=== PATIENT | female | born 1975 | race Caucasian/White ===

== ENCOUNTER 2020-07-01 10:02 | Inpatient (IN) | payer MEDICARE, MEDICAID, SELFPAY ==
[2020-07-01] VITALS (13 sets, daily range): BP systolic 102–143; BP diastolic 60–91; PULSE 59–150; RESP 12–20; TEMP 36.6–36.7; O2SAT 96–100; BMI 29.9
--- NOTE | 2020-07-01 | ECG_ITS ---
Test Reason : REPEAT Blood Pressure : / mmHG Vent. Rate : 060 BPM Atrial Rate : 060 BPM P-R Int : 160 ms QRS Dur : 084 ms QT Int : 412 ms P-R-T Axes : 036 033 048 degrees QTc Int : 412 ms Normal sinus rhythm Low voltage QRS Borderline ECG When compared with ECG of 01-JUL-2020 10:54, Sinus rhythm has replaced Atrial fibrillation Vent. rate has decreased BY 34 BPM Referred By: Roslyn Dietrich Electronically Signed By:MARÍA ELENA CRAIG MD
--- NOTE | ~2020-07-01 | XR_ITS ---
EXAMINATION: XR CHEST CLINICAL INFORMATION: Shortness of breath COMPARISON: None TECHNIQUE: Frontal view of the chest was obtained. FINDINGS: No significant abnormality is noted involving the heart, lungs, mediastinum, bony thorax or soft tissues. XR/XR chest 1V IMPRESSION: No acute disease within the chest.
--- NOTE | ~2020-07-01 | CT_ITS ---
EXAMINATION: CT ABDOMEN AND PELVIS WITHOUT CONTRAST CLINICAL INFORMATION: Abdominal pain, Crohn's. COMPARISON: None TECHNIQUE: Multidetector volumetric imaging was performed from the superior aspect of the liver through the pubic symphysis. Sagittal and coronal reformatted images were obtained on the technologist's workstation. This CT examination was performed using dose optimization techniques as appropriate, variously including the following: *Automated exposure control *Adjustment of mA and/or kV according to patient size (this includes techniques or standardized protocols for targeted exams where dose is matched to indication/reason for exam; i.e. extremities or head) *Use of iterative reconstruction technique DLP: 604 mGy-cm. FINDINGS: LUNG BASES: There is minimal dependent bibasilar atelectasis. Heart size is normal. LIVER, GALLBLADDER, AND BILIARY TREE: The liver is normal in size, shape, and attenuation. No focal hepatic lesion or biliary ductal dilatation is present. The gallbladder has been surgically removed. PANCREAS: Unremarkable. SPLEEN: Unremarkable. ADRENAL GLANDS: Unremarkable. KIDNEYS AND URETERS: The kidneys are normal in size, shape, and attenuation. No hydronephrosis, hydroureter, or calculi seen. No perinephric stranding. BLADDER: Unremarkable. GASTROINTESTINAL TRACT: There is a diffuse mural thickening involving a long segment of small bowel likely ileum in the upper pelvis. Just proximal to this abnormal segment is annular sutures, likely from previous intervention with mild to moderate distention of proximal segment with air-fluid level. There is best visualized on axial images 40 through 56/3. It appears part of the colon has been removed. ABDOMINAL WALL: No significant hernia is appreciated. LYMPH NODES: There are a few, scattered, small mesenteric lymph nodes with the largest lymph node measuring 1.5 cm, axial image 42/3. VASCULAR: Unremarkable. PELVIC VISCERA: There is an IUD noted well located within the endometrial canal. OSSEOUS STRUCTURES: Unremarkable. CT/CT abdomen pelvis wo con IMPRESSION: A small segment of small bowel mural thickening in the upper pelvis, likely related to Crohn's disease. There is anastomotic segment with sutures proximal to the abnormal segment, which is mildly dilated with air-fluid levels. The majority of colon appears to be removed. Correlate with clinical exam. There is no free air or free fluid. Inflammatory mesenteric lymph nodes seen.
--- NOTE | 2020-07-01 10:27 | ECG_ITS ---
Test Reason : TAHY Blood Pressure : / mmHG Vent. Rate : 148 BPM Atrial Rate : 147 BPM P-R Int : 000 ms QRS Dur : 078 ms QT Int : 222 ms P-R-T Axes : 000 036 242 degrees QTc Int : 348 ms Atrial fibrillation with rapid ventricular response Low voltage QRS Nonspecific ST-T changes Abnormal ECG When compared with ECG of 01-JUL-2020 09:10, Atrial fibrillation has replaced Sinus rhythm Vent. rate has increased BY 73 BPM Referred By: Roslyn Dietrich Electronically Signed By:Ezekiel White
--- NOTE | 2020-07-01 10:40 | ECG_ITS ---
Test Reason : REPEAT, TACHY Blood Pressure : / mmHG Vent. Rate : 094 BPM Atrial Rate : 122 BPM P-R Int : 000 ms QRS Dur : 074 ms QT Int : 332 ms P-R-T Axes : 000 043 035 degrees QTc Int : 415 ms Atrial fibrillation with conversion pause and transient sinus rhythm Low voltage QRS Septal infarct (cited on or before 01-JUL-2020) Abnormal ECG When compared with ECG of 01-JUL-2020 09:58, Atrial fibrillation has replaced Sinus rhythm Referred By: Roslyn Dietrich Electronically Signed By:Ezekiel White
--- NOTE | 2020-07-01 10:41 | ED_ITS ---
HPI - Arrhythmia/Palpitations General Chief Complaint: Arrhythmia/Palpitations Stated Complaint: PALPITATIONS Time Seen by Provider: 07/01/20 10:27 Source: patient Mode of arrival: ambulatory Limitations: no limitations History of Present Illness HPI narrative: 45 y/o female with history of Crohn's disease s/p right hemicolectomy in 2014, depression, chronic pain on chronic opiates who presents to the ED with on/off palpitations for the last 4 days. She states they occur at rest or with exertion, can last seconds to minutes. Today the frequency and intensity increased so she had her daughter bring her to the hospital. She denies chest pain but admits to SOB, anxiety and feeling that her heart isn't right. She states for the last 2 weeks her Crohn's has been less controlled and she is having 8-10 episodes on non-bloody diarrhea per day. She has a GI appointment in August and has been off any treatment for Crohn's for some time with plans to start a biologic. She denies fever, chills, N/V. Denies ETOH or drug use. MD complaint: palpitations Onset (ago): day(s) (4) Duration: intermittent Severity: severe Context: occurred during rest and occurred during exertion Associated symptoms: shortness of breath and anxiety Related Data Allergies Allergy/AdvReac Type Severity Reaction Status Date / Time azithromycin [AZITHROMYCIN] Allergy Unknown HIVES Unverified 01/05/20 15:47 Penicillins [PCN] Allergy Unknown HIVES Unverified 01/05/20 15:47 erythromycin base Allergy Hives Verified 07/01/20 11:20 Review of Systems Review of Systems: Constitutional: No Fever, No Chills ENT/Mouth: No sore throat, No Rhinorrhea, No Swallowing Difficulty Cardiovascular: No Chest Pain, + SOB, No Orthopnea, No Edema Respiratory: No Cough, No Sputum, No Wheezing, No dyspnea Gastrointestinal: + Nausea, No Vomiting, No Diarrhea, No abdominal Pain Genitourinary: No Dysuria, No Urinary Frequency, No Hematuria Musculoskeletal: No joint pain, No Myalgias Skin: No Skin Lesions, No rash Neuro: No Weakness, No Numbness, + Dizziness, No Headache Psych: +Anxiety/Panic, No Depression Heme/Lymph: No Bruising, No Lymphadenopathy Endocrine: No Polyuria, No Polydipsia PMFSH Past Medical History Medical History Anxiety Crohn disease Social History Social History Advance Directives: No Advance Directives Information Provided: No Physical Exam Vital Signs: Vital Signs: Last Vital Signs Temp 98 F 07/01/20 10:37 Pulse 59 07/01/20 12:34 Resp 17 07/01/20 12:34 BP 132/74 07/01/20 12:34 Pulse Ox 100 07/01/20 11:09 Body Mass Index 29.9 Appearance: Alert. Oriented X3. Anxious, fatigued. Eyes: Pupils equal, round and reactive to light. ENT: Pharynx normal. Neck: Normal inspection. Neck supple. CVS: irregularly irregular, rapid rate. Pulses normal. Respiratory: No respiratory distress. Breath sounds normal. Abdomen: Soft with mild diffuse tenderness. well healed longitudinal scar consistent with known hemicolectomy. +BS x4 Skin: Skin warm and dry. Normal skin color. Normal skin turgor. No rashes. Extremities: No lower extremity edema. Negative Naveed's sign. Neuro: Oriented X 3. No motor deficit. No sensory deficit. Course Course Course Narrative: 45 yo female presenting with palpitations x4 days. Initially in normal sinus rhythm but when walked back to the treatment room, palpitations started and HR increased to 150's, briefly up to 180's. BP stable 140 systolic. Initial EKG reading as rapid afib vs SVT. Vagal manuvers attempted with only brief improvement in HR to 120-130's and then right back up to 150-160's. Cardizem 20 mg IVP ordered for rate control. 1L IVF hung. Will require frequent reassessment, repeat EKGs and close hemodynamic monitoring. Reevaluation(s) Reevaluation #1: 11 am - After 20 mg IV cardizem very minimal improvement in HR, another 10 mg IV ordered. HR remained 130s after cardizem 30 mg so trial of IV lopressor 5 mg given. HR remained 90-130s and she remained symptomatic. Dr. White consulted. Recommended ruling out PE, cardizem as needed for rate control. Reevaluation #2: 12:45 - after initiation of cardizem infusion patient converted to normal sinus rhythm, HR 62 bpm. DDIMER negative Spoke with Zari Yi PA-C who accepts patient for admission. Consultations Consultation #1: Dr. White, Cardiology MDM - Arrhythmia/Palpitations Differential Diagnosis Differential diagnosis: Likely palpitations, anxiety, sinus tachycardia, artial fibrillation, artial flutter, ventricular premature beats, supraventricular tachycardia, ventricular tachycardia and WPW Medical Records Attestation: I reviewed the patient's medical records. Lab Data Attestation: I reviewed the patient's lab results. Result diagrams: 07/01/20 10:57 07/01/20 10:57 Labs: Lab Results 07/01/20 07/01/20 07/01/20 Range/Units 10:57 10:57 10:57 WBC 7.1 (4.8-10.8) X10*3/uL RBC 4.53 (4.20-5.50) X10*6/uL Hgb 11.6 L (12.0-16.0) g/dl Hct 36.9 L (37-47) % MCV 81.5 (80-98) fL MCH 25.6 L (27.0-33.0) pg MCHC 31.4 (31.0-35.0) g/dl RDW 14.2 (11.0-16.0) % Plt Count 243 (160-400) X10*3/uL MPV 9.8 (9.4-12.3) fL Immature Gran % (Auto) 0.4 (0.0-0.4) % Neut % (Auto) 69.2 (45-73) % Lymph % (Auto) 20.9 (20-40) % Mason % (Auto) 8.1 (2-11) % Eos % (Auto) 1.0 (0-4) % Baso % (Auto) 0.4 (0-2) % Lymph # (Auto) 1.5 (1.2-4.9) X10*3/uL Mason # (Auto) 0.6 (0.1-1.2) X10*3/uL Eos # (Auto) 0.1 (0.0-0.4) X10*3/uL Baso # (Auto) 0.0 (0.0-0.2) X10*3/uL Abs Immat Gran (auto) 0.03 (0.00-0.03) X10*3/uL Absolute Neuts (auto) 4.9 (2.0-8.3) X10*3/uL Absolute Nucleated RBC 0.000 (0.0-0.012) X10*3/uL Nucleated RBC % (auto) 0.0 (0.0-0.2) /100WBC D-Dimer < 200 NG/ML Hold Blue Top SEE NOTE Sodium 140 (135-145) mmol/L Potassium 4.2 (3.3-5.1) mmol/L Chloride 108 (96-108) mmol/L Carbon Dioxide 24 (22-29) mmol/L Anion Gap 12 (12-20) BUN 8 L (9-16) mg/dL Creatinine 0.71 (0.5-1.4) mg/dL Estim Creat Clear Calc 110.4 Estimated GFR > 60 Random Glucose 92 (60-115) mg/dL Calcium 8.3 L (8.4-10.2) mg/dL Magnesium 1.9 (1.6-2.6) mg/dL Total Bilirubin 0.3 (0.0-1.0) mg/dL Direct Bilirubin 0.2 (0.0-0.5) mg/dL AST 29 (5-31) U/L ALT 31 (0-31) U/L Alkaline Phosphatase 86 (39-117) U/L Troponin I High Sens (<3.5-17.0) ng/L Total Protein 6.8 (6.5-8.0) g/dL Albumin 3.9 (3.5-5.0) g/dL TSH 1.08 (0.32-4.0) uIU/mL Urine Color Urine Appearance Urine pH (5.0-8.0) Ur Specific [place] (1.005-1.025) Urine Protein (NEG-TRACE) MG/DL Urine Glucose (UA) (NEG) MG/DL Urine Ketones (NEG) MG/DL Urine Blood (NEG) Urine Nitrite (NEG) Ur Leukocyte Esterase (NEG) Urine Opiates Screen (Not Detect) Ur Barbiturates Screen (Not Detect) Ur Phencyclidine Scrn (Not Detect) Ur Amphetamines Screen (Not Detect) U Benzodiazepines Scrn (Not Detect) Urine Cocaine Screen (Not Detect) U Marijuana (THC) Screen (Not Detect) Ethyl Alcohol mg/dL COVID-19 ([facility]DISON) (Negative) COVID-19 Clin Com 07/01/20 07/01/20 07/01/20 Range/Units 10:57 10:57 10:57 WBC (4.8-10.8) X10*3/uL RBC (4.20-5.50) X10*6/uL Hgb (12.0-16.0) g/dl Hct (37-47) % MCV (80-98) fL MCH (27.0-33.0) pg MCHC (31.0-35.0) g/dl RDW (11.0-16.0) % Plt Count (160-400) X10*3/uL MPV (9.4-12.3) fL Immature Gran % (Auto) (0.0-0.4) % Neut % (Auto) (45-73) % Lymph % (Auto) (20-40) % Mason % (Auto) (2-11) % Eos % (Auto) (0-4) % Baso % (Auto) (0-2) % Lymph # (Auto) (1.2-4.9) X10*3/uL Mason # (Auto) (0.1-1.2) X10*3/uL Eos # (Auto) (0.0-0.4) X10*3/uL Baso # (Auto) (0.0-0.2) X10*3/uL Abs Immat Gran (auto) (0.00-0.03) X10*3/uL Absolute Neuts (auto) (2.0-8.3) X10*3/uL Absolute Nucleated RBC (0.0-0.012) X10*3/uL Nucleated RBC % (auto) (0.0-0.2) /100WBC D-Dimer NG/ML Hold Blue Top Sodium (135-145) mmol/L Potassium (3.3-5.1) mmol/L Chloride (96-108) mmol/L Carbon Dioxide (22-29) mmol/L Anion Gap (12-20) BUN (9-16) mg/dL Creatinine (0.5-1.4) mg/dL Estim Creat Clear Calc Estimated GFR Random Glucose (60-115) mg/dL Calcium (8.4-10.2) mg/dL Magnesium (1.6-2.6) mg/dL Total Bilirubin (0.0-1.0) mg/dL Direct Bilirubin (0.0-0.5) mg/dL AST (5-31) U/L ALT (0-31) U/L Alkaline Phosphatase (39-117) U/L Troponin I High Sens < 3.5 (<3.5-17.0) ng/L Total Protein (6.5-8.0) g/dL Albumin (3.5-5.0) g/dL TSH (0.32-4.0) uIU/mL Urine Color Urine Appearance Urine pH (5.0-8.0) Ur Specific [place] (1.005-1.025) Urine Protein (NEG-TRACE) MG/DL Urine Glucose (UA) (NEG) MG/DL Urine Ketones (NEG) MG/DL Urine Blood (NEG) Urine Nitrite (NEG) Ur Leukocyte Esterase (NEG) Urine Opiates Screen (Not Detect) Ur Barbiturates Screen (Not Detect) Ur Phencyclidine Scrn (Not Detect) Ur Amphetamines Screen (Not Detect) U Benzodiazepines Scrn (Not Detect) Urine Cocaine Screen (Not Detect) U Marijuana (THC) Screen (Not Detect) Ethyl Alcohol < 10 mg/dL COVID-19 (ADDISON) Negative (Negative) COVID-19 Clin Com See Note 07/01/20 07/01/20 Range/Units 11:38 11:38 WBC (4.8-10.8) X10*3/uL RBC (4.20-5.50) X10*6/uL Hgb (12.0-16.0) g/dl Hct (37-47) % MCV (80-98) fL MCH (27.0-33.0) pg MCHC (31.0-35.0) g/dl RDW (11.0-16.0) % Plt Count (160-400) X10*3/uL MPV (9.4-12.3) fL Immature Gran % (Auto) (0.0-0.4) % Neut % (Auto) (45-73) % Lymph % (Auto) (20-40) % Mason % (Auto) (2-11) % Eos % (Auto) (0-4) % Baso % (Auto) (0-2) % Lymph # (Auto) (1.2-4.9) X10*3/uL Mason # (Auto) (0.1-1.2) X10*3/uL Eos # (Auto) (0.0-0.4) X10*3/uL Baso # (Auto) (0.0-0.2) X10*3/uL Abs Immat Gran (auto) (0.00-0.03) X10*3/uL Absolute Neuts (auto) (2.0-8.3) X10*3/uL Absolute Nucleated RBC (0.0-0.012) X10*3/uL Nucleated RBC % (auto) (0.0-0.2) /100WBC D-Dimer NG/ML Hold Blue Top Sodium (135-145) mmol/L Potassium (3.3-5.1) mmol/L Chloride (96-108) mmol/L Carbon Dioxide (22-29) mmol/L Anion Gap (12-20) BUN (9-16) mg/dL Creatinine (0.5-1.4) mg/dL Estim Creat Clear Calc Estimated GFR Random Glucose (60-115) mg/dL Calcium (8.4-10.2) mg/dL Magnesium (1.6-2.6) mg/dL Total Bilirubin (0.0-1.0) mg/dL Direct Bilirubin (0.0-0.5) mg/dL AST (5-31) U/L ALT (0-31) U/L Alkaline Phosphatase (39-117) U/L Troponin I High Sens (<3.5-17.0) ng/L Total Protein (6.5-8.0) g/dL Albumin (3.5-5.0) g/dL TSH (0.32-4.0) uIU/mL Urine Color YELLOW Urine Appearance CLEAR Urine pH 6.0 (5.0-8.0) Ur Specific [place] 1.010 (1.005-1.025) Urine Protein NEG (NEG-TRACE) MG/DL Urine Glucose (UA) NEG (NEG) MG/DL Urine Ketones NEG (NEG) MG/DL Urine Blood NEG (NEG) Urine Nitrite NEG (NEG) Ur Leukocyte Esterase NEG (NEG) Urine Opiates Screen Not Detected (Not Detect) Ur Barbiturates Screen Not Detected (Not Detect) Ur Phencyclidine Scrn Not Detected (Not Detect) Ur Amphetamines Screen Not Detected (Not Detect) U Benzodiazepines Scrn Not Detected (Not Detect) Urine Cocaine Screen Not Detected (Not Detect) U Marijuana (THC) Screen Not Detected (Not Detect) Ethyl Alcohol mg/dL COVID-19 ([facility]DISON) (Negative) COVID-19 Clin Com ECG Data Attestation: I personally reviewed and interpreted this ECG as follows: ECG interpretation date: 07/01/20 Interpretation: #1 9:10 am - normal sinus rhythm, HR 75 bpm, normal AR interval, normal QRS, normal QTc #2 9:28 am - atrial fibrillation with RVR, HR 148 bpm, normal QTc #3 9:31 am - atrial fibtillation with RVR, HR 152, normal QTc #4 9:58 am - atrial fibtillation with RVR, HR 127, normal QTc #5 10:54 am - atrial fibrillation, HR 94 bpm, brief conversion to normal sinus with p-wave followed by QRS then back into atrial fibrillation, no ST segment elevations, QTc normal. Critical Care Time Critical Care Time Critical Care Time: Yes Total Critical Care Time: 60 Attestation: I attest to critical care time spent caring for this patient with new onset rapid afib requiring multiple IV doses of rate controlling medications, frequent bedside reassessment of hemodynamics, & coordination of care with maintenance department manager. Discharge Plan Discharge Clinical Impression: Atrial fibrillation with RVR Patient Disposition: Admitted As Inpatient
[2020-07-01] MEDS: dilTIAZem HCL 50 MG/10 ML VIAL 20 MG IVPUSH (10:43)
[2020-07-01] MEDS: dilTIAZem HCL 50 MG/10 ML VIAL 10 MG IVPUSH (10:58)
--- NOTE | 2020-07-01 11:07 | ECG_ITS ---
Test Reason : PALPITATIONS Blood Pressure : / mmHG Vent. Rate : 075 BPM Atrial Rate : 075 BPM P-R Int : 148 ms QRS Dur : 076 ms QT Int : 360 ms P-R-T Axes : 027 024 040 degrees QTc Int : 402 ms Normal sinus rhythm Low voltage QRS Borderline ECG No previous ECGs available Referred By: Roslyn Dietrich Electronically Signed By:Ezekiel White
[2020-07-01 11:11] LABS: Basophils Percent Auto 0.4 % (0-2); Eosinophils Absolute Auto 0.1 X10*3/uL (0.0-0.4); Hematocrit 36.9 % (37-47); Hemoglobin 11.6 g/dl (12.0-16.0); Imm Gran Abs Auto 0.03 X10*3/uL (0.00-0.03); Imm Gran Pct Auto 0.4 % (0.0-0.4); Lymphocytes Absolute Auto 1.5 X10*3/uL (1.2-4.9); Lymphocytes Percent Auto 20.9 % (20-40); MANUAL DIFF FLAG NO; Mean Corpuscular HGB Conc 31.4 g/dl (31.0-35.0); Mean Corpuscular Hemoglobin 25.6 pg (27.0-33.0); Mean Corpuscular Volume 81.5 fL (80-98); Mean Platelet Volume 9.8 fL (9.4-12.3); Monocytes Absolute Auto 0.6 X10*3/uL (0.1-1.2); Monocytes Percent Auto 8.1 % (2-11); Neutrophils Absolute Auto 4.9 X10*3/uL (2.0-8.3); Neutrophils Percent Auto 69.2 % (45-73); Platelet Count 243 X10*3/uL (160-400); Red Blood Count 4.53 X10*6/uL (4.20-5.50); Red Cell Distribution Width 14.2 % (11.0-16.0); White Blood Count 7.1 X10*3/uL (4.8-10.8)
[2020-07-01 11:27] LABS: COVID-19 Test Negative (Negative); IDNOW Serial# 9DD0AD1C
[2020-07-01 11:35] LABS: Ethanol < 10 mg/dL
[2020-07-01] MEDS: Metoprolol Tartrate 5 MG/5 ML VIAL IVPUSH (11:37)
[2020-07-01 11:38] LABS: Alanine Aminotransferase 31 U/L (0-31); Albumin Level 3.9 g/dL (3.5-5.0); Alkaline Phosphatase 86 U/L (39-117); Anion Gap 12 (12-20); Aspartate Amino Transferase 29 U/L (5-31); Bilirubin Direct 0.2 mg/dL (0.0-0.5); Bilirubin Total 0.3 mg/dL (0.0-1.0); Blood Urea Nitrogen 8 mg/dL (9-16); Calcium 8.3 mg/dL (8.4-10.2); Carbon Dioxide 24 mmol/L (22-29); Chloride 108 mmol/L (96-108); Creatinine Clr Calc Pharmacy 110.4; Estimated Glomerular Filt Rate > 60; Glucose Random 92 mg/dL (60-115); Magnesium 1.9 mg/dL (1.6-2.6); Potassium 4.2 mmol/L (3.3-5.1); Sodium 140 mmol/L (135-145); Total Protein 6.8 g/dL (6.5-8.0)
[2020-07-01 11:43] LABS: Troponin-I High Sensitivity < 3.5 ng/L (<3.5-17.0)
--- NOTE | 2020-07-01 11:53 | ECG_ITS ---
Test Reason : TAHY Blood Pressure : / mmHG Vent. Rate : 127 BPM Atrial Rate : 127 BPM P-R Int : 200 ms QRS Dur : 080 ms QT Int : 320 ms P-R-T Axes : 000 041 032 degrees QTc Int : 465 ms Sinus tachycardia Low voltage QRS Abnormal ECG When compared with ECG of 01-JUL-2020 09:31, Sinus tachycardia has replaced Afib Non-specific change in ST segment in Inferior leads Referred By: Roslyn Dietrich Electronically Signed By:Ezekiel White
[2020-07-01 11:57] LABS: Glucose Urine UA NEG (NEG); Leukocyte Esterase Urine NEG (NEG); Nitrite Urine NEG (NEG); Urine Blood NEG (NEG); Urine Ketones NEG (NEG); Urine Protein NEG (NEG-TRACE)
[2020-07-01 11:58] LABS: TSH reflex Free T4 1.08 uIU/mL (0.32-4.0)
[2020-07-01 12:04] LABS: Color Urine YELLOW
[2020-07-01 12:05] LABS: Appearance Urine CLEAR
[2020-07-01] MEDS: Magnesium Sulfate/H2O 2 GM/50 ML PIGGYBACK IV (12:20)
[2020-07-01] MEDS: dilTIAZem HCL 125 MG in 0.9 % Sodium Chloride 100 ML IVCONT (12:28)
[2020-07-01 12:40] LABS: D Dimer < 200 NG/ML
[2020-07-01 13:23] LABS: Amphetamine Screen Urine Not Detected (Not Detect); Barbiturates, Urine Not Detected (Not Detect); Benzodiazepines Screen Urine Not Detected (Not Detect); Cannabinoid Screen Urine Not Detected (Not Detect); Cocaine Screen Urine Not Detected (Not Detect); Opiate Screen Urine Not Detected (Not Detect); Phencyclidine Screen Urine Not Detected (Not Detect)
--- NOTE | 2020-07-01 14:08 | PM.IMHP ---
History of Present Illness Date of Service: 07/01/20 Chief Complaint: palpitations This is a 45 year old female with a history of Crohns disease and anxiety who presents to the ED with palpitations. She reports intermittent palpitations over the past 4 days usually lasting minutes. These episodes are often associated with dizziness. Today she had associated chest pressure and shortness of breath. Her symptoms persisted longer than her previous episodes as well. This prompted her to come to the emergency department for evaluation. On arrival she was noted to be tachycardic with a heart rate in the 150s. EKG was consistent with atrial fibrillation with rapid ventricular response. She received IV lopressor followed by 2 doses of IV cardizem before being started on a cardizem drip. Her labwork was checked and was unremarkable including ddimer <200, TSH 1.08, magnesium 1.9. She was then noted to convert back into normal sinus rhythm. She is also reporting numerous episodes of non-bloody diarrhea daily. She denies fever or chills. She is not currently on any medication for her Crohns disease. She has been on multiple medications in the past, but they have all caused side effects. Review of Systems Constitutional: Constitutional: Denies chills and Denies fever(s) Cardiovascular: Cardiovascular: Reports chest pain, Reports palpitations and Reports dyspnea Respiratory: Respiratory: Denies cough and Reports dyspnea Gastrointestinal: Gastrointestinal: Reports diarrhea Endocrine: Endocrine: Reports palpitations [facility] Medical History (Updated 07/01/20 @ 14:43 by ZAIN Pedersen) Anxiety Crohn disease Family History (Updated 07/01/20 @ 14:39 by ZAIN Pedersen) Father Atrial fibrillation Surgical History (Updated 07/01/20 @ 14:39 by ZAIN Pedersen) History of bowel resection Hx of cholecystectomy Social History (Updated 07/01/20 @ 14:40 by ZAIN Pedersen) Alcohol intake: current Alcohol intake frequency: holidays/special occasions only Smoking Status: Former smoker Use of substances other than those prescribed or required for medical reasons: No Advance Directives: No Advance Directives Information Provided: No Meds Allergies Allergy/AdvReac Type Severity Reaction Status Date / Time azithromycin [AZITHROMYCIN] Allergy Unknown HIVES Verified 07/01/20 14:17 Penicillins [PCN] Allergy Unknown HIVES Verified 07/01/20 14:17 erythromycin base Allergy Hives Verified 07/01/20 14:17 Active Medications: Current Medications Generic Name Dose Route Start Last Admin Trade Name Guzman PRN Reason Stop Dose Admin Pharmacy Consult 1 each 07/01/20 13:37 Consult Rx Perform Med Rec MISCELLANE ONCE PRN Consult order Home Medications Medication Instructions Recorded Confirmed Last Taken Type clonazepam 1 tab PO DAILY PRN 07/01/20 07/01/20 Unknown History cyanocobalamin (vitamin B-12) 1 tab PO DAILY 07/01/20 07/01/20 Unknown History oxycodone 1 tab PO Q6H PRN 07/01/20 07/01/20 1 Day Ago History ~06/30/20 sertraline 2 tab PO DAILY 07/01/20 07/01/20 Unknown History Physical Exam Vital Signs and Narrative: Vital Signs: Last Vital Signs Temp 98 F 07/01/20 10:37 Pulse 59 07/01/20 12:34 Resp 17 07/01/20 12:34 BP 132/74 07/01/20 12:34 Pulse Ox 100 07/01/20 11:09 Body Mass Index 29.9 Const: Nutritional Appearance: well nourished Orientation/consciousness: patient oriented x3 HENMT: Head: Yes normocephalic and Yes atraumatic Eyes: Sclerae: sclerae normal Chest: Chest palpation & inspection: normal inspection of the chest Resp: Effort & Inspection: normal respiratory effort and no respiratory distress Auscultation: clear to auscultation bilaterally Cardio: Rate: regular rate Rhythm: regular rhythm GI: Other: mild tenderness to palpation b/l lower quadrants; soft, non-distended Skin: General skin exam: no rashes or lesions noted Neuro: General: patient oriented x3 Cranial nerves: Yes CN's II-XII intact bilaterally and Yes Bilaterally intact EOM present Extrem: General: Yes normal to inspection Results Labs CBC and Chem 7: 07/01/20 10:57 07/01/20 10:57 Labs: Laboratory Results - last 24 hr 07/01/20 07/01/20 07/01/20 10:57 10:57 10:57 MCV 81.5 MCH 25.6 L MCHC 31.4 RDW 14.2 Plt Count 243 MPV 9.8 Immature Gran % (Auto) 0.4 Neut % (Auto) 69.2 Lymph % (Auto) 20.9 Heard % (Auto) 8.1 Eos % (Auto) 1.0 Baso % (Auto) 0.4 Lymph # (Auto) 1.5 Heard # (Auto) 0.6 Eos # (Auto) 0.1 Baso # (Auto) 0.0 Abs Immat Gran (auto) 0.03 Absolute Neuts (auto) 4.9 Absolute Nucleated RBC 0.000 Nucleated RBC % (auto) 0.0 D-Dimer < 200 Hold Blue Top SEE NOTE Anion Gap 12 Estim Creat Clear Calc 110.4 Estimated GFR > 60 Random Glucose 92 Calcium 8.3 L Magnesium 1.9 Total Bilirubin 0.3 Direct Bilirubin 0.2 AST 29 ALT 31 Alkaline Phosphatase 86 Troponin I High Sens Total Protein 6.8 Albumin 3.9 TSH 1.08 Urine Color Urine Appearance Urine pH Ur Specific [place] Urine Protein Urine Glucose (UA) Urine Ketones Urine Blood Urine Nitrite Ur Leukocyte Esterase Urine Opiates Screen Ur Barbiturates Screen Ur Phencyclidine Scrn Ur Amphetamines Screen U Benzodiazepines Scrn Urine Cocaine Screen U Marijuana (THC) Screen Ethyl Alcohol COVID-19 ([facility]DISON) COVID-FMS [facility] 07/01/20 07/01/20 07/01/20 10:57 10:57 10:57 MCV MCH MCHC RDW Plt Count MPV Immature Gran % (Auto) Neut % (Auto) Lymph % (Auto) Heard % (Auto) Eos % (Auto) Baso % (Auto) Lymph # (Auto) Heard # (Auto) Eos # (Auto) Baso # (Auto) Abs Immat Gran (auto) Absolute Neuts (auto) Absolute Nucleated RBC Nucleated RBC % (auto) D-Dimer Hold Blue Top Anion Gap Estim Creat Clear Calc Estimated GFR Random Glucose Calcium Magnesium Total Bilirubin Direct Bilirubin AST ALT Alkaline Phosphatase Troponin I High Sens < 3.5 Total Protein Albumin TSH Urine Color Urine Appearance Urine pH Ur Specific [place] Urine Protein Urine Glucose (UA) Urine Ketones Urine Blood Urine Nitrite Ur Leukocyte Esterase Urine Opiates Screen Ur Barbiturates Screen Ur Phencyclidine Scrn Ur Amphetamines Screen U Benzodiazepines Scrn Urine Cocaine Screen U Marijuana (THC) Screen Ethyl Alcohol < 10 COVID-19 (ADDISON) Negative COVID-FMS [facility] See Note 07/01/20 07/01/20 11:38 11:38 MCV MCH MCHC RDW Plt Count MPV Immature Gran % (Auto) Neut % (Auto) Lymph % (Auto) Heard % (Auto) Eos % (Auto) Baso % (Auto) Lymph # (Auto) Heard # (Auto) Eos # (Auto) Baso # (Auto) Abs Immat Gran (auto) Absolute Neuts (auto) Absolute Nucleated RBC Nucleated RBC % (auto) D-Dimer Hold Blue Top Anion Gap Estim Creat Clear Calc Estimated GFR Random Glucose Calcium Magnesium Total Bilirubin Direct Bilirubin AST ALT Alkaline Phosphatase Troponin I High Sens Total Protein Albumin TSH Urine Color YELLOW Urine Appearance CLEAR Urine pH 6.0 Ur Specific [place] 1.010 Urine Protein NEG Urine Glucose (UA) NEG Urine Ketones NEG Urine Blood NEG Urine Nitrite NEG Ur Leukocyte Esterase NEG Urine Opiates Screen Not Detected Ur Barbiturates Screen Not Detected Ur Phencyclidine Scrn Not Detected Ur Amphetamines Screen Not Detected U Benzodiazepines Scrn Not Detected Urine Cocaine Screen Not Detected U Marijuana (THC) Screen Not Detected Ethyl Alcohol COVID-19 (ADDISON) COVID-19 Clin Com Imaging Radiologist's Impressions: Impressions Chest X-Ray 07/01/20 10:40 IMPRESSION: No acute disease within the chest. Assessment and Plan (1) Atrial fibrillation with RVR: Status: Acute (2) Crohn's disease: Status: Acute This is a 45-year-old female with a history of Crohn's disease and anxiety who presents to the emergency department with 4 day history of intermittent palpitations found to be in rapid atrial fibrillation and also with numerous episodes of diarrhea daily New Onset Atrial fibrillation with rapid ventricular response Now back in NSR. Very symptomatic while in afib. May need CV if she goes back into afib, will AC with Eliquis TSH, electrolytes wnl -ECHO -cardiology consult Diarrhea likely r/t Crohn's flare -CT abdomen -stool studies -IV steroids -GI consult dvt ppx - eliquis code status - full code this case was discussed with Dr. peterson
--- NOTE | 2020-07-01 14:32 | PC.NURSE ---
PT REPORTS PALPITATIONS HAVE RESOLVED, DENIES CP, SOB. CURRENTLY IN NSR ON MONITOR, CARDIZEM GTT RUNNING AT 5MG/HR. SEEN BY HOSPITALIST. MED REC COMPLETED, AWAITNG BED ASSIGNMENT
[2020-07-01 15:06] LABS: Prothrombin Time 12.1 SEC (10.8-13.0)
[2020-07-01 15:09] LABS: C Reactive Protein 0.73 mg/dL (< or = 0.50)
[2020-07-01] MEDS: methylPREDNISolone Sod Succ 125 MG/2 ML VIAL 60 MG IVPUSH (15:11)
[2020-07-01] MEDS: 0.9 % Sodium Chloride Flush 3 ML SYRINGE IVFLUSH (16:55)
[2020-07-01] MEDS: oxyCODONE HCl Immed Release 5 MG TABLET 10 MG PO ×2 (17:16→23:52)
[2020-07-01] MEDS: Acetaminophen 325 MG TABLET 650 MG PO (17:16)
--- NOTE | 2020-07-01 20:21 | P.CNGI_ITS ---
History of Present Illness Data of Consult Service Date: 07/01/20 Requesting physician: Tello Ortiz Primary Care Provider: Balaji Ibanez MD HPI Reason for consult: Asked to see patient due to her hx of Crohn's disease/increase diarrhea 45 yo female who has known Crohn's disease. She has had the disease for 14 years. She is followed by Dr. Wynn @ [facility]. Recent colo (about 5 months ago) Showed some activity in the distal ileum. She had a fecal Calprotectin of 800. She has had trouble and not tolerated a lot of the basic treatments including biologics. She has refused recently to start a trial of Entyvio--concern re: side effects, immunosuppression--she says her anxiety has played a big role in her decision making. She had surgical resection in 2016 after a failed attempt(?) to dilate a terminal ileal stricture. (Presume ileo colonic resection to include the valve. Her diarrhea has increased recently. She has it mostly during the morning and after her evening meal. She had a cholecystectomy @ age 20. Review of Systems Constitutional: Constitutional: Reports malaise Comments: Most recently problems have been surrounding the palpitations. Cardiovascular: Cardiovascular: Reports rapid heart rate, Reports irregular heart rhythm, Reports palpitations (has not had before.) and Denies dyspnea Respiratory: Respiratory: Reports no additional respiratory complaints, Denies cough and Denies dyspnea Gastrointestinal: Comments: Has had a dx of Crohn's disease for 14 yr. No specific treatment for @ least 6 months--Major problem is diarrhea--see HPI Psychiatric: Psychiatric: Reports anxiety Endocrine: Endocrine: Reports palpitations (has not had before.) [facility] Past Medical History Medical History (Updated 07/02/20 @ 09:06 by Alfa Flores MD) Anxiety Crohn disease Paroxysmal atrial fibrillation Family History Family History Father Atrial fibrillation Surgical History Surgical History History of bowel resection Hx of cholecystectomy Social History Social History Household Members: Children Housing: House Do you presently have visiting nurse or other home services: No Alcohol intake: current Alcohol intake frequency: holidays/special occasions only Smoking Status: Former smoker Use of substances other than those prescribed or required for medical reasons: No Have you been hit, kicked, punched, or otherwise hurt by someone within the past year? If so, by whom?: No Do you feel safe in your current relationship?: Yes Is there a partner from a previous relationship who is making you feel unsafe now?: No Are you made to feel afraid or neglected: No Advance Directives: No Advance Directives Information Provided: No Do you have thoughts of harming others: None Do you have a plan to hurt others: No Plan Recently lost weight without trying: No service: No Current occupational status: employed Meds Allergies Allergy/AdvReac Type Severity Reaction Status Date / Time azithromycin [AZITHROMYCIN] Allergy Unknown HIVES Verified 07/01/20 14:17 Penicillins [PCN] Allergy Unknown HIVES Verified 07/01/20 14:17 erythromycin base Allergy Hives Verified 07/01/20 14:17 Active Medications: Current Medications Generic Name Dose Route Start Last Admin Trade Name Avtarq PRN Reason Stop Dose Admin Acetaminophen 650 mg 07/01/20 16:41 07/01/20 17:16 Acetaminophen 325 Mg Tablet PO 650 mg Q6H PRN Administration Pain, Mild (Pain Scale 1-3) Apixaban 5 mg 07/01/20 21:00 Apixaban 5 Mg Tablet PO BID WILLIAM Clonazepam 0.5 mg 07/01/20 16:41 Clonazepam 0.5 Mg Tablet PO DAILY PRN Anxiety Cyanocobalamin 1,000 mcg 07/02/20 09:00 Cyanocobalamin (Vitamin B-12) 1,000 Mcg Tablet PO DAILY WILLIAM Docusate Sodium 100 mg 07/01/20 16:41 Docusate Sodium 100 Mg Capsule PO DAILY PRN Constipation Methylprednisolone Sodium Succinate 60 mg 07/01/20 14:30 07/01/20 15:11 Methylprednisolone Sod Succ 125 Mg/2 Ml Vial IVPUSH 60 mg Q12H WILLIAM Administration Ondansetron HCl 4 mg 07/01/20 16:41 Ondansetron Hcl 4 Mg/2 Ml Vial IVPUSH Q8H PRN Nausea and Vomiting Oxycodone HCl 10 mg 07/01/20 16:41 07/01/20 17:16 Oxycodone Hcl Immed Release 5 Mg Tablet PO 10 mg Q6H PRN Administration Back Pain Pharmacy Consult 1 each 07/01/20 13:37 Consult Rx Perform Med Rec MISCELLANE ONCE PRN Consult order Sertraline HCl 200 mg 07/02/20 09:00 Sertraline Hcl 100 Mg Tablet PO DAILY WILLIAM Sodium Chloride 3 ml 07/01/20 16:41 07/01/20 16:55 0.9 % Sodium Chloride Flush 3 Ml Syringe IVFLUSH 3 ml QSHIFT [facility] Administration Home Medications Medication Instructions Recorded Confirmed Last Taken Type clonazepam 1 tab PO DAILY PRN 07/01/20 07/01/20 Unknown History cyanocobalamin (vitamin B-12) 1 tab PO DAILY 07/01/20 07/01/20 Unknown History oxycodone 1 tab PO Q6H PRN 07/01/20 07/01/20 1 Day Ago History ~06/30/20 sertraline 2 tab PO DAILY 07/01/20 07/01/20 Unknown History Physical Exam Vital Signs: Vital Signs: Last Vital Signs Temp 98 F 07/01/20 10:37 Pulse 69 07/01/20 17:10 Resp 18 07/01/20 17:10 BP 102/60 07/01/20 17:10 Pulse Ox 100 07/01/20 17:10 Body Mass Index 29.9 Const: General: cooperative, comfortable and no acute distress Nutritional Appearance: overweight (BMI=29.9) Orientation/consciousness: patient oriented x3 Limitations: language barrier Resp: Effort & Inspection: normal respiratory effort, able to speak in complete sentences, no cough and no respiratory distress Auscultation: clear to auscultation bilaterally Cardio: Rhythm: abnormal rhythm (EKG atrial fibrillation) irregularly irr egular GI: Palpation (GI): Soft to palpation, nontender and no masses Neuro: General: patient oriented x3 Extrem: General: Yes no clubbing, cyanosis or edema Psych: Appearance: grossly normal Mental Status: mental status grossly norm al Speech and movement: Clear speech present Affect: normal affect Results Labs CBC & Chem 7: 07/02/20 08:20 07/02/20 05:47 Labs: Short CBC 07/01/20 Range/Units 10:57 WBC 7.1 (4.8-10.8) X10*3/uL Hgb 11.6 L (12.0-16.0) g/dl Hct 36.9 L (37-47) % Plt Count 243 (160-400) X10*3/uL BMP 07/01/20 10:57 Sodium 140 Potassium 4.2 Chloride 108 Carbon Dioxide 24 BUN 8 L Creatinine 0.71 Calcium 8.3 L Liver Function 07/01/20 Range/Units 10:57 Total Bilirubin 0.3 (0.0-1.0) mg/dL Direct Bilirubin 0.2 (0.0-0.5) mg/dL AST 29 (5-31) U/L ALT 31 (0-31) U/L Alkaline Phosphatase 86 (39-117) U/L Albumin 3.9 (3.5-5.0) g/dL CRP--0.73 Urine 07/01/20 Range/Units 11:38 Urine Color YELLOW Urine Appearance CLEAR Urine pH 6.0 (5.0-8.0) Ur Specific [place] 1.010 (1.005-1.025) Urine Protein NEG (NEG-TRACE) MG/DL Urine Glucose (UA) NEG (NEG) MG/DL Assessment and Plan (1) Diarrhea: Status: Acute Patient's diarrhea may be a combination of surgical removal of the ileo cecal valve and bile salt irritation from having had a cholecystectomy in the past. She denies ever being on Carafate, Questran, etc. I did correctional counselor/case manager her on fact that Entyvio is much less immunosuppressive that the anti TNF's which she had had problems with. Will check some stool studies and follow along, (2) Crohn's disease: Status: Acute Try to establish pattern of diarrhea and how much this is related to inflamatory disease and how much is secondary to her past surgery or IBS. Will try to get some information from Dr. Wynn or on 07/02.
[2020-07-01] MEDS: clonazePAM 0.5 MG TABLET PO (21:48)
[2020-07-01] MEDS: Apixaban 5 MG TABLET PO (21:48)
[2020-07-01 22:13] LABS: OBS Int Ctl Valid YES; OBS1 NEG (NEG)
[2020-07-01 22:43] LABS: Leukocytes Stool Qualitative NEGATIVE (NEGATIVE)
[2020-07-01 22:47] LABS: CDIFF Ag Negative (Negative); CDIFF Internal ctrl Dots and bkg OK (V); CDiff Toxin Negative (Negative)
[2020-07-02] VITALS (8 sets, daily range): BP systolic 105–119; BP diastolic 56–70; PULSE 57–125; RESP 17–20; TEMP 36–36.7; O2SAT 96–98; BMI 28.4
[2020-07-02] MEDS: 0.9 % Sodium Chloride Flush 3 ML SYRINGE IVFLUSH ×3 (01:20→12:59)
[2020-07-02] MEDS: methylPREDNISolone Sod Succ 125 MG/2 ML VIAL 60 MG IVPUSH ×2 (01:20→12:58)
[2020-07-02] MEDS: Metoprolol Tartrate 5 MG/5 ML VIAL IVPUSH (05:02)
--- NOTE | 2020-07-02 05:28 | PC.NURSE ---
Pt hr staying in 130s afib on tele, was previously sinus misael in 50s. Pt complaining of mild sob and intermittent palpitations. Dr Damon notified. 5 mg IV lopressor ordered and administered. Pt now sinus misael in 50s, asymptomatic. Pt having frequent bursts of afib up to 140s then converting back to sinus misael.
[2020-07-02 06:25] LABS: Anion Gap 10 (12-20); Blood Urea Nitrogen 5 mg/dL (9-16); Calcium 8.2 mg/dL (8.4-10.2); Carbon Dioxide 24 mmol/L (22-29); Chloride 108 mmol/L (96-108); Creatinine Clr Calc Pharmacy 119.6; Estimated Glomerular Filt Rate > 60; Glucose Random 147 mg/dL (60-115); Potassium 4.2 mmol/L (3.3-5.1); Sodium 138 mmol/L (135-145)
[2020-07-02] MEDS: Cyanocobalamin (Vitamin B-12) 1,000 MCG TABLET 1000 MCG PO (08:41)
[2020-07-02] MEDS: Apixaban 5 MG TABLET PO (08:41)
[2020-07-02] MEDS: oxyCODONE HCl Immed Release 5 MG TABLET 10 MG PO ×2 (08:45→17:37)
--- NOTE | 2020-07-02 08:56 | P.CONCA_ITS ---
History of Present Illness History of Present Illness Date of Service: 07/02/20 Requesting physician: Zoraida Yi Consult reason: atrial fibrillation Chief complaint: afib with RVR Narrative: Thank you for inviting us in consult on Dylan for atrial fibrillation. She is a pleasant 45-year-old woman with prior history of Crohn's disease status post partial colectomy as per her 5 years ago, more recently having increasing symptoms of diarrhea which is mucousy and occasionally bloody being seen by oracle database architect, 5 months ago she had colonoscopy which she was noted to have inflammatory changes in the terminal ileum. She is scared to go on any medical therapy due to immunosuppression. For the last few days she has been having increasing symptoms of palpitations. Palpitations have been paroxysmal in nature with no clear associated triggers. She gets associated symptoms of lightheadedness. Last night she had symptoms which were associated with lightheadedness, chest pressure shortness of breath and the symptoms lasted for longer period time she got concerned and came to the emergency room. Initial EKG is regular tachycardia narrow complex of 150 beats per minute to suggestive either atrial tachycardia/flutter. This converted then briefly into atrial fibrillation. She was given IV metoprolol and subsequently converted to sinus rhythm and has remained in sinus rhythm for the past few hours. She feels better at this time. Hemodynamically stable. Her D-dimers are negative. Her TSH, potassium and magnesium are within acceptable limits. She is very anxious about this finding. She has family history of premature atrial fibrillation and a father was started at age of 59. She denies any other systemic symptoms. Review of Systems Constitutional: Constitutional: Reports no additional constitutional complaints, Denies body ache(s), Denies chills and Denies fever(s) Cardiovascular: Cardiovascular: Reports chest pain, Denies syncope, Denies leg edema, Reports lightheadedness, Denies Loss of Consciousness, Reports palpitations and Reports dyspnea Respiratory: Respiratory: Reports no additional respiratory complaints and Reports dyspnea Gastrointestinal: Gastrointestinal: Reports diarrhea Genitourinary: Genitourinary: Reports no additional female genitourinary complaints Musculoskeletal: Musculoskeletal: Reports no additional musculoskeletal complaints Neurologic: Reports system reviewed and no additional complaints, except as documented and Denies syncope Psychiatric: Psychiatric: Reports no additional psychiatric complaints Endocrine: Endocrine: Reports no additional endocrine complaints and Reports palpitations Hematologic/Lymphatic: Hematologic/Lymphatic: Reports no additional hematologic/lymphatic complaints Allergic/Immunologic: Allergic/Immunologic: Reports no additional allergic/immunologic complaints [facility] Past Medical History Medical History (Updated 07/02/20 @ 09:06 by Alfa Flores MD) Anxiety Crohn disease Paroxysmal atrial fibrillation Family History Family History Father Atrial fibrillation Surgical History Surgical History History of bowel resection Hx of cholecystectomy Social History Social History Household Members: Children Housing: House Do you presently have visiting nurse or other home services: No Alcohol intake: current Alcohol intake frequency: holidays/special occasions only Smoking Status: Former smoker Use of substances other than those prescribed or required for medical reasons: No Have you been hit, kicked, punched, or otherwise hurt by someone within the past year? If so, by whom?: No Do you feel safe in your current relationship?: Yes Is there a partner from a previous relationship who is making you feel unsafe now?: No Are you made to feel afraid or neglected: No Advance Directives: No Advance Directives Information Provided: No Do you have thoughts of harming others: None Do you have a plan to hurt others: No Plan Recently lost weight without trying: No Meds Allergies Allergy/AdvReac Type Severity Reaction Status Date / Time azithromycin [AZITHROMYCIN] Allergy Unknown HIVES Verified 07/01/20 14:17 Penicillins [PCN] Allergy Unknown HIVES Verified 07/01/20 14:17 erythromycin base Allergy Hives Verified 07/01/20 14:17 Active Medications: Current Medications Generic Name Dose Route Start Last Admin Trade Name Freq PRN Reason Stop Dose Admin Acetaminophen 650 mg 07/01/20 16:41 07/01/20 17:16 Acetaminophen 325 Mg Tablet PO 650 mg Q6H PRN Administration Pain, Mild (Pain Scale 1-3) Apixaban 5 mg 07/01/20 21:00 07/02/20 08:41 Apixaban 5 Mg Tablet PO 5 mg BID WILLIAM Administration Clonazepam 0.5 mg 07/01/20 16:41 07/01/20 21:48 Clonazepam 0.5 Mg Tablet PO 0.5 mg DAILY PRN Administration Anxiety Cyanocobalamin 1,000 mcg 07/02/20 09:00 07/02/20 08:41 Cyanocobalamin (Vitamin B-12) 1,000 Mcg Tablet PO 1,000 mcg DAILY WILLIAM Administration Docusate Sodium 100 mg 07/01/20 16:41 Docusate Sodium 100 Mg Capsule PO DAILY PRN Constipation Methylprednisolone Sodium Succinate 60 mg 07/01/20 14:30 07/02/20 01:20 Methylprednisolone Sod Succ 125 Mg/2 Ml Vial IVPUSH 60 mg Q12H WILLIAM Administration Ondansetron HCl 4 mg 07/01/20 16:41 Ondansetron Hcl 4 Mg/2 Ml Vial IVPUSH Q8H PRN Nausea and Vomiting Oxycodone HCl 10 mg 07/01/20 16:41 07/02/20 08:45 Oxycodone Hcl Immed Release 5 Mg Tablet PO 10 mg Q6H PRN Administration Back Pain Pharmacy Consult 1 each 07/01/20 13:37 Consult Rx Perform Med Rec MISCELLANE ONCE PRN Consult order Sertraline HCl 200 mg 07/02/20 09:00 07/02/20 08:49 Sertraline Hcl 100 Mg Tablet PO Not Given DAILY [facility] Sodium Chloride 3 ml 07/01/20 16:41 07/02/20 08:53 0.9 % Sodium Chloride Flush 3 Ml Syringe IVFLUSH 3 ml QSHIFT [facility] Administration Home Medications Medication Instructions Recorded Confirmed Last Taken Type clonazepam 1 tab PO DAILY PRN 07/01/20 07/01/20 Unknown History cyanocobalamin (vitamin B-12) 1 tab PO DAILY 07/01/20 07/01/20 Unknown History oxycodone 1 tab PO Q6H PRN 07/01/20 07/01/20 1 Day Ago History ~06/30/20 sertraline 2 tab PO DAILY 07/01/20 07/01/20 Unknown History Physical Exam Vital Signs: Vital Signs: Last Vital Signs Temp 98.0 F 07/02/20 07:52 Pulse 57 07/02/20 07:52 Resp 18 07/02/20 07:52 BP 115/66 07/02/20 07:52 Pulse Ox 97 07/02/20 07:52 Body Mass Index 28.4 Const: General: cooperative, comfortable, no acute distress, alert, awake and anxious Nutritional Appearance: overweight Orientation/consciousness: patient oriented x3 Limitations: no limitations HENMT: Head: Yes normocephalic and Yes atraumatic Neck: Neck: Yes trachea midline, Yes supple and Yes no JVD Chest: Chest palpation & inspection: normal inspection of the chest Resp: Effort & Inspection: normal respiratory effort Auscultation: clear to auscultation bilaterally Cardio: Jugular venous distension: no JVD Palpation: normal PMI Rate: regular rate Rhythm: regular rhythm Heart sounds: S1 normal heart sound present, S2 normal heart sound present, no click, no gallops and no murmurs GI: Auscultation: normal bowel sounds Skin: General skin exam: no rashes or lesions noted Neuro: General: patient oriented x3 and no focal motor deficits Extrem: General: Yes no clubbing, cyanosis or edema Psych: Appearance: grossly normal Results Labs and Meds Result diagrams: 07/01/20 10:57 07/02/20 05:47 Lab results: Laboratory Results - last 24 hr 07/01/20 07/01/20 07/01/20 10:57 10:57 10:57 WBC 7.1 RBC 4.53 Hgb 11.6 L Hct 36.9 L MCV 81.5 MCH 25.6 L MCHC 31.4 RDW 14.2 Plt Count 243 MPV 9.8 Immature Gran % (Auto) 0.4 Neut % (Auto) 69.2 Lymph % (Auto) 20.9 [place] % (Auto) 8.1 Eos % (Auto) 1.0 Baso % (Auto) 0.4 Lymph # (Auto) 1.5 [place] # (Auto) 0.6 Eos # (Auto) 0.1 Baso # (Auto) 0.0 Abs Immat Gran (auto) 0.03 Absolute Neuts (auto) 4.9 Absolute Nucleated RBC 0.000 Nucleated RBC % (auto) 0.0 PT 12.1 INR 1.0 D-Dimer < 200 Hold Blue Top SEE NOTE Sodium 140 Potassium 4.2 Chloride 108 Carbon Dioxide 24 Anion Gap 12 BUN 8 L Creatinine 0.71 Estim Creat Clear Calc 110.4 Estimated GFR > 60 Random Glucose 92 Calcium 8.3 L Magnesium 1.9 Total Bilirubin 0.3 Direct Bilirubin 0.2 AST 29 ALT 31 Alkaline Phosphatase 86 Troponin I High Sens C-Reactive Protein 0.73 H Total Protein 6.8 Albumin 3.9 TSH 1.08 Urine Color Urine Appearance Urine pH Ur Specific [place] Urine Protein Urine Glucose (UA) Urine Ketones Urine Blood Urine Nitrite Ur Leukocyte Esterase Stool Occult Blood Stool Leukocytes, Qual Urine Opiates Screen Ur Barbiturates Screen Ur Phencyclidine Scrn Ur Amphetamines Screen U Benzodiazepines Scrn Urine Cocaine Screen U Marijuana (THC) Screen Ethyl Alcohol C. difficile Toxin A&B C. difficile Antigen C. difficile Interpret COVID-19 ([facility]) COVID-19 Clin Com 07/01/20 07/01/20 07/01/20 10:57 10:57 10:57 WBC RBC Hgb Hct MCV MCH MCHC RDW Plt Count MPV Immature Gran % (Auto) Neut % (Auto) Lymph % (Auto) [place] % (Auto) Eos % (Auto) Baso % (Auto) Lymph # (Auto) [place] # (Auto) Eos # (Auto) Baso # (Auto) Abs Immat Gran (auto) Absolute Neuts (auto) Absolute Nucleated RBC Nucleated RBC % (auto) PT INR D-Dimer Hold Blue Top Sodium Potassium Chloride Carbon Dioxide Anion Gap BUN Creatinine Estim Creat Clear Calc Estimated GFR Random Glucose Calcium Magnesium Total Bilirubin Direct Bilirubin AST ALT Alkaline Phosphatase Troponin I High Sens < 3.5 C-Reactive Protein Total Protein Albumin TSH Urine Color Urine Appearance Urine pH Ur Specific [place] Urine Protein Urine Glucose (UA) Urine Ketones Urine Blood Urine Nitrite Ur Leukocyte Esterase Stool Occult Blood Stool Leukocytes, Qual Urine Opiates Screen Ur Barbiturates Screen Ur Phencyclidine Scrn Ur Amphetamines Screen U Benzodiazepines Scrn Urine Cocaine Screen U Marijuana (THC) Screen Ethyl Alcohol < 10 C. difficile Toxin A&B C. difficile Antigen C. difficile Interpret COVID-19 ([facility]) Negative COVID-19 Clin Com See Note 07/01/20 07/01/20 07/01/20 11:38 11:38 22:03 WBC RBC Hgb Hct MCV MCH MCHC RDW Plt Count MPV Immature Gran % (Auto) Neut % (Auto) Lymph % (Auto) [place] % (Auto) Eos % (Auto) Baso % (Auto) Lymph # (Auto) [place] # (Auto) Eos # (Auto) Baso # (Auto) Abs Immat Gran (auto) Absolute Neuts (auto) Absolute Nucleated RBC Nucleated RBC % (auto) PT INR D-Dimer Hold Blue Top Sodium Potassium Chloride Carbon Dioxide Anion Gap BUN Creatinine Estim Creat Clear Calc Estimated GFR Random Glucose Calcium Magnesium Total Bilirubin Direct Bilirubin AST ALT Alkaline Phosphatase Troponin I High Sens C-Reactive Protein Total Protein Albumin TSH Urine Color YELLOW Urine Appearance CLEAR Urine pH 6.0 Ur Specific [place] 1.010 Urine Protein NEG Urine Glucose (UA) NEG Urine Ketones NEG Urine Blood NEG Urine Nitrite NEG Ur Leukocyte Esterase NEG Stool Occult Blood Stool Leukocytes, Qual Urine Opiates Screen Not Detected Ur Barbiturates Screen Not Detected Ur Phencyclidine Scrn Not Detected Ur Amphetamines Screen Not Detected U Benzodiazepines Scrn Not Detected Urine Cocaine Screen Not Detected U Marijuana (THC) Screen Not Detected Ethyl Alcohol C. difficile Toxin A&B Negative C. difficile Antigen Negative C. difficile Interpret SEE NOTE COVID-19 ([facility]) Easiest Credit Card To Get Approved ForID-[employer] 07/01/20 07/01/20 07/02/20 22:03 22:03 05:47 WBC RBC Hgb Hct MCV MCH MCHC RDW Plt Count MPV Immature Gran % (Auto) Neut % (Auto) Lymph % (Auto) [place] % (Auto) Eos % (Auto) Baso % (Auto) Lymph # (Auto) [place] # (Auto) Eos # (Auto) Baso # (Auto) Abs Immat Gran (auto) Absolute Neuts (auto) Absolute Nucleated RBC Nucleated RBC % (auto) PT INR D-Dimer Hold Blue Top Sodium 138 Potassium 4.2 Chloride 108 Carbon Dioxide 24 Anion Gap 10 L BUN 5 L Creatinine 0.64 Estim Creat Clear Calc 119.6 Estimated GFR > 60 Random Glucose 147 H D Calcium 8.2 L Magnesium Total Bilirubin Direct Bilirubin AST ALT Alkaline Phosphatase Troponin I High Sens C-Reactive Protein Total Protein Albumin TSH Urine Color Urine Appearance Urine pH Ur Specific [place] Urine Protein Urine Glucose (UA) Urine Ketones Urine Blood Urine Nitrite Ur Leukocyte Esterase Stool Occult Blood NEG Stool Leukocytes, Qual NEGATIVE Urine Opiates Screen Ur Barbiturates Screen Ur Phencyclidine Scrn Ur Amphetamines Screen U Benzodiazepines Scrn Urine Cocaine Screen U Marijuana (THC) Screen Ethyl Alcohol C. difficile Toxin A&B C. difficile Antigen C. difficile Interpret COVID-19 ([facility]DIS[facility]) COVID-19 [employer] Com EKG on admission shows atrial flutter/tachycardia with 2 is to 1 conduction 150 beats per minute EKG subsequently shows normal sinus rhythm with intermittent atrial fibrillation with rapid ventricular response Last EKG shows the normal sinus rhythm with Imaging Radiologist's impression: Impressions Chest X-Ray 03/14/21 10:40 IMPRESSION: No acute disease within the chest. Assessment and Plan (1) Paroxysmal atrial fibrillation: Status: Acute Highly symptomatic paroxysmal atrial fibrillation, new onset. Patient has no risk factors for atrial fibrillation with CHADSVASc score of 0. Most likely electrical phenomena and given her family history of atrial fibrillation. Discussed with her about non life-threatening nature of atrial fibrillation when she is in it. Will start her with simple medical therapy with Toprol 50 mg daily. Can then uptitrate therapy to either antiarrhythmic drug therapy with flecainide and/or ablation. Pathophysiology of atrial fibrillation was discussed in details. Stress mitigation strategies should be pursued. Avoidance of stimulants such as caffeine and alcohol should be pursued. Most likely triggered by her ongoing inflammatory bowel disease activation. This needs to be treated aggressively. There is no need for oral anticoagulation given her low risk. Start Toprol-XL 50 mg and if she is ambulating and without arrhythmias later in the day can be discharged from cardiac perspective unless there is a medical reason. Most of the other workup can be performed as an outpatient. This was discussed with her. She felt reassured. Will follow with her as outpatient. Thank you for allowing us to partake in the care
[2020-07-02 09:08] LABS: Hematocrit 36.9 % (37-47); Hemoglobin 11.4 g/dl (12.0-16.0); Mean Corpuscular HGB Conc 30.9 g/dl (31.0-35.0); Mean Corpuscular Hemoglobin 25.3 pg (27.0-33.0); Platelet Count 298 X10*3/uL (160-400); Red Cell Distribution Width 14.3 % (11.0-16.0); White Blood Count 11.3 X10*3/uL (4.8-10.8)
--- NOTE | 2020-07-02 11:24 | PC.NURSE ---
Pt. A+Ox3, spoke with electronic lab technician at bedside, possible discharge home later today, down for echo now, will continue to monitor
--- NOTE | 2020-07-02 11:32 | P.PNIM_ITS ---
Subjective Subjective Date of Service: 07/02/20 Interval History: Follow up Crohns flare. Still with some mild pain but improved. She also had Afib rvr that converted however she was very symptomatic. Today palpitation at 0400 resolved. Physical Exam Vital Signs: Vital Signs: Last Vital Signs Temp 98.0 F 07/02/20 07:52 Pulse 57 07/02/20 07:52 Resp 18 07/02/20 07:52 BP 115/66 07/02/20 07:52 Pulse Ox 97 07/02/20 07:52 Body Mass Index 28.4 Appearing in no acute distress lung sounds normal expansion heart regular rate rhythm Epigastric pain neuro patient is alert x3, no focal deficits Objective Data Current Medications Generic Name Dose Route Start Last Admin Trade Name Freq PRN Reason Stop Dose Admin Acetaminophen 650 mg 07/01/20 16:41 07/01/20 17:16 Acetaminophen 325 Mg Tablet PO 650 mg Q6H PRN Administration Pain, Mild (Pain Scale 1-3) Apixaban 5 mg 07/01/20 21:00 07/02/20 08:41 Apixaban 5 Mg Tablet PO 5 mg BID WILLIAM Administration Clonazepam 0.5 mg 07/01/20 16:41 07/01/20 21:48 Clonazepam 0.5 Mg Tablet PO 0.5 mg DAILY PRN Administration Anxiety Cyanocobalamin 1,000 mcg 07/02/20 09:00 07/02/20 08:41 Cyanocobalamin (Vitamin B-12) 1,000 Mcg Tablet PO 1,000 mcg DAILY WILLIAM Administration Docusate Sodium 100 mg 07/01/20 16:41 Docusate Sodium 100 Mg Capsule PO DAILY PRN Constipation Methylprednisolone Sodium Succinate 60 mg 07/01/20 14:30 07/02/20 01:20 Methylprednisolone Sod Succ 125 Mg/2 Ml Vial IVPUSH 60 mg Q12H WILLIAM Administration Ondansetron HCl 4 mg 07/01/20 16:41 Ondansetron Hcl 4 Mg/2 Ml Vial IVPUSH Q8H PRN Nausea and Vomiting Oxycodone HCl 10 mg 07/01/20 16:41 07/02/20 08:45 Oxycodone Hcl Immed Release 5 Mg Tablet PO 10 mg Q6H PRN Administration Back Pain Pharmacy Consult 1 each 07/01/20 13:37 Consult Rx Perform Med Rec MISCELLANE ONCE PRN Consult order Sertraline HCl 200 mg 07/02/20 21:00 Sertraline Hcl 100 Mg Tablet PO BEDTIME WILLIAM Sodium Chloride 3 ml 07/01/20 16:41 07/02/20 08:53 0.9 % Sodium Chloride Flush 3 Ml Syringe IVFLUSH 3 ml QSHIFT WILLIAM Administration Labs CBC & Chem 7: 07/02/20 08:20 07/02/20 05:47 Microbiology Microbiology Results: Microbiology 07/01/20 22:03 Stool Stool Culture - Preliminary Normal so far. Assessment and Plan (1) Crohn's disease: Status: Acute (2) Atrial fibrillation with RVR: Status: Acute (3) Paroxysmal atrial fibrillation: Status: Acute Assessment and Plan: This is a 45-year-old female with a history of Crohn's disease and anxiety who presents to the emergency department with 4 day history of intermittent p alpitations found to be in rapid atrial fibrillation and also with numerous episodes of diarrhea daily #New Onset Atrial fibrillation with rapid ventricular response. Very symptomatic while in afib. One episode of high heart rate at 0400 but resolved. Back in NSR. Ongoing bowel disease may be triggering these events. -CHADSVASc score of 0 -start Toprol 50mg daily -outpatient ECHO as per cardiology -If symptoms persist may need ablation vs. antiarrhythmic medications. #Diarrhea-Better after steroids. Likely r/t Crohn's flare -Neg cdiff and leukocytes -IV steroids -GI following -start oral prednisone tommorrow and outpatient taper -likely discharge tommorrow if stable. Attending. Dr. King
--- NOTE | 2020-07-02 11:42 | MHC.CM.PN ---
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 SHE LIVES WITH HER ADULT DAUGHTER AND 2 YO GRAND DAUGHTER. PT WORKS [employer], HAS NO SERVICES AND NO DME. PT COMPLETED A HCP TODAY NAMING HER DAUGHTERS, EUGENIO AND DENNIS HER PRIMARY AND ALTERNATE AGENTS RESPECTIVELY. PTS PCP IS TERRY NAJERA. IMM DELIVERED PT WILL DC HOME WITH NO SERVICES PT WILL SELF ARRANGE TRANSPORTATION
--- NOTE | 2020-07-02 14:05 | CA_ITS ---
Transthoracic Echocardiogram Patient (Last, First, Middle): Bárbara Sebastian M Gender: Female Date of : 1975 Age: 45 Procedure Date: 07/02/2020 Procedure Type: Transthoracic Echocardiogram Location: S3W Height: 167.64 cm Weight: 79.83 kg BSA: 1.89 m2 Heart Rate: bpm BP: 115 / 66 mmHg Parachute Taper: RANDOLPH Williamson MD: Zoraida PITTMAN Gas Meter Installer Helper: Alfa Flores MD Symptoms: new afib Study Quality: Good ECG Rhythm: Sinus Conclusions: - Essentially normal study Findings Left Ventricle Normal left ventricular size, thickness, and systolic function. The visually estimated ejection fraction is between 60-65%. Diastolic function is normal for age. Right Ventricle Normal right ventricular cavity size and systolic function. Atria Both atria are normal in size. Interatrial shunt cannot be excluded. Aortic Valve Normal aortic valve structure and function. There is no aortic valve stenosis. There is no aortic valve regurgitation. Mitral Valve Normal mitral valve structure and function. There is trace mitral valve regurgitation. There is no mitral valve stenosis. Pulmonic Valve The pulmonic valve was not well visualized. Tricuspid Valve Likely normal tricuspid valve structure and function. There is trace tricuspid valve regurgitation. The right ventricular systolic pressure is normal. The right ventricular systolic pressure is 14 mmHg. Normal right atrial pressure. There is no evidence of pulmonary hypertension. Great Vessels All visible segments of the aorta are normal in size. The pulmonary artery was not well visualized. Venous The inferior vena cava is normal in size and collapses greater than 50% with inspiration. Pericardium/Pleural There is no evidence of pericardial effusion. Prior Study Comparison No prior study available for comparison. Measurements 2D Linear Measurements IVSd: 1.00 0.6-0.9/0.6-1.0 cm LVIDd: 4.54 3.9-5.3/4.2-5.9 cm LVIDs: 3.03 2.0-3.6 cm LVPWd: 0.97 0.7-1.1 cm Ao Root: 2.92 2.1-3.5 cm LV Mass: 188.55 67-162/88-224 g LVOT Diam: 1.95 3.0+(-)1.3 cm Mitral Valve MV Pk E: 0.85 MV PK A: 0.63 MV Decel Time: 296.72 E/A: 1.35 E'Lateral: 0.12 E'Medial: 0.11 Decel [place]: 2.88 Aortic Valve AoV Pk Beb[place]: 1.65 AoV Mn [place]: 1.10 AoV VTI: 0.34 AoV Pk Grad: 10.95 Aov Mn Grad: 5.67 LVOT LVOT Pk [place]: 1.31 LVOT Mn [place]: 0.90 LVOT VTI: 0.30 LVOT Pk Grad: 6.91 LVOT Mn Grad: 3.80 LVOT Diam: 1.95 LVOT Area: 2.99 Diastolic Function MV Pk E: 0.85 MV Pk A: 0.63 E/A: 1.35 E'Medial: 0.11 E' Laterial: 0.12 Tricuspid Valve TR Pk Beb[place]: 1.65 TR Pk Grad: 10.88 RA Press: 3.00 RVSP: 14.00 Great Vessels Aorta Ao Root-2D: 2.92 2.0-3.7 cm Ao Asc: 3.08 2.1-3.4 cm Ao Arch: 2.59 Updated in Other Vendor System with Status of Final Alfa Flores MD electronically signed on 07/02/2020 12:08:40 PM with status of Final
[2020-07-02] MEDS: Metoprolol Succinate ER 50 MG TAB.ER.24H PO (14:44)
[2020-07-02] MEDS: Sertraline HCL 100 MG TABLET 200 MG PO (20:53)
[2020-07-02] MEDS: clonazePAM 0.5 MG TABLET PO (20:54)
[2020-07-03] VITALS: BP 93/51; PULSE 52; RESP 16; TEMP 36.6; O2SAT 96
[2020-07-03] MEDS: methylPREDNISolone Sod Succ 125 MG/2 ML VIAL 60 MG IVPUSH (02:44)
[2020-07-03] MEDS: 0.9 % Sodium Chloride Flush 3 ML SYRINGE IVFLUSH (02:44)
--- NOTE | 2020-07-03 02:54 | PC.NURSE ---
Patient is sinus misael on the monitor. HR in the 40s-50s. Patient is awake and asymptomatic. Denies any lightheadedness, dizziness, or chest pain. Patient received scheduled Metoprolol ER 50mg at 14:44. Will pass on to day shift nurse.
[2020-07-03 04:00] VITALS: BP 120/69; PULSE 46; RESP 16; TEMP 35.9; O2SAT 96
[2020-07-03 08:00] VITALS: BP 113/64; PULSE 51; RESP 16; TEMP 36.6; O2SAT 96
[2020-07-03] MEDS: Cyanocobalamin (Vitamin B-12) 1,000 MCG TABLET 1000 MCG PO (09:39)
--- NOTE | 2020-07-03 11:06 | P.DS_ITS ---
DS: Providers Provider Date of Service: 07/03/20 Date of admission: 07/01/20 14:05 Date of discharge: 07/03/20 Primary care physician: Balaji Ibanez MD Admitting clinician: Zoraida Yi Attending physician on admission: Tello Ortiz Consults: 07/01/20 14:05 Consult to Cardiology Routine Consulting Provider: Ezekiel White Reason for consultation: new afib with rvr Has provider been notified: No 07/01/20 14:30 Consult to Gastroenterology Routine Consulting Provider: Juhi Abad Reason for consultation: crohns, diarrhea Has provider been notified: No Attending physician on discharge: Shawn King Discharging clinician: Aurelia Raymond DS: Diagnosis Discharge Diagnosis (1) Diarrhea: Status: Acute (2) Crohn's disease: Status: Acute (3) Atrial fibrillation with RVR: Status: Acute DS: Medications Discharge Medications Home Medications: Home Medications Medication Instructions Recorded Confirmed clonazepam 1 tab PO DAILY PRN 07/01/20 07/01/20 cyanocobalamin (vitamin B-12) 1 tab PO DAILY 07/01/20 07/01/20 oxycodone 1 tab PO Q6H PRN 07/01/20 07/01/20 sertraline 2 tab PO DAILY 07/01/20 07/01/20 DS: Summary Hospital Course Hospital Course: HP as per admitting provider This is a 45 year old female with a history of Crohns disease and anxiety who presents to the ED with palpitations. She reports intermittent palpitations over the past 4 days usually lasting minutes. These episodes are often associated with dizziness. Today she had associated chest pressure and shortness of breath. Her symptoms persisted longer than her previous episodes as well. This prompted her to come to the emergency department for evaluation. On arrival she was noted to be tachycardic with a heart rate in the 150s. EKG was consistent with atrial fibrillation with rapid ventricular response. She received IV lopressor followed by 2 doses of IV card izem before being started on a cardizem drip. Her labwork was checked and was unremarkable including ddimer <200, TSH 1.08, magnesium 1.9. She was then noted to convert back into normal sinus rhythm. She is also reporting numerous episodes of non-bloody diarrhea daily. She denies fever or chills. She is not currently on any medication for her Crohns disease. She has been on multiple medications in the past, but they have all caused side effects . Atrial fibrillation. Very symptomatic initially with dizziness, palpitations chest pressure and shortness of breath. Troponin negative, no hypoxia. Possibly exacerbated by diarrhea from Crohn's exacerbation. Normal magnesium and TSH. Initially was thought that patient may require a cardioversion however, patient converted to normal sinus rhythm. She had only 1 other brief episode after that of rapid ventricular response however has since been and normal sinus rhythm. She was started on Toprol XL 50 mg daily. She will continue this at home and follow-up with Cardiology. Alex Vasc score is 0, no need for anticoagulation at this time. Crohn's disease exacerbation. Has been having chronic diarrhea with anal pressure. She was treated with methylprednisolone with good effect.She was seen and evaluated by Gastroenterology with recommendation for steroid taper as outpatient. Attending: Dr. King Time Spent with Patient Time attestation: Total time spent providing and/or coordinating discharge services: Discharge coordination time: Greater than 30 minutes Physical Exam Vital Signs: Vital Signs: Last Vital Signs Temp 97.8 F 07/03/20 08:00 Pulse 51 07/03/20 08:00 Resp 16 07/03/20 08:00 BP 113/64 07/03/20 08:00 Pulse Ox 96 07/03/20 08:00 Body Mass Index 28.4 Appearing in no acute distress head is normocephalic atraumatic eyes pupils are PERRLA sclera is anicteric mouth throat mucous membranes are intact and moist neck is supple no lymphadenopathy, no JVD noted lung sounds are clear to auscultation heart regular rate rhythm, clear S1, S2 positive bowel sounds, abdomen is soft, nontender neuro patient is alert x3, no focal deficits DS: Data Data Completed and Pending Labs on day of discharge: Preliminary micro results at discharge 07/01/20 22:03 Stool Culture - Preliminary Stool Normal so far. Discharge Plan Discharge Anticipated Discharge Date/Time: 07/03/20 11:09 Patient Disposition: Home, Self-Care Referrals: Balaji Ibanez MD [Primary Care Provider] - Discharge Medications: New metoprolol succinate [Toprol XL] 50 mg tablet extended release 24 hr 50 mg PO DAILY Qty: 30 RF: 0 Continued clonazepam 0.5 mg tablet 1 tab PO DAILY PRN (Reason: Anxiety) RF: 0 sertraline 100 mg tablet 2 tab PO DAILY RF: 0 cyanocobalamin (vitamin B-12) 1,000 mcg tablet 1 tab PO DAILY RF: 0 oxycodone 10 mg tablet 1 tab PO Q6H PRN (Reason: Back Pain) RF: 0 Discharge Orders: Discharge Order (Routine); Ordered 07/03/20 Ordered By: Aurelia Raymond Diet: advance to usual diet Activity on Discharge: As tolerated Stand Alone Forms: Patient Portal Discharge page Care Plan Goals: Take medications to avoid re-exacerbation of atrial fibrillation Health Concerns: Report dizziness or excessive diarrhea to your primary care doctor. Plan of Treatment: Follow up with [facility] Dr. Flores [phone] Follow up with gastroenterology Dr. Abad [phone] Discharge Date/Time: 07/03/20 14:03
[2020-07-03 11:31] VITALS: BP 109/65; PULSE 59; RESP 16; TEMP 36.3; O2SAT 96
--- NOTE | 2020-07-03 11:33 | MHC.CM.PN ---
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 with case discussed with hospitlaist and straff nurse , met with patient ., aware of discharge hoem today discharge plan home no services pcp patient to [facility]an tong for post hpsitlasl discharge for folow up trasnportation patient to [facility] arrange imm guiven on 07/02/20
--- NOTE | 2020-07-03 13:07 | PC.NURSE ---
Pt. discharged home today, sinus misael/ sinus rhythm all morning, denies pain, denies dizziness and chest pressure, OOB independently, IV removed, brought down in wheelchair by RN
== END 2020-07-03 14:03 | disposition home or self-care (01) | DRG 387 ==
LOC: HO.ED 13:44 → HO.EDOVER 14:11 → HO.S3 07-02 00:01
PROVIDERS: Internal Medicine Gastroenterology; Physician Assistant; Physician Assistant Medical; Admitting Provider Internal Medicine; Emergency Provider Emergency Medicine; PCP Family Medicine; Visit Provider Family Medicine
DX: K50.00 Crohn's disease of small intestine without complications (principal); I48.0 Paroxysmal atrial fibrillation; F32.9 Major depressive disorder, single episode, unspecified; G89.29 Other chronic pain; Z20.822 Contact with and (suspected) exposure to COVID-19; Z88.0 Allergy status to penicillin; Z79.891 Long term (current) use of opiate analgesic; Z79.899 Other long term (current) drug therapy
CPT/HCPCS: 36415; 71045; 74176; 80048; 80076; 80307; 80320; 81003; 82272; 83735; 84443; 84484; 85025; 85027; 85379; 85610; 86140; 87045; 87046; 87324; 87449; 87635; 89055; 93005; 93306; 96365; 96366; 96375; 99285; 99291; J2930; J3475

== ENCOUNTER → 2020-08-09 08:25 | Outpatient (REF) | payer MEDICARE, MEDICAID, SELFPAY ==
--- NOTE | 2020-08-09 08:31 | CA_ITS ---
Acquisition Time: 2020-08-09 08:50:30 Total Exercise Time: 00:05:57 Test Indications: Abnormal ECG Medications: METOPROLOL SERTRALINE CLONAZAPAM Protocol: COURTNEY Max HR: 120 BPM 68% of Pred: 176 BPM Max BP: 118/064 mmHG Max Work Load: 7.0 METS Exercise stress test using Courtney protocol. Total of 5 min 57 sec. Pt's HR up only to 68 % and pt started to have hip and back discomfort. HR attenuated by betablocker. Will order different stress test. Pt denies any chest pain no arrhythmias. Test reviewed with Dr. Caldera. Referred By: Tonya Mitchell Overread By: Nadeen Hamlin NP
--- NOTE | 2020-08-09 08:31 | HM_ITS ---
INDICATION: Unspecified atrial fibrillation. REQUESTING PHYSICIAN: Dr. Flores. ENROLLMENT PERIOD: 08/09/2020 to 09/08/2020 - 30 days. FINDINGS: In the above monitoring period, the underlying rhythm was sinus. The rates ranged from 52 beats per minute to 83 beats per minute. PAC was noted. There is no evidence of atrial fibrillation during this time. There were several symptoms of palpitations noted, but during these times, the underlying rhythm was still sinus rhythm only. CONCLUSION: Study shows underlying sinus rhythm with an isolated PAC and otherwise unremarkable. Mike Caldera MD HS/MODL / [id number]
== END ==
LOC: HO.CARD 08:25
PROVIDERS: Visit Provider Internal Medicine Cardiovascular Disease
DX: I48.0 Paroxysmal atrial fibrillation (principal)
CPT/HCPCS: 93016; 93017; 93018; 93270; 93272

== ENCOUNTER → 2020-09-20 09:07 | Outpatient (BNVA) | payer MEDICARE, MEDICAID, SELFPAY | PROVIDERS: PCP Family Medicine; Referring Provider Family Medicine; Visit Provider Internal Medicine Cardiovascular Disease | DX: I48.0 Paroxysmal atrial fibrillation (principal); R00.2 Palpitations | CPT/HCPCS: 99212 ==

== ENCOUNTER 2020-12-05 15:05 | Emergency (ER) | payer MEDICARE, MEDICAID, SELFPAY ==
--- NOTE | ~2020-12-05 | CT_ITS ---
EXAMINATION: CT HEAD WITHOUT CONTRAST CLINICAL INFORMATION: Paresthesia COMPARISON: None TECHNIQUE: Contiguous axial imaging was performed from the skull base to vertex without intravenous administration of contrast. This CT examination was performed using dose optimization techniques as appropriate, variously including the following: *Automated exposure control *Adjustment of mA and/or kV according to patient size (this includes techniques or standardized protocols for targeted exams where dose is matched to indication/reason for exam; i.e. extremities or head) *Use of iterative reconstruction technique DLP: 657 mGy-cm FINDINGS: There is no evidence of acute intracranial hemorrhage or territorial infarction. No abnormal mass effect or midline shift is seen. [place] to white matter differentiation is well preserved. No extra-axial fluid collections are identified. The ventricles are normal in size. There is no abnormal attenuation within the brain parenchyma. The osseous structures and soft tissues are normal. The mastoid air cells and visualized portions of the paranasal sinuses are well aerated. CT/CT head/brain wo con IMPRESSION: No acute intracranial pathology.
[2020-12-05 16:18] VITALS: BP 112/70; PULSE 63; RESP 18; TEMP 36.8; O2SAT 100; BMI 27.3
--- NOTE | 2020-12-05 16:18 | ED_ITS ---
HPI - General Adult General Chief complaint: General Medical <ZAIN Dias - Last Filed: 12/05/20 16:24> Stated complaint: neuro problems <ZAIN Dias - Last Filed: 12/05/20 16:24> Time Seen by Provider: 12/05/20 16:18 <ZAIN Dias - Last Filed: 12/05/20 16:24> Source: patient <Kendrick Rios MD - Last Filed: 12/05/20 21:46> Limitations: no limitations <Kendrick Rios MD - Last Filed: 12/05/20 21:46> History of Present Illness HPI narrative: This is a 45-year-old female with a history of Crohn's disease, for which she is onEntyvio which she started in August, Who complains of progressive feeling of pressure in her head over the last few days, And which is now turned into more of a headache. The patient is also noted intermittent feeling ringing in her ears and dizziness, feeling off balance, and having tingling sensation in her hands and feet. She feels generally weak. She knows that the medication can cause PML and is concerned about that. She denies any acute visual changes, nausea or vomiting, neck pain or stiffness, chest pain or shortness, or exacerbation of her abdominal pain. She is concerned about side effects from The new medication, and was told she could follow up with a neurologist but she cannot get seen for some time. <Kendrick Rios MD - Last Filed: 12/05/20 21:46> Related Data Home medications: Home Medications Medication Instructions Recorded Confirmed clonazepam 0.5 mg tablet 1 tab PO DAILY PRN 07/01/20 09/20/20 cyanocobalamin (vitamin B-12) 1 tab PO DAILY 07/01/20 09/20/20 1,000 mcg tablet oxycodone 10 mg tablet 1 tab PO Q6H PRN 07/01/20 09/20/20 sertraline 100 mg tablet 2 tab PO DAILY 07/01/20 09/20/20 vedolizumab 300 mg intravenous 300 mg IV Q8W 09/20/20 09/20/20 solution (Entyvio) Previous Rx's Medication Instructions Recorded metoprolol succinate 25 mg 25 mg PO DAILY #30 tab 09/26/20 tablet,extended release 24 hr <ZAIN Dias - Last Filed: 12/05/20 16:24> Allergies/adverse reactions: Allergies Allergy/AdvReac Type Severity Reaction Status Date / Time azithromycin [AZITHROMYCIN] Allergy Intermediate HIVES Verified 12/05/20 16:18 erythromycin base Allergy Intermediate Hives Verified 12/05/20 16:18 Penicillins [PCN] Allergy Intermediate HIVES Verified 12/05/20 16:18 <ZAIN Dias - Last Filed: 12/05/20 16:24> Review of Systems Review of Systems: Yes all other systems are reviewed and are negative <Kendrick Rios MD - Last Filed: 12/05/20 21:46> Constitutional: Constitutional: Denies fever(s), Reports headache(s) and Reports weakness <Kendrick Rios MD - Last Filed: 12/05/20 21:46> Eyes: Eyes: Reports as per HPI and Reports no additional eye complaints <Kendrick Rios MD - Last Filed: 12/05/20 21:46> ENT: Reports system reviewed and no additional complaints, except as documented, Reports as per HPI, Reports headache(s), Denies nasal congestion, Denies nasal discharge and Denies sore throat <Kendrick Rios MD - Last Filed: 12/05/20 21:46> Cardiovascular: Cardiovascular: Reports as per HPI, Denies chest pain and Denies dyspnea <Kendrick Rios MD - Last Filed: 12/05/20 21:46> Respiratory: Respiratory: Reports as per HPI, Denies cough and Denies dyspnea <Kendrick Rios MD - Last Filed: 12/05/20 21:46> Gastrointestinal: Gastrointestinal: Reports as per HPI, Denies abdominal pain, Denies diarrhea and Denies vomiting <Kendrick Rios MD - Last Filed: 12/05/20 21:46> Genitourinary: Genitourinary: Reports as per HPI, Denies hematuria, Denies urinary frequency and Denies dysuria <Kendrick Rios MD - Last Filed: 12/05/20 21:46> Musculoskeletal: Musculoskeletal: Reports no additional musculoskeletal complaints and Denies numbness <Kendrick Rios MD - Last Filed: 12/05/20 21:46> Integumentary/Breasts: Skin/Breast: Reports as per HPI and Denies rash <Kendrick Rios MD - Last Filed: 12/05/20 21:46> Neurologic: Denies Abnormal speech present, Reports headache(s), Denies numbness, Denies Sensory deficit (Neuro), Reports paresthesias and Reports weakness <Kendrick Rios MD - Last Filed: 12/05/20 21:46> Comments: Tinnitus <Kendrick Rios MD - Last Filed: 12/05/20 21:46> Psychiatric: Psychiatric: Reports no additional psychiatric complaints and Reports as per HPI <Kendrick Rios MD - Last Filed: 12/05/20 21:46> Endocrine: Endocrine: Reports no additional endocrine complaints and Reports as per HPI <Kendrick Rios MD - Last Filed: 12/05/20 21:46> Hematologic/Lymphatic: Hematologic/Lymphatic: Reports no additional hematologic/lymphatic complaints, Reports as per HPI and Reports other (No peripheral edema) <Kendrick Rios MD - Last Filed: 12/05/20 21:46> PMFSH Past Medical History Medical History: Medical History (Updated 12/05/20 @ 21:33 by Kendrick Rios MD) Anxiety Atrial fibrillation with RVR Crohn disease Paroxysmal atrial fibrillation <ZAIN Dias - Last Filed: 12/05/20 16:24> Surgical History: Surgical History History of bowel resection Hx of cholecystectomy <ZAIN Dias - Last Filed: 12/05/20 16:24> Family History Family History: Family History Father Atrial fibrillation <ZAIN Dias - Last Filed: 12/05/20 16:24> Social History Social History: Social History Household Members: Children Housing: House Do you presently have visiting nurse or other home services: No Alcohol intake: current Alcohol intake frequency: holidays/special occasions only Advance Directives: No Advance Directives Information Provided: No Patient : No service: No Current occupational status: employed <ZAIN Dias - Last Filed: 12/05/20 16:24> Physical Exam Vital Signs: Vital Signs: Last Vital Signs Temp 98.2 F 12/05/20 16:18 Pulse 57 12/05/20 20:48 Resp 16 12/05/20 20:48 BP 102/47 L 12/05/20 20:51 Pulse Ox 98 12/05/20 20:48 Body Mass Index 27.3 <ZAIN Dias - Last Filed: 12/05/20 16:24> Vital Signs: Last Vital Signs Temp 98.2 F 12/05/20 16:18 Pulse 57 12/05/20 20:48 Resp 16 12/05/20 20:48 BP 102/47 L 12/05/20 20:51 Pulse Ox 98 12/05/20 20:48 Body Mass Index 27.3 <Kendrick Rios MD - Last Filed: 12/05/20 21:46> Const: General: cooperative, no acute distress and alert <Kendrick Rios MD - Last Filed: 12/05/20 21:46> Orientation/consciousness: patient oriented x3 <Kendrick Rios MD - Last Filed: 12/05/20 21:46> HENMT: Head: Yes normal to inspection <Kendrick Rios MD - Last Filed: 12/05/20 21:46> Eyes: General: appearance normal, both eyes and all related structures <Kendrick Rios MD - Last Filed: 12/05/20 21:46> Eyelids: Yes eyelids normal <Kendrick Rios MD - Last Filed: 12/05/20 21:46> Conjunctivae: conjunctivae normal <Kendrick Rios MD - Last Filed: 12/05/20 21:46> Pupils: Equal, round and reactive pupils present <Kendrick Rios MD - Last Filed: 12/05/20 21:46> Neck: Neck: Yes normal visual inspection and Yes supple <Kendrick Rios MD - Last Filed: 12/05/20 21:46> Chest: Chest palpation & inspection: normal inspection of the chest <Kendrick Rios MD - Last Filed: 12/05/20 21:46> Resp: Effort & Inspection: normal respiratory effort <Kendrick Rios MD - Last Filed: 12/05/20 21:46> Auscultation: clear to auscultation bilaterally <Kendrick Rios MD - Last File d: 12/05/20 21:46> Cardio: Rate: regular rate <Kendrick Rios MD - Last Filed: 12/05/20 21:46> Rhythm: regular rhythm <Kendrick Rios MD - Last Filed: 12/05/20 21:46> Heart sounds: S1 normal heart sound present, S2 normal heart sound present, no gallops, no murmurs and no rubs <Kendrick Rios MD - Last Filed: 12/05/20 21:46> GI: Palpation (GI): Soft to palpation, nontender and Other GI palpation findings present (Non-distended) <Kendrick Rios MD - Last Filed: 12/05/20 21:46> Auscultation: normal bowel sounds <Kendrick Rios MD - Last Filed: 12/05/20 21:46> Skin: General skin exam: no rashes or lesions noted <Kendrick Rios MD - Last Filed: 12/05/20 21:46> Neuro: General: patient oriented x3, moves all extremities, no focal motor deficits and CN's II-XI intact bilaterally <Kendrick Rios MD - Last Filed: 12/05/20 21:46> Cranial nerves: Yes CN's II-XII intact bilaterally, Yes Equal, round and reactive pupils present and Yes Bilaterally intact EOM present <Kendrick Rios MD - Last Filed: 12/05/20 21:46> Cognition (Neuro): normal cognition <Kendrick Rios MD - Last Filed: 12/05/20 21:46> Speech: No Abnormal speech present <Kendrick Rios MD - Last Filed: 12/05/20 21:46> Motor exam (neuro): 5/5 motor strength present throughout <Kendrick Rios MD - Last Filed: 12/05/20 21:46> Sensory Exam: No Sensory deficit (Neuro) <Kendrick Rios MD - Last Filed: 12/05/20 21:46> Extrem: General: Yes normal to inspection and Yes no pedal edema <Kendrick Rios MD - Last Filed: 12/05/20 21:46> Psych: Appearance: grossly normal <Kendrick Rios MD - Last Filed: 12/05/20 21:46> Affect: normal affect <eKndrick Rios MD - Last Filed: 12/05/20 21:46> Course Course Course Narrative: This is a rapid medical evaluation in triage: 45yo F wPMHx Afib RVR, chrons, anxiety presenting c/o GUTIÉRREZ x few days with intermittent extremity numbness, visual changes, chills, nausea, lightheadedness. On Entyvio since end of August, denies symptoms like this in the past -EKG and labs ordered Full medical evaluation will be performed by ED provider <ZAIN Dias - Last Filed: 12/05/20 16:24> Medical Decision Making MDM Narrative Medical decision making narrative: Patient with a feeling of pressure in her head, ringing in her ears, paresthesias in her hands and feet, general weakness, feeling off balance, patient has concerns about side effects from her Entresto, which she has been on since August. Labs appear normal here. CT of the brain is pending but assuming it is negative the patient will be discharged home, may need neurology follow- up. Patient seems concerned especially about progressive leukoencephalopathy, though this is a very rare complication. Patient did have improvement in her headache with Toradol IV and Ativan IV. Dr Klein is to review CT of the head report prior to patient discharge <Kendrick Rios MD - Last Filed: 12/05/20 21:46> Lab Data Lab results reviewed: Yes I reviewed the patient's lab results. <Kendrick Rios MD - Last Filed: 12/05/20 21:46> Result diagrams: : 12/05/20 17:20 12/05/20 17:20 <ZAIN Dias - Last Filed: 12/05/20 16:24> Labs: Lab Results 12/05/20 12/05/20 Range/Units 17:20 17:20 WBC 7.6 (4.8-10.8) X10*3/uL RBC 4.29 (4.20-5.50) X10*6/uL Hgb 11.9 L (12.0-16.0) g/dl Hct 36.8 L (37-47) % MCV 85.8 (80-98) fL MCH 27.7 (27.0-33.0) pg MCHC 32.3 (31.0-35.0) g/dl RDW 14.1 (11.0-16.0) % Plt Count 221 D (160-400) X10*3/uL MPV 10.3 (9.4-12.3) fL Immature Gran % (Auto) 0.3 (0.0-0.4) % Neut % (Auto) 66.0 (45-73) % Lymph % (Auto) 25.3 (20-40) % [place] % (Auto) 7.2 (2-11) % Eos % (Auto) 0.8 (0-4) % Baso % (Auto) 0.4 (0-2) % Lymph # (Auto) 1.9 (1.2-4.9) X10*3/uL [place] # (Auto) 0.6 (0.1-1.2) X10*3/uL Eos # (Auto) 0.1 (0.0-0.4) X10*3/uL Baso # (Auto) 0.0 (0.0-0.2) X10*3/uL Abs Immat Gran (auto) 0.02 (0.00-0.03) X10*3/uL Absolute Neuts (auto) 5.0 (2.0-8.3) X10*3/uL Absolute Nucleated RBC 0.000 (0.0-0.012) X10*3/uL Nucleated RBC % (auto) 0.0 (0.0-0.2) /100WBC Sodium 140 (135-145) mmol/L Potassium 4.4 (3.3-5.1) mmol/L Chloride 107 (96-108) mmol/L Carbon Dioxide 27 (22-29) mmol/L Anion Gap 10 L (12-20) BUN 11 D (9-16) mg/dL Creatinine 0.81 (0.5-1.4) mg/dL Estim Creat Clear Calc 96.1 Estimated GFR > 60 Random Glucose 84 D (60-115) mg/dL Calcium 9.2 D (8.4-10.2) mg/dL Magnesium 2.0 (1.6-2.6) mg/dL Total Bilirubin 0.3 (0.0-1.0) mg/dL Direct Bilirubin < 0.2 (0.0-0.5) mg/dL AST 20 (5-31) U/L ALT 20 (0-31) U/L Alkaline Phosphatase 56 D (39-117) U/L Total Protein 7.1 (6.5-8.0) g/dL Albumin 4.2 (3.5-5.0) g/dL <ZAIN Dias - Last Filed: 12/05/20 16:24> Lab Results 12/05/20 12/05/20 Range/Units 17:20 17:20 WBC 7.6 (4.8-10.8) X10*3/uL RBC 4.29 (4.20-5.50) X10*6/uL Hgb 11.9 L (12.0-16.0) g/dl Hct 36.8 L (37-47) % MCV 85.8 (80-98) fL MCH 27.7 (27.0-33.0) pg MCHC 32.3 (31.0-35.0) g/dl RDW 14.1 (11.0-16.0) % Plt Count 221 D (160-400) X10*3/uL MPV 10.3 (9.4-12.3) fL Immature Gran % (Auto) 0.3 (0.0-0.4) % Neut % (Auto) 66.0 (45-73) % Lymph % (Auto) 25.3 (20-40) % [place] % (Auto) 7.2 (2-11) % Eos % (Auto) 0.8 (0-4) % Baso % (Auto) 0.4 (0-2) % Lymph # (Auto) 1.9 (1.2-4.9) X10*3/uL [place] # (Auto) 0.6 (0.1-1.2) X10*3/uL Eos # (Auto) 0.1 (0.0-0.4) X10*3/uL Baso # (Auto) 0.0 (0.0-0.2) X10*3/uL Abs Immat Gran (auto) 0.02 (0.00-0.03) X10*3/uL Absolute Neuts (auto) 5.0 (2.0-8.3) X10*3/uL Absolute Nucleated RBC 0.000 (0.0-0.012) X10*3/uL Nucleated RBC % (auto) 0.0 (0.0-0.2) /100WBC Sodium 140 (135-145) mmol/L Potassium 4.4 (3.3-5.1) mmol/L Chloride 107 (96-108) mmol/L Carbon Dioxide 27 (22-29) mmol/L Anion Gap 10 L (12-20) BUN 11 D (9-16) mg/dL Creatinine 0.81 (0.5-1.4) mg/dL Estim Creat Clear Calc 96.1 Estimated GFR > 60 Random Glucose 84 D (60-115) mg/dL Calcium 9.2 D (8.4-10.2) mg/dL Magnesium 2.0 (1.6-2.6) mg/dL Total Bilirubin 0.3 (0.0-1.0) mg/dL Direct Bilirubin < 0.2 (0.0-0.5) mg/dL AST 20 (5-31) U/L ALT 20 (0-31) U/L Alkaline Phosphatase 56 D (39-117) U/L Total Protein 7.1 (6.5-8.0) g/dL Albumin 4.2 (3.5-5.0) g/dL <Kendrick Rios MD - Last Filed: 12/05/20 21:46> ECG Data Attestation: I personally reviewed and interpreted this ECG as follows: <Kendrick Rios MD - Last Filed: 12/05/20 21:46> Interpretation: Sinus rhythm with a rate of 53. Q-waves anteriorly. Bradycardia is new compared to prior. <Kendrick Rios MD - Last Filed: 12/05/20 21:46> Discharge Plan Discharge Clinical Impression: Headache, Paresthesias <ZAIN Dias - Last Filed: 12/05/20 16:24> Patient Disposition: Home, Self-Care <ZAIN Dias - Last Filed: 12/05/20 16:24> Instructions: Acute Headache (ED), Paresthesia (ED) <ZAIN Dias - Last Filed: 12/05/20 16:24> Additional Instructions: Follow-up with her primary care physician for possible Neurology referral if you have persistent symptoms Continue current medications. Return for any new or worsened symptoms <ZAIN Dias - Last Filed: 12/05/20 16:24> Prescriptions: No Action metoprolol succinate 25 mg tablet extended release 24 hr 25 mg PO DAILY Qty: 30 RF: 5 clonazepam 0.5 mg tablet 1 tab PO DAILY PRN (Reason: Anxiety) RF: 0 sertraline 100 mg tablet 2 tab PO DAILY RF: 0 cyanocobalamin (vitamin B-12) 1,000 mcg tablet 1 tab PO DAILY RF: 0 oxycodone 10 mg tablet 1 tab PO Q6H PRN (Reason: Back Pain) RF: 0 Entyvio 300 mg recon soln 300 mg IV Q8W RF: 0 <ZAIN Dias - Last Filed: 12/05/20 16:24>
--- NOTE | 2020-12-05 16:21 | ECG_ITS ---
Test Reason : DIZZINESS Blood Pressure : / mmHG Vent. Rate : 053 BPM Atrial Rate : 053 BPM P-R Int : 142 ms QRS Dur : 078 ms QT Int : 414 ms P-R-T Axes : 051 030 036 degrees QTc Int : 388 ms Sinus bradycardia Low voltage QRS Septal infarct , age undetermined Abnormal ECG When compared with ECG of 01-JUL-2020 12:56, Heart rate has decreased Referred By: Nydia Mcdaniel Electronically Signed By:MILES HURTADO
[2020-12-05 17:39] LABS: MANUAL DIFF FLAG NO
[2020-12-05 17:42] LABS: Basophils Percent Auto 0.4 % (0-2); Eosinophils Absolute Auto 0.1 X10*3/uL (0.0-0.4); Eosinophils Percent Auto 0.8 % (0-4); Hematocrit 36.8 % (37-47); Hemoglobin 11.9 g/dl (12.0-16.0); Imm Gran Abs Auto 0.02 X10*3/uL (0.00-0.03); Imm Gran Pct Auto 0.3 % (0.0-0.4); Lymphocytes Absolute Auto 1.9 X10*3/uL (1.2-4.9); Lymphocytes Percent Auto 25.3 % (20-40); Mean Corpuscular HGB Conc 32.3 g/dl (31.0-35.0); Mean Corpuscular Hemoglobin 27.7 pg (27.0-33.0); Mean Corpuscular Volume 85.8 fL (80-98); Mean Platelet Volume 10.3 fL (9.4-12.3); Monocytes Absolute Auto 0.6 X10*3/uL (0.1-1.2); Monocytes Percent Auto 7.2 % (2-11); Platelet Count 221 X10*3/uL (160-400); Red Blood Count 4.29 X10*6/uL (4.20-5.50); Red Cell Distribution Width 14.1 % (11.0-16.0); White Blood Count 7.6 X10*3/uL (4.8-10.8)
[2020-12-05 18:15] LABS: Alanine Aminotransferase 20 U/L (0-31); Albumin Level 4.2 g/dL (3.5-5.0); Alkaline Phosphatase 56 U/L (39-117); Anion Gap 10 (12-20); Aspartate Amino Transferase 20 U/L (5-31); Bilirubin Direct < 0.2 mg/dL (0.0-0.5); Bilirubin Total 0.3 mg/dL (0.0-1.0); Blood Urea Nitrogen 11 mg/dL (9-16); Calcium 9.2 mg/dL (8.4-10.2); Carbon Dioxide 27 mmol/L (22-29); Chloride 107 mmol/L (96-108); Creatinine Clr Calc Pharmacy 96.1; Estimated Glomerular Filt Rate > 60; Glucose Random 84 mg/dL (60-115); Potassium 4.4 mmol/L (3.3-5.1); Sodium 140 mmol/L (135-145); Total Protein 7.1 g/dL (6.5-8.0)
[2020-12-05 19:59] VITALS: BP 154/83; PULSE 50; RESP 16; O2SAT 100
[2020-12-05] MEDS: LORazepam 2 MG/ML VIAL 0.5 MG IVPUSH (20:07)
[2020-12-05] MEDS: Ketorolac Tromethamine 15 MG/ML VIAL IVPUSH (20:07)
[2020-12-05 20:48] VITALS: PULSE 57; RESP 16; O2SAT 98
[2020-12-05 20:51] VITALS: BP 102/47
== END 2020-12-05 22:16 | disposition home or self-care (01) ==
PROVIDERS: Physician Assistant; Emergency Provider Emergency Medicine; PCP Family Medicine
DX: R51.9 Headache, unspecified (principal); R20.2 Paresthesia of skin; R42 Dizziness and giddiness; K50.90 Crohn's disease, unspecified, without complications; Z79.899 Other long term (current) drug therapy
CPT/HCPCS: 36415; 70450; 80048; 80076; 83735; 85025; 93005; 96374; 96375; 99284; J1885; J2060

== ENCOUNTER → 2021-03-04 10:21 | Outpatient (REF) | payer MEDICARE, MEDICAID, SELFPAY ==
--- NOTE | 2021-03-04 10:26 | CA_ITS ---
Acquisition Time: 2021-03-04 10:24:01 Total Exercise Time: 00:06:22 Test Indications: AFIB Medications: SEE CHART Protocol: COURTNEY Max HR: 141 BPM 80% of Pred: 176 BPM Max BP: 148/068 mmHG Max Work Load: 7.5 METS Exercise stress test with exercise 6 min 22 sec of Courtney protocol, achieving 78% MPHR, 7.5 MET workload, with request to stop due to shortness of breath and bilateral hip pains, no chest discomfort, without arrythmia, with normotensive response to exercise, with nondiagnostic EKG for ischemia due to suboptimal heart rate, with no ischemic changes noted at 78% MPHR. She did hold her Metoprolol dose last evening. Test reviewed with Dr Caldera. Referred By: Alfa Flores Overread By: CASSI MCKENNA
== END ==
LOC: HO.CARD 10:21
PROVIDERS: Visit Provider Internal Medicine Cardiovascular Disease
DX: I48.0 Paroxysmal atrial fibrillation (principal)
CPT/HCPCS: 93017

== ENCOUNTER → 2021-03-18 11:09 | Outpatient (BNVA) | payer MEDICARE, MEDICAID, SELFPAY | PROVIDERS: PCP Family Medicine; Referring Provider Family Medicine; Visit Provider Internal Medicine Cardiovascular Disease | DX: I48.0 Paroxysmal atrial fibrillation (principal); R42 Dizziness and giddiness | CPT/HCPCS: 99212 ==

== ENCOUNTER → 2021-07-02 08:25 | Outpatient (REF) | payer MEDICARE, MEDICAID, SELFPAY ==
--- NOTE | ~2021-07-02 | NM_ITS ---
Myocardial perfusion study Indication: Paroxysmal Atrial fibrillation to evaluate for myocardial ischemia Technique: The patient was brought in for a Lexiscan perfusion study on 07/02/2021. Patient performed low-level exercise and was injected 0.4 mg of Lexiscan intravenously. Within a minute of injection, 30 mCi of sestamibi was given intravenously. Images were obtained using the SPECT gamma camera interlaced with the gating device. Images were obtained in supine position. Resting perfusion study was performed on 07/04/2021. Patient was administered 30 mCi of sestamibi intravenously at rest. Images were then obtained in supine position. Images obtained with and without CT attenuation. Total DLP 109 mGy-cm. Images were processed with the software and compared side to side in short axis, horizontal long axis and vertical long axis views. Findings: The stress perfusion study showed non attenuated images show minimal thinning of the distal anterolateral wall of the LV myocardium. Remainder of the LV myocardium is normally perfused. Attenuation corrected images show some thinning of the anterolateral wall of the LV myocardium. The gated study shows normal LV systolic function with calculated LVEF of 68%. LV cavity is normal in size. The gated study shows normal systolic wall thickening and contraction of segments. Resting study shows non attenuated images show normal uptake of radiotracer in all segments of LV myocardium. Gating at rest reveals normal systolic wall motion with ejection fraction at 67%. The findings are consistent with no significant reversible defect suggestive of ischemia. NM/NM alannah perf SPECT rest & str Impression: 1. Myocardial perfusion imaging study shows likely normal myocardial perfusion 2. Gated LVEF is 68% 3. Transient ischemic dilatation not present EKG is nondiagnostic for ischemia
--- NOTE | 2021-07-02 08:28 | CA_ITS ---
Acquisition Time: 2021-07-02 08:31:32 Total Exercise Time: 00:02:00 Test Indications: Dyspnea Medications: METOPROLOL SERTRALINE CLONAZAPAM ENTRESTO Protocol: LEXISCAN Max HR: 122 BPM 69% of Pred: 175 BPM Max BP: 118/072 mmHG Max Work Load: 1.6 METS Pharmacological stress test with Lexiscan injection, while walking on treadmill without anginal symptoms, without arrythmia, with normotensive response to injection, with nondiagnostic EKG for ischemia. Nuclear images pending. Test reviewed with Dr Caldera. Referred By: Tonya Mitchell Overread By: TONYA MITCHELL
== END ==
LOC: HO.CARD 08:25
PROVIDERS: PCP Family Medicine; Visit Provider Nurse Practitioner Family
DX: I48.0 Paroxysmal atrial fibrillation (principal)
CPT/HCPCS: 78452; 93017; A9500; J0280; J2785

== ENCOUNTER → 2021-07-04 08:41 | Outpatient (REF) | payer MEDICARE, MEDICAID, SELFPAY ==
--- NOTE | 2021-07-04 08:44 | HM_ITS ---
* Total monitoring time 4 days and 1 hour. * Underlying rhythm is sinus. Average rate 70/Min. Range 53 to 107/Min. * Very rare supraventricular ectopy; 1 run of 11 beats at 148/ min. * Very rare ventricular ectopy. * No patient events. MTDD
== END ==
LOC: HO.CARD 08:41
PROVIDERS: PCP Family Medicine; Visit Provider Internal Medicine Cardiovascular Disease
DX: R00.1 Bradycardia, unspecified (principal)
CPT/HCPCS: 93242

== ENCOUNTER → 2022-02-10 13:52 | Outpatient (BNVA) | payer MEDICARE, MEDICAID, SELFPAY | PROVIDERS: PCP Family Medicine; Visit Provider Internal Medicine | DX: M54.16 Radiculopathy, lumbar region (principal) | CPT/HCPCS: 99202 ==

== ENCOUNTER → 2022-02-25 09:24 | Outpatient (REF) | payer MEDICARE, MEDICAID, SELFPAY ==
--- NOTE | 2022-02-25 09:28 | CA_ITS ---
Transthoracic Echocardiogram Patient (Last, First, Middle): Bárbara Sebastian M Gender: Female Date of : 1975 Age: 46 Procedure Date: 02/25/2022 Procedure Type: Transthoracic Echocardiogram Location: OP Height: 170.18 cm Weight: 87.54 kg BSA: 1.99 m2 Heart Rate: 50 bpm BP: 123 / 72 mmHg Script Girl: TO Referring MD: Alfa Flores MD Cylinder Worker: Alfa Flores MD Symptoms: I48.0 - Paroxysmal atrial fibrillation Study Quality: Adequate ECG Rhythm: Bradycardia Conclusions: - Essentially normal study Findings Left Ventricle Normal left ventricular size, thickness, and systolic function. The visually estimated ejection fraction is between 60-65%. Diastolic function is normal for age. Right Ventricle Normal right ventricular cavity size and systolic function. Atria Both atria are normal in size. There is no evidence of interatrial shunt. Aortic Valve Normal aortic valve structure and function. There is no aortic valve stenosis. There is no aortic valve regurgitation. Mitral Valve Normal mitral valve structure and function. There is trace mitral valve regurgitation. There is no mitral valve stenosis. Pulmonic Valve The pulmonic valve was not well visualized. Tricuspid Valve Likely normal tricuspid valve structure and function. There is trace tricuspid valve regurgitation. The right ventricular systolic pressure is normal. The right ventricular systolic pressure is 15 mmHg. Normal right atrial pressure. There is no evidence of pulmonary hypertension. Great Vessels All visible segments of the aorta are normal in size. The pulmonary artery was not well visualized. Venous The inferior vena cava is normal in size and collapses greater than 50% with inspiration. Pericardium/Pleural There is no evidence of pericardial effusion. Prior Study Comparison No significant change compared to prior study dated: 07/02/2020. Measurements 2D Linear Measurements IVSd: 0.88 0.6-0.9/0.6-1.0 cm LVIDd: 4.67 3.9-5.3/4.2-5.9 cm LVIDd Index: 2.35 2.4-3.2/2.2-3.1 cm/m2 LVIDs: 3.05 2.0-3.6 cm LVPWd: 0.83 0.7-1.1 cm LA Diam: 3.40 2.7-3.8/3.0-4.0 cm LAIDs Index: 1.71 1.5-2.3 cm/m2 LV Mass: 165.05 67-162/88-224 g LV Mass Index: 82.94 43-95/49-115 g/m2 LVOT Diam: 2.00 3.0+(-)1.3 cm 2D Systolic Function EF 4C: 62.20 >55% EF 2C: 62.30 >55% EF BiP: 62.00 >55% Mitral Valve MV Pk E: 0.80 MV PK A: 0.52 MV Decel Time: 266.00 E/A: 1.50 E'Lateral: 10.60 E'Medial: 9.14 E/E' Med: 8.70 E/E' Lat: 7.50 PHT: 78.00 MVA PHT: 2.82 Decel Dooly: 3.00 Aortic Valve AoV Pk Bebeto: 1.48 AoV Mn Bebeto: 1.02 AoV VTI: 0.37 AoV Pk Grad: 9.00 Aov Mn Grad: 5.00 LIZETTE Cont.VTI: 2.48 LVOT LVOT Pk Bebeto: 1.23 LVOT Mn Bebeto: 0.86 LVOT VTI: 0.29 LVOT Pk Grad: 6.00 LVOT Mn Grad: 3.00 LVOT Diam: 2.00 LVOT Area: 3.14 Diastolic Function MV Pk E: 0.80 MV Pk A: 0.52 E/A: 1.50 E'Medial: 9.14 E/E' Med: 8.70 E' Laterial: 10.60 E/E' Lat: 7.50 Right Ventricle TAPSE (mm): 24.30 TVS' Bebeto: 12.00 Tricuspid Valve TR Pk Bebeto: 1.75 TR Pk Grad: 12.00 RA Press: 3.00 RVSP: 15.00 Great Vessels Aorta Sinus of Valsalva: 3.01 2.0-3.[address] Ridge: 2.44 1.7-3.4 cm Ao Asc: 3.20 2.1-3.4 cm Ao Arch: 2.70 Updated in Other Vendor System with Status of Final Alfa Flores MD electronically signed on 02/26/2022 2:25:55 PM with status of Final
== END ==
LOC: HO.CARD 09:24
PROVIDERS: PCP Family Medicine; Visit Provider Internal Medicine Cardiovascular Disease
DX: I48.0 Paroxysmal atrial fibrillation (principal)
CPT/HCPCS: 93306

== ENCOUNTER → 2022-03-18 09:13 | Outpatient (BNVA) | payer MEDICARE, MEDICAID, SELFPAY | PROVIDERS: PCP Family Medicine; Referring Provider Family Medicine; Visit Provider Internal Medicine Cardiovascular Disease | DX: I48.0 Paroxysmal atrial fibrillation (principal) | CPT/HCPCS: 93005; 99212 ==

== ENCOUNTER 2022-08-19 16:46 | Outpatient (REF) | payer MEDICARE, MEDICAID, SELFPAY ==
[2022-08-19 17:08] LABS: MANUAL DIFF FLAG NO
[2022-08-19 17:39] LABS: Basophils Percent Auto 0.5 % (0-2); Eosinophils Absolute Auto 0.1 X10*3/uL (0.0-0.4); Hematocrit 40.8 % (37.0-47.0); Hemoglobin 13.7 g/dl (12.0-16.0); Imm Gran Abs Auto 0.04 X10*3/uL (0.00-0.03); Imm Gran Pct Auto 0.5 % (0.0-0.4); Lymphocytes Absolute Auto 1.9 X10*3/uL (1.2-4.9); Mean Corpuscular HGB Conc 33.6 g/dl (31.0-35.0); Mean Corpuscular Hemoglobin 29.8 pg (27.0-33.0); Mean Corpuscular Volume 88.9 fL (80.0-98.0); Mean Platelet Volume 9.7 fL (9.4-12.3); Monocytes Absolute Auto 0.6 X10*3/uL (0.1-1.2); Monocytes Percent Auto 7.8 % (2-11); Neutrophils Absolute Auto 4.7 x10*3/uL (2.0-8.3); Neutrophils Percent Auto 64.2 % (45-73); Platelet Count 232 X10*3/uL (160-400); Red Blood Count 4.59 X10*6/uL (4.20-5.50); Red Cell Distribution Width 12.3 % (11.0-16.0); White Blood Count 7.3 X10*3/uL (4.8-10.8)
[2022-08-19 18:04] LABS: Alanine Aminotransferase 53 U/L (0-31); Albumin Level 4.2 g/dL (3.5-5.0); Alkaline Phosphatase 85 U/L (39-117); Amylase 82 U/L (28-100); Anion Gap 11 (12-20); Aspartate Amino Transferase 28 U/L (5-31); Bilirubin Direct 0.2 mg/dL (0.0-0.5); Bilirubin Total 0.4 mg/dL (0.0-1.0); Blood Urea Nitrogen 9 mg/dL (9-16); C Reactive Protein 0.27 mg/dL (< or = 0.50); Calcium 9.4 mg/dL (8.4-10.2); Carbon Dioxide 28 mmol/L (22-29); Chloride 107 mmol/L (96-108); Estimated Glomerular Filt Rate > 60; Glucose Random 92 mg/dL (60-115); Lipase 46 U/L (8-78); Potassium 4.6 mmol/L (3.3-5.1); Sodium 141 mmol/L (135-145); Total Protein 7.2 g/dL (6.5-8.0)
[2022-08-19 18:15] LABS: Erythrocyte Sedimentation Rate 13 MM/HR (0-20)
[2022-08-22 19:44] LABS: Immunoglobulin A 276 mg/dL (47-310)
[2022-08-25 11:38] LABS: Endomysial IgA Antibody Negative (Negative)
[2022-08-26 14:04] LABS: Gliadin Deamidated IgA Ab <1.0 U/mL; Gliadin Deamidated IgG Ab <1.0 U/mL
[2022-08-27 10:52] LABS: Transglutaminase Ab IgG <1.0 U/mL; Transglutaminase IgA <1.0 U/mL
== END 2022-08-19 16:47 | disposition home or self-care (01) ==
LOC: HO.LAB 16:46
PROVIDERS: PCP Family Medicine; Visit Provider Internal Medicine
DX: K50.819 Crohn's disease of both small and large intestine with unspecified complications (principal); R10.84 Generalized abdominal pain; R19.7 Diarrhea, unspecified
CPT/HCPCS: 36415; 80053; 82150; 82248; 82784; 83690; 85025; 85652; 86140; 86231; 86258; 86364

== ENCOUNTER 2022-08-21 09:45 | Outpatient (REF) | payer MEDICARE, MEDICAID, SELFPAY ==
[2022-08-21 10:56] LABS: CDiff Gene PCR NEGATIVE (Negative)
[2022-08-21 15:18] LABS: Adenovirus F 40/41 Not Detected (Not Detect.); Astrovirus Not Detected (Not Detect.); Campylobacter Not Detected (Not Detect.); Cryptosporidium Not Detected (Not Detect.); Cyclospora cayetanensis Not Detected (Not Detect.); E. coli EAEC Not Detected (Not Detect.); E. coli EPEC Not Detected (Not Detect.); E. coli ETEC Not Detected (Not Detect.); E. coli STEC Not Detected (Not Detect.); Entamoeba histolytica Not Detected (Not Detect.); Giardia lamblia Not Detected (Not Detect.); Norovirus GI/GII Not Detected (Not Detect.); Plesiomonas shigelloides Not Detected (Not Detect.); Rotavirus A Not Detected (Not Detect.); Salmonella Not Detected (Not Detect.); Sapovirus Not Detected (Not Detect.); Shigella sp./EIEC Not Detected (Not Detect.); Vibrio Not Detected (Not Detect.); Vibrio Cholerae Not Detected (Not Detect.); Yersinia enterocolitica Not Detected (Not Detect.)
[2022-08-29 22:44] LABS: Calprotectin, Fecal 517 mcg/g
== END 2022-08-21 09:46 | disposition home or self-care (01) ==
LOC: HO.LNP 09:45
PROVIDERS: Visit Provider Internal Medicine
DX: K50.819 Crohn's disease of both small and large intestine with unspecified complications (principal); R10.84 Generalized abdominal pain; R19.7 Diarrhea, unspecified
CPT/HCPCS: 83993; 87493; 87507

== ENCOUNTER 2022-09-03 06:01 | Outpatient (REF) | payer MEDICARE, MEDICAID, SELFPAY ==
--- NOTE | ~2022-09-03 | FL_ITS ---
EXAMINATION: XR FLUOROSCOPY WITH IMAGES CLINICAL INFORMATION: M54.16 - Radiculopathy, lumbar region COMPARISON: CT abdomen and pelvis 07/01/2020 TECHNIQUE: Fluoroscopy Supervised By: Dr. Kevin Silver. Fluoroscopy Time: 0.3 minutes. Cumulative Dose: 5.39 mGy. DAP: 0.579 Gycm2. Images: 3. FINDINGS: There is a spinal needle overlying the outer mid left mid lumbar neural foramen. Exact lumbar level is difficult to confirm on the collimated images. There is contrast seen in the respective nerve sheath. Some early transforaminal epidural extension is also present. No visible vascular communication. FL/FL guidance in treatment room IMPRESSION: Fluoroscopy for pain management procedure.
== END 2022-09-03 06:02 | disposition home or self-care (01) ==
LOC: CF 06:01
PROVIDERS: Visit Provider Internal Medicine
DX: M54.16 Radiculopathy, lumbar region (principal)
CPT/HCPCS: 64483; J1100

== ENCOUNTER → 2022-10-03 09:39 | Outpatient (BNVA) | payer MEDICARE, MEDICAID, SELFPAY | PROVIDERS: PCP Family Medicine; Visit Provider Internal Medicine | DX: M54.59 Other low back pain (principal); M47.816 Spondylosis without myelopathy or radiculopathy, lumbar region | CPT/HCPCS: 99212 ==

== ENCOUNTER 2022-10-13 11:59 | Day surgery (SDC) | payer MEDICARE, MEDICAID, SELFPAY ==
--- NOTE | 2022-10-10 12:13 | HO.ANESPROP2 ---
Documented by User: Elba Arreaga NP 10/10/22 12:17 HPI - Anesthesia Eval Consult details Narrative: 47yo F for Colonoscopy afib, no anticoag Stable at 02/2022 cardiology office visit. [facility] Active Problems Active Problems: All Active Problems (Updated 10/07/22 @ 13:45 by Kevin Silver MD) Lumbar spondylosis (Acute) Intractable low back pain (Acute) Leg pain (Acute) Lumbar radiculopathy (Acute) Palpitations (Acute) Paroxysmal atrial fibrillation (Acute) Diarrhea (Acute) Crohn's disease (Acute) Past Medical History Medical History Anxiety Atrial fibrillation with RVR Chronic pain in right foot Crohn disease Disorder of sacrum Lumbar radiculopathy Paroxysmal atrial fibrillation Tendonitis involving right hip abductors Trochanteric bursitis of right hip Family History Family History Father Atrial fibrillation Surgical History Surgical History (Updated 10/13/22 @ 12:22 by Nancy Naranjo RN) History of bowel resection History of hip surgery Hx of cholecystectomy Hx of colonoscopy Social History Social History Household Members: Children Housing: House Do you presently have visiting nurse or other home services: No Alcohol intake: current Alcohol intake frequency: holidays/special occasions only Patient Tobacco Use Status: Former Tobacco user Quit Date: 8 yrs ago Use of substances other than those prescribed or required for medical reasons: No Are you DNR?: No Advance Directives: No Advance Directives Information Provided: Yes service: No Current occupational status: employed Meds Allergies Allergy/AdvReac Type Severity Reaction Status Date / Time azithromycin [AZITHROMYCIN] Allergy Intermediate HIVES Verified 10/03/22 09:49 erythromycin base Allergy Intermediate Hives Verified 10/03/22 09:49 Penicillins [PCN] Allergy Intermediate Difficulty Verified 10/13/22 12:22 Breathing Home Medications Medication Instructions Recorded Confirmed Last Taken Type clonazepam 0.5 mg tablet (Klonopin) 1 tab PO DAILY PRN Anxiety 07/01/20 10/13/22 Unknown History oxycodone 10 mg tablet 1 tab PO Q6H PRN Back Pain 07/01/20 10/13/22 1 Day Ago History ~06/30/20 buspirone 10 mg tablet 10 mg PO BID 03/18/22 10/13/22 Unknown History sertraline 100 mg tablet (Zoloft) 200 mg PO DAILY 03/18/22 10/13/22 Unknown History budesonide 3 mg 9 mg PO QAM 10/03/22 10/13/22 Unknown History capsule,delayed,extended release quetiapine 25 mg tablet (Seroquel) 25 mg PO BEDTIME 10/03/22 10/13/22 Unknown History metoprolol succinate 25 mg 25 mg PO DAILY 10/13/22 10/13/22 Unknown History tablet,extended release 24 hr (Toprol XL) Exam Exam Date and Time: October 10, 2022 1213 Pertinent Lab Results Pertinent Lab Results: Laboratory Tests 08/19/22 08/19/22 17:06 17:06 WBC 7.3 Hgb 13.7 Hct 40.8 Plt Count 232 Sodium 141 Potassium 4.6 Chloride 107 Carbon Dioxide 28 BUN 9 Creatinine 0.74 Narrative Narrative: EKG 02/2022 sinus bradycardia with low-voltage QRS with poor R-wave progression most likely due to lead placement Documented by User: Obinna Dotson MD 10/13/22 13:38 [facility] Past Medical History Medical History Anxiety Atrial fibrillation with RVR Chronic pain in right foot Crohn disease Disorder of sacrum Lumbar radiculopathy Paroxysmal atrial fibrillation Tendonitis involving right hip abductors Trochanteric bursitis of right hip Family History Family History Father Atrial fibrillation Family history of problems with anesthesia: No Surgical History Surgical History (Updated 10/13/22 @ 12:22 by Nancy Naranjo, LISA) History of bowel resection History of hip surgery Hx of cholecystectomy Hx of colonoscopy History of Problems with Anesthesia: No Social History Social History Household Members: Children Housing: House Do you presently have visiting nurse or other home services: No Alcohol intake: current Alcohol intake frequency: holidays/special occasions only Patient Tobacco Use Status: Former Tobacco user Quit Date: 8 yrs ago Use of substances other than those prescribed or required for medical reasons: No Are you DNR?: No Advance Directives: No Advance Directives Information Provided: Yes service: No Current occupational status: employed Meds Allergies Allergy/AdvReac Type Severity Reaction Status Date / Time azithromycin [AZITHROMYCIN] Allergy Intermediate HIVES Verified 10/03/22 09:49 erythromycin base Allergy Intermediate Hives Verified 10/03/22 09:49 Penicillins [PCN] Allergy Intermediate Difficulty Verified 10/13/22 12:22 Breathing Home Medications Medication Instructions Recorded Confirmed Last Taken Type clonazepam 0.5 mg tablet (Klonopin) 1 tab PO DAILY PRN Anxiety 07/01/20 10/13/22 Unknown History oxycodone 10 mg tablet 1 tab PO Q6H PRN Back Pain 07/01/20 10/13/22 1 Day Ago History ~06/30/20 buspirone 10 mg tablet 10 mg PO BID 03/18/22 10/13/22 Unknown History sertraline 100 mg tablet (Zoloft) 200 mg PO DAILY 03/18/22 10/13/22 Unknown History budesonide 3 mg 9 mg PO QAM 10/03/22 10/13/22 Unknown History capsule,delayed,extended release quetiapine 25 mg tablet (Seroquel) 25 mg PO BEDTIME 10/03/22 10/13/22 Unknown History metoprolol succinate 25 mg 25 mg PO DAILY 10/13/22 10/13/22 Unknown History tablet,extended release 24 hr (Toprol XL) Exam Airway Mallampati Class: II TM Dist: >3cm Neck ROM: Full Heart: rrr Lungs: cta Assessment and Plan Assessment Anesthesia Assessment: Anesthesia Plan Discussed Final Anesthetic Review Family History of Problems with Anesthesia: No History of Problems with Anesthesia: No NPO: Yes ASA Class: II Final Preanesthetic Review: No Changes in Pt Med Stat, Meds/Allgs Chart Reviewed, Consent Obtained/Reviewed and Anes Risks/Benef Reviewed Patient Risk: Intermediate Procedure Risk: Low Assessment/Block/Sedation in SS: Assess/Block/Sedation-SS Anesthetic Plan Anesthetic Plan: MAC: and Agree w/ Assess. and Plan Disposition: Standard PACU
[2022-10-13 12:24] VITALS: BMI 28.8
[2022-10-13 12:37] VITALS: BP 119/63; PULSE 62; RESP 15; TEMP 36.7; O2SAT 99
[2022-10-13] MEDS: Lactated Ringers 1,000 ML 100 ML IVCONT (12:39)
[2022-10-13 13:31] LABS: UPreg QC Valid YES; Urine Pregnancy NEGATIVE (NEGATIVE)
[2022-10-13 14:49] VITALS: BP 120/65; PULSE 62; RESP 16; TEMP 36.6; O2SAT 99
--- NOTE | 2022-10-13 15:00 | PM.OP ---
Brief Operative Note Date of Service: 10/13/22 Pre-op diagnosis: Crohn's Post-op diagnosis: other (Ileitis and Crohn's at the anastomosis) Procedure: Flexsig and ileoscopy Surgeon: Stepan Sheldon Anesthesia: MAC Was an Service Desk Technician used for this Procedure?: No Estimated blood loss (mL): 2.0 Pathology: none sent Condition: stable Disposition: PACU
[2022-10-13 15:04] VITALS: BP 123/72; PULSE 60; RESP 16; O2SAT 98
[2022-10-13 15:19] VITALS: BP 124/69; PULSE 55; RESP 16; TEMP 36.5; O2SAT 99
--- NOTE | 2022-10-13 22:41 | OP_ITS ---
DATE OF SERVICE: 10/13/2022 SURGEON: Stepan Sheldon MD INDICATIONS: The patient presents for evaluation of Crohn's disease and ongoing issues with diarrhea. Full consent has been obtained from her for this, including risks of bleeding and perforation. PREOPERATIVE DIAGNOSIS: POSTOPERATIVE DIAGNOSIS: PROCEDURE PERFORMED: Colonoscopy to 30 cm and evaluation of the distal 10 cm of the ileum beyond the anastomosis. ESTIMATED BLOOD LOSS: COMPLICATIONS: ANESTHESIA: Monitored anesthesia care. ASSISTANTS: SPECIMENS: PREOPERATIVE DIAGNOSES: Crohn's disease and diarrhea. POSTOPERATIVE DIAGNOSES: Crohn's disease and diarrhea, ileitis and inflammation at the ileocolic anastomosis. Internal hemorrhoids. DESCRIPTION OF PROCEDURE: The patient was placed in the left lateral decubitus position. The digital rectal exam revealed no perianal disease. The Olympus video pediatric colonoscope was entered into the rectum and advanced to 30 cm. At approximately 30 to 35 cm, I visualized her previously known anastomosis. The small bowel mucosa at the lumen to the small bowel had some surrounding inflammation, edema, and friability. The small bowel mucosa near the anastomosis itself appeared normal. I was able to visualize the lumen of the anastomosis, but was unable to enter with the colonoscope. Photographs were taken. The scope was then slowly withdrawn assessing all mucosal surfaces carefully. Preparation was excellent. The colonic and rectal mucosa appeared normal. There was no sign of any polyps, colitis, nor angiodysplasia. In the rectum, scope was retroflexed visualizing internal hemorrhoids, but no other pathology. The rectal mucosa appeared normal. The scope was straightened and withdrawn from the patient. I then used an Olympus video gastroscope to see if that would allow me to enter the small bowel past the anastomosis. This was advanced to the level of the anastomosis and with abdominal wall pressure, I was then able to enter the anastomosis. I cannulated the ileum for about 10 cm, and there was some evidence of active ileitis with small ulcerations and some chronic changes consistent with some cobblestoning consistent with Crohn disease. The scope was then withdrawn back into the colon. Biopsies were not obtained given her known diagnosis. The scope was then withdrawn from the remainder of the colon, which again appeared normal. The scope was withdrawn from the patient. She tolerated the procedure well and was returned to the recovery area in stable condition. IMPRESSION: 1. Ileitis and active Crohn's at the region of the anastomosis. 2. Normal-appearing distal colonic mucosa and rectal mucosa. 3. Internal hemorrhoids. PLAN: At this point, the patient has been using Entocort 6 mg daily and I will increase it to 9mg daily. I shall also start her on Pentasa 500mg QID. She continues to have her main complaint of frequent loose bowel movements. Given her anatomy with a majority of her colon removed and a low-lying anastomosis, this would certainly account for at least part of that issue. However, she does have some active ileitis. She has already been on numerous biologic agents with her other gastroenterologists including Leny Miles, and Tej. I had given her a prescription to use cholestyramine powder to see if that would help to treat any bile-induced diarrhea, but she has been unable to tolerate it because of the taste. I did advise her to continue to use Imodium as needed. I will give her a prescription for Colestid pills to see if that would help, rather than the cholestyramine, as it comes in pill form rather than powder. We could certainly try a different biologic agent such as Stelara, but she is hesitant to do so because of potential adverse side effects and because of symptoms that she was having while on the other biologic agents. I will plan to see her in the office to review all this further and see how she is doing on the above regimen. Stepan Sheldon MD / [phone] MTDD
== END 2022-10-13 15:49 | disposition home or self-care (01) ==
PROVIDERS: Nurse Practitioner; PCP Family Medicine; Visit Provider Internal Medicine
PROC: 0DJD8ZZ Inspection of Lower Intestinal Tract, Via Natural or Artificial Opening Endoscopic (ICD-10-PCS; CPT 45378; principal; 2022-10-13 13:00)
DX: K50.90 Crohn's disease, unspecified, without complications (principal); K52.9 Noninfective gastroenteritis and colitis, unspecified; Z98.0 Intestinal bypass and anastomosis status; Z90.49 Acquired absence of other specified parts of digestive tract; K64.8 Other hemorrhoids; I48.0 Paroxysmal atrial fibrillation; Z87.891 Personal history of nicotine dependence; Z79.899 Other long term (current) drug therapy; Z88.0 Allergy status to penicillin; Z88.1 Allergy status to other antibiotic agents
CPT/HCPCS: 45330; 81025

== ENCOUNTER 2022-10-16 10:25 | Outpatient (REF) | payer MEDICARE, MEDICAID, SELFPAY ==
--- NOTE | ~2022-10-16 | US_ITS ---
EXAMINATION: US LOWER EXTREMITY VENOUS (REFLUX EXAM), BILATERAL CLINICAL INDICATION: Chronic venous insufficiency with lower extremity varicose veins and lower extremity pain COMPARISON: None. TECHNIQUE: Color flow triplex imaging and compression Doppler was performed to evaluate both the deep and the superficial systems bilaterally. To evaluate the superficial system, the examination was performed in the upright position. Color-flow Doppler ultrasound and compression ultrasound were utilized. In addition, maneuvers were utilized to demonstrate reflux. FINDINGS: 1. DEEP VENOUS ULTRASOUND OF THE RIGHT LOWER EXTREMITY: Common Femoral Vein: Compressible, normal respiratory variation and augmented flow. Femoral Vein: Compressible, normal color flow and augmentation. Popliteal Vein: Compressible, normal augmentation. Deep Reflux: There is no evidence of reflux in the deep system in either the common femoral vein or the popliteal vein. There is no evidence of a Ogden's cyst. 2. SUPERFICIAL ULTRASOUND WITH DOPPLER OF RIGHT LOWER EXTREMITY: GREAT SAPHENOUS VEIN: Saphenofemoral Junction: 0.8 cm; Reflux: 0 ms Proximal Thigh: 0.4 cm; Reflux: 0 ms Mid Thigh: 0.2 cm; Reflux: 0 ms Above Knee: 0.3 cm; Reflux: 0 ms At Knee: 0.3 cm; Reflux: 0 ms Below Knee: 0.2 cm; Reflux: 480 ms Mid Calf: 0.2 cm; Reflux: 0 ms Ankle: 0.2 cm; Reflux: 0 ms DUPLICATED MEDIAL GREAT SAPHENOUS VEIN: Diameter: 0.3 cm Reflux: None DUPLICATED LATERAL GREAT SAPHENOUS VEIN: Diameter: 0.3 cm Reflux: None SMALL SAPHENOUS VEIN: Proximal: 0.3 cm; Reflux: 0 ms Distal: 0.3 cm; Reflux: 1496 ms VEIN OF GIACOMINI: Size: NA Reflux: NA PERFORATORS: Location: Posterior calf extending from the gastrocnemius vein to the small saphenous vein Size: 0.3 cm Reflux: None PERFORATORS: Location: 32 cm from heel extending to the great saphenous vein in the proximal calf Size: 0.3 cm Reflux: 800 ms VARICOSITIES: Location: None significant Size: NA Reflux: NA 3. DEEP VENOUS ULTRASOUND OF THE LEFT LOWER EXTREMITY: Common Femoral Vein: Compressible, normal respiratory variation and augmented flow. Femoral Vein: Compressible, normal color flow and augmentation. Popliteal Vein: Compressible, normal augmentation. Deep Reflux: There is no evidence of reflux in the deep system in either the common femoral vein or the popliteal vein. There is no evidence of a Ogden's cyst. 4. SUPERFICIAL ULTRASOUND WITH DOPPLER OF LEFT LOWER EXTREMITY: GREAT SAPHENOUS VEIN: Saphenofemoral Junction: 0.9 cm; Reflux: 0 ms Proximal Thigh: 0.4 cm; Reflux: 0 ms Mid Thigh: 0.2 cm; Reflux: 0 ms Above Knee: 0.3 cm; Reflux: 0 ms At Knee: 0.2 cm; Reflux: 0 ms Below Knee: 0.2 cm; Reflux: 0 ms Mid Calf: 0.1 cm; Reflux: 2072 ms Ankle: 0.2 cm; Reflux: 0 ms DUPLICATED MEDIAL GREAT SAPHENOUS VEIN: Diameter: 0.3 cm Reflux: None DUPLICATED LATERAL GREAT SAPHENOUS VEIN: Diameter: 0.4 cm Reflux: None SMALL SAPHENOUS VEIN: Proximal: 0.4 cm; Reflux: 0 ms Distal: 0.2 cm; Reflux: 0 ms VEIN OF GIACOMINI: Size: NA Reflux: NA PERFORATORS: Location: Medial proximal and mid calf. Posterior mid calf Size: 0.2 to 0.4 cm Reflux: Ranging from 0 ms to 1300 ms VARICOSITIES: Location: None significant Size: NA Reflux: NA US/US venous duplex LE BI IMPRESSION: Right: No significant superficial venous reflux in the great saphenous vein. There is focal segmental reflux in the distal small saphenous vein Left: Focal reflux seen in the great saphenous vein in the mid calf and medial photographic printer vein as described above.
== END 2022-10-16 10:26 | disposition home or self-care (01) ==
LOC: HO.US 10:25
PROVIDERS: PCP Family Medicine; Visit Provider Internal Medicine
DX: M79.662 Pain in left lower leg (principal); M79.661 Pain in right lower leg
CPT/HCPCS: 93970

== ENCOUNTER 2022-11-20 08:39 | Emergency (ER) | payer MEDICARE, MEDICAID, SELFPAY ==
--- NOTE | ~2022-11-20 | CT_ITS ---
EXAMINATION: CT ABDOMEN AND PELVIS WITH CONTRAST CLINICAL INFORMATION: Right lower quadrant pain, history of Crohn's disease COMPARISON: 07/01/[address] TECHNIQUE: Multidetector volumetric images were obtained from the superior aspect of the liver through the pubic symphysis following administration 85 mL of Omnipaque 350 intravenous contrast. Sagittal and coronal reformatted images were obtained on the technologist's workstation. Oral contrast: No This CT examination was performed using dose optimization techniques as appropriate, variously including the following: *Automated exposure control *Adjustment of mA and/or kV according to patient size (this includes techniques or standardized protocols for targeted exams where dose is matched to indication/reason for exam; i.e. extremities or head) *Use of iterative reconstruction technique DLP: 617.68 mGy-cm FINDINGS: LUNG BASES: The visualized lung bases are unremarkable. LIVER, GALLBLADDER, AND BILIARY TREE: The liver is normal in size, shape, and attenuation. No focal hepatic lesion or biliary ductal dilatation is present. The gallbladder is surgically absent. PANCREAS: Unremarkable. SPLEEN: Unremarkable. ADRENAL GLANDS: Unremarkable. KIDNEYS AND URETERS: The kidneys are normal in size, shape, and attenuation. No hydronephrosis, hydroureter, or calculi seen. No perinephric stranding. BLADDER: Unremarkable. GASTROINTESTINAL TRACT: The patient is again noted to have undergone partial colectomy with an ileocolic anastomosis in the left lower quadrant. Just proximal to the anastomosis, there is a 20 cm long segment of thickened distal small bowel, with the wall measuring up to 7 mm. This reflects the same loop that was abnormal on 07/01/2020 Perienteric infiltration and stranding are noted about the thickened loop. In the right lower quadrant, there are several loops of markedly narrowed small bowel. The distal sigmoid colon appears circumferentially thickened and edematous, with mild perisigmoid infiltration in the right lower quadrant, new since the prior CT.. The thickened sigmoid lies immediately adjacent to the abnormal distal ileum. The lateral wall of the rectum appears irregularly thickened on the left, with the wall measuring up to 25 mm. There are lymph nodes in the left perirectal fat measuring up to 6 mm. ABDOMINAL WALL: No significant hernia is appreciated. LYMPH NODES: There are multiple mildly enlarged mesenteric lymph nodes in the right lower quadrant mesenteric root, the largest measuring 13 x 10 mm. VASCULAR: Unremarkable. PELVIC VISCERA: There is an intrauterine contraceptive device. Follicles are present in the right ovary. Fluid is evident in the right adnexa, presumably physiologic, although perhaps related to the adjacent inflamed sigmoid colon. OSSEOUS STRUCTURES: Mild degenerative retrolisthesis and a small central disc herniation are noted at L5-S1. CT/CT abdomen pelvis w IV con IMPRESSION: 1. Irregularly thickened ileum and sigmoid, as well as focally narrowed areas of ileum in the right lower quadrant, findings consistent with active Crohn's disease. 2. Markedly thickened left lateral wall of the rectum, with adjacent perirectal adenopathy. Although perhaps related to Crohn's disease, rectal carcinoma is not excluded. Correlation with direct visualization is recommended when the patient is stable. 3. Mild mesenteric adenopathy, likely related to the patient's Crohn's disease. Fleischner guidelines were followed.
--- NOTE | 2022-11-20 09:17 | ED.ABDPAIN ---
HPI - Abdominal Pain General Chief Complaint: Abdominal Pain Stated Complaint: fever/abd pain/diarrhea Time Seen by Provider: 11/20/22 09:08 Source: patient Mode of arrival: ambulatory History of Present Illness HPI narrative: 47F with presentation for nausea, vomiting, diarrhea and abdominal discomfort last week for approximately 3 days then began feeling better on Thursday, was started on Pentasa on Thursday for underlying Crohn's and states that since last night use began having abdominal pain once again with several episodes of bloody diarrhea. She denies any fever, chills, shortness of breath, chest pain/palpitations or urinary symptoms. Related Data Home Medications Medication Instructions Recorded Confirmed clonazepam 0.5 mg tablet (Klonopin) 1 tab PO DAILY PRN Anxiety 07/01/20 10/13/22 oxycodone 10 mg tablet 1 tab PO Q6H PRN Back Pain 07/01/20 10/13/22 buspirone 10 mg tablet 10 mg PO BID 03/18/22 10/13/22 sertraline 100 mg tablet (Zoloft) 200 mg PO DAILY 03/18/22 10/13/22 quetiapine 25 mg tablet (Seroquel) 25 mg PO BEDTIME 10/03/22 10/13/22 metoprolol succinate 25 mg 25 mg PO DAILY 10/13/22 10/13/22 tablet,extended release 24 hr (Toprol XL) Allergies Allergy/AdvReac Type Severity Reaction Status Date / Time azithromycin [AZITHROMYCIN] Allergy Intermediate HIVES Verified 10/03/22 09:49 erythromycin base Allergy Intermediate Hives Verified 10/03/22 09:49 Penicillins [PCN] Allergy Intermediate Difficulty Verified 10/13/22 12:22 Breathing Review of Systems Review of Systems Pertinent positives and negatives as stated in HPI [facility] Past Medical History Source: nursing notes reviewed Medical History Anxiety Atrial fibrillation with RVR Chronic pain in right foot Crohn disease Disorder of sacrum Lumbar radiculopathy Paroxysmal atrial fibrillation Tendonitis involving right hip abductors Trochanteric bursitis of right hip Surgical History History of bowel resection History of hip surgery Hx of cholecystectomy Hx of colonoscopy Family History Family History Father Atrial fibrillation Social History Social History Household Members: Children Housing: House Do you presently have visiting nurse or other home services: No Alcohol intake: current Alcohol intake frequency: holidays/special occasions only Patient Tobacco Use Status: Former Tobacco user Quit Date: 8 yrs ago Advance Directives: No Advance Directives Information Provided: No service: No Current occupational status: employed Physical Exam ED Vital Signs: Vital Signs - 24 hr 11/20/22 09:21 11/20/22 12:08 11/20/22 14:18 Temperature 100.3 F 99.1 F 97.7 F Pulse Rate 75 72 66 Respiratory Rate 16 16 16 Blood Pressure 116/69 129/77 107/56 L Pulse Oximetry 96 100 98 Oxygen Delivery Method Room Air Room Air Room Air BMI result Body Mass Index 29.0 VITAL SIGNS: Reviewed. GENERAL: Well developed, well nourished, in no acute distress. HEAD: Normocephalic/atraumatic EYES: PERRLA, EOMI EARS: Ext canals without abnormality NOSE: Nares patent bilateral OROPHARYNX: no oral lesions noted, posterior pharynx clear NECK: Supple, no adenopathy LUNGS: Normal breath sounds. No adventitious sounds or accessory muscle use. CARDIOVASCULAR: Regular rate and rhythm without noted murmurs ABDOMEN: Soft, left upper quadrant/right lower quadrant discomfort without rebound, non-distended with bowel sounds. MUSCULOSKELETAL: No tenderness, deformities, or effusions noted on gross inspection. EXTREMITIES: No cyanosis, clubbing or edema. SKIN: Inspection of the skin reveals no rashes NEUROLOGIC: Alert and oriented x 4. Strength and sensation to light touch were grossly intact x 4. Medical Decision Making Medical Decision Making MDM Narrative: 47-year-old female with history and clinical presentation, DDX: Crohn's flare, obstruction, colitis, less likely felt to be UTI/appendicitis/renal colic or medication reaction. I reviewed all investigations and there is no evidence of acute infection, there is no leukocytosis however there is a mild left shift, no anemia or significant thrombocytopenia. Coagulation studies are grossly within normal limits, on review of chemistry indices electrolytes are without derangement there is no ALYCE and there is mild transaminemia which appears to be somewhat baseline. Review of CT scan shows significant evidence of inflammation. 1400: I discussed case with Dr. Sheldon, Gastroenterology who follows her regularly, current recommendations are to stop the Entocort and he will place her on a prednisone taper, she will need to continue the Pentasa as 2 capsules 4 times a day. Also 1 dose of hydrocortisone 100 mg prior to discharge. All results, plans and findings were discussed with patient at bedside, she is tolerating oral intake and she is otherwise discharged with the current plan provided by Dr. Sheldon. Differential Diagnosis Differential Diagnoses: The differential diagnosis associated with the presentation includes Please see the discussion above Admission/Observation Consideration of admission/observation: Escalation of care including admission/observation considered Please see the discussion above Consult Healthcare Provider Management of the patient was discussed with: Topographical Drafter Please see the discussion above Lab Data MDM Lab Attestation statement: I reviewed the patient's lab results. Please see the discussion above 11/20/22 09:31 11/20/22 09:31 Labs: Lab Results 11/20/22 11/20/22 11/20/22 Range/Units 09:31 09:31 09:31 WBC 6.2 (4.8-10.8) X10*3/uL RBC 4.18 L (4.20-5.50) X10*6/uL Hgb 12.5 (12.0-16.0) g/dl Hct 37.0 (37.0-47.0) % MCV 88.5 (80.0-98.0) fL MCH 29.9 (27.0-33.0) pg MCHC 33.8 (31.0-35.0) g/dl RDW 12.2 (11.0-16.0) % Plt Count 167 D (160-400) X10*3/uL MPV 9.6 (9.4-12.3) fL Immature Gran % (Auto) 0.5 H (0.0-0.4) % Neut % (Auto) 79.0 H (45-73) % Lymph % (Auto) 11.8 L (20-40) % Real % (Auto) 7.9 (2-11) % Eos % (Auto) 0.5 (0-4) % Baso % (Auto) 0.3 (0-2) % Lymph # (Auto) 0.7 L (1.2-4.9) X10*3/uL Real # (Auto) 0.5 (0.1-1.2) X10*3/uL Eos # (Auto) 0.0 (0.0-0.4) X10*3/uL Baso # (Auto) 0.0 (0.0-0.2) X10*3/uL Abs Immat Gran (auto) 0.03 (0.00-0.03) X10*3/uL Absolute Neuts (auto) 4.9 (2.0-8.3) x10*3/uL Absolute Nucleated RBC 0.000 (0.0-0.012) X10*3/uL Nucleated RBC % (auto) 0.0 (0.0-0.2) /100WBC PT 13.7 H (11.1-13.3) SEC INR 1.1 (0.9-1.1) Sodium 138 (135-145) mmol/L Potassium 4.0 (3.3-5.1) mmol/L Chloride 110 H (96-108) mmol/L Carbon Dioxide 21 L (22-29) mmol/L Anion Gap 11 L (12-20) BUN 5 L (9-16) mg/dL Creatinine 0.76 (0.5-1.4) mg/dL Estim Creat Clear Calc 102.9 Estimated GFR > 60 Random Glucose 104 (60-115) mg/dL Calcium 8.4 D (8.4-10.2) mg/dL Total Bilirubin 0.6 (0.0-1.0) mg/dL AST 46 H (5-31) U/L ALT 60 H (0-31) U/L Alkaline Phosphatase 78 (39-117) U/L Total Protein 6.5 (6.5-8.0) g/dL Albumin 3.6 (3.5-5.0) g/dL Lipase 28 (8-78) U/L Urine Color Urine Appearance Urine pH (5.0-9.0) Ur Specific Montgomery (1.005-1.025) Urine Protein (Neg-Trace) mg/dL Urine Glucose (UA) (Negative) mg/dL Urine Ketones (Negative) mg/dL Urine Blood (Negative) Urine Nitrite (Negative) Ur Leukocyte Esterase (Negative) Stool Collect Date Stool Occult Blood (NEGATIVE) Stool 2 Collect Date Stool Occult Blood #2 Stool 3 Collect Date Stool Occult Blood #3 11/20/22 11/20/22 Range/Units 12:02 12:03 WBC (4.8-10.8) X10*3/uL RBC (4.20-5.50) X10*6/uL Hgb (12.0-16.0) g/dl Hct (37.0-47.0) % MCV (80.0-98.0) fL MCH (27.0-33.0) pg MCHC (31.0-35.0) g/dl RDW (11.0-16.0) % Plt Count (160-400) X10*3/uL MPV (9.4-12.3) fL Immature Gran % (Auto) (0.0-0.4) % Neut % (Auto) (45-73) % Lymph % (Auto) (20-40) % Real % (Auto) (2-11) % Eos % (Auto) (0-4) % Baso % (Auto) (0-2) % Lymph # (Auto) (1.2-4.9) X10*3/uL Real # (Auto) (0.1-1.2) X10*3/uL Eos # (Auto) (0.0-0.4) X10*3/uL Baso # (Auto) (0.0-0.2) X10*3/uL Abs Immat Gran (auto) (0.00-0.03) X10*3/uL Absolute Neuts (auto) (2.0-8.3) x10*3/uL Absolute Nucleated RBC (0.0-0.012) X10*3/uL Nucleated RBC % (auto) (0.0-0.2) /100WBC PT (11.1-13.3) SEC INR (0.9-1.1) Sodium (135-145) mmol/L Potassium (3.3-5.1) mmol/L Chloride (96-108) mmol/L Carbon Dioxide (22-29) mmol/L Anion Gap (12-20) BUN (9-16) mg/dL Creatinine (0.5-1.4) mg/dL Estim Creat Clear Calc Estimated GFR Random Glucose (60-115) mg/dL Calcium (8.4-10.2) mg/dL Total Bilirubin (0.0-1.0) mg/dL AST (5-31) U/L ALT (0-31) U/L Alkaline Phosphatase (39-117) U/L Total Protein (6.5-8.0) g/dL Albumin (3.5-5.0) g/dL Lipase (8-78) U/L Urine Color Yellow Urine Appearance Clear Urine pH 5.5 (5.0-9.0) Ur Specific Montgomery >= 1.030 H (1.005-1.025) Urine Protein Negative (Neg-Trace) mg/dL Urine Glucose (UA) Negative (Negative) mg/dL Urine Ketones Negative (Negative) mg/dL Urine Blood Negative (Negative) Urine Nitrite Negative (Negative) Ur Leukocyte Esterase Negative (Negative) Stool Collect Date 11/20/22 Stool Occult Blood NEGATIVE (NEGATIVE) Stool 2 Collect Date TNP Stool Occult Blood #2 TNP Stool 3 Collect Date TNP Stool Occult Blood #3 TNP Radiology Impression Radiologist Impression: No obstruction, otherwise my interpretation is in agreement with radiology's impression. External Record Review External record reviewed: Outpatient record and Prior outpatient labs Medications Administered Discontinued Medications Generic Name Dose Route Start Last Admin Trade Name Freq PRN Reason Stop Dose Admin Acetaminophen 975 mg 11/20/22 11:50 11/20/22 12:44 Acetaminophen 325 Mg Tablet PO 11/20/22 11:51 975 mg ONCE ONE Administration Sodium Chloride 1,000 mls @ 999 mls/hr 11/20/22 09:30 11/20/22 11:09 Ns IV 11/20/22 10:30 Infused .Q1H1M WILLIAM Infusion Iohexol 100 ml 11/20/22 10:22 11/20/22 10:23 Iohexol 350 Mg/Ml 100 Ml Infus..Btl IV 11/20/22 10:23 85 ml ONCE ONE Administration Critical Care Time Critical Care Time Critical Care Time: Yes Total Critical Care Time: 30 Attestation: I personally attest to this time spent taking care of the patient. Discharge Plan Discharge Clinical Impression: Crohn's disease Patient Disposition: Home, Self-Care Instructions: Crohn Disease (ED) Additional Instructions: 1. Resume all home medications except Entocort (budesonide) as Dr. Sheldon is sending a steroid taper to your pharmacy today. 2. Dr. Sheldon has also recommended that you begin taking 2-500mg of the Pentasa, 4 times a day 3. Please return to the emergency room if you experience any worsening of symptoms in the next 24-[address] Sheldon is office will be in touch with you to move your appointment up from your scheduled March appointment. - stay on a low residue diet and avoid any roughage. Prescriptions: Discontinued budesonide 3 mg capsule,delayed,extend.release 9 mg PO QAM No Action clonazepam [Klonopin] 0.5 mg tablet 1 tab PO DAILY PRN (Reason: Anxiety) oxycodone 10 mg tablet 1 tab PO Q6H PRN (Reason: Back Pain) sertraline [Zoloft] 100 mg tablet 200 mg PO DAILY metoprolol succinate [Toprol XL] 25 mg tablet extended release 24 hr 25 mg PO DAILY buspirone 10 mg tablet 10 mg PO BID quetiapine [Seroquel] 25 mg tablet 25 mg PO BEDTIME Referrals: Balaji Ibanez MD [Primary Care Provider] - Stepan Sheldon [Physician] -
[2022-11-20 09:21] VITALS: BP 116/69; PULSE 75; RESP 16; TEMP 37.9; O2SAT 96; BMI 29.0
[2022-11-20 09:36] LABS: MANUAL DIFF FLAG NO
[2022-11-20 09:38] LABS: Basophils Percent Auto 0.3 % (0-2); Eosinophils Percent Auto 0.5 % (0-4); Hemoglobin 12.5 g/dl (12.0-16.0); Imm Gran Abs Auto 0.03 X10*3/uL (0.00-0.03); Imm Gran Pct Auto 0.5 % (0.0-0.4); Lymphocytes Absolute Auto 0.7 X10*3/uL (1.2-4.9); Lymphocytes Percent Auto 11.8 % (20-40); Mean Corpuscular HGB Conc 33.8 g/dl (31.0-35.0); Mean Corpuscular Hemoglobin 29.9 pg (27.0-33.0); Mean Corpuscular Volume 88.5 fL (80.0-98.0); Mean Platelet Volume 9.6 fL (9.4-12.3); Monocytes Absolute Auto 0.5 X10*3/uL (0.1-1.2); Monocytes Percent Auto 7.9 % (2-11); Neutrophils Absolute Auto 4.9 x10*3/uL (2.0-8.3); Platelet Count 167 X10*3/uL (160-400); Red Blood Count 4.18 X10*6/uL (4.20-5.50); Red Cell Distribution Width 12.2 % (11.0-16.0); White Blood Count 6.2 X10*3/uL (4.8-10.8)
[2022-11-20] MEDS: 0.9 % Sodium Chloride 1,000 ML 999 ML IV (09:39)
[2022-11-20 09:42] LABS: INTERNATIONAL NORM RATIO 1.1 (0.9-1.1); Prothrombin Time 13.7 SEC (11.1-13.3)
[2022-11-20 09:58] LABS: Alanine Aminotransferase 60 U/L (0-31); Albumin Level 3.6 g/dL (3.5-5.0); Alkaline Phosphatase 78 U/L (39-117); Anion Gap 11 (12-20); Aspartate Amino Transferase 46 U/L (5-31); Bilirubin Total 0.6 mg/dL (0.0-1.0); Blood Urea Nitrogen 5 mg/dL (9-16); Calcium 8.4 mg/dL (8.4-10.2); Carbon Dioxide 21 mmol/L (22-29); Chloride 110 mmol/L (96-108); Creatinine Clr Calc Pharmacy 102.9; Estimated Glomerular Filt Rate > 60; Glucose Random 104 mg/dL (60-115); Lipase 28 U/L (8-78); Sodium 138 mmol/L (135-145); Total Protein 6.5 g/dL (6.5-8.0)
[2022-11-20] MEDS: iohexoL 350 MG/ML 100 ML INFUS..BTL IV (10:23)
[2022-11-20 12:08] VITALS: BP 129/77; PULSE 72; RESP 16; TEMP 37.3; O2SAT 100
[2022-11-20 12:16] LABS: Appearance Urine Clear; Color Urine Yellow; Glucose Urine UA Negative (Negative); Leukocyte Esterase Urine Negative (Negative); Nitrite Urine Negative (Negative); PH 5.5 (5.0-9.0); Specific Gravity - Urine >= 1.030 (1.005-1.025); Urine Blood Negative (Negative); Urine Ketones Negative (Negative); Urine Protein Negative (Neg-Trace)
[2022-11-20 12:20] LABS: OBS1 NEGATIVE (NEGATIVE)
[2022-11-20 12:21] LABS: OBS Int Ctl Valid YES
[2022-11-20] MEDS: Acetaminophen 325 MG TABLET 975 MG PO (12:44)
[2022-11-20 14:18] VITALS: BP 107/56; PULSE 66; RESP 16; TEMP 36.5; O2SAT 98
[2022-11-20] MEDS: Hydrocortisone Sod Succ/PF 100 MG VIAL IVPUSH (14:42)
[2022-11-20 15:48] LABS: Adenovirus F 40/41 Not Detected (Not Detect.); Astrovirus Not Detected (Not Detect.); Campylobacter Not Detected (Not Detect.); Cryptosporidium Not Detected (Not Detect.); Cyclospora cayetanensis Not Detected (Not Detect.); E. coli EAEC Not Detected (Not Detect.); E. coli EPEC Not Detected (Not Detect.); E. coli ETEC Not Detected (Not Detect.); E. coli STEC Not Detected (Not Detect.); Entamoeba histolytica Not Detected (Not Detect.); Giardia lamblia Not Detected (Not Detect.); Norovirus GI/GII Not Detected (Not Detect.); Plesiomonas shigelloides Not Detected (Not Detect.); Rotavirus A Not Detected (Not Detect.); Salmonella Not Detected (Not Detect.); Sapovirus Not Detected (Not Detect.); Shigella sp./EIEC Not Detected (Not Detect.); Vibrio Not Detected (Not Detect.); Vibrio Cholerae Not Detected (Not Detect.); Yersinia enterocolitica Not Detected (Not Detect.)
== END 2022-11-20 14:53 | disposition home or self-care (01) ==
PROVIDERS: Emergency Provider Student in an Organized Health Care Education/Training Program; PCP Family Medicine
DX: K50.10 Crohn's disease of large intestine without complications (principal); R50.9 Fever, unspecified; R19.7 Diarrhea, unspecified; Z20.822 Contact with and (suspected) exposure to COVID-19; Z20.828 Contact with and (suspected) exposure to other viral communicable diseases; Z79.899 Other long term (current) drug therapy; Z87.891 Personal history of nicotine dependence
CPT/HCPCS: 36415; 74177; 80053; 81003; 82270; 83690; 85025; 85610; 87507; 96361; 96374; 99284; Q9967

== ENCOUNTER 2023-01-05 10:44 | Outpatient (AMB) | payer MEDICARE, MEDICAID, SELFPAY ==
[2023-01-05 10:49] VITALS: BP 120/75; PULSE 72; RESP 14; O2SAT 99; BMI 29.0
--- NOTE | 2023-01-05 10:49 | A.OFFVIS_ITS ---
Intake Vital Signs 01/05/23 10:49 Height 5 ft 7 in Weight 185 lb BMI 29.0 BP 120/75 Blood Pressure Location Lt brachial Position Sitting Respiration 14 Pulse 72 Pulse Source Pulse Oximeter Pulse Oximetry (%) 99 Oxygen Delivery Method Room Air Intake Visit Reasons: Ultrasound Review Allergies azithromycin [AZITHROMYCIN] Allergy (Intermediate, Verified 01/05/23 10:50) HIVES erythromycin base Allergy (Intermediate, Verified 01/05/23 10:50) Hives Penicillins [PCN] Allergy (Intermediate, Verified 01/05/23 10:50) Difficulty Breathing Medication List - Last Reconciled 01/05/23 by Julianna Zaman LPN buspirone 10 mg PO BID clonazepam (Klonopin) 1 tab PO DAILY PRN metoprolol succinate ER (Toprol XL) 25 mg PO DAILY oxycodone 1 tab PO Q6H PRN prednisone mg PO quetiapine (Seroquel) 25 mg PO BEDTIME sertraline (Zoloft) 200 mg PO DAILY HPI Ultrasound Review HPI Details 47-year-old female who presents today to the office for a review of venous ultrasound result. The patient continues to experiences pain in her back and legs. The patient states that she had recent fall while coming out of the shower. She has a right upper back region pain since the last fall. Since the fall she has had difficulty breathing with pain in her upper back region with deep breaths. She is interested in it intercostal nerve blocks in the office today. Past procedures: 09/03/2022: Transforaminal epidural ster oid injection, Left L3: No relief. [facility] Medical History Anxiety Atrial fibrillation with RVR Chronic pain in right foot Crohn disease Disorder of sacrum Lumbar radiculopathy Paroxysmal atrial fibrillation Tendonitis involving right hip abductors Trochanteric bursitis of right hip Surgical History History of bowel resection History of hip surgery Hx of cholecystectomy Hx of colonoscopy Family History Father Atrial fibrillation Social History Household Members: Children Housing: House Do you presently have visiting nurse or other home services: No Alcohol intake: current Alcohol intake frequency: holidays/special occasions only Patient Tobacco Use Status: Former Tobacco user Quit Date: 8 yrs ago service: No Current occupational status: employed Review of Systems Const All systems reviewed & are unremarkable except as noted in HPI and below Physical Exam Vital Signs: Last Vital Signs Pulse 72 01/05/23 10:49 Resp 14 01/05/23 10:49 BP 120/75 01/05/23 10:49 Pulse Ox 99 01/05/23 10:49 Oxygen Delivery Method Room Air 01/05/23 10:49 BMI result Body Mass Index 29.0 General: Appears afebrile. Alert and oriented. Mood and affect appropriate. Follows and participates in conversation appropriately. Respiratory effort is unlabored. Able to transition from sit to stand unassisted. Ambulates with bilaterally normal heel strike and toe off. Office Procedures Nerve Block Details: Left Intercostal nerve block at T8 and T9, ultrasound guided After obtaining written consent, pre-procedure time-out was completed. The patient was placed in the prone position. The relevant levels of the intercostal nerves were physically palpated corresponding to the patient's pain and marked. Using ultrasound, the appropriate landmarks including the rib, intercostal muscles and pleura were identified. The skin was anesthetized with 1% lidocaine. A 21-gauge 80 mm echostim needle was advanced under sonographic guidance in proximity to each of the intercostal nerves. Aspiration was negative for heme and air. 2 cc of ropivacaine 0.5% mixed with 15 mg Kenalog was injected around each of the targeted nerves. The needle was removed, skin cleansed and a sterile bandage was applied. The patient tolerated the procedure well and no complications were encountered. Following the procedure, the patient's vital signs and respiration were stable. The patient was discharged home in good condition with post-procedural instructions. Time Out: Immediately prior to the procedure, the following was verbally confirmed that there is a signed consent form and that the correct patient, planned procedure, site and side are consistent with documentation and that necessary equipment and/or blood products are available prior to the start of the case. Complications: none EBL: <1 cc Note: An ultrasound image of the injection was taken and stored in the permanent record. Procedure code (CPT) selection complete Results Reviewed Results Reviewed: 10/16/22: US LOWER EXTREMITY VENOUS (REFLUX EXAM), BILATERAL FINDINGS: 1. DEEP VENOUS ULTRASOUND OF THE RIGHT LOWER EXTREMITY: Common Femoral Vein: Compressible, normal respiratory variation and augmented flow. Femoral Vein: Compressible, normal color flow and augmentation. Popliteal Vein: Compressible, normal augmentation. Deep Reflux: There is no evidence of reflux in the deep system in either the common femoral vein or the popliteal vein. There is no evidence of a Ogden's cyst. 2. SUPERFICIAL ULTRASOUND WITH DOPPLER OF RIGHT LOWER EXTREMITY: GREAT SAPHENOUS VEIN: Saphenofemoral Junction: 0.8 cm; Reflux: 0 ms Proximal Thigh: 0.4 cm; Reflux: 0 ms Mid Thigh: 0.2 cm; Reflux: 0 ms Above Knee: 0.3 cm; Reflux: 0 ms At Knee: 0.3 cm; Reflux: 0 ms Below Knee: 0.2 cm; Reflux: 480 ms Mid Calf: 0.2 cm; Reflux: 0 ms Ankle: 0.2 cm; Reflux: 0 ms DUPLICATED MEDIAL GREAT SAPHENOUS VEIN: Diameter: 0.3 cm Reflux: None DUPLICATED LATERAL GREAT SAPHENOUS VEIN: Diameter: 0.3 cm Reflux: None SMALL SAPHENOUS VEIN: Proximal: 0.3 cm; Reflux: 0 ms Distal: 0.3 cm; Reflux: 1496 ms VEIN OF GIACOMINI: Size: NA Reflux: NA PERFORATORS: Location: Posterior calf extending from the gastrocnemius vein to the small saphenous vein Size: 0.3 cm Reflux: None PERFORATORS: Location: 32 cm from heel extending to the great saphenous vein in the proximal calf Size: 0.3 cm Reflux: 800 ms VARICOSITIES: Location: None significant Size: NA Reflux: NA 3. DEEP VENOUS ULTRASOUND OF THE LEFT LOWER EXTREMITY: Common Femoral Vein: Compressible, normal respiratory variation and augmented flow. Femoral Vein: Compressible, normal color flow and augmentation. Popliteal Vein: Compressible, normal augmentation. Deep Reflux: There is no evidence of reflux in the deep system in either the common femoral vein or the popliteal vein. There is no evidence of a Ogden's cyst. 4. SUPERFICIAL ULTRASOUND WITH DOPPLER OF LEFT LOWER EXTREMITY: GREAT SAPHENOUS VEIN: Saphenofemoral Junction: 0.9 cm; Reflux: 0 ms Proximal Thigh: 0.4 cm; Reflux: 0 ms Mid Thigh: 0.2 cm; Reflux: 0 ms Above Knee: 0.3 cm; Reflux: 0 ms At Knee: 0.2 cm; Reflux: 0 ms Below Knee: 0.2 cm; Reflux: 0 ms Mid Calf: 0.1 cm; Reflux: 2072 ms Ankle: 0.2 cm; Reflux: 0 ms DUPLICATED MEDIAL GREAT SAPHENOUS VEIN: Diameter: 0.3 cm Reflux: None DUPLICATED LATERAL GREAT SAPHENOUS VEIN: Diameter: 0.4 cm Reflux: None SMALL SAPHENOUS VEIN: Proximal: 0.4 cm; Reflux: 0 ms Distal: 0.2 cm; Reflux: 0 ms VEIN OF GIACOMINI: Size: NA Reflux: NA PERFORATORS: Location: Medial proximal and mid calf. Posterior mid calf Size: 0.2 to 0.4 cm Reflux: Ranging from 0 ms to 1300 ms VARICOSITIES: Location: None significant Size: NA Reflux: NA IMPRESSION: Right: No significant superficial venous reflux in the great saphenous vein. There is focal segmental reflux in the distal small saphenous vein Left: Focal reflux seen in the great saphenous vein in the mid-calf and medial detector car operator vein as described above. 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 Patient tolerated procedure well and was discharged home in stable condition with discharge instructions. All questions were answered. Regarding her intractable low back pain, she is amenable to proceed with L3 medial branch temporary nerve stimulator placement, starting with the left side. She continues to be hesitant about proceeding with spinal cord stimulator or intrathecal pain pump implant at this point. For her venous reflux, she has findings of incompetent detector car operator veins in her bilateral calves, which correlate with her pain (left>right) symptoms in that area. I will place a referral to Dr. Arevalo for consideration of ablation/ sclerotherapy for her ongoing leg pain potentially secondary to venous reflux. Scribed for Dr. Silver by Ishmael Jennifer, medical administrative assistant, on 01/05/2023. I, Dr. Silver, have personally reviewed and agree with the information entered by the scribe. Orders: Referrals Vascular Surgery Referral I83.90 - Asymptomatic varicose veins of unspecified lower extremity Coding Level of Care Code Est Pt Level 4 (08874) Diagnoses Lumbar spondylosis M47.816 Incompetent detector car operator vein I83.90 Rib pain on left side R07.81 Intractable low back pain M54.59
== END 2023-01-05 11:19 | disposition home or self-care (01) ==
PROVIDERS: PCP Family Medicine; Visit Provider Internal Medicine
DX: M47.816 Spondylosis without myelopathy or radiculopathy, lumbar region (principal); I83.90 Asymptomatic varicose veins of unspecified lower extremity; R07.81 Pleurodynia; M54.59 Other low back pain
CPT/HCPCS: 64420; 64421; 76942; 99214

== ENCOUNTER → 2023-01-05 10:44 | Outpatient (BNVA) | payer MEDICARE, MEDICAID, SELFPAY | PROVIDERS: PCP Family Medicine; Visit Provider Internal Medicine | DX: M47.816 Spondylosis without myelopathy or radiculopathy, lumbar region (principal); M54.59 Other low back pain; I83.90 Asymptomatic varicose veins of unspecified lower extremity; R07.81 Pleurodynia | CPT/HCPCS: 64420; 64421; 99212 ==

== ENCOUNTER 2023-01-14 22:40 | Emergency (ER) | payer MEDICARE, MEDICAID, SELFPAY ==
--- NOTE | ~2023-01-14 | CT_ITS ---
EXAMINATION: CT HEAD WITHOUT CONTRAST CLINICAL INFORMATION: Fall, head injury COMPARISON: 12/05/2020 TECHNIQUE: Contiguous axial imaging was performed from the skull base to vertex without intravenous administration of contrast. This CT examination was performed using dose optimization techniques as appropriate, variously including the following: *Automated exposure control *Adjustment of mA and/or kV according to patient size (this includes techniques or standardized protocols for targeted exams where dose is matched to indication/reason for exam; i.e. extremities or head) *Use of iterative reconstruction technique DLP: 676 mGy-cm FINDINGS: There is no evidence of acute intracranial hemorrhage or territorial infarction. No abnormal mass-effect or midline shift is seen. Barbosa to white matter differentiation is well preserved. No extra-axial fluid collections are identified. The ventricles are normal in size. There is no abnormal attenuation within the brain parenchyma. The osseous structures and soft tissues are normal. The mastoid air cells and visualized portions of the paranasal sinuses are well-aerated. CT/CT head/brain wo IV con IMPRESSION: No acute intracranial pathology.
[2023-01-14 22:46] VITALS: BP 125/86; PULSE 67; O2SAT 100
[2023-01-14 22:56] VITALS: BP 117/69; PULSE 61; RESP 18; TEMP 36.5; O2SAT 98; BMI 31.7
--- NOTE | 2023-01-14 22:56 | ECG_ITS ---
Test Reason : weakness Blood Pressure : / mmHG Vent. Rate : 065 BPM Atrial Rate : 065 BPM P-R Int : 148 ms QRS Dur : 072 ms QT Int : 386 ms P-R-T Axes : 028 020 037 degrees QTc Int : 401 ms Normal sinus rhythm Low voltage QRS Septal infarct (cited on or before 05-DEC-2020) Abnormal ECG When compared with ECG of 05-DEC-2020 17:25, No significant change was found Referred By: Kevon Klein Electronically Signed By:MILES HURTADO
--- NOTE | 2023-01-14 23:00 | ED.WEAKNESS ---
HPI - Weakness General Chief complaint: Dizziness Stated complaint: weakness Time Seen by Provider: 01/14/23 22:46 Source: patient Mode of arrival: EMS Limitations: no limitations History of Present Illness HPI Narrative: 47-year-old female who presents emergency department for evaluation of headache, numbness, weakness, difficulty talking. Patient's symptoms started approximately 45 minutes prior to arrival. She states she was walking around in her kitchen when she had a weird feeling in her head that she has difficulty describing. She felt lightheaded. She states she then developed numbness and tingling this in her hands and feet. She also had perioral numbness and she states that her tongue felt thick and she was having difficulty talking. She felt dizzy as if she was going to pass out. She also felt off balance. An ambulance was called and she was brought to the emergency department. Patient was evaluated on the emergency department stretcher, she had no evidence for focal neurologic findings and she was brought to a room for further evaluation. The patient states that 1 week prior she did trip and fall backwards striking the left side of her head on floor, she had no loss of consciousness. She was not evaluated for this head injury. The patient does have a history of anxiety but states that she has not had any increased anxiety. Related Data Home Medications Medication Instructions Recorded Confirmed clonazepam 0.5 mg tablet (Klonopin) 1 tab PO DAILY PRN Anxiety 07/01/20 01/05/23 oxycodone 10 mg tablet 1 tab PO Q6H PRN Back Pain 07/01/20 01/05/23 buspirone 10 mg tablet 10 mg PO BID 03/18/22 01/05/23 sertraline 100 mg tablet (Zoloft) 200 mg PO DAILY 03/18/22 01/05/23 quetiapine 25 mg tablet (Seroquel) 25 mg PO BEDTIME 10/03/22 01/05/23 metoprolol succinate 25 mg 25 mg PO DAILY 10/13/22 01/05/23 tablet,extended release 24 hr (Toprol XL) prednisone 5 mg tablet mg PO 01/05/23 01/05/23 Allergies Allergy/AdvReac Type Severity Reaction Status Date / Time azithromycin [AZITHROMYCIN] Allergy Intermediate HIVES Verified 01/14/23 23:00 erythromycin base Allergy Intermediate Hives Verified 01/14/23 23:00 Penicillins [PCN] Allergy Intermediate Difficulty Verified 01/14/23 23:00 Breathing Review of Systems Review of Systems: Yes all other systems are reviewed and are negative [facility] Past Medical History [facility] Narrative: Social history: She denies tobacco, alcohol and drug use. Medical History Tendonitis involving right hip abductors Chronic pain in right foot Disorder of sacrum Trochanteric bursitis of right hip Lumbar radiculopathy Paroxysmal atrial fibrillation Atrial fibrillation with RVR Anxiety Crohn disease Surgical History History of hip surgery Hx of colonoscopy History of bowel resection Hx of cholecystectomy Family History Family History Father Atrial fibrillation Social History Social History Household Members: Children Housing: House Do you presently have visiting nurse or other home services: No Alcohol intake: never Patient Tobacco Use Status: Former Tobacco user Quit Date: 8 yrs ago Smoked in Last 30 Days: No Use of substances other than those prescribed or required for medical reasons: No Advance Directives: No Advance Directives Information Provided: Yes service: No Current occupational status: employed Physical Exam Vital Signs: Vital Signs: Last Vital Signs Temp 97.7 F 01/14/23 23:49 Pulse 60 01/15/23 02:11 Resp 14 01/15/23 02:11 BP 100/63 01/15/23 02:11 Pulse Ox 97 01/15/23 02:11 O2 Del Method Room Air 01/15/23 02:11 BMI result Body Mass Index 31.7 Vital signs were normal Exam: General: Awake, alert in no distress Head: Normocephalic, atraumatic EENT: PERRL, Lids normal, sclera normal, conjunctiva normal, nose normal , ears normal, throat without erythema or exudates Neck: Supple, no adenopathy, trachea midline and nontender Lung: breath sounds symmetric, no wheezing, rales or rhonchi Chest: symmetric movement, nontender Heart: regular rate and rhythm, normal S1, S2 no murmurs or rubs Abdomen: soft, non-tender, nondistended, normal bowel sounds Back: no vertebral tenderness, no CVAT Extremities: no deformities, moves all extremities symmetrically Skin: no rashes, no lesion, normal color and warmth Neuro: Awake, alert, oriented, normal speech, cranial nerves intact, moves all extremities symmetrically Psych: Pleasant, cooperative Medications Administered Discontinued Medications Generic Name Dose Route Start Last Admin Trade Name Guzman PRN Reason Stop Dose Admin Lorazepam 1 mg 01/14/23 22:56 01/14/23 23:30 Lorazepam 2 Mg/Ml Vial IVPUSH 01/14/23 22:57 1 mg STAT STA Administration Lorazepam 2 mg 01/15/23 00:56 01/15/23 00:59 Lorazepam 2 Mg/Ml Vial IVPUSH 01/15/23 00:57 2 mg ONCE ONE Administration Medical Decision Making Medical Decision Making [facility] Narrative: 47-year-old female with a history of paroxysmal atrial fibrillation, Crohn's disease, lumbar radiculopathy, anxiety who presents emergency department for evaluation of head ache/strain sensation in her head, perioral numbness with difficulty talking in the numb sensation in her tongue, bilateral hand and feet numbness, lightheadedness and dizziness. Sensations began 45 minutes prior to coming to emergency department while she was walking in her kitchen. She reported a fall 1 week prior with a head injury but no loss of consciousness, she was not evaluated for the fall. Vital signs were normal. Physical examination was normal. Following evaluation was ordered: CBC, CMP, PT/INR, PTT, lipase, troponin, EKG, CT scan of the brain. Patient was also ordered to get Ativan 1 mg IV push. 0050: Patient's laboratory evaluation was unremarkable. CT scan of the brain without IV contrast was negative. Patient's presentation findings are consistent with hyperventilation syndrome/anxiety attack. Patient will get minimal improvement with the 1st dose of Ativan. Patient was ordered to get Ativan 2 mg IV. Differential Diagnosis Differential Diagnoses: The differential diagnosis associated with the presentation includes Differential diagnosis includes was not limited to stroke, TIA, anxiety/panic attack, hyperventilation syndrome, electrolyte abnormalities, anemia, myocardial infarction, myocardial ischemia, atrial fibrillation Admission/Observation Consideration of admission/observation: Escalation of care including admission/observation considered Lab Data [facility] Lab Attestation statement: I reviewed the patient's lab results. My interpretation patient's laboratory evaluation is as follows: CBC and Lipase were normal. Troponin was below detectable limits. AST and ALT were elevated 33 and 48-similar elevations in the past. 01/14/23 23:03 01/14/23 23:03 Labs: Lab Results 01/14/23 Range/Units 23:03 WBC 8.3 (4.8-10.8) X10*3/uL RBC 4.98 (4.20-5.50) X10*6/uL Hgb 14.9 (12.0-16.0) g/dl Hct 45.2 D (37.0-47.0) % MCV 90.8 (80.0-98.0) fL MCH 29.9 (27.0-33.0) pg MCHC 33.0 (31.0-35.0) g/dl RDW 13.1 (11.0-16.0) % Plt Count 200 (160-400) X10*3/uL MPV 9.0 L (9.4-12.3) fL Immature Gran % (Auto) 0.8 H (0.0-0.4) % Neut % (Auto) 74.5 H (45-73) % Lymph % (Auto) 16.4 L (20-40) % Young % (Auto) 7.2 (2-11) % Eos % (Auto) 0.6 (0-4) % Baso % (Auto) 0.5 (0-2) % Lymph # (Auto) 1.4 (1.2-4.9) X10*3/uL Young # (Auto) 0.6 (0.1-1.2) X10*3/uL Eos # (Auto) 0.1 (0.0-0.4) X10*3/uL Baso # (Auto) 0.0 (0.0-0.2) X10*3/uL Abs Immat Gran (auto) 0.07 H (0.00-0.03) X10*3/uL Absolute Neuts (auto) 6.2 (2.0-8.3) x10*3/uL Absolute Nucleated RBC 0.000 (0.0-0.012) X10*3/uL Nucleated RBC % (auto) 0.0 (0.0-0.2) /100WBC PT 11.4 (11.1-13.3) SEC INR 0.9 (0.9-1.1) APTT 37.5 H (26.0-36.4) SEC Sodium 137 (135-145) mmol/L Potassium 3.9 (3.3-5.1) mmol/L Chloride 103 (96-108) mmol/L Carbon Dioxide 27 (22-29) mmol/L Anion Gap 11 L (12-20) BUN 13 (9-16) mg/dL Creatinine 0.93 (0.5-1.4) mg/dL Estim Creat Clear Calc 87.9 Estimated GFR > 60 Random Glucose 110 (60-115) mg/dL Calcium 9.7 D (8.4-10.2) mg/dL Total Bilirubin 0.6 (0.0-1.0) mg/dL AST 33 H (5-31) U/L ALT 48 H (0-31) U/L Alkaline Phosphatase 80 (39-117) U/L Troponin I High Sens < 2.7 (<3.5-17.0) ng/L Total Protein 8.0 (6.5-8.0) g/dL Albumin 4.5 (3.5-5.0) g/dL Lipase 26 (8-78) U/L Independent Interpretation I performed an independent interpretation of an: EKG Interpretation: My independent interpretation patient's 12 EKG done at 23:04 hours is as follows: Normal sinus rhythm with a rate of 65, normal LA interval, QRS duration QTC interval, no ST segment elevation, no ST segment depression, Q-waves in V1 and V2, no PACs no PVCs, no significant T-wave abnormalities. Compared to EKG dated 03/18/2022, Q-waves in V1 through V to were old. Radiology Impression Discussion of test interpretation with radiology: I have reviewed the radiologist's reading. Radiologist Impression: CT head/brain wo IV con IMPRESSION: No acute intracranial pathology. Dictated By: Ray Roman MD Discharge Plan Discharge Clinical Impression: Acute hyperventilation syndrome Instructions: Hyperventilation (ED) Additional Instructions: Your CT scan of the brain was normal which is reassuring. Your EKG was unremarkable, your in a normal sinus rhythm, you do not have atrial fibrillation at this time. Your blood work was normal except for very slight elevation in your liver test (AST and ALT). These were elevated in the past. You were treated with Ativan (lorazepam) 1 mg and 2 mg IV. You should talk to your provider about getting further treatment for anxiety. Follow-up with your doctor in 2 days. Please return to the emergency department if your symptoms get worse or if you develop any symptoms that are concerning to you. Prescriptions: No Action clonazepam [Klonopin] 0.5 mg tablet 1 tab PO DAILY PRN (Reason: Anxiety) oxycodone 10 mg tablet 1 tab PO Q6H PRN (Reason: Back Pain) sertraline [Zoloft] 100 mg tablet 200 mg PO DAILY metoprolol succinate [Toprol XL] 25 mg tablet extended release 24 hr 25 mg PO DAILY buspirone 10 mg tablet 10 mg PO BID quetiapine [Seroquel] 25 mg tablet 25 mg PO BEDTIME prednisone 5 mg tablet PO
[2023-01-14 23:08] LABS: MANUAL DIFF FLAG NO
[2023-01-14 23:22] LABS: INTERNATIONAL NORM RATIO 0.9 (0.9-1.1); Prothrombin Time 11.4 SEC (11.1-13.3)
[2023-01-14 23:25] LABS: Alanine Aminotransferase 48 U/L (0-31); Albumin Level 4.5 g/dL (3.5-5.0); Alkaline Phosphatase 80 U/L (39-117); Anion Gap 11 (12-20); Aspartate Amino Transferase 33 U/L (5-31); Bilirubin Total 0.6 mg/dL (0.0-1.0); Blood Urea Nitrogen 13 mg/dL (9-16); Calcium 9.7 mg/dL (8.4-10.2); Carbon Dioxide 27 mmol/L (22-29); Chloride 103 mmol/L (96-108); Creatinine Clr Calc Pharmacy 87.9; Estimated Glomerular Filt Rate > 60; Glucose Random 110 mg/dL (60-115); Lipase 26 U/L (8-78); Partial Thromboplastin Time 37.5 SEC (26.0-36.4); Potassium 3.9 mmol/L (3.3-5.1); Sodium 137 mmol/L (135-145)
[2023-01-14] MEDS: LORazepam 2 MG/ML VIAL 1 MG IVPUSH (23:30)
[2023-01-14 23:34] LABS: Troponin-I High Sensitivity < 2.7 ng/L (<3.5-17.0)
--- NOTE | 2023-01-14 23:39 | MHC.EDTECH ---
This tech assumed care of PT. PT was given EKG and changed into hospital attire. PT was placed on heart monitor. PT is resting and waiting to be seen by provider.
[2023-01-14 23:49] VITALS: BP 102/64; PULSE 63; RESP 15; TEMP 36.5; O2SAT 96
[2023-01-15 00:10] LABS: Basophils Percent Auto 0.5 % (0-2); Eosinophils Absolute Auto 0.1 X10*3/uL (0.0-0.4); Eosinophils Percent Auto 0.6 % (0-4); Hematocrit 45.2 % (37.0-47.0); Hemoglobin 14.9 g/dl (12.0-16.0); Imm Gran Abs Auto 0.07 X10*3/uL (0.00-0.03); Imm Gran Pct Auto 0.8 % (0.0-0.4); Lymphocytes Absolute Auto 1.4 X10*3/uL (1.2-4.9); Lymphocytes Percent Auto 16.4 % (20-40); Mean Corpuscular Hemoglobin 29.9 pg (27.0-33.0); Mean Corpuscular Volume 90.8 fL (80.0-98.0); Monocytes Absolute Auto 0.6 X10*3/uL (0.1-1.2); Monocytes Percent Auto 7.2 % (2-11); Neutrophils Absolute Auto 6.2 x10*3/uL (2.0-8.3); Neutrophils Percent Auto 74.5 % (45-73); Platelet Count 200 X10*3/uL (160-400); Red Blood Count 4.98 X10*6/uL (4.20-5.50); Red Cell Distribution Width 13.1 % (11.0-16.0); White Blood Count 8.3 X10*3/uL (4.8-10.8)
[2023-01-15] MEDS: LORazepam 2 MG/ML VIAL IVPUSH (00:59)
[2023-01-15 02:11] VITALS: BP 100/63; PULSE 60; RESP 14; O2SAT 97
== END 2023-01-15 03:45 | disposition home or self-care (01) ==
PROVIDERS: Emergency Provider Emergency Medicine Emergency Medical Services; PCP Family Medicine
DX: S09.90XA Unspecified injury of head, initial encounter (principal); F45.8 Other somatoform disorders; R42 Dizziness and giddiness; R94.31 Abnormal electrocardiogram [ECG] [EKG]; R51.9 Headache, unspecified; W01.10XA Fall on same level from slipping, tripping and stumbling with subsequent striking against unspecified object, initial encounter; Y93.9 Activity, unspecified; Y92.9 Unspecified place or not applicable; Y99.9 Unspecified external cause status; Z87.891 Personal history of nicotine dependence; Z79.899 Other long term (current) drug therapy
CPT/HCPCS: 36415; 70450; 80053; 83690; 84484; 85025; 85610; 85730; 93005; 96374; 96375; 99285; J2060

== ENCOUNTER 2023-02-17 10:21 | Outpatient (AMB) | payer MEDICARE, MEDICAID, SELFPAY ==
[2023-02-17 10:23] VITALS: BMI 31.6
--- NOTE | 2023-02-17 10:23 | A.OFFVIS_ITS ---
Intake Vital Signs 02/17/23 10:23 Height 5 ft 7 in Weight 202 lb BMI 31.6 Intake Visit Reasons: [employer] Varicose Veins Intake Note: [employer]/ Arnel Alanis referral for LE Pain and swelling with standing/ambulation. Pain Zeke had ordered a US that was done 10/16/2022. Pt states that she has a large VV on her Left LE that is painful to the touch, other than that she states she has bilateral LE spider veins on her thighs. Accompanied by: Self / Same As Patient Allergies azithromycin [AZITHROMYCIN] Allergy (Intermediate, Verified 02/17/23 10:27) HIVES erythromycin base Allergy (Intermediate, Verified 02/17/23 10:27) Hives Penicillins [PCN] Allergy (Intermediate, Verified 02/17/23 10:27) Difficulty Breathing Sulfa (Sulfonamide Antibiotics) Allergy (Intermediate, Verified 02/17/23 10:27) Palpitations HPI [employer] Varicose Veins HPI Details Very pleasant 47-year-old female patient presents for painful varicose veins. Complaints include generalized leg pain along with joint pain. It has been affecting there daily activities including walking. It is noted more so in left leg. Patient denies any previous venous surgery or injections. Patient denies any history of DVT/ PE. Patient denies any history of phlebitis. Trial of compression includes - [id number] They now present for vascular evaluation regarding their varicose veins. [facility] Medical History Tendonitis involving right hip abductors Chronic pain in right foot Disorder of sacrum Trochanteric bursitis of right hip Lumbar radiculopathy Paroxysmal atrial fibrillation Atrial fibrillation with RVR Anxiety Crohn disease Surgical History History of hip surgery Hx of colonoscopy History of bowel resection Hx of cholecystectomy Family History Father Atrial fibrillation Social History Household Members: Children Housing: House Do you presently have visiting nurse or other home services: No Alcohol intake: never Patient Tobacco Use Status: Former Tobacco user Quit Date: 8 yrs ago service: No Current occupational status: employed Review of Systems Const All systems reviewed & are unremarkable except as noted in HPI and below Reports no additional complaints ENT Reports Normal hearing present Card Denies chest pain, Denies chest pain at rest, Denies chest pain with activity and Denies pedal edema Resp Denies cough GI Denies abdominal pain Musc Denies abnormal gait, Denies muscle cramps and Denies radiating pain into limb Skin/Breast Denies skin ulcer and Denies wounds Neuro Reports Normal hearing present and Denies abnormal gait Psych Reports no additional complaints Physical Exam Vital Signs: BMI result Body Mass Index 31.6 Const General: cooperative, healthy appearing and comfortable Orientation/consciousness: oriented to person, oriented to place and oriented to time HEENT Head: Yes normal to inspection Neck Neck: Yes normal visual inspection Carotids: no bruits Chest Chest palpation & inspection: normal inspection of the chest Resp Effort & Inspection: normal respiratory effort and able to speak in complete sentences Auscultation: clear to auscultation bilaterally, no crackles, no rales, no rhonchi and no wheezes Cardio Rate: regular rate Rhythm: regular rhythm Heart sounds: S1 normal heart sound present and S2 normal heart sound present Bruits: no carotid bruits Peripheral pulses: Peripheral pulses 2+ throughout GI Inspection: Yes normal to inspection Skin Wounds: no wounds Hair: normal Neuro General: oriented to person, oriented to place and oriented to time Cranial nerves: Yes CN's II-XII intact bilaterally and Yes Normal hearing present Cognition (Neuro): normal cognition Motor exam (neuro): 5/5 motor strength present throughout Extrem Other: venous exam: +1 edema General: No clubbing, No cyanosis and Yes edema Psych Appearance: grossly normal Mental Status: mental status grossly normal Speech and movement: Normal speech and movement present Results Reviewed Results Reviewed: Brief summary of venous insufficiency testing is as follows: right great saphenous vein: negative right small saphenous vein: negative right accessory vein: none present left great saphenous vein: negative left small saphenous vein: negative left accessory vein: none present Please note there is no evidence of any venous aneurysms or significant tortuosity Assessment & Plan Assessment & Plan (1) Leg pain, bilateral: Code(s): M79.604 - Pain in right leg; M79.605 - Pain in left leg Plan: In short patient has lower extremity pain. Unclear etiology. It does not appear to be arterial as she does have palpable pulses in venous insufficiency testing has shown to be negative. She is focally positive near the left calf but that is extremely small in diameter. I did discuss the findings of these results with her. At the current time I only recommend conservative measures including compression elevation and exercise. The patient will follow up with us on an as-needed basis. Thank you for allowing us to assist in her care Coding Level of Care Code New Pt Level 4 (77846) Diagnoses Leg pain, bilateral M79.604; M79.605
== END 2023-02-17 10:53 | disposition home or self-care (01) ==
PROVIDERS: PCP Family Medicine; Visit Provider Surgery Vascular Surgery
DX: M79.604 Pain in right leg (principal); M79.605 Pain in left leg
CPT/HCPCS: 99203

== ENCOUNTER → 2023-02-17 10:21 | Outpatient (BNVA) | payer MEDICARE, MEDICAID, SELFPAY | PROVIDERS: PCP Family Medicine; Visit Provider Surgery Vascular Surgery | DX: M79.604 Pain in right leg (principal); M79.605 Pain in left leg | CPT/HCPCS: 99202 ==

== ENCOUNTER 2023-03-26 10:08 | Outpatient (AMB) | payer MEDICARE, MEDICAID, SELFPAY ==
[2023-03-26 10:14] VITALS: BP 140/72; PULSE 53; BMI 30.7
--- NOTE | 2023-03-26 10:14 | A.OFFVIS_ITS ---
Intake Vital Signs 03/26/23 10:14 Height 5 ft 7 in Weight 195 lb 12.328 oz BMI 30.7 BP 140/72 H Blood Pressure Location Lt brachial Position Sitting Pulse 53 Intake Visit Reasons: 1 year follow up Intake Note: 1 yr f/up having palpitations once in a while, patient its fine at this moment. Almond Blancher Hand Required: No Accompanied by: Self / Same As Patient Allergies azithromycin [AZITHROMYCIN] Allergy (Intermediate, Verified 03/26/23 10:17) HIVES erythromycin base Allergy (Intermediate, Verified 03/26/23 10:17) Hives Penicillins [PCN] Allergy (Intermediate, Verified 03/26/23 10:17) Difficulty Breathing Sulfa (Sulfonamide Antibiotics) Allergy (Intermediate, Verified 03/26/23 10:17) Palpitations Medication List - Last Reconciled 03/26/23 by Alfa Flores MD albuterol sulfate 90 mcg/actuation inhalation budesonide ER 9 mg PO DAILY lorazepam 1 mg PO DAILY PRN metoprolol succinate ER (Toprol XL) 25 mg PO DAILY oxycodone 1 tab PO Q6H PRN oxycodone mg PO quetiapine (Seroquel) 25 mg PO BEDTIME sertraline (Zoloft) 200 mg PO DAILY HPI HPI Comments History of Present Illness Details Bárbara comes for follow-up. She has over the last couple months she has had increased symptoms of palpitations related to medical illness. She had initially prolonged respiratory illness that eventually was diagnosed with pneumonia and had increased symptoms palpitations while she was suffering from it she then subsequently had GI symptoms, she again increased symptoms of palpitation. She continues to have intermittent episodes of fluttering in her chest. She is not able to tell whether this is atrial fibrillation or some other arrhythmias. She says she has also had increased anxiety. She is currently taking metoprolol. No lightheadedness, syncope. No other cardiac symptoms of exertional chest pain or shortness of breath. No heart failure symptoms [facility] Medical History Tendonitis involving right hip abductors Chronic pain in right foot Disorder of sacrum Trochanteric bursitis of right hip Lumbar radiculopathy Paroxysmal atrial fibrillation Atrial fibrillation with RVR Anxiety Crohn disease Surgical History History of hip surgery Hx of colonoscopy History of bowel resection Hx of cholecystectomy Family History Father Atrial fibrillation Social History Household Members: Children Housing: House Do you presently have visiting nurse or other home services: No Alcohol intake: never Patient Tobacco Use Status: Former Tobacco user Quit Date: 8 yrs ago service: No Current occupational status: employed Review of Systems Const Reports chills, Reports fatigue, Reports fever(s), Reports frequent falls, Reports weakness, Reports weight gain and Reports weight loss ENT Reports dizziness Card Reports chest pain, Reports leg edema, Reports lightheadedness, Reports palpitations, Reports dyspnea and Reports dyspnea on exertion Resp Reports cough, Reports dyspnea and Reports dyspnea on exertion GI Reports hematochezia Musc Reports abnormal gait, Reports muscle weakness, Reports numbness, Reports radiating pain into limb and Reports tingling Neuro Reports abnormal gait, Reports dizziness, Reports frequent falls, Reports numbness, Reports tingling and Reports weakness Endo Reports fatigue and Reports palpitations Physical Exam Vital Signs: Last Vital Signs Pulse 53 03/26/23 10:14 BP 140/72 H 03/26/23 10:14 BMI result Body Mass Index 30.7 Const General: cooperative, comfortable, no acute distress, awake and anxious Nutritional Appearance: average body habitus Orientation/consciousness: patient oriented x3 Limitations: no limitations Neck Neck: Yes trachea midline, Yes supple and Yes no JVD Resp Effort & Inspection: normal respiratory effort Auscultation: clear to auscultation bilaterally Cardio Jugular venous distension: no JVD Palpation: normal PMI Rate: regular rate Rhythm: regular rhythm Heart sounds: S1 normal heart sound present and S2 normal heart sound present Skin General skin exam: no rashes or lesions noted Neuro General: patient oriented x3 and no focal motor deficits Extrem General: Yes no clubbing, cyanosis or edema Psych Appearance: grossly normal Office Procedures EKG Details: EKG shows sinus bradycardia 53 beats per minute with low-voltage QRS with poor R-wave progression due to lead placement [id number], Complete Assessment & Plan Assessment & Plan (1) Paroxysmal atrial fibrillation: Code(s): I48.0 - Paroxysmal atrial fibrillation Plan: Patient with prior history of paroxysmal atrial fibrillation the setting of medical illness with no obvious clinical recurrence. She is having increased symptoms of palpitations which to me sounds are either isolated PACs and/or anxiety related. She has baseline bradycardia metoprolol therapy and cannot further maximize. Will obtain Holter monitor to assess for these symptoms and if she does in fact have episodes of atrial fibrillation may require antiarrhythmic drug support. She has no underlying structural heart issues and her CHADSVASc score is 0, and as per Heart rhythm Society there is no indication for oral anticoagulation therapy as risk of thromboembolic complication is low. Discussed about avoiding stimulants such as caffeine and alcohol as well as [id number] medications such as pseudoephedrine. Advised stress mitigation strategies. Will follow up in the clinic in 1 year's time, sooner p.r.n.. Orders: Orders ECG 7 day holter monitor Today R00.2 - Palpitations Coding Level of Care Code Est Pt Level 3 (30731) Diagnoses Paroxysmal atrial fibrillation I48.0 CPT Codes EKG - CPT: [id number], Complete ([id number])
== END 2023-03-26 11:17 | disposition home or self-care (01) ==
PROVIDERS: Visit Provider Internal Medicine Cardiovascular Disease
DX: I48.0 Paroxysmal atrial fibrillation (principal)
CPT/HCPCS: 93010; 99213

== ENCOUNTER → 2023-03-26 10:08 | Outpatient (BNVA) | payer MEDICARE, MEDICAID, SELFPAY | PROVIDERS: Visit Provider Internal Medicine Cardiovascular Disease | DX: I48.0 Paroxysmal atrial fibrillation (principal) | CPT/HCPCS: 93005; 99212 ==

== ENCOUNTER → 2023-04-02 10:27 | Outpatient (REF) | payer MEDICARE, MEDICAID, SELFPAY ==
--- NOTE | 2023-04-02 10:29 | HM_ITS ---
* Total monitoring time 7 days. * Underlying rhythm is sinus with an average rate of 62/Min. Range 45-102/Min. * Rare supraventricular ectopy. One isolated ventricular ectopic beat. * No sustained arrhythmias. * No significant pauses or AV blocks. * No patient markers or diary events. MTDD
== END ==
LOC: HO.CARD 10:27
PROVIDERS: PCP Family Medicine; Visit Provider Internal Medicine Cardiovascular Disease
DX: R00.2 Palpitations (principal)
CPT/HCPCS: 93242

== ENCOUNTER → 2023-04-02 10:29 | Outpatient (BNV) | payer MEDICARE, MEDICAID, SELFPAY | PROVIDERS: PCP Family Medicine; Visit Provider Internal Medicine | DX: R00.2 Palpitations (principal) | CPT/HCPCS: 93244 ==

== ENCOUNTER 2023-12-14 13:32 | Day surgery (SDC) | payer MEDICARE, MEDICAID, SELFPAY ==
--- NOTE | 2023-12-14 14:14 | P.CONAN_ITS ---
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) Lumbar spondylosis (Acute) Intractable low back pain (Acute) Leg pain (Acute) Palpitations (Acute) Diarrhea (Acute) Crohn's disease (Acute) Lumbar radiculopathy (Acute) Paroxysmal atrial fibrillation (Acute) Past Medical History Medical History Tendonitis involving right hip abductors Chronic pain in right foot Disorder of sacrum Trochanteric bursitis of right hip Lumbar radiculopathy Paroxysmal atrial fibrillation Atrial fibrillation with RVR Anxiety Crohn disease Family History Family History Father Atrial fibrillation Family history of problems with anesthesia: No Surgical History Surgical History History of hip surgery Hx of colonoscopy History of bowel resection Hx of cholecystectomy History of Problems with Anesthesia: No Social History Social History Household Members: Children Housing: House Do you presently have visiting nurse or other home services: No Alcohol intake: never Patient Tobacco Use Status: Former Tobacco user Advance Directives: No Advance Directives Information Provided: Yes service: No Current occupational status: employed Meds Allergies Allergy/AdvReac Type Severity Reaction Status Date / Time azithromycin [AZITHROMYCIN] Allergy Intermediate HIVES Verified 03/26/23 10:17 erythromycin base Allergy Intermediate Hives Verified 03/26/23 10:17 Penicillins [PCN] Allergy Intermediate Difficulty Verified 03/26/23 10:17 Breathing Sulfa (Sulfonamide Allergy Intermediate Palpitation Verified 03/26/23 10:17 Antibiotics) s Home Medications ?Medication ?Instructions ?Recorded ?Confirmed ?Last Taken ?Type oxycodone 10 mg tablet 1 tab PO Q6H PRN Back Pain 07/01/20 03/26/23 1 Day Ago History ~06/30/20 sertraline 100 mg tablet (Zoloft) 200 mg PO DAILY 03/18/22 03/26/23 Unknown History quetiapine 25 mg tablet (Seroquel) 25 mg PO BEDTIME 10/03/22 03/26/23 Unknown History albuterol sulfate 90 mcg/actuation inhalation 02/17/23 03/26/23 Unknown History aerosol inhaler budesonide 3 mg 9 mg PO DAILY 02/17/23 03/26/23 Unknown History capsule,delayed,extended release lorazepam 1 mg tablet 1 mg PO DAILY PRN 02/17/23 03/26/23 Unknown History oxycodone 20 mg tablet mg PO 02/17/23 03/26/23 Unknown History Exam Airway Mallampati Class: II TM Dist: >3cm Neck ROM: Full Heart: afib Lungs: cta Assessment and Plan Assessment Anesthesia Assessment: Anesthesia Plan Discussed Final Anesthetic Review Family History of Problems with Anesthesia: No History of Problems with Anesthesia: No NPO: Yes ASA Class: III Final Preanesthetic Review: No Changes in Pt Med Stat, Meds/Allgs Chart Re viewed, Consent Obtained/Reviewed and Anes Risks/Benef Reviewed Patient Risk: Intermediate Procedure Risk: Low Anesthetic Plan Anesthetic Plan: MAC: Disposition: Standard PACU
[2023-12-14 14:15] VITALS: BMI 31.0
[2023-12-14 14:19] LABS: UPreg QC Valid YES; Urine Pregnancy NEGATIVE (NEGATIVE)
[2023-12-14 14:32] VITALS: BP 128/71; PULSE 51; RESP 16; TEMP 36.6; O2SAT 95
[2023-12-14] MEDS: Lactated Ringers 1,000 ML 100 ML IVCONT (15:30)
[2023-12-14 17:19] VITALS: BP 125/69; PULSE 54; RESP 18; TEMP 36.6; O2SAT 96
--- NOTE | 2023-12-14 17:21 | P.BOP_ITS ---
Brief Operative Note Date of Service: 12/14/23 Pre-op diagnosis: GERD Post-op diagnosis: other (Same, Gastritis, Minimal hiatal hernia) Procedure: EGD with biopsies Surgeon: Stepan Sheldon MD Anesthesia: MAC Was an Radio Talk Show Host used for this Procedure?: No Estimated blood loss (mL): 2.0 Pathology: other (A. Descending duodenum B. Gastric antrum C. EG Junction at 37cm) Condition: stable Disposition: PACU
[2023-12-14 17:30] VITALS: BP 120/70; PULSE 51; RESP 18; O2SAT 98
[2023-12-14 17:40] VITALS: BP 123/60; PULSE 57; RESP 16; TEMP 36.4; O2SAT 99
--- NOTE | 2023-12-15 00:59 | OP_ITS ---
DATE OF SERVICE: 12/14/2023 SURGEON: Stepan Sheldon MD INDICATIONS: Patient presents for evaluation of chronic gastroesophageal reflux and nausea. Full consent has been obtained from her for this, including risks of bleeding and perforation. PREOPERATIVE DIAGNOSIS: POSTOPERATIVE DIAGNOSIS: PROCEDURE PERFORMED: Esophagogastroduodenoscopy with biopsies. ESTIMATED BLOOD LOSS: COMPLICATIONS: ANESTHESIA: Monitored anesthesia care. ASSISTANTS: SPECIMENS: PREOPERATIVE DIAGNOSES: Gastroesophageal reflux and nausea. POSTOPERATIVE DIAGNOSES: Gastroesophageal reflux and nausea, mild gastritis, rule out celiac disease, minimal hiatal hernia. DESCRIPTION OF PROCEDURE: The patient was placed in the left lateral decubitus position. The Olympus video gastroscope was passed in the posterior oropharynx and upper esophagus under direct vision. The scope was passed slowly into the distal esophagus. The gastroesophageal junction appeared at 37 cm. There was some very minimal irregularity consistent with reflux, but no evidence of esophagitis nor [place] esophagus. The scope entered the stomach. There was a minimal hiatal hernia. The scope was advanced to the pylorus and the duodenum was cannulated to the descending portion. The duodenum including the bulb appeared normal without mass or ulceration. There was no sign of any Crohn disease nor any other mucosal abnormalities. Biopsies were obtained from the second and third portions of the duodenum. The scope was withdrawn back in the stomach. The gastric antrum and body had some areas of erythema, but no erosions or ulceration. There was good peristalsis. The scope was retroflexed, visualizing the proximal stomach carefully, which appeared normal, without any sign of mass or ulceration. The scope was straightened. Biopsies were obtained from the gastric antrum. The scope was withdrawn back to the esophagus. Biopsies were obtained from the EG junction at 37 cm. Proximal to that, the esophageal mucosa appeared normal. The scope was withdrawn from the patient. She tolerated the procedure well and was returned to recovery area in stable condition. IMPRESSION: 1. Mild gastritis. 2. Minimal hiatal hernia. 3. Minimal gastroesophageal reflux. PLAN: The results of the biopsies will be checked. She has been instructed to increase the omeprazole from 40 mg daily to 40 mg b.i.d. She has been given instructions to try to minimize caffeine, fatty foods and to be sure not to eat for several hours before bedtime. She was advised to continue her budesonide, Imodium, and Colestid for her Crohn disease and diarrhea. She will follow up in the office as well. MD KRISTY Siegel/PJ / [id number] MTDD
== END 2023-12-14 17:49 | disposition home or self-care (01) ==
PROVIDERS: Anesthesiology; PCP Family Medicine; Visit Provider Internal Medicine
PROC: 0DJ08ZZ Inspection of Upper Intestinal Tract, Via Natural or Artificial Opening Endoscopic (ICD-10-PCS; CPT 43235; principal; 2023-12-14 14:40)
DX: K21.9 Gastro-esophageal reflux disease without esophagitis (principal); K29.70 Gastritis, unspecified, without bleeding; K50.819 Crohn's disease of both small and large intestine with unspecified complications; K44.9 Diaphragmatic hernia without obstruction or gangrene; I48.91 Unspecified atrial fibrillation; F41.9 Anxiety disorder, unspecified; Z79.899 Other long term (current) drug therapy; Z90.49 Acquired absence of other specified parts of digestive tract; Z98.890 Other specified postprocedural states; Z88.0 Allergy status to penicillin; Z88.1 Allergy status to other antibiotic agents; Z88.2 Allergy status to sulfonamides; Z88.8 Allergy status to other drugs, medicaments and biological substances; Z87.891 Personal history of nicotine dependence
CPT/HCPCS: 43239; 81025; 88305; 88313; 88342; J2704; J3010

== ENCOUNTER 2024-04-04 10:57 | Emergency (ER) | payer MEDICARE, MEDICAID, SELFPAY ==
--- NOTE | ~2024-04-04 | XR_ITS ---
EXAMINATION: XR CHEST 2 VIEW CLINICAL INFORMATION: CP COMPARISON: 06/21/2020 TECHNIQUE: PA and lateral views of the chest obtained. FINDINGS: The lungs are clear. There are no pleural effusions. The cardiomediastinal silhouette is normal. XR/XR chest 2V IMPRESSION: No acute cardiopulmonary disease. Electronically signed by: Milton Lopez MD 04/04/2024 12:29 PM [facility]
--- NOTE | 2024-04-04 10:59 | ECG_ITS ---
Test Reason : cp Blood Pressure : / mmHG Vent. Rate : 057 BPM Atrial Rate : 057 BPM P-R Int : 148 ms QRS Dur : 074 ms QT Int : 410 ms P-R-T Axes : 032 010 022 degrees QTc Int : 399 ms Sinus bradycardia Low voltage QRS Septal infarct (cited on or before 05-DEC-2020) Abnormal ECG When compared with ECG of 14-JAN-2023 23:04, No significant change was found Referred By: Generic ED Physician Electronically Signed By:CINDY SANTOS
--- OUTSIDE RECORDS SUMMARY | 2024-04-04 10:59 | XMS_ITS | Continuity of Care Document ---
Author Organization [facility] Address [address] [place] [address]- Care Team Providers Care Supervisor Wet Pour Name Role Phone Balaji Ibanez MD Primary Care Physician [phone] [id number] Date(s): 02/22/24 - 03/23/24 [facility] [address] [place] [address]- Encounter Type: Triage Allergies, Adverse Reactions, Alerts Substance Criticality Severity Reaction Reaction Severity Status erythromycin Active azithromycin Active penicillin Active Medications Acetaminophen = 1,000 mg, By Mouth, 3 times a day, 0 Refills, Maintenance, 12/19/14 3:13:06 PM EDT Start Date: 12/19/14 Status: Ordered Repeat number: 1 Ativan 1 mg oral tablet 1 tablet = 1 mg, By Mouth, 2 times a day, PRN as needed for anxiety, 0 Refills, Maintenance, 09/03/23 3:06:00 PM EDT, Tablet, Partial fill upon patient request if the prescription is for a schedule IIopioid drug. Start Date: 09/03/23 Status: Ordered Repeat number: 1 Entocort EC See Instructions, 3 mg By Mouth Daily in AM, 0 Refills, Maintenance, 03/03/24 1:48:00 PM EST, Partial fill upon patient request if the prescription is for a schedule II opioid drug. Start Date: 03/03/24 Status: Ordered Repeat number: 1 metoprolol 50 mg oral tablet 50 mg, 1, tablet, By Mouth, Daily, Refills 0, Maintenance, 08/20/20 10:50:00 AM EDT, Partial fill upon patient request if the prescription is for a schedule II opioid drug. Start Date: 08/20/20 Status: Ordered Repeat number: 1 Mirena 52 mg intrauteral device 1 each = 52 mg, Once, 0 Refills, Maintenance, 04/21/12 5:24:43 PM EST Start Date: 04/21/12 Status: Ordered Repeat number: 1 omeprazole 20 mg oral delayed release tablet 1 tablet = 20 mg, By Mouth, Daily before breakfast, # 30 tablet, 5 Refills, Maintenance, 04/02/22 3:24:00 PM EST, CR Tablet, [facility]/pharmacy #[id number], Partial fill upon patient request if the prescription is for a schedule II opioid drug., 170, cm, 12/05/21 11:55:00 EDT, Height, 86.2, kg, 06/11/21 10:16:00 EST, Dry Weight Start Date: 04/02/22 Stop Date: 09/29/22 Status: Ordered Quantity: 30.0 Unit: tablet Repeat number: 6 Sertraline = 150 mg, By Mouth, Daily, 0 Refills, Maintenance, 01/29/10 9:37:18 AM EDT Start Date: 01/29/10 Status: Ordered Repeat number: 1 stisage daley, See Instructions, # 1 each, Refills 0, Tot. Refills 0, Maintenance, Use as needed after bowelmovement and for pain Dx: fissuer, 08/08/20 2:44:00 PM EDT, Compound, 169, cm, 08/08/20 14:38:00 EDT, Height, 79, kg, 01/25/20 12:51:00 EDT, Dry Weight Start Date: 08/08/20 Status: Ordered Quantity: 1.0 Unit: each Repeat number: 1 VITAMIN B12 ONCE MONTHLY VITAMIN B12 ONCE MONTHLY, Refills 0, Maintenance, 03/17/18 4:10:11 PM EST, Compound Start Date: 03/17/18 Status: Ordered Repeat number: 1 Problem List Condition Confirmation Course Effective Dates Status H ealth Status Informant Acute insomnia Confirmed Active Asthma Confirmed Active Atrial fibrillation Confirmed Active Back pain, chronic Confirmed Active Crohn's disease Confirmed Active Family history of breast cancer Confirmed Active Heterogeneously dense tissue of both breasts on mammography Confirmed Active Anxiety and depression Confirmed Active Obese class I Confirmed Active Greater trochanteric bursitis of left hip Confirmed Active Social History Social History Type Response Smoking Status Former smoker, quit more than 30 days ago entered on: 09/03/23 Sex Sex Representation Female (finding) Patient Care team information Care Team Personnel Name: Mer Abdullahi RN Position: [facility] RN Member Role: Primary Care Nurse Name: Vanessa Ramirez RN Position: [facility] RN Member Role: Primary Care Nurse Name: Balaji Ibanez MD Position: [facility] Outreach Member Role: PCP Address: [address] [place] [address] Telecom: Name: Georgia Balbuena RN Position: [facility] Nurse Member Role: Primary Care Nurse Care Team Related Persons Name: DOMONIQUE WINTER Name: DENNIS BARAHONA Insurance Providers Guarantor name: JAVIER WINTER Health Plan Information #: 1 Payer: MEDICARE PART B OUTPT Member Number: NA Policy Number: NA Group Number: NA Health Plan Information #: 2 Payer: [place] Member Number: NA Policy Number: NA Group Number: NA
--- OUTSIDE RECORDS SUMMARY | 2024-04-04 10:59 | XMS_ITS ---
Author Organization [facility] Address [address] [place] [address] Care Team Providers Care Last Puller Name Role Phone Balaji Ibanez MD Primary Care Provider Stepan Watkins [phone] MEDICATIONS Medication SIG (Take, Route, Fr equency, Duration) Notes Start Date End Date Status Omeprazole 40 MG 1 Orally Twice a day in the morning and late afternoon or the early evening for 90 days 12/21/2023 Active Encounters Encounter Location Date Provider Diagnosis [facility] [address] [address] 12/21/2023 Stepan Sheldon PLAN OF TREATMENT Medication Medication Name Sig Start Date Stop Date Notes Omeprazole 40 MG 1 Orally Twice a day in the morning and late afternoon or the early evening for 90 days 12/21/2023 Next Appt Details Provider Name:Stepan Sheldon , 05/03/2024 09:30:00 AM, [address] [place] [address], [address], [place], [address],
--- OUTSIDE RECORDS SUMMARY | 2024-04-04 10:59 | XMS_ITS | Continuity of Care Document ---
Author Organization [facility] Address [address] [place] [address]- Care Team Providers Care Sample Builder Name Role Phone Balaji Ibanez MD Primary Care Physician [id number] Date(s): 02/23/24 - 03/24/24 [facility] [address] [place] [address]- Encounter Type: Triage Allergies, Adverse Reactions, Alerts [...] Maintenance, 04/02/22 3:24:00 PM EST, CR Tablet, [facility]/pharmacy #[id number], Partial fill upon patient request if [...] Team Personnel Name: Mer Abdullahi RN Position: [facility] RN Member Role: Primary Care Nurse Name: Vanessa Ramirez RN Position: [facility] RN Member Role: Primary Care Nurse Name: Balaji Ibanez MD Position: [facility] Outreach Member Role: PCP Address: [address] [place] [address] Telecom: Name: [place] Balbuena RN Position: [facility] Nurse Member Role: Primary Care Nurse Care [...]
--- OUTSIDE RECORDS SUMMARY | 2024-04-04 11:00 | XMS_ITS ---
Author Organization [facility] Address [address] [place] [address] Care Team Providers Care Ruling Technician Name Role Phone Balaji Ibanez MD Primary Care Provider Stepan Watkins [phone] ALLERGIES Allergen (clinical drug ingredient) Drug/Non Drug Allergy documented on EMR Reaction Allergy Type Onset Date Status Penicillin Unknown Drug Allergy Active erythromycin Erythromycin Unknown Drug Allergy A ctive Substance with sulfonamide structure and antibacterial mechanism of action (substance) Sulfa Antibiotics Unknown Drug Allergy Active azithromycin Zithromax Unknown Drug Allergy Acti ve mesalamine Pentasa diarrhea Drug Allergy Active REASON FOR VISIT Patient presents today for crohn's MEDICATIONS Medication SIG (Take, Route, Frequency, Duration) Notes Start Date End Date Status Colestipol HCl 1 GM TAKE 2 TABLETS BY MOUTH TWICE A DAY FOR DIARRHEA 30 DAY(S) for 90 prn Active Vitamin B12 Active tylenol prn Active Budesonide 3 MG 3 Orally Once a day for 30 day(s) 10/13/2022 Active Ondansetron 4 MG 1 tablet on the tongue and allow to dissolve Orally Every 4 to 6 hours as needed for nausea for 30 day(s) 10/15/2023 Active Metoprolol Succinate ER 25 MG TAKE 1 TABLET BY MOUTH EVERY DAY Oral for 90 A.fib Active Sertraline HCl 100 MG TAKE 2 TABLETS BY MOUTH ONCE DAILY Oral for 90 Active QUEtiapine Fumarate 25 MG TAKE 1 TABLETS BY MOUTH EVERY EVENING NEEDED Oral for 90 Insomnia Active Omeprazole 40 MG TAKE 1 CAPSULE BY MOUTH EVERY MORNING FOR 30 DAYS for 90 prn Active Mirena (52 MG) 20 MCG/DAY as directed Intrauterine Active Ativan 0.5 MG 1 tablet at bedtime as needed Orally Once a day PRN Active oxyCODONE HCl 10 MG TAKE 1 TABLET (10 MG TOTAL) BY MOUTH 5 (FIVE) TIMES A DAY. Oral for 28 Back and hip pain Active SOCIAL HISTORY Tobacco Use: Social History Observation Description Date Details (start date - stop date) Former Smoker NA - NA Sex Assigned At : Social History Observation Description Sex Assigned At Unknown Tobacco Use/Smoking Question Answer Notes Patient is a former smoker How long has it been since you last smoked? 5-10 years Alcohol Screen Question Answer Notes Did you have a drink containing alcohol in the p ast year? No Points 0 Interpretation Negative PROBLEMS Problem Type ICD Code Onset Dates Problem Status W/U Status Risk SNOMED Code Notes Problem Nausea (R11.0) Active confirmed Nausea (226039843) Problem Chronic GERD (K21.9) Active confirmed Gastroesophagea l reflux disease (disorder) (952004398) VITAL SIGNS BMI 31.32 kg/m2 10/15/2023 Blood pressure systolic 00 mm Hg 10/15/19 24 Blood pressure diastolic 00 mm Hg 024 Height 67 in 10/15/2023 Weight 200 lbs 10/15/2023 Encounters Encounter Location Date Provider [facility] [address] [place] [address] 10/15/2023 Stepan Sheldon Nausea R11.0 ; Crohn 's disease of small and large intestines with complication K50.819 and Chronic GERD K21.9 ASSESSMENTS Encounter Date Diagnosis Assessment Notes Treatment Notes Treatment Clinical Notes 10/15/2023 Nausea (ICD-10 - R11.0) 10/15/2023 Crohn's disease of small and large intestines with complication (ICD-10 - K50.819) Continue 3 Budesonide daily. Continue all the vitamins and supplements. Use the Imodium and Colestid every day. 10/15/2023 Chronic GERD (ICD-10 - K21.9) Continue daily omeprazole PLAN OF TREATMENT Medication Medication Name Sig Start Date Stop Date Notes Ondansetron 4 MG 1 tablet on the tong ue and allow to dissolve Orally Every 4 to 6 hours as needed for nausea for 30 day(s) 10/15/2023 Treatment Notes Assessment Notes Crohn's disease of small and large intestines with complication Continue 3 Budesonide daily. Continue al l the vitamins and supplements. Use the Imodium and Colestid every day. Chronic GERD Continue daily omepr azole Future Test Test Name Order Date UPPER GI ENDOSCOPY 10/15/2023 Next Appt Details Follow Up: prn, Reason: Provider Name:Stepan Sheldon , 05/03/2024 09:30:00 AM, [address], [address], [place], [address], Progress Notes * Examination Category Sub-Category Detail Notes General Examination GENERAL APPEARANCE: pleasant , well nourished, well developed, in no acute distress HEAD: EYES: sclera non-icteric EARS: NOSE: THROAT: NECK/THYROID: no cervical lymphade nopathy, neck supple HEART: S1, S2 normal CHEST: LUNGS: clear to auscultatio n bilaterally ABDOMEN: normal bowel sounds, no guarding or rigidity, no guarding or rigidity, no masses palpable, soft, nontender, nondistended NEUROLOGIC: alert and oriented SKIN: nonjaundiced, no spi jessica angiomata EXTREMITIES: no edema PERIPHERAL PULSES: BACK: BREASTS: MUSCULOSKELETAL: MALE GENITOURINARY: LYMPH NODES: RECTAL EXAM: FEMALE GENITOURINARY: ORAL CAVITY: mucosa moist
--- OUTSIDE RECORDS SUMMARY | 2024-04-04 11:00 | XMS_ITS ---
Author Organization [facility] Address [address] [place] [address] Care Team Providers Care Vice President [employer] Name Role Phone Balaji Ibanez MD Primary Care Provider Stepan Watkins [phone] REASON FOR VISIT gerd, nausea PROBLEMS Problem Type ICD Code Onset Dates Problem Status W/U Status Risk SNOMED Code Notes Problem Gastro-esophagea l reflux disease without esophagitis (K21.9) Active confirmed Gastro-esophage al reflux disease without esophagitis (676373983) Problem Chronic gastritis (K29.50) Active confirmed Chronic gastritis (8120063) Encounters Encounter Location Date Provider Diagnosis [facility] Outpatient [address] [place] [phone] 12/14/2023 Stepan Sheldon Gastro-esophageal reflux disease without esophagitis K21.9 ; Hiatal hernia K44.9 ; Chronic gastritis K29.50 and Nausea R11.0 ASSESSMENTS Encounter Date Diagnosis Assessment Notes Treatment Notes Treatment Clinical Notes 12/14/2023 Gastro-esophageal reflux disease without esophagitis (ICD-10 - K21.9) 12/14/2023 Hiatal hernia (ICD-10 - K44.9) 12/14/2023 Chronic gastritis (ICD-10 - K29.50) 12/14/2023 Nausea (ICD-10 - R11.0) PLAN OF TREATMENT Next Appt Details Provider Name:Stepan Sheldon , 05/03/2024 09:30:00 AM, [address], [address], [place], [address],
--- OUTSIDE RECORDS SUMMARY | 2024-04-04 11:00 | XMS_ITS | Patient Health Record ---
Author Organization [facility] Address [address] [place] [address] Care Team Providers Care Landscape Drafter Name Role Phone Balaji Ibanez MD Primary Care Provider Stepan Watkins [phone] ALLERGIES Allergen (clinical drug ingredient) Drug/Non Drug Allergy documented on EMR Reaction Allergy Type Onset Date Status Penicillin Unknown Drug Allergy Active erythromycin Erythromycin Unknown Drug Allergy A ctive Substance with sulfonamide structure and antibacterial mechanism of action (substance) Sulfa Antibiotics Unknown Drug Allergy Active azithromycin Zithromax Unknown Drug Allergy Acti ve mesalamine Pentasa diarrhea Drug Allergy Active RESULTS Component Value Reference Range Notes Ur Preg Test Reviewed date:12/14/2023 11:20:25 PM Interpretation: Performing Lab:[address] [id number] Notes/Report: Urine NEGATIVE NEGATIVE This test was developed to detect early . False negative results may occur after the 5th - 7th week of when using this test method. If clinically indicated, consider a serum hCG. Pathology Reviewed date:12/21/2023 01:56:48 PM Interpretation: Performing Lab:[address] [id number] Notes/Report: REASON FOR REFERRAL No Information MEDICATIONS Medication SIG (Take, Route, Frequency, Duration) Notes Start Date End Date Status Ondansetron 4 MG 1 tablet on the tongue and allow to dissolve Orally Every 4 to 6 hours as needed for nausea for 30 day(s) 10/15/2023 Active Omeprazole 40 MG 1 Orally Twice a day in the morning and late afternoon or the early evening for 90 days 12/21/2023 Active Colestipol HCl 1 GM TAKE 2 TABLETS BY MOUTH TWICE A DAY FOR DIARRHEA 30 DAY(S) for 90 prn Active Vitamin B12 Active tylenol prn Active Mirena (52 MG) 20 MCG/DAY as directed Intrauterine Active Ativan 0.5 MG 1 tablet at bedtime as needed Orally Once a day PRN Active Metoprolol Succinate ER 25 MG TAKE 1 TABLET BY MOUTH EVERY DAY Oral for 90 A.fib Active oxyCODONE HCl 10 MG TAKE 1 TABLET (10 MG TOTAL) BY MOUTH 5 (FIVE) TIMES A DAY. Oral for 28 Back and hip pain Active Sertraline HCl 100 MG TAKE 2 TABLETS BY MOUTH ONCE DAILY Oral for 90 Active QUEtiapine Fumarate 25 MG TAKE 1 TABLETS BY MOUTH EVERY EVENING NEEDED Oral for 90 Insomnia Active Budesonide 3 MG 3 Orally Once a day for 30 day(s) 10/13/2022 Active Omeprazole 40 MG TAKE 1 CAPSULE BY MOUTH EVERY MORNING FOR 30 DAYS for 90 prn Active IMMUNIZATIONS Vaccine Route Administration Date Status Comme nts Influenza Unknown 03/11/2022 Administered SOCIAL HISTORY Tobacco Use: Social History Observation [...] W/U Status Risk SNOMED Code Notes Problem Crohn's disease of small and large intestines with complication (K50.819) Active confirmed 97825780 Problem Abdominal pain, generalized (R10.84) Active confirmed 990274990 Problem Diarrhea, unspecified type (R19.7) Active confirmed 64618970 Problem Gastroesophageal reflux disease, unspecified whether esophagitis present (K21.9) Active confirmed 579718559 Problem Crohn''s disease of small intestine without complication (K50.00) Active confirmed Crohn's disease of small intestine (93943159) Problem Intestinal bypass and anastomosis status (Z98.0) Active confirmed History of gastrointestinal tract bypass (026871289) Problem Diarrhea (R19.7) Active confirmed Diarr hea (81124967) Problem Nausea (R11.0) Active confirmed Nausea (426537379) Problem Chronic GERD (K21.9) Active confirmed Gastroesophagea l reflux disease (disorder) (198654441) Problem Gastro-esophageal reflux disease without esophagitis (K21.9) Active confirmed Gastro-esophage al reflux disease without esophagitis (297007482) Problem Chronic gastritis (K29.50) Active confirmed Chronic gastrit is (2548853) VITAL SIGNS Blood pressure diastolic 00 mm Hg 10/15/2023 Height 67 in 10/15/2023 Blood pressure systolic 00 mm Hg 10/15/2023 Weight 200 lbs 10/15/2023 BMI 31.32 kg/m2 10/15/2023 Encounters Encounter Location Date Provider Diagnosis [facility] [address] [place] [id number] 12/14/2023 Stepan Sheldon Gastro-esophageal reflux disease without esophagitis K21.9 ; Hiatal hernia K44.9 ; Chronic gastritis K29.50 and Nausea R11.0 [facility] [address] [place] [phone] 07/21/2023 Stepan Sheldon [facility] [address] [place] [phone] 10/15/2023 Stepan Sheldon Nausea R11.0 ; Crohn 's disease of small and large intestines with complication K50.819 and Chronic GERD K21.9 [facility] [address] [address] 12/21/2023 Stepan Sheldon ASSESSMENTS Encounter Date Diagnosis Assessment Notes Treatment Notes Treatment Clinical Notes 12/14/2023 Gastro-esophageal reflux disease without esophagitis (ICD-10 - K21.9) 12/14/2023 Hiatal hernia (ICD-10 - K44.9) 10/15/2023 Nausea (ICD-10 - R11.0) 10/15/2023 Crohn's disease of small and large intestines with complication (ICD-10 - K50.819) Continue 3 Budesonide daily. Continue all the vitamins and supplements. Use the Imodium and Colestid every day. 12/14/2023 Chronic gastritis (ICD-10 - K29.50) 10/15/2023 Chronic GERD (ICD-10 - K21.9) Continue daily omeprazole 12/14/2023 Nausea (ICD-10 - R11.0) PLAN OF TREATMENT Pending Test Test Name Order Date CHEM 7 PROFILE 08/19/2022 LIVER PROFILE 08/19/2022 CRP 08/19/2022 CBC w DIFF 08/19/2022 SED RATE (ESR) 08/19/2022 CELIAC PANEL #10 08/19/2022 C DIFFICILE RFLX PCR 08/19/2022 Future Test Test Name Order Date COLONOSCOPY 08/19/2022 UPPER GI ENDOSCOPY 10/15/2023 Next Appt Details Provider Name:Stepan Sheldon , 05/03/2024 09:30:00 AM, [address] [facility], [address], [place], [address], Insurance Providers Payer Name Payer Address Payer Phone Subscriber Number Group Number Insured Name Patient Relationship to Insured Coverage Start Date Coverage End Date MEDICARE OF [place] [address] [place] [address] [id number] JAVIER WINTER Self - patient is the insured MEDICAID OF [facility] [employer] [address] [place] [address] [id number] JAVIER WINTER Self - patient is the insured MEDICAL (GENERAL) HISTORY Medical History History ICD Code Denies OH,DM,CVA,Lung disease,renal dise ase Afib Crohn's disease diagnosed ag 31--ileocolonic with associated stricture and surgery as below; perianal fistulosus disease treated as below--according to old GI records she is s/p trials with Methotrexate and Azathioprine and numerous biologics including Remicade, Humira, Cimzia, and most recently Entyvio(she decided to stop it due to a question of some Neuro symptoms including hand tingling/numbness, brain fog, blurred vision). Possibly was going to start Stelara but she wanted to hold off due to concerns about side effects. Her last colonoscopy was in 01/[address] Garcia at [facility] revealed some erosions at the ileocolic anastomosis, but no structure nor other ileocolic disease. Anxiety GERD-EGD in 2018 was negativ e for significant esophagitis, Kearney's esophagus,nor H.pylori. Biopises were also negative for celiac disease Colonoscopy in September of 2022 revealed a very short colon with the ileocolic anastomosis at 30-35 cm. There was some inflammation at the anastomosis but did allow passage of the gastroscope as the colonoscope would not pass. There was evidence of active ileitis as well. The distal colon and rectal mucosa appeared normal. Flare of the Crohn's disease in early November of [address] scan and requiring a course of outpatient prednisone. The CT scan at that time showed inflammation both in the small bowel proximal to the ileocolic anastomosis and the colon distal to the ileocolic anastomosis. 01/2023 pneumonia Surgical History Surgery Date(Month/Year) Cholecystectomy 1996 Ileocolonic resection-Dr. Prosper ken--after an attempted balloon dilation of a terminal ileum stricture resulted in a perforation and need for emergent surgery 2014 Perirectal fistula--Dr. Arizmendi treated with surgery and a seton in approx 2020 Left hip bursectomy 07/2021
[2024-04-04 11:20] VITALS: BP 140/80; PULSE 58; RESP 18; TEMP 36.2; O2SAT 99; BMI 29.9
--- NOTE | 2024-04-04 11:21 | ED_ITS ---
HPI - General Adult General Chief complaint: General Medical Stated complaint: l arm pain into chest Time Seen by Provider: 04/04/24 16:59 Source: patient Mode of arrival: ambulatory Limitations: no limitations History of Present Illness ED Provider: Vikram Johnson HPI narrative: 48 yold female with pmh of afib presents to the ED for for intermittent chest pain, anxiety since Thursday. Patient states history of anxiety but wanted to make sure there was no medical event. Patient denies any recent long travel, recent surgery, pleurisy, calf pain, coughing up blood, fever, or chills. Related Data Home Medications ?Medication ?Instructions ?Recorded ?Confirmed oxycodone 10 mg tablet 1 tab PO Q6H PRN Back Pain 07/01/20 12/14/23 sertraline 100 mg tablet (Zoloft) 200 mg PO DAILY 03/18/22 12/14/23 quetiapine 25 mg tablet (Seroquel) 25 mg PO BEDTIME 10/03/22 12/14/23 albuterol sulfate 90 mcg/actuation inhalation 02/17/23 03/26/23 aerosol inhaler budesonide 3 mg 9 mg PO DAILY 02/17/23 12/14/23 capsule,delayed,extended release lorazepam 1 mg tablet 1 mg PO DAILY PRN Anxiety 02/17/23 12/14/23 oxycodone 20 mg tablet mg PO 02/17/23 03/26/23 Previous Rx's ?Medication ?Instructions ?Recorded metoprolol succinate 25 mg 25 mg PO DAILY #90 tabs 11/23/23 tablet,extended release 24 hr Allergies Allergy/AdvReac Type Severity Reaction Status Date / Time azithromycin [AZITHROMYCIN] Allergy Intermediate HIVES Verified 04/04/24 11:26 erythromycin base Allergy Intermediate Hives Verified 04/04/24 11:26 Penicillins [PCN] Allergy Intermediate Difficulty Verified 04/04/24 11:26 Breathing Sulfa (Sulfonamide Allergy Intermediate Palpitation Verified 04/04/24 11:26 Antibiotics) s Review of Systems 2 Review of Systems: intermittent chest pain Yes all other systems are reviewed and are negative PMFSH Past Medical History Medical History Tendonitis involving right hip abductors Chronic pain in right foot Disorder of sacrum Trochanteric bursitis of right hip Lumbar radiculopathy Paroxysmal atrial fibrillation Atrial fibrillation with RVR Anxiety Crohn disease Surgical History History of hip surgery Hx of colonoscopy History of bowel resection Hx of cholecystectomy Family History Family History Father Atrial fibrillation Social History Social History Household Members: Children Housing: House Do you presently have visiting nurse or other home services: No Alcohol intake: never Patient Tobacco Use Status: Former Tobacco user Advance Directives: No Advance Directives Information Provided: Yes Do you have a plan to hurt others: No Plan service: No Current occupational status: employed Physical Exam ED Vital Signs: Vital Signs - 24 hr 04/04/24 11:20 04/04/24 15:25 04/04/24 18:42 Temperature 97.1 F 97.1 F 97.8 F Pulse Rate 58 52 51 Respiratory Rate 18 16 18 Blood Pressure 140/80 H 137/68 125/67 Pulse Oximetry 99 98 99 Oxygen Delivery Method Room Air Room Air Room Air BMI result Body Mass Index 29.9 Const General: cooperative, healthy appearing, comfortable, no acute distress, well developed, alert, awake and Physically active Orientation/consciousness: patient oriented x3 HENMT Head: Yes normal to inspection, Yes No palpable skull fracture present, Yes normocephalic and Yes atraumatic Ears: hearing grossly normal bilaterally, external ears normal, TM's normal bilaterally, TM normal on the right, TM normal on the left, EAC's normal, mastoids normal and no periauricular adenopathy Throat: Yes posterior oropharynx normal, Yes tonsils normal and Yes uvula midline Eyes General: appearance normal, both eyes and all related structures Neck Neck: Yes normal visual inspection, Yes full ROM, Yes no lymphadenopathy, Yes no meningeal signs, Yes trachea midline, Yes supple, No anterior neck swelling and No tender Chest Chest palpation & inspection: normal inspection of the chest and normal palpation of entire chest wall Resp Effort & Inspection: normal respiratory effort and able to speak in complete sentences Auscultation: clear to auscultation bilaterally Cardio Jugular venous distension: no JVD Heart sounds: S1 normal heart sound present and S2 normal heart sound present GI Inspection: Yes normal to inspection Palpation (GI): Soft to palpation, not firm, nontender, no guarding and not rigid General: No CVA tenderness and Yes no CVA tenderness Back/Spine/Pelvis Back: no CVA tenderness, No CVA tenderness and No back tenderness Skin General skin exam: no rashes or lesions noted, elasticity normal and turgor normal Neuro General: patient oriented x3, gait normal, tone normal, moves all extremities, Normal light touch and pain sensation, no meningeal signs, no focal motor deficits, CN's II-XI intact bilaterally and normal sensation to monofilament Extrem Other: Bilateral lower extremity negative for swelling, pitting edema, or calf tenderness General: Yes normal to inspection, Yes full ROM and Yes capillary refill normal Psych Appearance: grossly normal, well kempt and not disheveled Course Course Course Narrative: This is an RME: Additional HPI, ROS, PE not included below will be deferred to primary provider. RME assessment and note performed by: Lakshmi Bullard PA-C This is a [id number]-female, with a hx of afib not anticoagulated on metoprolol, who presents to the ER with complaints of left arm pain that radiates into her chest which started on thursday. Reports that the pain is intermittent, occasionally goes into her chest and then into her arm. Reporting chest pain now. Plan: labs, ekg, cxr, further er eval needed Medical Decision Making Medical Decision Making [facility] Narrative: 48-year-old female presents to ED for intermittent chest pain since Thursday. EKG shows sinus Tim. Patient has 2 troponins negative. Chest x-ray negative for pneumonia. Patient's D-dimer negative. Perc SCore 0. Not suspecting myocardial infarction, heart failure, PE, myocarditis, pericarditis, cardiac tamponade, pneumothorax, hemothorax, any other life-threatening etiology. Patient explained worrisome signs and informed to return to the ED immediately Differential Diagnosis Differential Diagnoses: The differential diagnosis associated with the presentation includes (Pneumonia, myocardial infarction, CHF) Admission/Observation Consideration of admission/observation: Escalation of care including admission/observation considered Lab Data [facility] Lab Attestation statement: I reviewed the patient's lab results. 04/04/24 11:50 04/04/24 11:50 Labs: Lab Results 1204/04/24 04/04/24 Range/Units 11:50 15:22 17:49 WBC 5.6 (4.8-10.8) X10*3/uL RBC 4.49 (4.20-5.50) X10*6/uL Hgb 13.4 (12.0-16.0) g/dl Hct 40.1 (37.0-47.0) % MCV 89.3 (80.0-98.0) fL MCH 29.8 (27.0-33.0) pg MCHC 33.4 (31.0-35.0) g/dl RDW 12.4 (11.0-16.0) % Plt Count 191 (160-400) X10*3/uL MPV 9.2 L (9.4-12.3) fL Immature Gran % (Auto) 0.4 (0.0-0.4) % Neut % (Auto) 60.3 (45-73) % Lymph % (Auto) 29.8 (20-40) % Pine % (Auto) 8.3 (2-11) % Eos % (Auto) 0.7 (0-4) % Baso % (Auto) 0.5 (0-2) % Lymph # (Auto) 1.7 (1.2-4.9) X10*3/uL Pine # (Auto) 0.5 (0.1-1.2) X10*3/uL Eos # (Auto) 0.0 (0.0-0.4) X10*3/uL Baso # (Auto) 0.0 (0.0-0.2) X10*3/uL Abs Immat Gran (auto) 0.02 (0.00-0.03) X10*3/uL Absolute Neuts (auto) 3.4 (2.0-8.3) x10*3/uL Absolute Nucleated RBC 0.000 (0.0-0.012) X10*3/uL Nucleated RBC % (auto) 0.0 (0.0-0.2) /100WBC PT 11.5 (10.9-12.4) SEC INR 1.0 (0.9-1.1) D-Dimer High Sensitivty < 150 NG/ML Sodium 140 (135-145) mmol/L Potassium 4.2 (3.3-5.1) mmol/L Chloride 106 (96-108) mmol/L Carbon Dioxide 26 (22-29) mmol/L Anion Gap 12 (12-20) BUN 10 (9-16) mg/dL Creatinine 0.84 (0.5-1.4) mg/dL Estim Creat Clear Calc 93.6 Estimated GFR > 60 Random Glucose 98 (60-115) mg/dL Calcium 8.9 D (8.4-10.2) mg/dL Total Bilirubin 0.5 (0.0-1.0) mg/dL Direct Bilirubin 0.2 (0.0-0.5) mg/dL AST 45 H (5-31) U/L ALT 74 H (0-31) U/L Alkaline Phosphatase 72 (39-117) U/L Troponin I High Sens < 2.7 < 2.7 (<3.5-17.0) ng/L B-Natriuretic Peptide 31 (<100) pg/mL Total Protein 7.3 (6.5-8.0) g/dL Albumin 4.2 (3.5-5.0) g/dL Influenza Type A (PCR) NEGATIVE (Negative) Influenza Type B (PCR) NEGATIVE (Negative) RSV RNA Qual (PCR) NEGATIVE (Negative) SARS-CoV-2 RNA (RT-PCR) NEGATIVE (Negative) Independent Interpretation I performed an independent interpretation of an: EKG (negative stemi) and Plain X-Ray Radiology Impression Discussion of test interpretation with radiology: I have reviewed the radiologist's reading. Independent Historian Clinical information obtained from an independent historian. History obtained from or confirmed by: Other (Patient) External Record Review External record reviewed: Other (Prior visits) Discharge Plan Discharge Clinical Impression: Chest pain Patient Disposition: Home, Self-Care Instructions: Chest Pain (ED) Additional Instructions: Recommend follow-up with primary care provider and campus aide. Return to the ED immediately for worsening chest pain, coughing up blood, leg swelling, calf pain, fever, chills, weakness, dizziness, shortness of breath, or any other concerning symptoms. Prescriptions: No Action metoprolol succinate 25 mg tablet extended release 24 hr 25 mg PO DAILY Qty: 90 3RF oxycodone 10 mg tablet 1 tab PO Q6H PRN (Reason: Back Pain) sertraline [Zoloft] 100 mg tablet 200 mg PO DAILY lorazepam 1 mg tablet 1 mg PO DAILY PRN (Reason: Anxiety) budesonide 3 mg capsule,delayed,extend.release 9 mg PO DAILY albuterol sulfate 90 mcg/actuation HFA aerosol inhaler inhalation oxycodone 20 mg tablet PO quetiapine [Seroquel] 25 mg tablet 25 mg PO BEDTIME Referrals: [facility] [Provider Group] (Chest pain) Stand Alone Forms: Work/School Release Interventions: ED Discharge Assessment Last Done: 04/04/24 18:42 Discharge Date/Time: 04/04/24 18:42 Print Language: Italian
[2024-04-04 11:54] LABS: MANUAL DIFF FLAG NO
[2024-04-04 11:57] LABS: Basophils Percent Auto 0.5 % (0-2); Eosinophils Percent Auto 0.7 % (0-4); Hematocrit 40.1 % (37.0-47.0); Hemoglobin 13.4 g/dl (12.0-16.0); Imm Gran Abs Auto 0.02 X10*3/uL (0.00-0.03); Imm Gran Pct Auto 0.4 % (0.0-0.4); Lymphocytes Absolute Auto 1.7 X10*3/uL (1.2-4.9); Lymphocytes Percent Auto 29.8 % (20-40); Mean Corpuscular HGB Conc 33.4 g/dl (31.0-35.0); Mean Corpuscular Hemoglobin 29.8 pg (27.0-33.0); Mean Corpuscular Volume 89.3 fL (80.0-98.0); Mean Platelet Volume 9.2 fL (9.4-12.3); Monocytes Absolute Auto 0.5 X10*3/uL (0.1-1.2); Monocytes Percent Auto 8.3 % (2-11); Neutrophils Absolute Auto 3.4 x10*3/uL (2.0-8.3); Neutrophils Percent Auto 60.3 % (45-73); Platelet Count 191 X10*3/uL (160-400); Red Blood Count 4.49 X10*6/uL (4.20-5.50); Red Cell Distribution Width 12.4 % (11.0-16.0); White Blood Count 5.6 X10*3/uL (4.8-10.8)
[2024-04-04 12:04] LABS: Prothrombin Time 11.5 SEC (10.9-12.4)
[2024-04-04 12:12] LABS: Anion Gap 12 (12-20); Blood Urea Nitrogen 10 mg/dL (9-16); Calcium 8.9 mg/dL (8.4-10.2); Carbon Dioxide 26 mmol/L (22-29); Chloride 106 mmol/L (96-108); Creatinine Clr Calc Pharmacy 93.6; Estimated Glomerular Filt Rate > 60; Glucose Random 98 mg/dL (60-115); Potassium 4.2 mmol/L (3.3-5.1); Sodium 140 mmol/L (135-145)
[2024-04-04 12:15] LABS: Alanine Aminotransferase 74 U/L (0-31); Albumin Level 4.2 g/dL (3.5-5.0); Alkaline Phosphatase 72 U/L (39-117); Aspartate Amino Transferase 45 U/L (5-31); Bilirubin Direct 0.2 mg/dL (0.0-0.5); Bilirubin Total 0.5 mg/dL (0.0-1.0); Total Protein 7.3 g/dL (6.5-8.0)
[2024-04-04 12:23] LABS: Troponin-I High Sensitivity < 2.7 ng/L (<3.5-17.0)
[2024-04-04 12:44] LABS: Influenza A PCR NEGATIVE (Negative); Influenza B PCR NEGATIVE (Negative); Resp Syncy Virus RNA Qual PCR NEGATIVE (Negative); SARS COV2 PCR INHOUSE NEGATIVE (Negative)
[2024-04-04 15:25] VITALS: BP 137/68; PULSE 52; RESP 16; TEMP 36.2; O2SAT 98
--- NOTE | 2024-04-04 15:27 | PC.NURSE ---
a&ox4. vss and up to date. pt presents to the ED c/o centralized chest pain radiating to her LUE w/ associated numbness/tingling/sob x thursday. denies hx asthma/copd/smoking. pt denies any fever/chills/body aches/n/v. pt seems to be in no respiratory distress when called from triage. no sob/wob noted. respirations even/unlabored. repeat trop obtained/sent to lab. plan of care ongoing. call cason placed within reach.
[2024-04-04 15:46] LABS: Troponin-I High Sensitivity < 2.7 ng/L (<3.5-17.0)
[2024-04-04 18:07] LABS: D Dimer High Sensitivity < 150 NG/ML
[2024-04-04 18:15] LABS: B Type Natriuretic Peptide 31 pg/mL (<100)
[2024-04-04 18:42] VITALS: BP 125/67; PULSE 51; RESP 18; TEMP 36.6; O2SAT 99
== END 2024-04-04 18:42 | disposition home or self-care (01) ==
PROVIDERS: Physician Assistant; Physician Assistant Medical; Emergency Provider Internal Medicine; PCP Family Medicine
DX: R07.9 Chest pain, unspecified (principal); R00.1 Bradycardia, unspecified; F41.9 Anxiety disorder, unspecified; I48.0 Paroxysmal atrial fibrillation; Z03.818 Encounter for observation for suspected exposure to other biological agents ruled out; Z90.49 Acquired absence of other specified parts of digestive tract; Z87.891 Personal history of nicotine dependence; Z79.899 Other long term (current) drug therapy
CPT/HCPCS: 0241U; 36415; 71046; 80048; 80076; 83880; 84484; 85025; 85379; 85610; 93005; 99283

== ENCOUNTER 2024-05-06 08:35 | Outpatient (AMB) | payer MEDICARE, MEDICAID, SELFPAY ==
--- NOTE | 2024-05-06 08:49 | A.OFFVIS_ITS ---
Vital Signs 05/06/24 08:50 Height 5 ft 7 in Weight 196 lb 3.382 oz BMI 30.7 BP 120/80 Blood Pressure Location Lt brachial Position Sitting Pulse 63 Intake Visit Reasons: 1 Year Follow up Intake Note: 1 year follow-up with ekg was in the ED 04/04 with chest pain Dental Hygiene Instructor Required: No Allergies azithromycin [AZITHROMYCIN] Allergy (Intermediate, Verified 04/04/24 11:26) HIVES erythromycin base Allergy (Intermediate, Verified 04/04/24 11:26) Hives Penicillins [PCN] Allergy (Intermediate, Verified 04/04/24 11:26) Difficulty Breathing Sulfa (Sulfonamide Antibiotics) Allergy (Intermediate, Verified 04/04/24 11:26) Palpitations Medication List - Last Reconciled 05/06/24 by Alfa Flores MD albuterol sulfate 90 mcg/actuation inhalation budesonide DR-ER 9 mg PO DAILY lorazepam 1 mg PO DAILY PRN metoprolol succinate ER 25 mg PO DAILY omeprazole 40 mg PO BID PRN ondansetron mg PO oxycodone 10 mg PO PRN quetiapine (Seroquel) 25 mg PO BEDTIME sertraline (Zoloft) 200 mg PO DAILY HPI Comments Details: Bárbara comes for follow-up. Recently she was in the emergency room because of recurrent chest tightness in the upper retrosternal area radiating to the left arm with tingling in his left arm. This concerned her. Symptoms last for 20 minutes. There was no clear triggers. She had no increased stress. She will try taking Ativan during these episodes without any relief. She had eventually ended up going to the emergency room where workup was within normal limits including EKG and serial troponins. She was subsequently released. Since then she had 2 more episodes of similar chest tightness without any triggers. She denies any exertional chest pain. There is no clear relation to eating or food. She denies any prolonged palpitation irregular heartbeat. No lightheadedness, syncope. Taking all her medications. [facility] Medical History Tendonitis involving right hip abductors Chronic pain in right foot Disorder of sacrum Trochanteric bursitis of right hip Lumbar radiculopathy Paroxysmal atrial fibrillation Atrial fibrillation with RVR Anxiety Crohn disease Surgical History History of hip surgery Hx of colonoscopy History of bowel resection Hx of cholecystectomy Family History Father Atrial fibrillation Social History Household Members: Children Housing: House Do you presently have visiting nurse or other home services: No Alcohol intake: never Patient Tobacco Use Status: Former Tobacco user service: No Current occupational status: employed Review of Systems Const Denies chills, Denies fatigue, Denies fever(s), Denies frequent falls, Denies weakness, Denies weight gain and Denies weight loss ENT Denies dizziness Card Denies chest pain, Denies leg edema, Denies lightheadedness, Denies palpitations, Denies dyspnea, Denies dyspnea on exertion, Denies orthopnea and Denies other (loss of consciousness) Resp Denies cough, Denies dyspnea and Denies dyspnea on exertion GI Denies hematochezia and Denies change in stool character Musc Denies abnormal gait, Denies muscle weakness, Denies numbness, Denies radiating pain into limb and Denies tingling Neuro Denies abnormal gait, Denies dizziness, Denies frequent falls, Denies numbness, Denies tingling and Denies weakness Endo Denies fatigue and Denies palpitations Physical Exam Vital Signs: Last Vital Signs Pulse 63 05/06/24 08:50 BP 120/80 05/06/24 08:50 BMI result Body Mass Index 30.7 Const General: cooperative, comfortable, no acute distress, awake and anxious Nutritional Appearance: average body habitus Orientation/consciousness: patient oriented x3 Limitations: no limitations Neck Neck: Yes trachea midline, Yes supple and Yes no JVD Resp Effort & Inspection: normal respiratory effort Auscultation: clear to auscultation bilaterally Cardio Jugular venous distension: no JVD Palpation: normal PMI Rate: regular rate Rhythm: regular rhythm Heart sounds: S1 normal heart sound present and S2 normal heart sound present Skin General skin exam: no rashes or lesions noted Neuro General: patient oriented x3 and no focal motor deficits Extrem General: Yes no clubbing, cyanosis or edema Psych Appearance: grossly normal Office Procedures EKG Details: EKG shows normal sinus rhythm with low-voltage QRS with poor R-wave progression most likely lead placement. 29911-[id number], Complete Assessment & Plan Assessment & Plan (1) Paroxysmal atrial fibrillation: Code(s): I48.0 - Paroxysmal atrial fibrillation Category: Medical Plan: Highly symptomatic paroxysmal atrial fibrillation which has remained suppressed in this middle-aged woman without any significant episodes. Continue metoprolol therapy. No need for anticoagulation therapy at this point time. Continue avoid stimulants. Stress mitigation strategies were discussed. No indication for antiarrhythmic drug therapy. Advised to call me with any new symptoms. (2) Atypical chest pain: Code(s): R07.89 - Other chest pain Plan: Patient with recent onset retrosternal chest tightness radiating left arm without any clear triggers. This is not exertional in nature. She does have family history of premature atherosclerotic disease. Will suggest a regular t readmill stress test to evaluate for myocardial ischemia. Possible other etiologies include coronary vaso spasm and/or acid reflux disease or esophageal spasm. This was discussed with her. If her stress test is negative suggest further screening for atherosclerotic disease with coronary calcium score. She is agreeable to pursue that. Also advise a fasting lipid panel. Will follow up in the clinic otherwise in 1 year's time, sooner p.r.n.. Thank you for allowing me to partake in her care Coding Level of Care Code Est Pt Level 4 (22918) Complex EM visit Add On G2211 Diagnoses Paroxysmal atrial fibrillation I48.0 Atypical chest pain R07.89 CPT Codes EKG - CPT: 21443-[id number], Complete ([id number])
[2024-05-06 08:50] VITALS: BP 120/80; PULSE 63; BMI 30.7
== END 2024-05-06 09:32 | disposition home or self-care (01) ==
PROVIDERS: PCP Family Medicine; Visit Provider Internal Medicine Cardiovascular Disease
DX: I48.0 Paroxysmal atrial fibrillation (principal); R07.89 Other chest pain
CPT/HCPCS: 93010; 99214; G2211

== ENCOUNTER → 2024-05-06 08:35 | Outpatient (BNVA) | payer MEDICARE, MEDICAID, SELFPAY | PROVIDERS: PCP Family Medicine; Visit Provider Internal Medicine Cardiovascular Disease | DX: I48.0 Paroxysmal atrial fibrillation (principal); R07.89 Other chest pain; R94.31 Abnormal electrocardiogram [ECG] [EKG] | CPT/HCPCS: 93005; 99212 ==

== ENCOUNTER 2024-06-21 08:58 | Outpatient (REF) | payer MEDICARE, MEDICAID, SELFPAY ==
--- OUTSIDE RECORDS SUMMARY | 2024-06-21 09:55 | XMS_ITS ---
Author Organization [facility] Address [address] [facility] [address] [place] [address] Care Team Providers Care Fagoter Name Role Phone Balaji Ibanez MD Primary Care Provider Stepan Watkins [phone] MEDICATIONS Medication SIG (Take, Route, Fr equency, Duration) Notes Start Date End Date Status Omeprazole 40 MG 1 Orally Twice a day in the morning and late afternoon or the early evening for 90 days 12/21/2023 Active Encounters Encounter Location Date Provider Diagnosis [facility] [address] [address] 12/21/2023 Stepan Sheldon PLAN OF TREATMENT Medication Medication Name Sig Start Date Stop Date Notes Omeprazole 40 MG 1 Orally Twice a day in the morning and late afternoon or the early evening for 90 days 12/21/2023 Next Appt Details Provider Name:Stepan Sheldon , 01/10/2025 09:50:00 AM, [address] [place] [address], [address], [place], [address],
--- OUTSIDE RECORDS SUMMARY | 2024-06-21 09:55 | XMS_ITS | Continuity of Care Document ---
Author Organization [facility] Address [address] [facility] [place] [address]- Care Team Providers Care Noteman Name Role Phone Balaji Ibanez MD Primary Care Physician Encounter 06/13/24 - 06/20/24 [facility] [address] [facility], [address] [place] [address]- Attending Physician: Alfa Flores MD Admitting Physician: Alfa Flores MD Referring Physician: Alfa Flores MD Encounter Type: OutPatient One Time Allergies, Adverse Reactions, Alerts Substance Criticality Severity [...] Maintenance, 04/02/22 3:24:00 PM EST, CR Tablet, [facility]/pharmacy #[id number], Partial fill upon patient request if [...] Date: 01/29/10 Status: Ordered Repeat number: 1 stiz stisage, See Instructions, # 1 each, Refills 0, [...] trochanteric bursitis of left hip Confirmed Active Results Radiology Reports * Exam Date Time Procedure Performing Provider Status 06/13/24 10:[address] Heart W/O Dye Curtis Eval Binta Sainz; Auth (Verified) Notes: (CT Heart W/O Dye Curtis Eval) Reason For Exam: R07.89 OTHER CHEST PAIN RESULT: CT Heart W/O Dye Curtis Eval CT Heart W/O Dye Curtis Eval INDICATION: Reason: R07.89 OTHER CHEST PAIN; Clinical Question(s): Other:. Female of age 49 , race White COMPARISON: None TECHNIQUE: Coronary artery Calcium Scoring. After a localizing manifold builder image was obtained, an ECG-gated noncontrast exam was obtained of the heart in late diastole. The region of interest was limited to the heart in order to optimize image quality. Weight-based protocol using automatic tube modulation was used to optimize exposure parameters. A QuickoLabs 64 scanner was used, with Agatston scoring performed using TicketFire (AlleyWatch) web-based software. This procedure is not being performed on thispatient for preoperative evaluation for low-risk surgery within 30 days. CTDIvol Body: 7.29 mGy, DLP Body: 117 mGy*cm. FINDINGS: Coronary Calcium Scoring Summary: Left Main: Score 0 . LAD: Score 58.5 . Circumflex: Score 0 . Right: Score 0 . Ramus: Score 0 . TOTAL: Score 58.5 . Non-coronary Findings: No significant findings. IMPRESSION: The Agatston coronary calcium score is 58.5 . The Multi-Ethnic Study of Atherosclerosis (MENDES) trial on-line calculator can be used to determine the probability of having coronary calcification and the calcium score percentile for subjects basedon age, gender and race/ethnicity who are free of clinical cardiovascular disease and treated diabetes: http://www.mendes-nhlbi.org/Calcium/input.aspx Within this cohort, the probability of having coronary calcification is 13 %. The observed calcium score is at the 98th percentile. WSN: [id number] Ordering Physician: Alfa Flores Dictated By: Italo Art MD Dictated Date/Time: 06/14/24 6:26 pm Reviewed By: Italo Art MD Signed By: Italo Art MD Signed Date/Time: 06/14/24 6:26 pm Transcribed By: MARVIN Transcribed Date/Time: 06/14/24 6:26 pm Social History Social History Type Response Smoking Status Former smoker, quit more than 30 days ago entered on: 09/03/23 Sex Sex Representation Female (finding) Patient Care team information Care Team Personnel Name: Mer Abdullahi RN Position: [facility] RN Member Role: Primary Care Nurse Name: Vanessa Ramirez RN Position: [facility] RN Member Role: Primary Care Nurse Name: Balaji Ibanez MD Position: [facility] Outreach Member Role: PCP Address: [address] [place] [address] Telecom: Name: Georgia Balbuena RN Position: [facility] Nurse Member Role: Primary Care Nurse Care Team Related Persons Name: DOMONIQUE WINTER Name: DENNIS BARAHONA Insurance Providers Guarantor name: JAVIER WINTER Health Plan Information #: 1 Payer: YAJAIRA: [employer]YMENT EXAM Member Number: [id number] Policy Number: NA Group Number: NA Health Plan Information #: 2 Payer: MEDICARE PART B OUTPT Member Number: NA Policy Number: NA Group Number: NA Health Plan Information #: 3 Payer: [place] Member Number: NA Policy Number: NA Group Number: NA
--- OUTSIDE RECORDS SUMMARY | 2024-06-21 09:56 | XMS_ITS ---
Author Organization [facility] Address [address] [place] [address] Care Team Providers Care Natural Resources Professor Name Role Phone Balaji Ibanez MD Primary Care Provider Stepan Watikns [phone] REASON FOR VISIT gerd, nausea PROBLEMS Problem Type ICD Code Onset Dates Problem Status W/U Status Risk SNOMED Code Notes Problem Gastro-esophagea l reflux disease without esophagitis (K21.9) Active confirmed Gastro-esophage al reflux disease without esophagitis (870771756) Problem Chronic gastritis (K29.50) Active confirmed Chronic gastritis (6192466) Encounters Encounter Location Date Provider Diagnosis [facility] [place] [address] [place] [phone] 12/14/2023 Stepan Sheldon Gastro-esophageal reflux disease without [...] Provider Name:Stepan Sheldon , 01/10/2025 09:50:00 AM, [address], [address], [place], [address],
--- OUTSIDE RECORDS SUMMARY | 2024-06-21 09:56 | XMS_ITS ---
Author Organization [facility] Address [address] [place] [address] Care Team Providers Care Camera Person Name Role Phone Balaji Ibanez MD Primary Care Provider Stepan Watkins [phone] ALLERGIES Allergen (clinical drug ingredient) Drug/Non Drug Allergy documented on EMR Reaction Allergy Type Onset Date Status Penicillin Unknown Drug Allergy Active erythromycin Erythromycin Unknown Drug Allergy A ctive Substance with sulfonamide structure and antibacterial mechanism of action (substance) Sulfa Antibiotics Unknown Drug Allergy Active azithromycin Zithromax Unknown Drug Allergy Acti ve mesalamine Pentasa diarrhea Drug Allergy Active REASON FOR VISIT patient presents today forr RD,GASTRITIS MEDICATIONS Medication SIG (Take, Route, Frequency, Duration) Notes Start Date End Date Status Metoprolol Succinate ER 25 MG TAKE 1 TABLET BY MOUTH EVERY DAY Oral for 90 A.fib Active Sertraline HCl 100 MG TAKE 2 TABLETS BY MOUTH ONCE DAILY Oral for 90 Active QUEtiapine Fumarate 25 MG TAKE 1 TABLETS BY MOUTH EVERY EVENING NEEDED Oral for 90 Insomnia Active Colestipol HCl 1 GM TAKE 2 TABLETS BY MOUTH TWICE A DAY FOR DIARRHEA 30 DAY(S) for 90 prn Active Budesonide 3 MG 3 Orally Once a day for 30 day(s) 10/13/2022 Active tylenol prn Active Mirena (52 MG) 20 MCG/DAY as directed Intrauterine Active Ativan 0.5 MG 1 tablet at bedtime as needed Orally Once a day PRN Active oxyCODONE HCl 10 MG TAKE 1 TABLET (10 MG TOTAL) BY MOUTH 5 (FIVE) TIMES A DAY. Oral for 28 Back and hip pain Active Ondansetron 4 MG 1 tablet on the tongue and allow to dissolve Orally Every 4 to 6 hours as needed for nausea for 30 day(s) prn 10/15/2023 Active Vitamin B12 Not-Taki ng Omeprazole 40 MG 1 Orally Twice a day in the morning and late afternoon or the early evening for 90 days 12/21/2023 Active SOCIAL HISTORY Tobacco Use: Social History [...] ast year? No Points 0 Interpretation Negative VITAL SIGNS Blood pressure systolic 00 mm Hg 05/03/19 25 Blood pressure diastolic 00 mm Hg 025 Height 67 in 05/03/2024 Weight 197 lbs 05/03/2024 BMI 30.85 kg/m2 05/03/2024 Encounters Encounter Location Date Provider Diagnosis [facility] [address] [place] [address] 05/03/2024 Stepan Sheldon Crohn's disease of s mall and large intestines with complication K50.819 and Gastroesophageal reflux disease, unspecified whether esophagitis present K21.9 ASSESSMENTS Encounter Date Diagnosis Assessment Notes Treatment Notes Treatment Clinical Notes 05/03/2024 Crohn's disease of small and large intestines with complication (ICD-10 - K50.819) Continue the 9mg of Budesonide, as well as the Colestid and Imodium for the diarrhea. Call if things worsen. 05/03/2024 Gastroesophageal ref lux disease, unspecified whether esophagitis present (ICD-10 - K21.9) Continue omeprazole and Zofran for the reflux and nausea PLAN OF TREATMENT Treatment Notes Assessment Notes Crohn's disease of small and large intestines with complication Continue the 9mg of Budesonide, as well as the Colestid and Imodium for the diarrhea. Call if things worsen. Gastroesophageal reflux dise ase, unspecified whether esophagitis present Continue omeprazole and Zofran for the reflux and nausea Next Appt Details Follow Up: 2024, Reaso n: Provider Name:Stepan Sheldon , 01/10/2025 09:50:00 AM, [address], [address], [place], [address], Progress Notes * Examination Category Sub-Category Detail [...]
--- OUTSIDE RECORDS SUMMARY | 2024-06-21 09:56 | XMS_ITS | Patient Health Record ---
Author Organization [facility] Address [address] [place] [address] Care Team Providers Care Rougher Machine Operator Name Role Phone Balaji Ibanez MD Primary Care Provider Stepan Watkins [phone] ALLERGIES Allergen (clinical drug ingredient) Drug/Non Drug [...] Test Reviewed date:12/14/2023 11:20:25 PM Interpretation: Performing Lab:[address] [address] Notes/Report: Urine NEGATIVE NEGATIVE This test was developed to detect early . False negative results may occur after the 5th - 7th week of when using this test method. If clinically indicated, consider a serum hCG. Pathology Reviewed date:12/21/2023 01:56:48 PM Interpretation: Performing Lab:[address] [address] Notes/Report: REASON FOR REFERRAL No Information MEDICATIONS Medication SIG (Take, Route, Frequency, Duration) Notes Start Date End Date Status tylenol prn Active Vitamin B12 Not-Taki ng Omeprazole 40 MG 1 Orally Twice a day in the morning and late afternoon or the early evening for 90 days 12/21/2023 Active Mirena (52 MG) 20 MCG/DAY as [...] and hip pain Active Ondansetron 4 MG DISSOLVE 1 TABLET UNDER THE TONGUE AND ALLOW TO DISSOLVE ORALLY EVERY 4 TO 6 HOURS NEEDED FOR NAUSEA 30 DAY(S) for 5 Active Sertraline HCl 100 MG TAKE 2 [...] a day for 30 day(s) 10/13/2022 Active IMMUNIZATIONS Vaccine Route Administration Date Status [...] W/U Status Risk SNOMED Code Notes Problem Gastro-esophageal reflux disease without esophagitis (K21.9) Active confirmed Gastro-esophage al reflux disease without esophagitis (212804435) Problem Diarrhea (R19.7) Active confirmed Diarr hea (95599804) Problem Nausea (R11.0) Active confirmed Nausea (464182617) Problem Intestinal bypass and anastomosis status (Z98.0) Active confirmed History of gastrointestinal tract bypass (024398152) Problem Chronic gastritis (K29.50) Active confirmed Chronic gastrit is (0623172) Problem Abdominal pain, generalized (R10.84) Active confirmed 105862620 Problem Diarrhea, unspecified type (R19.7) Active confirmed 76351705 Problem Crohn''s disease of small intestine without complication (K50.00) Active confirmed Crohn's disease of small intestine (07461521) Problem Gastroesophageal reflux disease, unspecified whether esophagitis present (K21.9) Active confirmed 261471727 Problem Crohn's disease of small and large intestines with complication (K50.819) Active confirmed 07409915 Problem Chronic GERD (K21.9) Active confirmed Gastroesophagea l reflux disease (disorder) (543643930) VITAL SIGNS Blood pressure diastolic 00 mm Hg 05/03/2024 Height 67 in 05/03/2024 Blood pressure systolic 00 mm Hg 05/03/2024 Weight 197 lbs 05/03/2024 BMI 30.85 kg/m2 05/03/2024 Encounters Encounter Location Date Provider Diagnosis [facility] [address] [place] [address] 07/21/2023 Stepan Sheldon [facility] Out[facility] [address] [place] [phone] 12/14/2023 Stepan Sheldon Gastro-esophageal re flux disease without esophagitis K21.9 ; Hiatal hernia K44.9 ; Chronic gastritis K29.50 and Nausea R11.0 [facility] [address] [place] [address] 10/15/2023 Stepan Sheldon Nausea R11.0 ; Crohn 's disease of small and large intestines with complication K50.819 and Chronic GERD K21.9 [facility] [address] [place] [address] 05/03/2024 Stepan Sheldon Crohn's disease of s mall and large intestines with complication K50.819 and Gastroesophageal reflux disease, unspecified whether esophagitis present K21.9 [facility] [address] [place] [address] 12/21/2023 Stepan Sheldon ASSESSMENTS Encounter Date Diagnosis Assessment Notes Treatment Notes Treatment Clinical Notes 12/14/2023 Gastro-esophageal reflux disease without esophagitis (ICD-10 - K21.9) 12/14/2023 Hiatal hernia (ICD-1 0 - K44.9) 10/15/2023 Nausea (ICD-10 - R11.0) 10/15/2023 Crohn's disease of small and large intestines with complication (ICD-10 - K50.819) Continue 3 Budesonide daily. Continue all the vitamins and supplements. Use the Imodium and Colestid every day. 05/03/2024 Gastroesophageal ref lux disease, unspecified whether esophagitis present (ICD-10 - K21.9) Continue omeprazole and Zofran for the reflux and nausea 05/03/2024 Crohn's disease of small and large intestines with complication (ICD-10 - K50.819) Continue the 9mg of Budesonide, as well as the Colestid and Imodium for the diarrhea. Call if things worsen. 12/14/2023 Chronic gastritis (ICD-10 - K29.50) 10/15/2023 [...] ENDOSCOPY 10/15/2023 Next Appt Details Provider Name:Stepan Vazquez Monalisa , 01/10/2025 09:50:00 AM, [address] [place] [address], [address], [place], [address], Insurance Providers Payer Name Payer Address Payer Phone Subscriber Number Group Number Insured Name Patient Relationship to Insured Coverage Start Date Coverage End Date MEDICARE OF [place] [address] [place] [address] [id number] JAVIER WINTER Self - patient is the insured MEDICAID OF [facility] [address] [place] [address] [id number] JAVIER WINTER Self - patient is the insured MEDICAL (GENERAL) HISTORY Medical History History ICD Code Denies CA,DM,CVA,Lung disease,renal dise ase Afib Crohn's disease diagnosed ag e 31--ileocolonic with associated stricture and surgery as [...] was in 01/[address] Garcia at [facility] revealed some erosions at the ileocolic anastomosis, [...] distal to the ileocolic anastomosis. 01/2023 pneumonia EGD 11/2023-minimal HH, mild gastritis--no Crohn's, no Kearney's esophagus, no esophagitis, no H. pylori, and no celiac disease Surgical History Surgery Date(Month/Year) Cholecystectomy 1996 Ileocolonic resection-Dr. Prosper ken--after an attempted balloon dilation of a terminal ileum stricture resulted in a perforation and need for emergent surgery 2014 Perirectal fistula--Dr. Arizmendi treated with surgery and a seton in approx 2020 Left hip bursectomy 07/2021
[2024-06-21 10:05] LABS: Cholesterol 171 mg/dL (<200); HDL Cholesterol 54 mg/dL (>40); LDL Cholesterol Calculated 100 mg/dL (<100); Triglycerides 88 mg/dL (<150)
== END 2024-06-21 08:59 | disposition home or self-care (01) ==
LOC: HO.LAB 08:58
PROVIDERS: PCP Family Medicine; Visit Provider Internal Medicine Cardiovascular Disease
DX: I48.0 Paroxysmal atrial fibrillation (principal); Z13.6 Encounter for screening for cardiovascular disorders
CPT/HCPCS: 36415; 80061

== ENCOUNTER → 2024-06-30 09:14 | Outpatient (REF) | payer MEDICARE, MEDICAID, SELFPAY ==
--- NOTE | 2024-06-30 09:17 | CA_ITS ---
Acquisition Time: 2024-06-30 09:30:07 Total Exercise Time: 00:07:07 Test Indications: Abnormal ECG AFIB CP Medications: ALBUTEROL INHALER METOPROLOL OMEPRAZOLE SEROQUEL SERTRALINE BUDESONIDE Protocol: COURTNEY Max HR: 126 BPM 73% of Pred: 172 BPM Max BP: 162/78 mmHG Max Work Load: 8.7 METS Exercise stress test with exercise 7 mins 7 secs of Courtney Protocol, achieving 73% MPHR, with rerpots of dizziness and SOB, no chest discomfort, without any arrythmias, with normotensive response to exercise. Without EKG changes at the achieved workload. In recovery, breathing returned to baseline and dizziness resolved. Will bring pt back in for an ETT, will hold Metoprolol this time. Test reviewed with Dr. Caldera. Referred By: Alfa Flores Electronically Signed By: Alex Silva
--- OUTSIDE RECORDS SUMMARY | 2024-06-30 10:42 | XMS_ITS ---
Author Organization [facility] Address [address] [place] [address] [place] [phone] Care Team Providers Care Conveyor Man Name Role Phone Balaji Ibanez MD Primary Care Provider Stepan Watkins [phone] Medications Medication SIG (Take, Route, Fr equency, Duration) Notes Start Date End Date Status Omeprazole 40 MG 1 Orally Twice a day in the morning and late afternoon or the early evening for 90 days 12/21/2023 Active Encounters Encounter Location Date Provider Diagnosis [facility] [address] [address] 12/21/2023 Stepan Sheldon Plan Of Treatment Medication Medication Name Sig Start Date Stop Date Notes Omeprazole 40 MG 1 Orally Twice a day in the morning and late afternoon or the early evening for 90 days 12/21/2023 Next Appt Details Provider Name:Stepan Sheldon , 01/10/2025 09:50:00 AM, [address] [place] [address], Suite [facility], [place], [address], Progress Notes * JOSH WINTEROB: [birth year] (48 yo F)Acc No.[id number]:12/21/2023 Patient:?JAVIER WINTER :1975???Age:48 Y???Sex:Female Address:[address] [place] [address], [address] * Refills? Start Omeprazole Capsule Delayed Release, 40 MG, Orally, 180, 1, Twice a day in the morning and late afternoon or the early evening, 90 days, Refills=3 * true * Date:? Generated for Harish quinn/Lazaro/Suhasitting on:?06/30/2024 10:42 AM EDT
--- OUTSIDE RECORDS SUMMARY | 2024-06-30 10:42 | XMS_ITS ---
Author Organization [facility] Address [address] [place] [address] Care Team Providers Care Tire Repairman Name Role Phone Balaji Ibanez MD Primary Care Provider Stepan Watkins [phone] Allergies Allergen (clinical drug ingredient) Drug/Non Drug Allergy [...] FOR VISIT patient presents today forr RD,GASTRITIS Medications Medication SIG (Take, Route, Frequency, Duration) Notes [...] early evening for 90 days 12/21/2023 Active Social History Tobacco Use: Social History Observation Description Date Details (start date - stop date) Former Smoker NA - NA Tobacco Use/Smoking Question Answer Notes Patient is a former smoker How long has it been since you last smoked? 5-10 years Alcohol Screen Question Answer Notes Did you have a drink containing alcohol in the p ast year? No Points 0 Interpretation Negative Section Notes: Nonsmoker; no sig alcohol Vital Signs Blood pressure systolic 00 mm Hg 05/03/19 25 Blood pressure diastolic 00 mm Hg 025 Height 67 in 05/03/2024 Weight 197 lbs 05/03/2024 BMI 30.85 kg/m2 05/03/2024 Encounters Encounter Location Date Provider Diagnosis [facility] [address] [place] [address] 05/03/2024 Stepan Sheldon Crohn's disease of s mall and large intestines with complication K50.819 and Gastroesophageal reflux disease, unspecified whether esophagitis present K21.9 Assessments Encounter Date Diagnosis (ICD Code) Assessment Notes Treatment Notes Treatment Clinical Notes Section Notes 05/03/2024 Crohn's disease of small and large intestines with complication (ICD-10 - K50.819) Continue the 9mg of Budesonide, as well as the Colestid and Imodium for the diarrhea. Call if things worsen. Overall, Javier appears clinically well considering the underlying Crohn's disease and the recent stress of her brother's diagnosis of some type of intra-abdominal cancer and having earlier today. I did advise her to continue her current regimen for the reflux and nausea as this does seem to be working fairly well for her, although the upper endoscopy was otherwise not particularly revealing. I did advise her to try to be careful with her diet and eat as healthy as possible. Her Crohn's disease seems to be stable based on her history and I advised her to continue the budesonide and symptomatic treatment with the Imodium and Colestid for the diarrhea in relation to the significant colonic resection. We again discussed the possibility of adding a new biologic such as Stelara or Skyrizi but she adamantly wants to hold off on those unless absolutely necessary given the fact that she has been on numerous biologics in the past and is concerned about possible side effects. She is going to be having a bone density study as ordered by you and I did advise her to try to get me a copy of those results as well. I will plan to see Javier in the Fall but advised her to contact me prior to that if she has any problems or questions I can be of assistance with. She was comfortable with this plan. Thank you again for allowing me to participate in Javier's care. I shall continue to keep you advised of her progress. 05/03/2024 Gastroesophageal reflux disease, unspecified whether esophagitis present (ICD-10 - K21.9) Continue omeprazole and Zofran for the reflux and nausea Overall, Javier appears clinically well considering the underlying Crohn's disease and the recent stress of her brother's diagnosis of some type of intra-abdominal cancer and having earlier today. I did advise her to continue her current regimen for the reflux and nausea as this does seem to be working fairly well for her, although the upper endoscopy was otherwise not particularly revealing. I did advise her to try to be careful with her diet and eat as healthy as possible. Her Crohn's disease seems to be stable based on her history and I advised her to continue the budesonide and symptomatic treatment with the Imodium and Colestid for the diarrhea in relation to the significant colonic resection. We again discussed the possibility of adding a new biologic such as Stelara or Skyrizi but she adamantly wants to hold off on those unless absolutely necessary given the fact that she has been on numerous biologics in the past and is concerned about possible side effects. She is going to be having a bone density study as ordered by you and I did advise her to try to get me a copy of those results as well. I will plan to see Javier in the Fall but advised her to contact me prior to that if she has any problems or questions I can be of assistance with. She was comfortable with this plan. Thank you again for allowing me to participate in Javier's care. I shall continue to keep you advised of her progress. Plan Of Treatment Treatment Notes Assessment Notes Crohn's disease of small and large intestines with complication Continue the 9mg of Budesonide, as well as the Colestid and Imodium for the diarrhea. Call if things worsen. Gastroesophageal reflux dise ase, unspecified whether esophagitis present Continue omeprazole and Zofran for the reflux and nausea Next Appt Details Follow Up: 2024, Reaso n: Provider Name:Stepan Vazquez Monalisa , 01/10/2025 09:50:00 AM, [address], [address], [place], [address], Progress Notes * WAN WINTERELLEDOB: [birth year] (49 yo F)Acc No.[id number]:05/03/2024 Progress Notes Patient:?JAVIER WINTER Provider:?Stepan Sheldon MD :1975???Age:49 Y???Sex:Female D ate:05/03/2024 Address:[address] [place] [address] Pcp:Balaji Ibanez MD Subjective: * Chief Complaints: * ???patient presents today fo rr RD,GASTRITIS * HPI: ???incontinence:? I saw Javier in followup today in regard to her underlying history of Crohn's disease and gastroesophageal reflux. ?I last saw Dylan several months ago in November of 2023, at which time she underwent an upper endoscopy for evaluation of her reflux and nausea. This revealed only a minimal hiatal hernia but no evidence of any esophagitis, Kearney's esophagus, ulcer disease, significant gastritis or H. pylori, nor celiac disease. At that time I had her increase the omeprazole to twice a day but she is currently using the omeprazole 40 mg just daily at this time. She is also using p.r.n. Zofran with good relief of her nausea. She denies any significant ongoing heartburn, dysphagia, nor vomiting. ?He has remained on her budesonide 9 mg daily. She does continue with her Imodium and Colestid for symptomatic relief of her diarrhea but for the most part is not completely compliant with those on a daily basis. However, she reports that her bowel movements are stable and range anywhere from 2-5 times per day. She denies any hematochezia nor melena. She denies any significant abdominal pain, abdominal distention, fevers, or weight loss. ?She was in the ER in March for evaluation of some chest pain and had a negative cardiac workup. Her hemoglobin was normal at 13.4 with a normal MCV. She did have some minimal elevations of the liver enzymes with an AST of 45 and ALT of 74, but normal alkaline phosphatase and bilirubin. She did have a CT scan of the abdomen and pelvis that described a normal-appearing liver and no other abnormalities such as hepatosplenomegaly or ascites. * ROS:?General/Constitutional:?Change in appetite?denies.?Chills?denies.?Fatigue?denies.?Ophthalmologic:?Comments?all negative.?ENT:?Comments?all negative.?Respiratory:?hemoptysis?denies.?Cough?denies.?Cardiovascular:?Chest pain?denies.?Orthopnea?denies.?Gastrointestinal:?Comments?See HPI for details.?Genitourinary:?Hematuria?denies.?Dysuria?denies.?Musculoskeletal:?Painful joints?denies.?Weakness?denies.?Skin:?Itching?denies.?Rash?denies.?Neurologic:?Headache?denies.?Seizures?denies.?Psychiatric:?Comments?all negative.? * Medical History:? * Surgical History:?Cholecyste ctomy 1997Ileocolonic resection-Dr. Boone--after an attempted balloon dilation of a terminal ileum stricture resulted in a perforation and need for emergent surgery 2015Perirectal fistula--Dr. Arizmendi treated with surgery and a seton in approx 2020 Left hip bursectomy 07/2021 * Hospitalization/Major Diagno stic Procedure:?No Hospitalization History. * Family History:?Father: dece ased, diagnosed with Colon polyps, Diabetes, Heart disease, HTN (hypertension).?Mother: alive, breast cancer, diagnosed with Colon polyps.? No known hx of colon cancer nor IBD Her brother today 05/03/2023 stomach cancer. * Social History:?Tobacco Use:?Tobacco Use/Smoking?Patient is a?former smoker,?How long has it been since you last smoked??5-10 years.?Drugs/Alcohol:?Alcohol Screen?Did you have a drink containing alcohol in the past year??No,?Points?0,?Interpretation?Negative.?Miscellaneous:?Marital status: single. Occupation: disability. ???Nonsmoker; no sig alcohol. * Medications:?Takingtylenol , Notes: prnAtivan 0.5 MG Tablet 1 tablet at bedtime as needed Orally Once a day, Notes: PRNMirena (52 MG) 20 MCG/DAY Intrauterine Device as directed Intrauterine oxyCODONE HCl 10 MG Tablet TAKE 1 TABLET (10 MG TOTAL) BY MOUTH 5 (FIVE) TIMES A DAY. Oral , Notes: Back and hip painMetoprolol Succinate ER 25 MG Tablet Extended Release 24 Hour TAKE 1 TABLET BY MOUTH EVERY DAY Oral , Notes: A.fibQUEtiapine Fumarate 25 MG Tablet TAKE 1 TABLETS BY MOUTH EVERY EVENING NEEDED Oral , Notes: InsomniaSertraline HCl 100 MG Tablet TAKE 2 TABLETS BY MOUTH ONCE DAILY Oral Budesonide 3 MG Capsule Delayed Release Particles 3 Orally Once a dayColestipol HCl 1 GM Tablet TAKE 2 TABLETS BY MOUTH TWICE A DAY FOR DIARRHEA 30 DAY(S) , Notes: prnOndansetron 4 MG Tablet Disintegrating 1 tablet on the tongue and allow to dissolve Orally Every 4 to 6 hours as needed for nausea, Notes: prnOmeprazole 40 MG Capsule Delayed Release 1 Orally Twice a day in the morning and late afternoon or the early eveningTaking tylenol , Notes: prnTaking Ativan 0.5 MG Tablet 1 tablet at bedtime as needed Orally Once a day, Notes: PRNTaking Mirena (52 MG) 20 MCG/DAY Intrauterine Device as directed Intrauterine Taking oxyCODONE HCl 10 MG Tablet TAKE 1 TABLET (10 MG TOTAL) BY MOUTH 5 (FIVE) TIMES A DAY. Oral , Notes: Back and hip painTaking Metoprolol Succinate ER 25 MG Tablet Extended Release 24 Hour TAKE 1 TABLET BY MOUTH EVERY DAY Oral , Notes: A.fibTaking QUEtiapine Fumarate 25 MG Tablet TAKE 1 TABLETS BY MOUTH EVERY EVENING NEEDED Oral , Notes: InsomniaTaking Sertraline HCl 100 MG Tablet TAKE 2 TABLETS BY MOUTH ONCE DAILY Oral Taking Budesonide 3 MG Capsule Delayed Release Particles 3 Orally Once a dayTaking Colestipol HCl 1 GM Tablet TAKE 2 TABLETS BY MOUTH TWICE A DAY FOR DIARRHEA 30 DAY(S) , Notes: prnTaking Ondansetron 4 MG Tablet Disintegrating 1 tablet on the tongue and allow to dissolve Orally Every 4 to 6 hours as needed for nausea, Notes: prnTaking Omeprazole 40 MG Capsule Delayed Release 1 Orally Twice a day in the morning and late afternoon or the early eveningNot-Taking/PRNVitamin B12 Not-Taking/PRN Vitamin B12 DiscontinuedOmeprazole 40 MG Capsule Delayed Release TAKE 1 CAPSULE BY MOUTH EVERY MORNING FOR 30 DAYS , Notes: prnMedication List reviewed and reconciled with the patientDiscontinued Omeprazole 40 MG Capsule Delayed Release TAKE 1 CAPSULE BY MOUTH EVERY MORNING FOR 30 DAYS , Notes: prnMedication List reviewed and reconciled with the patient * Allergies:?PenicillinErythro mycinZithromaxSulfa AntibioticsPentasa: diarrheayes[Allergies Verified] Objective: * Vitals:?Wt: 197 lbs, Ht: 67 in, BMI:30.85 Index, BP: 00/00 mm Hg. * Examination: ???General Examination: ?GENERAL APPEARANCE:?pleasant, well nourished, well developed, in no acute distress.?EYES:?sclera non-icteric.?ORAL CAVITY:?mucosa moist.?NECK/THYROID:?no cervical lymphadenopathy, neck supple.?SKIN:?nonjaundiced, no spider angiomata.?HEART:?S1, S2 normal.?LUNGS:?clear to auscultation bilaterally.?ABDOMEN:?normal bowel sounds, no guarding or rigidity, no guarding or rigidity, no masses palpable, soft, nontender, nondistended.?EXTREMITIES:?no edema.?NEUROLOGIC:?alert and oriented.? Assessment: * Assessment: 1.?Crohn's disease of small and large intestines with complication - K50.819 (Primary)?2.?Gastroesophageal reflux disease, unspecified whether esophagitis present - K21.9? Overall, Javier appears cl inically well considering the underlying Crohn's disease and the recent stress of her brother's diagnosis of some type of intra-abdominal cancer and having earlier today. I did advise her to continue her current regimen for the reflux and nausea as this does seem to be working fairly well for her, although the upper endoscopy was otherwise not particularly revealing. I did advise her to try to be careful with her diet and eat as healthy as possible. Her Crohn's disease seems to be stable based on her history and I advised her to continue the budesonide and symptomatic treatment with the Imodium and Colestid for the diarrhea in relation to the significant colonic resection. We again discussed the possibility of adding a new biologic such as Stelara or Skyrizi but she adamantly wants to hold off on those unless absolutely necessary given the fact that she has been on numerous biologics in the past and is concerned about possible side effects. She is going to be having a bone density study as ordered by you and I did advise her to try to get me a copy of those results as well. I will plan to see Javier in the Fall but advised her to contact me prior to that if she has any problems or questions I can be of assistance with. She was comfortable with this plan. Thank you again for allowing me to participate in Javier's care. I shall continue to keep you advised of her progress. Plan: * Treatment: 2.?Gastroesophageal reflux d isease, unspecified whether esophagitis present? Notes: Continue omeprazole and Zofran for the reflux and nausea?? * Procedure Codes:?3017F COLOR ECTAL CA SCREEN DOC [id number] TOBACCO NON-[id number] BP SCR NOT PRFRM REC REASON NOS * Preventive Medicine:? ??Counseling:?Care goal follow-up plan:?Above Normal BMI Follow-up?Giving encouragement to exercise,?BMI management provided?Yes.? * Follow Up:?2024 * * Sign off status: Completed true * Provider:?Stepan Sheldon MD Date:? 025 Generated for Harish quinn/Lazaro/Suhasitting on:?06/30/2024 10:42 AM EDT History and Physical Notes * HPI (History of Present Illness) Category Sub-Category Detail Notes Category Not es incontinence I saw Javier in followup today in regard to her underlying history of Crohn's disease and gastroesophageal reflux. I last saw Dylan several months ago in November of 2023, at which time she underwent an upper endoscopy for evaluation of her reflux and nausea. This revealed only a minimal hiatal hernia but no evidence of any esophagitis, Kearney's esophagus, ulcer disease, significant gastritis or H. pylori, nor celiac disease. At that time I had her increase the omeprazole to twice a day but she is currently using the omeprazole 40 mg just daily at this time. She is also using p.r.n. Zofran with good relief of her nausea. She denies any significant ongoing heartburn, dysphagia, nor vomiting. He has remained on her budesonide 9 mg daily. She does continue with her Imodium and Colestid for symptomatic relief of her diarrhea but for the most part is not completely compliant with those on a daily basis. However, she reports that her bowel movements are stable and range anywhere from 2-5 times per day. She denies any hematochezia nor melena. She denies any significant abdominal pain, abdominal distention, fevers, or weight loss. She was in the ER in March for evaluation of some chest pain and had a negative cardiac workup. Her hemoglobin was normal at 13.4 with a normal MCV. She did have some minimal elevations of the liver enzymes with an AST of 45 and ALT of 74, but normal alkaline phosphatase and bilirubin. She did have a CT scan of the abdomen and pelvis that described a normal-appearing liver and no other abnormalities such as hepatosplenomegaly or ascites. Examination Category Sub-Category Detail Notes Category Not es General Examination GENERAL APPEARANCE: pleasant , well [...]
--- OUTSIDE RECORDS SUMMARY | 2024-06-30 10:43 | XMS_ITS ---
Author Organization [facility] Address [address] [place] [address] Care Team Providers Care Airplane Pilot Helper Name Role Phone Balaji Ibanez MD Primary Care Provider Stepan Watkins [phone] REASON FOR VISIT gerd, nausea Problems Problem Type SNOMED Code ICD Code Onset Dates Problem Status W/U Status Risk Notes Problem Gastro-esophagea l reflux disease without esophagitis (167948898) Gastro-esophage al reflux disease without esophagitis (K21.9) Active confirmed Problem Chronic gastritis (1832089) Chronic gastritis (K29.50) Active confirmed Encounters Encounter Location Date Provider Diagnosis [facility] Outpatient [address] [place] [phone] 12/14/2023 Stepan Sheldon Gastro-esophageal reflux disease without [...] Name:Stepan Sheldon , 01/10/2025 09:50:00 AM, [address], [address], [place], [address], Progress Notes * JOSH WINTEROB: [birth year] (49 yo F)Acc No.[id number]:12/14/2023 EGD/MAC Patient:?JAVIER WINTER Provider:?Stepan Sheldon MD :1975???Age:48 Y???Sex:Female D ate:12/14/2023 Address:[address] [place], [place] [id number] Pcp:Balaji Ibanez MD Subjective: * Chief Complaints: * ???1. Gerd, nausea. * Medical History:? Objective: * Vitals:? Assessment: * Assessment: 1.?Gastro-esophageal reflux disease without esophagitis - K21.9 (Primary)???2.?Hiatal hernia - K44.9???3.?Chronic gastritis - K29.50???4.?Nausea - R11.0??? Plan: * Treatment: * Procedure Codes:?30033 UPPER GI ENDOSCOPY, BIOPSY * * The named appointment provid er may or may not be the originator of this progress note, and it is not deemed complete until electronically signed by the appointment provider. Sign off status: Pending * Provider:?Stepan Sheldon MD Date:? 024 Generated for Harish quinn/Lazaro/Gingersmitting on:?06/30/2024 10:42 AM EDT
--- OUTSIDE RECORDS SUMMARY | 2024-06-30 10:43 | XMS_ITS | Continuity of Care Document ---
Author Organization [facility] Address [address] [place] [address]- Care Team Providers Care Carpet Mechanic Name Role Phone Marcelle PRATER, Balaji Henry Primary Care Physician Encounter 06/14/24 - 06/21/24 [facility] [address], [address] [place] [address]- Attending Physician: Ming JIMENEZ, Kim Sal Admitting Physician: Kim Lai NP Referring Physician: Ming JIMENEZ, Kim Sal Encounter Type: OutPatient One Time Allergies, Adverse [...] Maintenance, 04/02/22 3:24:00 PM EST, CR Tablet, [facility]/pharmacy #[id number], Partial fill upon patient request [...] Exam Date Time Procedure Performing Provider Status 06/14/24 1:01 PM MM Digital Mammo Screening Michelle Francis raymond; Auth (Verified) Notes: (MM Digital Mammo Screening) Reason For Exam: family hx breast ca;Family History of Breast Ca RESULT: MM Digital Mammo Screening PROCEDURE: MM Digital Mammo Screening INDICATION: Screening for breast cancer. No known palpable abnormalities. Family history of breast cancer in mother at the age of 47 COMPARISON: Prior outside mammograms, most recent dated 05/11/2023 TECHNIQUE: Full-field digital CC and MLO 3D tomosynthesis images of both breasts were acquired. Computer-aided detection (CAD) was utilized in the interpretation of this study. DENSITY: The breast tissue is heterogeneously dense, which may obscure small masses. FINDINGS: No suspicious masses, suspicious microcalcifications, or areas of architectural distortion are seen in either breast to suggest malignancy. IMPRESSION: No mammographic evidence of malignancy. RECOMMENDATION: Annual mammographic screening BI-RADS: 1 (Negative) Lay letter mailed to patient WSN: [id number] Ordering Physician: Kim Lai Dictated By: Vilma Merritt MD Dictated Date/Time: 06/14/24 5:07 pm Reviewed By: Vilma Merritt MD Signed By: Vilma Merritt MD Signed Date/Time: 06/14/24 5:07 pm Transcribed By: MARVIN Floor Steward/Stewardess Date/Time: 06/14/24 4:59 pm Birads: Social History Social History Type Response Smoking Status Former smoker, quit more than 30 days ago entered on: 09/03/23 Sex Sex Representation Female (finding) Patient Care team information Care Team Personnel Name: Mer Abdullahi RN Position: S RN Member Role: Primary Care Nurse Name: Vanessa Ramirez RN Position: S RN Member Role: Primary Care Nurse Name: Balaji Ibanez MD Position: S Outreach Member Role: PCP Address: [address] [place] [address] Telecom: Name: Georgia Balbuena RN Position: [facility] Nurse Member Role: Primary Care Nurse Care Team Related Persons Name: DOMONIQUE WINTER Name: DENNIS BARAHONA Insurance Providers Guarantor name: JAVIERVANITA WINTER Health [facility] Information #: 1 Payer: MEDICARE PART B OUTPT Member Number: [id number] Policy Number: NA Group Number: NA Health Plan Information #: 2 Payer: [employer] [facility] Member Number: [id number] Policy Number: NA Group Number: NA
--- OUTSIDE RECORDS SUMMARY | 2024-06-30 10:43 | XMS_ITS | Patient Health Record ---
Author Organization [facility] Address [address] [place] [address] Care Team Providers Care Technical Service Specialist Name Role Phone Balaji Ibanez MD Primary Care Provider Stepan Watkins [phone] Allergies Allergen (clinical drug ingredient) Drug/Non Drug Allergy documented on EMR Reaction Allergy Type Onset Date Status Penicillin Unknown Drug Allergy Active erythromycin Erythromycin Unknown Drug Allergy A ctive Substance with sulfonamide structure and antibacterial mechanism of action (substance) Sulfa Antibiotics Unknown Drug Allergy Active azithromycin Zithromax Unknown Drug Allergy Acti ve mesalamine Pentasa diarrhea Drug Allergy Active Results Component Value Reference Range Notes Ur Preg Test Reviewed date:12/14/2023 11:20:25 PM Interpretation: Performing Lab:[facility], [address] [place] [phone] Notes/Report: Urine NEGATIVE NEGATIVE This test was developed to detect early . False negative results may occur after the 5th - 7th week of when using this test method. If clinically indicated, consider a serum hCG. Pathology Reviewed date:12/21/2023 01:56:48 PM Interpretation: Performing Lab:[facility], [address] [place] [phone] Notes/Report: ----- Name: Dylan Winter Age/Sex: 48/F : 1975 [facility]#: [id number] Unit#: [id number] Attend Dr: Stepan Sheldon MD Re12/14/23 Status : [facility] Location: [facility] Disch: ----- SPEC : [id number] RECD : 12/15/23-810 STATUS: [facility] NUM: [id number] ANDREY: 12/14/23-170 [facility] DR: Stepan Sheldon MD ENTERED: 12/15/23- SP TYPE: Surgical OTHR DR: Balaji Ibanez MD ORDERED: HE Stain/6, Gross Micro L4/3, IHC, Special st. 2/3, H. pylori, AB/PAS/3 Diagnosis A. Duodenum, descend ing, biopsy: Small intestinal mucosa within normal limits. B. Stomach, antrum, biopsy: Antral-type mucosa with moderate chronic inactive inflammation; defini tive Helicobacter organisms not seen. C. EG junction, 37 c m, biopsy: - Cardiac-type mucos a with mild chronic active inflammation; no intestinal metaplasia seen. - Squamous mucosa wi thin normal limits. Clinical History Pre-Op Dx: GERD, nausea Post-Op Dx: Gastriti s, reflux Microscopic Description A-C. Microscopic sec tions examined. No metaplastic changes are seen, supported by AB/PAS stains (A-C); defini tive Helicobacter organisms are not seen, supported by H. pylori immunostain (B). Material Received A. Descending duodenum-history of Crohn's, rule out celiac B. Gastric antrum C. EG junction at 37 Gross Description Are 5 fragments of translucent, jasso-white soft tissue ranging from 0.2-0.5 cm in greatest dimension which are wrapped in lens paper and entirely submitted for microscopic examination, 5 piece s in cassette A B. Received in forma kecia labeled ?gastric antrum? are 3 fragments of translucent, white soft tissue measuring 0.2 -0.3 cm in greatest dimension which are wrapped in lens paper and entirely submitted f or microscopic examination, 3 pieces in cassette B. C. Received in forma kecia labeled ?EG junction at 37? are 2 fragments of translucent, white soft tissue measurin g 0.3 and 0.5 cm in greatest dimension which are wrapped in lens paper and entirely submitt ed for microscopic examination, 2 pieces in cassette [facility]. [facility] Special studies orde red and performed: Immunostain for H. pylori on B; AB/PAS stains on A, B CONTINUED ON NEXT PAGE ----- Name: Dylan Winter Age/Sex: 48/F : 1975 Unit#: [id number] Attend Dr: Stepan Sheldon MD Re12/14/23 Status : [facility] Location: [facility] Disch: ----- SPEC : [id number] RECD : 12/15/23 STATUS: [facility] NUM: [id number] ANDREY: 12/14/23-1705 [facility] DR: Stepan Sheldon MD ENTERED: 12/15/23- SP TYPE: Surgical OTHR DR: Balaji Ibanez MD ORDERED: HE Stain/6, Gross Micro L4/3, IHC, Special st. 2/3, H. pylori, AB/PAS/3 Gross Description (Continued) and C Copies To: Balaji Ibanez MD [address] [place] [address] Stepan Sheldon MD [facility] [address] [place] [address] [address] [place], [place] [phone] ----- Signed (signature on file) Enrique Dooley MD 12/17/23 1139 ----- END OF REPORT Reason For Referral No Information Medications Medication SIG (Take, Route, Frequency, Duration) [...] a day for 30 day(s) 10/13/2022 Active Immunizations Vaccine Route Administration Date Status Comme nts Influenza Unknown 03/11/2022 Administered Social History Tobacco Use: Social History Observation [...] Negative Section Notes: Nonsmoker; no sig alcohol Nonsmoker; no sig alcohol Nonsmoker; no sig alcohol Nonsmoker; no sig alcohol Nonsmoker; no sig alcohol Problems Problem Type SNOMED Code ICD Code Onset Dates Problem Status W/U Status Risk Notes Problem Gastro-esophageal reflux disease without esophagitis (753077329) Gastro-esophageal reflux disease without esophagitis (K21.9) Active confirmed Problem Diarrhea (02010806) Diarrhea (R19.7) Active con firmed Problem Nausea (047572457) Nausea (R11.0) Active confir med Problem History of gastrointestinal tract bypass (496982982) Intestinal bypass and anastomosis status (Z98.0) Active confirmed Problem Chronic gastritis (7696687) Chronic gastritis (K29.50) Active confirmed Problem 320102003 Abdominal pain, generalized (R10.84) Active confirmed Problem 05745187 Diarrhea, unspecified type (R19.7) Active confirmed Problem Crohn's disease of small intestine (80152609) Crohn''s disease of small intestine without complication (K50.00) Active confirmed Problem 407031438 Gastroesophageal reflux disease, unspecified whether esophagitis present (K21.9) Active confirmed Problem 39149799 Crohn's disease of small and large intestines with complication (K50.819) Active confirmed Problem Gastroesophageal reflux disease (disorder) (414911271) Chronic GERD (K21.9) Active confirmed Vital Signs Blood pressure diastolic 00 mm Hg 05/03/2024 Height 67 in 05/03/2024 Blood pressure systolic 00 mm Hg 05/03/2024 Weight 197 lbs 05/03/2024 BMI 30.85 kg/m2 05/03/2024 Encounters Encounter Location Date Provider Diagnosis [facility] Outpatient [address] [place], [place] [phone] 12/14/2023 Stepan Sheldon Gastro-esophageal re flux disease without esophagitis K21.9 ; Hiatal hernia K44.9 ; Chronic gastritis K29.50 and Nausea R11.0 [facility] [address] [facility] [address] [place] [address] 10/15/2023 Stepan Sheldon Nausea R11.0 ; Crohn 's disease of small and large intestines with complication K50.819 and Chronic GERD K21.9 [facility] [address] [address] 05/03/2024 Stepan Sheldon Crohn's disease of s mall and large intestines with complication K50.819 and Gastroesophageal reflux disease, unspecified whether esophagitis present K21.9 [facility] [address] [place] [phone] 12/21/2023 Stepan Sheldon Assessments Encounter Date Diagnosis (ICD Code) Assessment Notes Treatment Notes Treatment Clinical Notes Section Notes 12/14/2023 Gastro-esophageal reflux disease without esophagitis (ICD-10 - K21.9) 12/14/2023 Hiatal hernia (ICD-10 - K44.9) 10/15/2023 Nausea (ICD-10 - R11.0) Overall, Javier appears clinically well in regard to the underlying Crohn's disease. We did review that things definitely seem better than when I first met her one year ago when she was having upwards of 10 loose and urgent movements per day. As such, I did advise her to continue the budesonide at 9 mg per day. I did advise her to definitely continue the Imodium throughout the day as needed, as well as to resume the Colestid once or twice a day as well if need be. I advised her to continue all of her vitamin supplements. I did advise her to be sure to keep that appointment of the bone density study later in the year as that will be important to be sure she does not have any underlying bone disease in relation to her Crohn's disease and previous steroid use with prednisone, as well as the current use of budesonide. In regard to the upper GI complaints I did recommend an upper endoscopy to assess for any significant esophagitis and/or involvement of the upper GI tract by Crohn's disease. She did have a negative upper endoscopy in 2018 at [facility]. I'll send over a prescription for Zofran for her to use as needed for nausea as well. Full consent was obtained from her for the upper endoscopy, including risks of bleeding and perforation. The procedure will be done with monitored anesthesia care. I did advise Dylan to contact me before the endoscopy if she has any problems or questions I can be of assistance with. Javier was comfortable with this plan. Thank you again for allowing me to participate in Javier's care. I shall continue to keep you advised of her progress. 10/15/2023 Crohn's disease of small and large intestines with complication (ICD-10 - K50.819) Continue 3 Budesonide daily. Continue all the vitamins and supplements. Use the Imodium and Colestid every day. Overall, Javier appears clinically well in regard to the underlying Crohn's disease. We did review that things definitely seem better than when I first met her one year ago when she was having upwards of 10 loose and urgent movements per day. As such, I did advise her to continue the budesonide at 9 mg per day. I did advise her to definitely continue the Imodium throughout the day as needed, as well as to resume the Colestid once or twice a day as well if need be. I advised her to continue all of her vitamin supplements. I did advise her to be sure to keep that appointment of the bone density study later in the year as that will be important to be sure she does not have any underlying bone disease in relation to her Crohn's disease and previous steroid use with prednisone, as well as the current use of budesonide. In regard to the upper GI complaints I did recommend an upper endoscopy to assess for any significant esophagitis and/or involvement of the upper GI tract by Crohn's disease. She did have a negative upper endoscopy in 2018 at [facility]. I'll send over a prescription for Zofran for her to use as needed for nausea as well. Full consent was obtained from her for the upper endoscopy, including risks of bleeding and perforation. The procedure will be done with monitored anesthesia care. I did advise Dylan to contact me before the endoscopy if she has any problems or questions I can be of assistance with. Javier was comfortable with this plan. Thank you [...] keep you advised of her progress. 05/03/2024 Crohn's disease of small and large [...] to keep you advised of her progress. 12/14/2023 Chronic gastritis (ICD-10 - K29.50) 10/15/2023 Chronic GERD (ICD-10 - K21.9) Continue daily omeprazole Overall, Javier appears clinically well in regard to the underlying Crohn's disease. We did review that things definitely seem better than when I first met her one year ago when she was having upwards of 10 loose and urgent movements per day. As such, I did advise her to continue the budesonide at 9 mg per day. I did advise her to definitely continue the Imodium throughout the day as needed, as well as to resume the Colestid once or twice a day as well if need be. I advised her to continue all of her vitamin supplements. I did advise her to be sure to keep that appointment of the bone density study later in the year as that will be important to be sure she does not have any underlying bone disease in relation to her Crohn's disease and previous steroid use with prednisone, as well as the current use of budesonide. In regard to the upper GI complaints I did recommend an upper endoscopy to assess for any significant esophagitis and/or involvement of the upper GI tract by Crohn's disease. She did have a negative upper endoscopy in 2018 at [facility]. I'll send over a prescription for Zofran for her to use as needed for nausea as well. Full consent was obtained from her for the upper endoscopy, including risks of bleeding and perforation. The procedure will be done with monitored anesthesia care. I did advise Dylan to contact me before the endoscopy if she has any problems or questions I can be of assistance with. Javier was comfortable with this plan. Thank you again for allowing me to participate in Javier's care. I shall continue to keep you advised of her progress. 12/14/2023 Nausea (ICD-10 - R11.0) Plan Of Treatment Pending Test Test Name Order Date CHEM 7 PROFILE 08/19/2022 LIVER PROFILE 08/19/2022 CRP 08/19/2022 CBC w DIFF 08/19/2022 SED RATE (ESR) 08/19/2022 CELIAC PANEL #10 08/19/2022 C DIFFICILE RFLX PCR 08/19/2022 Future Test Test Name Order Date COLONOSCOPY 08/19/2022 UPPER GI ENDOSCOPY 10/15/2023 Next Appt Details Provider Name:Stepan Sheldon , 01/10/2025 09:50:00 AM, [address] [place] [address], [address], [place], [address], Insurance Providers Payer Name Payer Address Payer Phone Subscriber Number Group Number Insured Name Patient Relationship to Insured Coverage Start Date Coverage End Date MEDICARE OF [place] [address] [place] [address] [id number] JAVIER WINTER Self - patient is the insured MEDICAID OF [facility] [address] [place] [address] [id number] JAVIER WINTER Self - patient is the insured Medical (General) History Medical History History ICD Code Denies [place],DM,CVA,Lung [...] was in 01/[address] Garcia at [facility] Wing revealed some erosions at the ileocolic anastomosis, [...]
== END ==
LOC: HO.CARD 09:14
PROVIDERS: PCP Family Medicine; Visit Provider Internal Medicine Cardiovascular Disease
DX: R07.89 Other chest pain (principal)
CPT/HCPCS: 93017

== ENCOUNTER → 2024-06-30 09:17 | Outpatient (BNV) | payer MEDICARE, MEDICAID, SELFPAY | PROVIDERS: PCP Family Medicine | DX: R06.02 Shortness of breath (principal); R42 Dizziness and giddiness | CPT/HCPCS: 93016; 93018 ==

== ENCOUNTER → 2024-07-21 09:52 | Outpatient (REF) | payer MEDICARE, MEDICAID, SELFPAY ==
--- NOTE | 2024-07-21 09:54 | CA_ITS ---
Acquisition Time: 2024-07-21 10:05:09 Total Exercise Time: 00:07:08 Test Indications: CP AFIB Medications: SEE H&P Protocol: COURTNEY Max HR: 148 BPM 86% of Pred: 172 BPM Max BP: 140/82 mmHG Max Work Load: 8.7 METS Exercise stress test with exercise 7 mins 8 secs of Courtney Protocol, achieving 87% MPHR, with reports of mild SOB, no chets pain, without any arrythmias, with normotensive response to exercise. Without EKG changes meeting criteria for ischemia. In recovery, breathing returned to baseline. Test reviewed with Dr. Caldera. Referred By: Alex Silva Electronically Signed By: Alex Silva
--- OUTSIDE RECORDS SUMMARY | 2024-07-21 10:30 | XMS_ITS ---
Author Organization [facility] Address [address] [place] [address] Care Team Providers Care Digital Content Manager Name Role Phone Balaji Ibanez MD Primary Care Provider Stepan Watkins [phone] REASON FOR VISIT gerd, nausea Problems Problem Type SNOMED Code ICD Code Onset Dates Problem Status W/U Status Risk Notes Problem Gastro-esophagea l reflux disease without esophagitis (369013144) Gastro-esophage al reflux disease without esophagitis (K21.9) Active confirmed Problem Chronic gastritis (4415353) Chronic gastritis (K29.50) Active confirmed Encounters Encounter Location Date Provider Diagnosis [facility] Outpatient [address] [place] [phone] 12/14/2023 Stpean Sheldon Gastro-esophageal reflux disease without esophagitis K21.9 [...] Name:Stepan Sheldon , 01/10/2025 09:50:00 AM, [address], [address], [place], [address], Progress Notes * JOSH WINTEROB: [birth year] (49 yo F)Acc No.[id number]:12/14/2023 EGD/MAC Patient:?JAVIER WINTER Provider:?Stepan Sheldon MD :1975???Age:48 Y???Sex:Female D ate:12/14/2023 Address:[address] [place], [place] [address] Pcp:Balaji Ibanez MD Subjective: * Chief Complaints: * ???1. Gerd, nausea. * Medical History:? Objective: * Vitals:? Assessment: * Assessment: 1.?Gastro-esophageal reflux disease without esophagitis - K21.9 (Primary)???2.?Hiatal hernia - K44.9???3.?Chronic gastritis - K29.50???4.?Nausea - R11.0??? Plan: * Treatment: * Procedure Codes:?89969 UPPER GI ENDOSCOPY, BIOPSY * * The named appointment provid er may or may not be the originator of this progress note, and it is not deemed complete until electronically signed by the appointment provider. Sign off status: Pending * Provider:?Stepan Sheldon MD Date:? 024 Generated for Harish quinn/Lazaro/Francoransmitting on:?07/21/2024 10:29 AM EDT
--- OUTSIDE RECORDS SUMMARY | 2024-07-21 10:30 | XMS_ITS ---
Author Organization [facility] Address [address] [place] [address] Care Team Providers Care Single End Sewer Name Role Phone Balaji Ibanez MD Primary Care Provider Stepan Watkins [phone] Allergies Allergen (clinical drug ingredient) Drug/Non Drug [...] 05/03/2024 Encounters Encounter Location Date Provider [facility] [address] [place] [address] 05/03/2024 Stepan Sheldon Crohn's disease of s [...] Vazquez Monalisa , 01/10/2025 09:50:00 AM, [address], [address], [place], [address], Progress Notes * WAN WINTERELLEDOB: [birth year] (49 yo F)Acc No.[id number]:05/03/2024 Progress Notes Patient:?JAVIER WINTER Provider:?Stepan Sheldon MD :1975???Age:49 Y???Sex:Female D ate:05/03/2024 Address:[address] [place] [address] Pcp:Balaji Ibanez MD Subjective: * Chief Complaints: [...] Procedure Codes:?3017F COLOR ECTAL CA SCREEN DOC ALB5650G TOBACCO NON-KIBSN5590 BP SCR NOT PRFRM REC REASON NOS * Preventive Medicine:? ??Counseling:?Care goal follow-up plan:?Above Normal BMI Follow-up?Giving encouragement to exercise,?BMI management provided?Yes.? * Follow Up:?2024 * * Sign off status: Completed true * Provider:?Stepan Sheldon MD Date:? 025 Generated for Harish quinn/Lazaro/Suhasitting on:?07/21/2024 10:29 AM EDT History and Physical Notes * [...]
--- OUTSIDE RECORDS SUMMARY | 2024-07-21 10:30 | XMS_ITS | Patient Health Record ---
Author Organization [facility] Address [address] [place] [address] Care Team Providers Care Security Researcher Name Role Phone Balaji Ibanez MD Primary Care Provider Stepan Watkins [phone] Allergies Allergen (clinical drug ingredient) Drug/Non Drug [...] Test Reviewed date:12/14/2023 11:20:25 PM Interpretation: Performing Lab:[facility], [address] [place] [phone] Notes/Report: Urine NEGATIVE NEGATIVE This test was developed to detect early . False negative results may occur after the 5th - 7th week of when using this test method. If clinically indicated, consider a serum hCG. Pathology Reviewed date:12/21/2023 01:56:48 PM Interpretation: Performing Lab:[facility], [address] [place] [phone] Notes/Report: ----- Name: Dylan Winter Age/Sex: 48/F : 1975 [facility]#: [id number] Unit#: [id number] Attend Dr: Stepan Sheldon MD Re12/14/23 Status : [facility] Location: [facility] Disch: ----- SPEC : [id number] RECD : 12/15/23-810 STATUS: [facility] NUM: [id number] ANDREY: 12/14/23-[address] [facility] [address]: Stepan Sheldon MD ENTERED: 12/15/23- SP [...] microscopic examination, 2 pieces in cassette [facility] Special studies orde red and performed: Immunostain for H. pylori on B; AB/PAS stains on A, B CONTINUED ON NEXT PAGE ----- Name: Dylan Winter Age/Sex: 48/F : 1975 Unit#: [id number] Attend Dr: Stepan Sheldon MD Re12/14/23 Status : [facility] Location: [facility] Disch: ----- SPEC : [id number] RECD : 12/15/23 STATUS: [facility] NUM: [id number] ANDREY: 12/14/23-[address] [facility] [address]: Stepan Sheldon MD ENTERED: 12/15/23- SP TYPE: Surgical OTHR DR: Balaji Ibanez MD ORDERED: HE Stain/6, Gross Micro L4/3, IHC, Special st. 2/3, H. pylori, AB/PAS/3 Gross Description (Continued) and C Copies To: Balaji Ibanez MD [address] [place] [address] Stepan Sheldon MD [facility] [address] [place] [address] [address] [place], [place] [phone] ----- Signed (signature on file) Enrique Dooley [...] Notes Problem Gastro-esophageal reflux disease without esophagitis (084364710) Gastro-esophageal reflux disease without esophagitis (K21.9) Active confirmed Problem Diarrhea (34957762) Diarrhea (R19.7) Active con firmed Problem Nausea (746790668) Nausea (R11.0) Active confir med Problem History of gastrointestinal tract bypass (325028274) Intestinal bypass and anastomosis status (Z98.0) Active confirmed Problem Chronic gastritis (4538785) Chronic gastritis (K29.50) Active confirmed Problem 811934257 Abdominal pain, generalized (R10.84) Active confirmed Problem 72857754 Diarrhea, unspecified type (R19.7) Active confirmed Problem Crohn's disease of small intestine (97416261) Crohn''s disease of small intestine without complication (K50.00) Active confirmed Problem 859796375 Gastroesophageal reflux disease, unspecified whether esophagitis present (K21.9) Active confirmed Problem 32467793 Crohn's disease of small and large intestines with complication (K50.819) Active confirmed Problem Gastroesophageal reflux disease (disorder) (978887590) Chronic GERD (K21.9) Active confirmed Vital Signs Blood pressure diastolic 00 mm Hg 05/03/2024 Height 67 in 05/03/2024 Blood pressure systolic 00 mm Hg 05/03/2024 Weight 197 lbs 05/03/2024 BMI 30.85 kg/m2 05/03/2024 Encounters Encounter Location Date Provider Diagnosis [facility] Out[facility] [address] [place], [place] [phone] 12/14/2023 Stepan Sheldon Gastro-esophageal re flux disease without esophagitis K21.9 ; Hiatal hernia K44.9 ; Chronic gastritis K29.50 and Nausea R11.0 [facility] [address] [facility] [address] [place] [address] 10/15/2023 Stepan Sheldon Nausea R11.0 ; Crohn 's disease of small and large intestines with complication K50.819 and Chronic GERD K21.9 [facility] [address] [address] 05/03/2024 Stepan Sheldon Crohn's disease of s mall and large intestines with complication K50.819 and Gastroesophageal reflux disease, unspecified whether esophagitis present K21.9 [facility] [address] [place] [address] 12/21/2023 Stepan Sheldon Assessments Encounter Date Diagnosis [...] a negative upper endoscopy in 2018 at [facility]. I'll send over a prescription for [...] a negative upper endoscopy in 2018 at [facility]. I'll send over a prescription for [...] a negative upper endoscopy in 2018 at [facility]. I'll send over a prescription for [...] Provider Name:Stepan Sheldon , 01/10/2025 09:50:00 AM, [address] [place] [address], [address], [place], [address], Insurance Providers Payer Name Payer Address Payer Phone Subscriber Number Group Number Insured Name Patient Relationship to Insured Coverage Start Date Coverage End Date MEDICARE OF [place] [address] [place] [address] [id number] JAVIER WINTER Self - patient is the insured MEDICAID OF [facility] [address] [place] [phone] [id number] JAVIER WINTER Self - patient is the insured Medical (General) History Medical History History ICD Code Denies NE,DM,CVA,Lung disease,renal dise ase Afib Crohn's disease diagnosed [...] was in 01/[address] Garcia at [facility] revealed some erosions at the [...]
--- OUTSIDE RECORDS SUMMARY | 2024-07-21 10:30 | XMS_ITS ---
Author Organization [facility] Address [address] [place] [address] [place] [address] Care Team Providers Care Bank Representative Name Role Phone Balaji Ibanez MD Primary Care Provider Stepan Watkins [phone] Medications Medication SIG (Take, Route, Fr equency, Duration) Notes Start Date End Date Status Omeprazole 40 MG 1 Orally Twice a day in the morning and late afternoon or the early evening for 90 days 12/21/2023 Active Encounters Encounter Location Date Provider Diagnosis [facility] [address] [address] 12/21/2023 Stepan Sheldon Plan Of Treatment Medication Medication Name Sig Start Date Stop Date Notes Omeprazole 40 MG 1 Orally Twice a day in the morning and late afternoon or the early evening for 90 days 12/21/2023 Next Appt Details Provider Name:Stepan Sheldon , 01/10/2025 09:50:00 AM, [address] [place] [address], Suite [facility], [place], [address], Progress Notes * JOSH WINTEROB: [birth year] (48 yo F)Acc No.[id number]:12/21/2023 Patient:?JAVIER WINTER :1975???Age:48 Y???Sex:Female Address:[address] [place] [address], [address] * Refills? Start Omeprazole Capsule Delayed Release, 40 MG, Orally, 180, 1, Twice a day in the morning and late afternoon or the early evening, 90 days, Refills=3 * true * Date:? Generated for Harish quinn/Lazaro/Suhasitting on:?07/21/2024 10:29 AM EDT
== END ==
LOC: HO.CARD 09:52
DX: R07.9 Chest pain, unspecified (principal); R94.39 Abnormal result of other cardiovascular function study
CPT/HCPCS: 93017

== ENCOUNTER → 2024-07-21 09:54 | Outpatient (BNV) | payer MEDICARE, MEDICAID, SELFPAY | DX: R06.02 Shortness of breath (principal) | CPT/HCPCS: 93016; 93018 ==

== ENCOUNTER 2024-08-18 09:42 | Outpatient (REF) | payer MEDICARE, MEDICAID, SELFPAY ==
[2024-08-19 08:09] LABS: CRP High Sensitivity 1.7 mg/L
== END 2024-08-18 09:43 | disposition home or self-care (01) ==
LOC: HO.LAB 09:42
PROVIDERS: PCP Family Medicine; Visit Provider Internal Medicine Cardiovascular Disease
DX: I48.0 Paroxysmal atrial fibrillation (principal)
CPT/HCPCS: 36415; 86141

== ENCOUNTER 2024-09-26 09:35 | Outpatient (REF) | payer MEDICARE, MEDICAID, SELFPAY ==
[2024-09-26 10:34] LABS: Cholesterol 116 mg/dL (<200); HDL Cholesterol 51 mg/dL (>40); LDL Cholesterol Calculated 51 mg/dL (<100); Triglycerides 71 mg/dL (<150)
== END 2024-09-26 09:36 | disposition home or self-care (01) ==
LOC: HO.LAB 09:35
PROVIDERS: PCP Family Medicine; Visit Provider Internal Medicine Cardiovascular Disease
DX: I25.10 Atherosclerotic heart disease of native coronary artery without angina pectoris (principal); E78.5 Hyperlipidemia, unspecified
CPT/HCPCS: 36415; 80061

== ENCOUNTER 2025-01-10 11:01 | Outpatient (REF) | payer MEDICARE, MEDICAID, SELFPAY ==
[2025-01-10 11:26] LABS: MANUAL DIFF FLAG NO
[2025-01-10 11:46] LABS: Hematocrit 37.7 % (37.0-47.0); Hemoglobin 12.3 g/dl (12.0-16.0); Imm Gran Abs Auto 0.02 X10*3/uL (0.00-0.03); Imm Gran Pct Auto 0.4 % (0.0-0.4); Lymphocytes Absolute Auto 1.6 X10*3/uL (1.2-4.9); Mean Corpuscular HGB Conc 32.6 g/dl (31.0-35.0); Mean Corpuscular Hemoglobin 29.3 pg (27.0-33.0); Mean Corpuscular Volume 89.8 fL (80.0-98.0); NRBC Abs Auto 0.000 X10*3/uL (0.0-0.012); NRBC Pct Auto 0.0 /100WBC (0.0-0.2); Platelet Count 193 X10*3/uL (160-400); Red Blood Count 4.20 X10*6/uL (4.20-5.50); White Blood Count 5.1 X10*3/uL (4.8-10.8)
[2025-01-10 13:32] LABS: Alanine Aminotransferase 21 U/L (0-31); Albumin Level 4.4 g/dL (3.5-5.0); Alkaline Phosphatase 45 U/L (39-117); Anion Gap 8 (12-20); Aspartate Amino Transferase 21 U/L (5-31); Blood Urea Nitrogen 7 mg/dL (9-16); Calcium 8.9 mg/dL (8.4-10.2); Carbon Dioxide 27 mmol/L (22-29); Chloride 109 mmol/L (96-108); Estimated Glomerular Filt Rate > 60; Potassium 4.3 mmol/L (3.3-5.1); Sodium 140 mmol/L (135-145); Total Protein 7.0 g/dL (6.5-8.0)
== END 2025-01-10 11:02 | disposition home or self-care (01) ==
LOC: HO.LAB 11:01
PROVIDERS: PCP Family Medicine; Visit Provider Internal Medicine
DX: K50.819 Crohn's disease of both small and large intestine with unspecified complications (principal); K62.5 Hemorrhage of anus and rectum; K59.00 Constipation, unspecified
CPT/HCPCS: 36415; 80048; 80076; 85025; 85652; 86140

== ENCOUNTER 2025-01-25 09:17 | Day surgery (SDC) | payer MEDICARE, MEDICAID, SELFPAY ==
--- OUTSIDE RECORDS SUMMARY | 2025-01-10 13:25 | XMS_ITS | Encounter Summary ---
Author Organization [facility] Address [address] [place] [address] [place] [address] Phone Care Team Providers Care Regional Engagement Consultant Name Role Phone Balaji Ibanez MD Unavailable [phone] Isiah Abad MD Unavailable [phone] Kimberli Page MD Unavailable Balaji Ibanez MD Primary Care Provider [phone] Balaji Ibanez MD Primary Care Provider [phone] Encounter Details Date Type Department Care Team (Late st Contact Info) Description 08/15/2021 Procedure Pass [place] Admitting Dept - [facility] Department [address] [place] [address] Social History Tobacco Use Types Packs/Day Years Used Date Smoking Tobacco: Former Cigarettes Q uit: 2015 Smokeless Tobacco: Never Alcohol Use Standard Drinks/Week Comments Yes 3 (1 standard drink = 0.6 oz pur e alcohol) Comments No Sex and Gender Information Value Date Recorded Sex Assigned at Female 04/27/2017 9:38 AM EST Legal Sex Female 9:27 PM EDT Gender Identity Female 04/27/2017 9:38 AM EST Sexual Orientation Straight 04/27/2017 9: 38 AM EST documented as of this encounter Plan of Treatment Not on file documented as of this encounter Visit Diagnoses Not on filedocumented in this encounter Additional Health Concerns Infection Onset Date Last Indicated Resolved Time CoV-Risk 03/25/2022 03/25/2022 03/25/2022 8:01 PM EST COVID-19 03/25/2022 03/25/2022 04/15/2022 1:21 AM EST documented as of this encounter Care Teams Regional Engagement Consultant Relationship Specialty Start Date End Date Balaji Ibanez MD [email or web address] PCP - General Family Medicine 02/25/17 09/23/23 Balaji Ibanez MD [address] [place] [address] [email or web address] PCP - General Family Medicine 09/24/23 Balaji Ibanez MD [email or web address] Historical LMR Provider 02/07/17 Isiah Abad MD [address] [place] [address], [address] [place] [address] [email or web address] Historical LMR Provider 02/07/17 Kimberli Page MD [address] [place] [address], [address] [address] [email or web address] Historical LMR Provider 02/07/17 documented as of this encounter Additional Source Comments The information contained in this document represents components of the legal health record. It is not the complete legal health record.[facility]
--- OUTSIDE RECORDS SUMMARY | 2025-01-10 13:25 | XMS_ITS | Encounter Summary ---
Author Organization [facility] Address [address] [place] [address] [place] [address] Phone Care Team Providers Care Cutter Brake Lining Name Role Phone Balaji Ibanez MD Unavailable [phone] Isiah Abad MD Unavailable [phone] Kimberli Page MD Unavailable Balaji Ibanez MD Primary Care Provider [phone] Balaji Ibanez MD Primary Care Provider [phone] Encounter Details Date Type Department Care Team (Late st Contact Info) Description 01/03/2022 Procedure Pass [facility], [address] [address] Social History Tobacco Use Types Packs/Day Years [...] documented as of this encounter Care Teams Cutter Brake Lining Relationship Specialty Start Date End Date Balaji Ibanez MD [email or web address] PCP - General Family Medicine 02/25/17 09/23/23 Balaji Ibanez MD [address] [place] [address] [email or web address] PCP - General Family Medicine 09/24/23 Balaji Ibanez MD [email or web address] Historical LMR Provider 02/07/17 Isiah Abad MD [address] [place] [address], [facility] [place] [address] [email or web address] Historical LMR Provider 02/07/17 Kimberli Page MD [address] [place] [address], [address] [address] [email or web address] Historical LMR Provider 02/07/17 documented as of this encounter Additional Source Comments The information contained in this document represents components of the legal health record. It is not the complete legal health record.[facility]
--- OUTSIDE RECORDS SUMMARY | 2025-01-10 13:25 | XMS_ITS | Encounter Summary ---
Author Organization [facility] Address [address] [facility] [address] [place] [address] Phone Care Team Providers Care Montessori Program Director Name Role Phone Elba Olguin EVAPORATOR Unavailable [phone] Balaji Ibanez MD Unavailable Kim Nunes EVAPORATOR Unavailable Brunilda Castro EVAPORATOR Unavailable Isiah Abad MD Unavailable Kimberli Page MD Unavailable Italo Ruano MD Unavailable Brock Webber MD Unavailable [phone] Balaji Ibanez MD Primary Care Provider [phone] Balaji Ibanez MD Primary Care Provider [phone] Encounter Details Date Type Department Care Team (Late st Contact Info) Description 01/11/2021 Procedure Pass [facility], [address] [phone] Social History Tobacco Use Types Packs/Day Years Used Date Smoking Tobacco: Former Smokeless Tobacco: Never Alcohol Use Standard Drinks/Week Comments Yes 0 (1 standard drink = 0.6 oz pur e alcohol) occasional Comments No Sex and Gender Information Value [...] documented as of this encounter Care Teams Montessori Program Director Relationship Specialty Start Date End Date Balaji Ibanez MD [address] [place] [address] [email or web address] PCP - General Family Medicine 02/25/17 09/23/23 Balaji Ibanez MD [address] [place] [address] [email or web address] PCP - General Family Medicine 09/24/23 Elba Olguin NP [address] [place] [address] Historical LMR Provider 02/07/17 2 Balaji Ibanez MD [address] [place] [address] [email or web address] Historical LMR Provider 02/07/17 Kim Nunes NP [address] [place] [address] Historical LMR Provider 02/07/17 2 Brunilda Castro NP [address] [place] [address] Historical LMR Provider 02/07/172 2 Isiah Abad MD [address] [facility], 2nd [place] [address] Historical LMR Provider 02/07/17 Kimberli Page MD 22 [facility] [address] [place] [address] Historical LMR Provider 02/07/17 Italo Ruano MD [address] [place] [address] Historical LMR Provider 02/07/172 2 Brock Webber MD [address] [place] [address] Historical LMR Provider 02/07/172 2 documented as of this encounter Additional Source Comments The information contained in this document represents components of the legal health record. It is not the complete legal health record.[facility]
--- OUTSIDE RECORDS SUMMARY | 2025-01-10 13:26 | XMS_ITS | Encounter Summary ---
Author Organization [facility] Address [address] [place] [address] [place] [address] Phone Care Team Providers Care News Assistant Name Role Phone Balaji Ibanez MD Unavailable [phone] Isiah Abad MD Unavailable [phone] Kimberli Page MD Unavailable Balaji Ibanez MD Primary Care Provider [phone] Balaji Ibanez MD Primary Care Provider [phone] Encounter Details Date Type Department Care Team (Late st Contact Info) Description 08/12/2021 Prep for Surgery [facility] Medicine [address] [place] [address] Jaxon Castano PA-C [address] [place] [address] Orthopedics & Sports Medicine, [facility] [place] [address] [email or web address] Social History Tobacco Use Types Packs/Day Years [...] documented as of this encounter Care Teams News Assistant Relationship Specialty Start Date End Date Balaji Ibanez MD [email or web address] PCP - General Family Medicine 02/25/17 09/23/23 Balaji Ibanez MD [address] [place] [address] [email or web address] PCP - General Family Medicine 09/24/23 Balaji Ibanez MD [email or web address] Historical LMR Provider 02/07/17 Isiah Abad MD 22 [facility], 2nd [place] [address] [email or web address] Historical LMR Provider 02/07/17 Kimberli Page MD 22 [facility], [address] [place] [address] Historical LMR Provider 02/07/17 documented as of this encounter Additional Source Comments The information contained in this document represents components of the legal health record. It is not the complete legal health record.[facility]
--- OUTSIDE RECORDS SUMMARY | 2025-01-10 13:27 | XMS_ITS | Encounter Summary ---
Author Organization [facility] Address [address] [place] [address] [place] [address] Phone Care Team Providers Care Theatrical Rigger Name Role Phone Elba Olguin SIGN INSTALLER Unavailable Balaji Ibanez MD Unavailable [phone] Kim Nunes SIGN INSTALLER Unavailable Brunilda Castro SIGN INSTALLER Unavailable Isiah Abad MD Unavailable Kimberli Page MD Unavailable Italo Ruano MD Unavailable [phone] Brock Webber MD Unavailable [phone] Balaji Ibanez MD Primary Care Provider [phone] Balaji Ibanez MD Primary Care Provider [phone] Encounter Details Date Type Department Care Team (Late st Contact Info) Description 06/24/2018 Procedure Pass [facility] [address] [place] [address] Social History Tobacco Use Types Packs/Day Years Used Date Smoking Tobacco: Former Smokeless Tobacco: Never Comments Unknown Sex and Gender Information Value Date Recorded [...] Onset Date Last Indicated Resolved Time CoV-Risk 05/07/2020 05/08/2020 05/17/2020 1:24 AM EST CoV-Risk 03/25/2022 03/25/2022 03/25/2022 8:01 PM EST COVID-19 03/25/2022 03/25/2022 04/15/2022 1:21 AM EST documented as of this encounter Care Teams Theatrical Rigger Relationship Specialty Start Date End Date Balaji Ibanez MD [address] [place] [address] [email or web address] PCP - General Family Medicine 02/25/17 09/23/23 Balaji Ibanez MD [address] [place] [address] [email or web address] PCP - General Family Medicine 09/24/23 Elba Olguin NP [address] [place] [address] Historical LMR Provider 02/07/17 2 Balaji Ibanez MD [address] [place] [address] [email or web address] Historical LMR Provider 02/07/17 Kim Nunes NP [address] [place] [address] Historical LMR Provider 02/07/17 2 Brunilda Castro SIGN INSTALLER [address] [facility] [place] [address] Historical LMR Provider 02/07/17 2 Isiah Abad MD 22 [facility], 2nd [place] [address] Historical LMR Provider 02/07/17 Kimberli Page MD 22 [facility] 102 [place] [address] Historical LMR Provider 02/07/17 Italo Ruano MD [address] [place] [address] Historical LMR Provider 02/07/172 2 Brock Webber MD [address] [place] [address] Historical LMR Provider 02/07/172 2 documented as of this encounter Additional Source Comments The information contained in this document represents components of the legal health record. It is not the complete legal health record.[facility]
--- OUTSIDE RECORDS SUMMARY | 2025-01-10 13:27 | XMS_ITS | Encounter Summary ---
Author Organization [facility] Address [address] [facility] [address] [place] [address] Phone Care Team Providers Care Rubber Roller Grinder Name Role Phone Elba Olguin MARINE STEAM FITTER Unavailable [phone] Balaji Ibanez MD Unavailable [phone] Kim Nunes MARINE STEAM FITTER Unavailable Brunilda Castro MARINE STEAM FITTER Unavailable Isiah Abad MD Unavailable Kimberli Page MD Unavailable Italo Ruano MD Unavailable Brock Webber MD Unavailable [phone] Balaji Ibanez MD Primary Care Provider [phone] Balaji Ibanez MD Unavailable Balaji Ibaenz MD Primary Care Provider [phone] Encounter Details Date Type Department Care Team (Late st Contact Info) Description 02/24/2017 Ancillary Orders Virtual Department [address] [place] [address] Balaji Ibanez MD [address] [place], [place] [phone] Pain of right hip joint Social History Tobacco Use Types Packs/Day Years Used Date Smoking Tobacco: Never Assessed Comments Unknown Sex and Gender Information Value Date Recorded Sex Assigned at Female 04/27/2017 9:38 AM EST Legal Sex Female 9:27 PM EDT Gender Identity Female 04/27/2017 9:38 AM EST Sexual Orientation Straight 04/27/2017 9: 38 AM EST documented as of this encounter Plan of Treatment Not on file documented as of this encounter Results * MRI HIP WITHOUT CONTRAST (RIGHT) (03/03/2017 12:21 PM EST) Anatomical Region Laterality Modality Hip Right Magnetic Resonan ce 03/03/2017 12:4 6 PM EST Impressions 03/03/2017 2:12 PM EST 1. No evidence of avascular necrosis or other pathology involving the RIGHT hip. 2. Prominent atrophy of the LEFT gluteus minimus muscle: Post-traumatic versus denervation. POS [id number] Edited by: Mikala Bernal on 03/03/2017 1:16 PM Narrative 03/03/2017 2:12 PM EST TECHNIQUE: 1.5 Naheed high-field MRI scanner. Coronal T2 bilateral hips. Axial T2 and STIR, coronal T1 and T2 FS, oblique sagittal T1 and T2 of the affected hip. Compare to plain films 08/06/2016. FINDINGS: No marrow changes suspicious for avascular necrosis, trauma, tumor, infection or transient osteoporosis. Labrum poorly demonstrated but no gross tear is apparent. No significant joint effusion. The coronal T2 sequence of both hips reveals extensive atrophy of the LEFT gluteus minimus muscle when compared to the RIGHT. No other significant muscular atrophy is apparent. No soft tissue masses or fluid collections are evident. Small functional bilateral ovarian cysts. No worrisome gynecologic pathology. Bladder is unremarkable. No pelvic adenopathy or fluid. Procedure Note Oswald Kennedy MD - 03/03/2017 TECHNIQUE: 1.5 Naheed high-field MRI scanner. Coronal T2 bilateral hips.Axial T2 and STIR, coronal T1 and T2 FS, oblique sagittal T1 and T2 of theaffected hip. Compare to plain films 08/06/2016. FINDINGS: No marrow changes suspicious for avascular necrosis, trauma, tumor,infection or transient osteoporosis. Labrum poorly demonstrated but no gross tear is apparent. No significant joint effusion. The coronal T2 sequence of both hips reveals extensive atrophy of the LEFTgluteus minimus muscle when compared to the RIGHT. No other significantmuscular atrophy is apparent. No soft tissue masses or fluid collectionsare evident. Small functional bilateral ovarian cysts. No worrisome gynecologicpathology. Bladder is unremarkable. No pelvic adenopathy or fluid. IMPRESSION: 1. No evidence of avascular necrosis or other pathology involving theRIGHT hip. 2. Prominent atrophy of the LEFT gluteus minimus muscle: Post-traumaticversus denervation. POS [id number] Edited by: Mikala Bernal on 03/03/2017 1:16 PM Balaji Ibanez MD IMG MR EXTREMITY Final Resu lt documented in this encounter Visit Diagnoses Diagnosis Pain of right hip joint Pain of right hip joint documented in this encounter Additional Health Concerns Infection Onset Date Last Indicated Resolved Time CoV-Risk 05/07/2020 05/08/2020 05/17/2020 1:24 AM EST CoV-Risk 03/25/2022 03/25/2022 03/25/2022 8:01 PM EST COVID-19 03/25/2022 03/25/2022 04/15/2022 1:21 AM EST documented as of this encounter Care Teams Rubber Roller Grinder Relationship Specialty Start Date End Date Balaji Ibanez MD [address] [place] [address] [email or web address] PCP - General Family Medicine 02/25/17 09/23/23 Balaji Ibanez MD [address] [place] [address] PCP - General Family Medicine 09/24/23 Elba Olguin NP 100 [facility] 340 [place] [address] Historical LMR Provider 02/07/17 2 Balaji Ibanez MD [address] [address] [email or web address] Historical LMR Provider 02/07/17 Kim Nunes MARINE STEAM FITTER [address] [place] [address] Historical LMR Provider 02/07/17 2 Brunilda Castro MARINE STEAM FITTER [address] [place] [phone] Historical LMR Provider 02/07/17 2 Isiah Abad MD 22 [facility], 2nd [place] [address] Historical LMR Provider 02/07/17 Kimberli Page MD 22 [facility] 102 [place] [address] Historical LMR Provider 02/07/17 Italo Ruano MD [address] [place] [phone] Historical LMR Provider 02/07/17 2 Brock Webber MD [address] [place] [address] Historical LMR Provider 02/07/17 2 Balaji Ibanez MD [address] [place] [address] [email or web address] Insurance Assigned Provider 07/18/17 05/22/18 documented as of this encounter Additional Source Comments The information contained in this document represents components of the legal health record. It is not the complete legal health record.[facility]
--- OUTSIDE RECORDS SUMMARY | 2025-01-10 13:27 | XMS_ITS | Encounter Summary ---
Author Organization [facility] Address [address] [facility] [address] [place] [address] Phone Care Team Providers Care Interventionist Name Role Phone Balaji Ibanez MD Unavailable Isiah Abad MD Unavailable Kimberli Page MD Unavailable Balaji Ibanez MD Primary Care Provider [phone] Reason for Visit * Reason Comments Medication Refill Encounter Details Date Type Department Care Team (Late st Contact Info) Description 10/21/2024 Refill [facility] [address] [place] [address] Becca Santoyo MD 22 [facility], [address] [place] [address] [email or web address] Medication Refill Social History Tobacco Use Types Packs/Day Years Used Date Smoking Tobacco: Former Cigarettes Q uit: 2015 Smokeless Tobacco: Never Alcohol Use Standard Drinks/Week Comments Not Currently 3 (1 standard drink = 0.6 oz pur e alcohol) Education Answer Date Recorded Are you interested in more education? Not on sangeeta e 08/15/2022 Are you concerned about learning? Not on file 08/15/2022 No 08/15/2022 No 08/15/2022 Digital Access Answer Date Recorded No 09/10/2022 No 09/10/2022 Reliable internet access at home? Not on file 09/10/2022 Device with a working camera? Not on file Comments No Sex and Gender Information Value Date Recorded Sex Assigned at Female 04/27/2017 9:38 AM EST Legal Sex Female 9:27 PM EDT Gender Identity Female 04/27/2017 9:38 AM EST Sexual Orientation Straight 04/27/2017 9: 38 AM EST documented as of this encounter Progress Notes * Lisa Ballard LPN - 10/24/2024 3:54 PM EDT Patient states she is not taking medication * Hector Boateng - 10/24/2024 3:45 PM EDT Spoke with this patient who stated she has not even taken the medication due to the risks and side effects and she has already told this to Dr. Santoyo prior. Her last AE was on 08/12/2024 so she isnot due yet * Cherie Padron MA - 10/24/2024 10:43 AM EDT Rx Care Gap Status - Instructions for Clinical Staff (prescriber discretion applies): > No future appt: Please schedule if appropriate. Visit Info Last visit: 08/01/2024 Becca Santoyo MD - Obstetrics and Gynecology [facility] > Requested f/u: Return in about 8 weeks (around 09/26/2024) for METAL FLOW COORDINATOR f/u with MG HRT. Upcoming visit: None ACTIONS TAKEN BY Cherie Padron MA Refill protocol not met, f/up appt needed. Hormone Replacement Therapy Rx Protocol - estradiol Criteria met; renew for up to 12 months. Visit in the past 14 months: Yes documented in this encounter Plan of Treatment Not on file documented as of this encounter Visit Diagnoses Not on filedocumented in this encounter Care Teams Interventionist Relationship Specialty Start Date End Date Balaji Ibanez MD [address] [place] [address] PCP - General Family Medicine 09/24/23 Balaji Ibanez MD Historical LMR Provider 02/07/17 Isiah Abad MD [address] [place] [address], [address] [place] [address] Historical LMR Provider 02/07/17 Kimberli Page MD [address] [place] [address], [address] [address] Historical LMR Provider 02/07/17 documented as of this encounter Additional Source Comments The information contained in this document represents components of the legal health record. It is not the complete legal health record.[facility]
--- OUTSIDE RECORDS SUMMARY | 2025-01-10 13:27 | XMS_ITS | Encounter Summary ---
Author Organization [facility] Address [address] [facility] [address] [place] [address] Phone Care Team Providers Care Vision Care Associate Name Role Phone Terry Najera MD Unavailable [phone] Isiah Abad MD Unavailable [phone] Kimberli Page MD Unavailable Terry Najera MD Primary Care Provider [phone] Terry Najera MD Primary Care Provider [phone] Encounter Details Date Type Department Care Team (Late st Contact Info) Description 01/21/2023 Transcribe Orders Virtual Department [address] [place] [phone] Terry Najera MD [address] [place] [address] [phone] [email or web address] 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 Narrative 05/16/2024 11:14 AM EST Referred By: TERRY NAJERA Indications: Long-Term Steroid Treatment (3 Months or Longer) Scanner: [employer] A with serial# of [id number] located at [facility] Bone Density Scan (DXA) 05/16/24 Details of prior DXA scans are available by clicking View Image BMD T- Z- Skeletal Site gm/cm2 score score BMD Change Since Prior Scan ------ ----- ----- PA Spine (L1-L4) 0.970 -0.70 -0.10 N/A Total Hip (Left) 0.893 -0.40 0.00 N/A Femoral Neck (Left) 0.745 -0.90 -0.30 N/A Total Hip (Right) 0.865 -0.60 -0.20 N/A Femoral Neck (Right) 0.716 -1.20 -0.60 N/A ------ ----- ----- * Denotes significant change when >= 0.022 g/cm2 for the spine, 0.027 g/cm2 for the total hip, 0.029 g/cm2 for the femoral neck. Interpretation: Osteopenia. Technical Quality: Imaging of all sites was of adequate quality. FRAX: Based on FRAX(r) 3.6 ([place] White female), this patient's likelihood of hip fracture is 0.4% and major osteoporotic fracture is 11.5% over the next 10 years. The patient reported the following risks of fracture on a questionnaire: parental history of hip fracture and glucocorticoid use. Additional Information: -World Health Organization criteria classify adults based on lowest T-score at PA spine, hip or forearm: Normal (T-score >= -1.0), Osteopenia (T-score between -1 and -2.5), or Osteoporosis (T-score <= -2.5). At [facility], T-scores are compared to peak bone density of a young white gender matched reference population. - For premenopausal women and men under the age of 50, Z-scores (comparison to age, gender, and ethnicity matched reference population) are used: Above expected range for age (Z-score >= 2.0), Within expected range of age (Z-score 1.9 to -1.9), or Below expected range for age (Z-score <= -2.0). - The Bone Health and Osteoporosis Foundation recommends that treatment be considered in men aged more than 50 years and in postmenopausal women with ANY of the following: Prior hip or vertebral fractures; T-score of <= -2.5 at the PA spine or hip; or 10 year fracture probability by FRAX of >= 3% for the hip or >= 20% for major osteoporotic fracture. - The FRAX algorithm (https://www.autumn.ac.uk/FRAX/tool.aspx) is designed to predict 10-year fracture risk in treatment-naive adults between the ages of 40 and 90. It is not intended to be used in those receiving pharmacologic osteoporosis treatment. - Including race/ethnicity in the generation of T- or Z-scores or in the FRAX calculation is complicated, and currently undergoing active review to ensure that we can give patients the best information on their risk of fracture. -Some prior studies may not be compatible with our comparison software. -Click on View Full Report to see subsequent pages with images and prior bone density results. Reviewed By: Ta Dickens MD on 05/16/2024 11:14:43 Procedure Note Ta Dickens MD - 05/16/2024 Referred By: TERRY NAJERA Indications: Long-Term Steroid Treatment (3 Months or Longer) Scanner: [employer] with serial# of [id number] located at [facility] Bone Density Scan (DXA) 05/16/24 Details of prior DXA scans are available by clicking View Image BMD T- Z- Skeletal Site gm/cm2 score score BMD Change Since Prior Scan ------ ----- PA Spine (L1-L4) 0.970 -0.70 -0.10 N/A Total Hip (Left) 0.893 -0.40 0.00 N/A Femoral Neck (Left) 0.745 -0.90 -0.30 N/A Total Hip (Right) 0.865 -0.60 -0.20 N/A Femoral Neck (Right) 0.716 -1.20 -0.60 N/A ------ ----- * Denotes significant change when >= 0.022 g/cm2 for the spine, 0.027g/cm2 for the total hip, 0.029 g/cm2 for the femoral neck. Interpretation: Osteopenia. Technical Quality: Imaging of all sites was of adequate quality. FRAX: Based on FRAX(r) 3.6 ([place] White female), this patient's likelihoodof hip fracture is 0.4% and major osteoporotic fracture is 11.5% over thenext 10 years. The patient reported the following risks of fracture on a questionnaire: parental history of hip fracture and glucocorticoid use. Additional Information: -World Health Organization criteria classify adults based on lowestT-score at PA spine, hip or forearm: Normal (T-score >= -1.0), Osteopenia (T-score between -1 and -2.5), or Osteoporosis (T-score <= -2.5). At [facility], T-scores are compared to peak bone density of a young white gender matched reference population. - For premenopausal women and men under the age of 50, Z-scores(comparison to age, gender, and ethnicity matched reference population) are used:Above expected range for age (Z-score >= 2.0), Within expected range of age (Z-score 1.9 to -1.9), or Below expected range for age (Z-score <= -2.0). - The Bone Health and Osteoporosis Foundation recommends that treatment be considered in men aged more than 50 years and in postmenopausal women with ANY of the following: Prior hip or vertebral fractures; T-score of <= -2.5 at the PA spine or hip; or 10 year fracture probability by FRAX of >= 3%for the hip or >= 20% for major osteoporotic fracture. - The FRAX algorithm (https://www.autumn.ac.uk/FRAX/tool.aspx) is designed to predict 10-year fracture risk in treatment-naive adultsbetween the ages of 40 and 90. It is not intended to be used in those receiving pharmacologic osteoporosis treatment. - Including race/ethnicity in the generation of T- or Z-scores or in the FRAX calculation is complicated, and currently undergoing active review to ensure that we can give patients the best information on their risk of fracture. -Some prior studies may not be compatible with our comparison software. -Click on View Full Report to see subsequent pages with images and prior bone density results. Reviewed By: Ta Dickens MD on 05/16/2024 11:14:43 IMPRESSION: Interpretation: Osteopenia. Terry Najera MD IMG BD BONE DENSITY DEXA Fi nal Result documented in this encounter Visit Diagnoses Diagnosis care home (current) use of systemic steroids- Primary care home (current) use of systemic steroids documented in this encounter Care Teams Vision Care Associate Relationship Specialty Start Date End Date Terry Najera MD PCP - General Family Medicine 02/25/17 09/23/23 Terry Najera MD [address] [place] [address] PCP - General Family Medicine 09/24/23 Terry Najera MD Historical LMR Provider 02/07/17 Isiah Abad MD [address] [place] [address], [facility] [place] [address] Historical LMR Provider 02/07/17 Kimberli Paeg MD [address] [place] [address], [address] [place] [address] Historical LMR Provider 02/07/17 documented as of this encounter Additional Source Comments The information contained in this document represents components of the legal health record. It is not the complete legal health record.[facility]
--- OUTSIDE RECORDS SUMMARY | 2025-01-10 13:27 | XMS_ITS | Encounter Summary ---
Author Organization [facility] Address [address] [place] [address] [place] [address] Phone Care Team Providers Care Implementation Consultant Name Role Phone Elba Olguin HIGHER LEVEL TEACHING ASSISTANT Unavailable Balaji Ibanez MD Unavailable [phone] Kim Nunes HIGHER LEVEL TEACHING ASSISTANT Unavailable Brunilda Castro HIGHER LEVEL TEACHING ASSISTANT Unavailable Isiah Abad MD Unavailable [phone] Kimberli Page MD Unavailable Italo Ruano MD Unavailable Brock Webber MD Unavailable [phone] Balaji Ibanez MD Primary Care Provider [phone] Balaji Ibanez MD Unavailable [phone] Balaji Ibanez MD Primary Care Provider [phone] Encounter Details Date Type Department Care Team (Late st Contact Info) Description 02/24/2017 Procedure Pass [facility], [address] [address] Social History Tobacco Use Types Packs/Day Years [...] documented as of this encounter Care Teams Implementation Consultant Relationship Specialty Start Date End Date Balaji Ibanez MD [address] [place] [address] [email or web address] PCP - General Family Medicine 02/25/17 09/23/23 Balaji Ibanez MD [address] [place] [address] [email or web address] PCP - General Family Medicine 09/24/23 Elba Olguin NP [address] [place] [address] Historical LMR Provider 02/07/17 2 Balaji Ibanez MD [address] [place] [address] [email or web address] Historical LMR Provider 02/07/17 Kim Nunes NP [address] [place] [address] Historical LMR Provider 02/07/17 2 Brunilda Castro NP [address] [place] [address] Historical LMR Provider 02/07/17 2 Isiah Abad MD [address] [facility], 2nd [place] [address] Historical LMR Provider 02/07/17 Kimberli Page MD [address] [address] Historical LMR Provider 02/07/17 Italo Ruano MD [address] [place] [phone] Historical LMR Provider 02/07/17 2 Brock Webber MD [address] [place] [address] Historical LMR Provider 02/07/17 2 Balaji Ibanez MD [address] [place] [address] Insurance Assigned Provider 07/18/17 05/22/18 documented as of this encounter Additional Source Comments The information contained in this document represents components of the legal health record. It is not the complete legal health record.[facility]
--- OUTSIDE RECORDS SUMMARY | 2025-01-10 13:27 | XMS_ITS | Encounter Summary ---
Author Organization [facility] Address [address] [facility] [address] [place] [address] Phone Care Team Providers Care Deckhand Shrimp Boat Name Role Phone Elba Olguin TRAVEL MED SURG RN Unavailable Balaji Ibanez MD Unavailable Kim Nunes TRAVEL MED SURG RN Unavailable Brunilda Castro TRAVEL MED SURG RN Unavailable Isiah Abad MD Unavailable Kimberli Page MD Unavailable Italo Ruano MD Unavailable Brock Webber MD Unavailable [phone] Balaji Ibanez MD Primary Care Provider [phone] Balaji Ibanez MD Primary Care Provider [phone] Encounter Details Date Type Department Care Team (Late st Contact Info) Description 02/13/2020 Procedure Pass [address] [place] [address] Social History Tobacco Use Types Packs/Day Years [...] documented as of this encounter Care Teams Deckhand Shrimp Boat Relationship Specialty Start Date End Date Balaji Ibanez MD [address] [address] [email or web address] PCP - General Family Medicine 02/25/17 09/23/23 Balaji Ibanez MD [address] [place] [address] [email or web address] PCP - General Family Medicine 09/24/23 Elba Olguin NP [address] [address] Historical LMR Provider 02/07/17 2 Balaji Ibanez MD [address] [address] [email or web address] Historical LMR Provider 02/07/17 Kim Nunes NP [address] [place] [address] Historical LMR Provider 02/07/172 2 Brunilda Castro NP [address] [place] [address] Historical LMR Provider 02/07/172 2 Isiah Abad MD [address] [facility], 2nd [place] [address] Historical LMR Provider 02/07/17 Kimberli Page MD [address] [address] Historical LMR Provider 02/07/17 Italo Ruano MD [address] [place] [phone] Historical LMR Provider 02/07/17 2 Brock Webber MD [address] [place] [address] Historical LMR Provider 02/07/17 2 documented as of this encounter Additional Source Comments The information contained in this document represents components of the legal health record. It is not the complete legal health record.[facility]
--- OUTSIDE RECORDS SUMMARY | 2025-01-10 13:27 | XMS_ITS | Encounter Summary ---
Author Organization [facility] Address [address] [facility] [address] [place] [address] Phone Care Team Providers Care Transportation Supervisor Name Role Phone Balaji Ibanez MD Unavailable [phone] Isiah Abad MD Unavailable [phone] Kimberli Page MD Unavailable Balaji Ibanez MD Primary Care Provider [phone] Balaji Ibanez MD Primary Care Provider [phone] Reason for Referral * MRI/CAT Scan - Closed Specialty Diagnoses / Procedures Referred By Contana t Referred To Contact Radiology Diagnoses Radiculopathy, lumbosacral region Procedures MRI Lumbar Spine Balaji Ibanez MD [address] [place] [address] Phone: tel: fax: [email or web address] Referral ID Status Reason Start Date Expiration Date Visits Re quested Visits Authorized [id number] Closed 07/15/2023 07/14/2024 1 1 Encounter Details Date Type Department Care Team (Late st Contact Info) Description 07/15/2023 Transcribe Orders [facility] Department [address] [place], [place] [phone] Balaji Ibanez MD [address] [place] [address] [email or web address] Radiculopathy, lumbosacral region (Primary Dx) Social History Tobacco Use Types Packs/Day Years Used Date Smoking Tobacco: Former Cigarettes Q uit: 2014 Smokeless Tobacco: Never Alcohol Use Standard Drinks/Week [...] as of this encounter Results * MRI LUMBAR SPINE (NEURO) WITHOUT CONTRAST (08/16/2023 11:21 AM EDT) Anatomical Region Laterality Modality L-spine Magnetic Resonan ce 08/18/2023 5:02 PM EDT Impressions 08/18/2023 5:47 PM EDT Multilevel degenerative disc disease, most notable at L4-L5 and L5-S1, as described. Degenerative disc disease at both levels is progressed since 2021. Moderate right foraminal stenosis at L5-S1. Narrative 08/18/2023 5:47 PM EDT MRI LUMBAR SPINE (NEURO) WITHOUT CONTRAST Referring clinician's provided indication for this examination in Epic: Outside Radiology Order; lumbosacral radiculopathy TECHNIQUE: Multi-sequence, multi-planar MRI of the lumbar spine was performed without intravenous contrast. COMPARISON: MRI LUMBAR SPINE (NEURO) WITHOUT CONTRAST FINDINGS: LUMBAR SPINE: No spondylolisthesis. Vertebral body heights are maintained. Vertebral body hemangiomas at L1, L2, L3, L4, and S1. Additional areas of focal fatty infiltration. No concerning marrow infiltration. Multilevel loss of intervertebral disc height and signal, most notable at L4-L5 and L5-S1. There are annular fissures at both levels. Disc disease at L5-S1 has progressed since 2021. Conus tip is normal, terminating at L1. Partially visualized soft tissues show no acute finding or incidental for which follow-up is required. Findings by level: T12-L1: No spinal or foraminal stenosis. L1-L2: No spinal or foraminal stenosis. L2-L3: No spinal or foraminal stenosis. L3-L4: Moderate bilateral facet arthropathy, left greater than right. Posterior disc bulge. Mild bilateral foraminal stenosis. No spinal canal stenosis. L4-L5: Posterior disc bulge with annular fissure, which is new compared to 2021. Bilateral facet arthropathy. Mild spinal and bilateral foraminal stenosis. L5-S1: Posterior disc bulge with annular fissure and superimposed foraminal protrusions. Findings are progressed since 2021. Mild bilateral facet arthropathy. Moderate left and mild right foraminal stenosis. Central canal stenosis is minimal. Procedure Note Jonatan Katz MD - 08/18/2023 MRI LUMBAR SPINE (NEURO) WITHOUT CONTRAST Referring clinician's provided indication for this examination in Epic:Outside Radiology Order; lumbosacral radiculopathy TECHNIQUE: Multi-sequence, multi-planar MRI of the lumbar spine wasperformed without intravenous contrast. COMPARISON: MRI LUMBAR SPINE (NEURO) WITHOUT CONTRAST FINDINGS: LUMBAR SPINE: No spondylolisthesis. Vertebral body heights are maintained. Vertebralbody hemangiomas at L1, L2, L3, L4, and S1. Additional areas of focalfatty infiltration. No concerning marrow infiltration. Multilevel loss ofintervertebral disc height and signal, most notable at L4-L5 and L5-S1.There are annular fissures at both levels. Disc disease at L5-S1 hasprogressed since 2021. Conus tip is normal, terminating at L1. Partiallyvisualized soft tissues show no acute finding or incidental for whichfollow-up is required. Findings by level: T12-L1: No spinal or foraminal stenosis. L1-L2: No spinal or foraminal stenosis. L2-L3: No spinal or foraminal stenosis. L3-L4: Moderate bilateral facet arthropathy, left greater than right.Posterior disc bulge. Mild bilateral foraminal stenosis. No spinal canalstenosis. L4-L5: Posterior disc bulge with annular fissure, which is new compared [id number]. Bilateral facet arthropathy. Mild spinal and bilateral foraminalstenosis. L5-S1: Posterior disc bulge with annular fissure and superimposedforaminal protrusions. Findings are progressed since 2021. Mild bilateralfacet arthropathy. Moderate left and mild right foraminal stenosis.Central canal stenosis is minimal. IMPRESSION: Multilevel degenerative disc disease, most notable at L4-L5 and L5-S1, asdescribed. Degenerative disc disease at both levels is progressed [id number]. Moderate right foraminal stenosis at L5-S1. Balaji Ibanez MD IMG MR XSPECIALTY Final Res ult documented in this encounter Visit Diagnoses Diagnosis Radiculopathy, lumbosacral region- Primary Thoracic or lumbosacral neuritis or radiculitis, unspecified Radiculopathy, lumbosacral region Thoracic or lumbosacral neuritis or radiculitis, unspecified documented in this encounter Care Teams Transportation Supervisor Relationship Specialty Start Date End Date Balaji Ibanez MD PCP - General Family Medicine 02/25/17 09/23/23 Balaji Ibanez MD [address] [place] [address] PCP - General Family Medicine 09/24/23 Balaji Ibanez MD [email or web address] Historical LMR Provider 02/07/17 Isiah Abad MD [address] [place] [address], [address] [place] [address] Historical LMR Provider 02/07/17 Kimberli Page MD [address] [place] [address], [facility] [address] [place] [address] [email or web address] Historical LMR Provider 02/07/17 documented as of this encounter Additional Source Comments The information contained in this document represents components of the legal health record. It is not the complete legal health record.[facility]
--- OUTSIDE RECORDS SUMMARY | 2025-01-10 13:27 | XMS_ITS | Encounter Summary ---
Author Organization [facility] Address [address] [facility] [address] [place] [address] Phone Care Team Providers Care 7Th Grade Social Studies Teacher Name Role Phone Balaji Ibanez MD Unavailable [phone] Isiah Abad MD Unavailable [phone] Kimberli Page MD Unavailable Balaji Ibanez MD Primary Care Provider [phone] Encounter Details Date Type Department Care Team (Late st Contact Info) Description 06/28/2024 Procedure Pass [facility], [address] [address] Social History Tobacco Use Types Packs/Day Years [...] on filedocumented in this encounter Care Teams 7Th Grade Social Studies Teacher Relationship Specialty Start Date End Date Balaji Ibanez MD [address] [place] [address] [email or web address] PCP - General Family Medicine 09/24/23 Balaji Ibanez MD Historical LMR Provider 02/07/17 Isiah Abad MD [address] [place] [address], [facility] [place] [address] Historical LMR Provider 02/07/17 Kimberli Page MD [address] [place] [address], [address] [address] Historical LMR Provider 02/07/17 documented as of this encounter Additional Source Comments The information contained in this document represents components of the legal health record. It is not the complete legal health record.[facility]
--- OUTSIDE RECORDS SUMMARY | 2025-01-10 13:27 | XMS_ITS | Encounter Summary ---
Author Organization [facility] Address [address] [place] [address] Phone Care Team Providers Care Volcanology Teacher Name Role Phone Elba Olguin YACHT BUILDER Unavailable Balaji Ibanez MD Unavailable Kim Nunes YACHT BUILDER Unavailable Brunilda Castro YACHT BUILDER Unavailable Isiah Abad MD Unavailable Kimberli Page MD Unavailable Italo Ruano MD Unavailable Brock Webber MD Unavailable [phone] Balaji Ibanez MD Primary Care Provider [phone] Balaji Ibanez MD Primary Care Provider [phone] Reason for Referral * MRI/CAT Scan - Closed Specialty Diagnoses / Procedures Referred By Contac t Referred To Contact Procedures MRI Spine (Bone) Outside (No Interpretation) System, Provider [place] In, [place] [address] Referral ID Status Reason Start Date Expiration Date Visits Re quested Visits Authorized [id number] Closed 06/24/2018 06/24/2019 1 1 Encounter Details Date Type Department Care Team (Late st Contact Info) Description 06/24/2018 Ancillary Orders [facility],Outside Imaging [address] [place] [address] System, Provider Not In, PhD Partners [address] [address] Social History Tobacco Use Types Packs/Day Years [...] as of this encounter Results * MRI Spine (Bone) Outside (No Interpretation) (06/11/2017 12:00 AM EST) Narrative SYSTEMGENERATED, DOCUMENTATION - 06/24/2018 10:13 AM EST This study is for PACS storage only and not for interpretation. us Provider Not In System PhD IMG OUTSIDE IMAGING W /OUT INTERPRETATION Final Result documented in this encounter Visit Diagnoses Not on filedocumented in this encounter Additional Health Concerns Infection Onset Date Last Indicated Resolved Time CoV-Risk 05/07/2020 05/08/2020 05/17/2020 1:24 AM EST CoV-Risk 03/25/2022 03/25/2022 03/25/2022 8:01 PM EST COVID-19 03/25/2022 03/25/2022 04/15/2022 1:21 AM EST documented as of this encounter Care Teams Volcanology Teacher Relationship Specialty Start Date End Date Balaji Ibanez MD [address] [place] [address] [email or web address] PCP - General Family Medicine 02/25/17 09/23/23 Balaji Ibanez MD [address] [place] [address] [email or web address] PCP - General Family Medicine 09/24/23 Elba Olguin NP [address] [address] Historical LMR Provider 02/07/17 2 Balaji Ibanez MD [address] [address] [email or web address] Historical LMR Provider 02/07/17 Kim Nunes NP [address] [place] [address] Historical LMR Provider 02/07/17 2 Brunilda Castro NP [address] [place] [phone] Historical LMR Provider 02/07/17 2 Isiah Abad MD 22 [facility], 2nd [place] [address] Historical LMR Provider 02/07/17 Kimberli Page MD [address] [address] Historical LMR Provider 02/07/17 Italo Ruano MD [address] [place] [phone] Historical LMR Provider 02/07/17 2 Brock Webber MD [address] [place] [address] Historical LMR Provider 02/07/17 2 documented as of this encounter Additional Source Comments The information contained in this document represents components of the legal health record. It is not the complete legal health record.[facility]
--- OUTSIDE RECORDS SUMMARY | 2025-01-10 13:27 | XMS_ITS | Encounter Summary ---
Author Organization [facility] Address [address] [facility] [address] [place] [address] Phone Care Team Providers Care Wood Patternmaker Apprentice Name Role Phone Elba Olguin TRANSPORTATION MAINTENANCE SPECIALIST Unavailable Balaji Ibanez MD Unavailable Kim Nunes TRANSPORTATION MAINTENANCE SPECIALIST Unavailable Brunilda Castro TRANSPORTATION MAINTENANCE SPECIALIST Unavailable Isiah Abad MD Unavailable Kimberli Page MD Unavailable Italo Ruano MD Unavailable Brock Webber MD Unavailable [phone] Balaji Ibanez MD Primary Care Provider [phone] Balaji Ibanez MD Unavailable [phone] Balaji Ibanez MD Primary Care Provider [phone] Encounter Details Date Type Department Care Team (Late st Contact Info) Description 08/24/2017 Ancillary Orders [facility] Medical [facility] Spine Medicine [place] [address] [place] [address] Isiah Abad MD 22 [facility], 2nd [place] [address] [email or web address] Sacroiliitis, not elsewhere classified Social History Tobacco Use Types Packs/Day Years Used Date Smoking Tobacco: Former Smokeless Tobacco: Never Comments Unknown Sex and Gender Information Value Date Recorded Sex Assigned at Female 04/27/2017 9:38 AM EST Legal Sex Female 9:27 PM EDT Gender Identity Female 04/27/2017 9:38 AM EST Sexual Orientation Straight 04/27/2017 9: 38 AM EST documented as of this encounter Plan of Treatment Pending Results Name Type Priority Associated Diagnoses Date /Time FL Guidance Needle Placement Non-Spine Imaging Routine Sacroiliitis, not elsewhere classified 08/24/2017 9:56 AM EDT Scheduled Orders Name Type Priority Associated Diagnoses Orde r Schedule FL Guidance Needle Placement Non-Spine Imaging Routine Sacroiliitis, not elsewhere classified Expected: 08/24/2017, Expires: 08/24/2018 documented as of this encounter Visit Diagnoses Diagnosis Sacroiliitis, not elsewhere classified documented in this encounter Additional Health Concerns Infection Onset Date Last Indicated Resolved Time CoV-Risk 05/07/2020 05/08/2020 05/17/2020 1:24 AM EST CoV-Risk 03/25/2022 03/25/2022 03/25/2022 8:01 PM EST COVID-19 03/25/2022 03/25/2022 04/15/2022 1:21 AM EST documented as of this encounter Care Teams Wood Patternmaker Apprentice Relationship Specialty Start Date End Date Balaji Ibanez MD [address] [place] [address] [email or web address] PCP - General Family Medicine 02/25/17 09/23/23 Balaji Ibanez MD [address] [place] [address] [email or web address] PCP - General Family Medicine 09/24/23 Elba Olguin NP [address] [place] [address] Historical LMR Provider 02/07/17 2 Balaji Ibanez MD [address] [place] [address] [address] [place] [address] [email or web address] Historical LMR Provider 02/07/17 Kim Nunes NP 30 [place] [address] Historical LMR Provider 02/07/17 2 Brunilda Castro NP [address] [place] [phone] Historical LMR Provider 02/07/17 2 Isiah Abad MD 22 [facility], 2nd [place] [address] Historical LMR Provider 02/07/17 Kimberli Page MD 22 [facility] 102 [place] [address] Historical LMR Provider 02/07/17 Italo Ruano MD [address] [place] [phone] Historical LMR Provider 02/07/17 2 Brock Webber MD 61 [place] [address] Historical LMR Provider 02/07/17 2 Balaji Ibanez MD [address] [place] [address] [email or web address] Insurance Assigned Provider 07/18/17 05/22/18 documented as of this encounter Additional Source Comments The information contained in this document represents components of the legal health record. It is not the complete legal health record.[facility]
--- OUTSIDE RECORDS SUMMARY | 2025-01-10 13:27 | XMS_ITS | Encounter Summary ---
Author Organization [facility] Address [address] [facility] [address] [place] [address] Phone Care Team Providers Care Assistant Professor Of Communication Name Role Phone Elba Olguin VEHICLE FUEL SYSTEMS CONVERTER Unavailable Balaji Ibanez MD Unavailable Kim Nunes VEHICLE FUEL SYSTEMS CONVERTER Unavailable Brunilda Castro VEHICLE FUEL SYSTEMS CONVERTER Unavailable Isiah Abad MD Unavailable Kimberli Page MD Unavailable Italo Ruano MD Unavailable Brock Webber MD Unavailable [phone] Balaji Ibanez MD Primary Care Provider [phone] Balaji Ibanez MD Primary Care Provider [phone] Encounter Details Date Type Department Care Team (Late st Contact Info) Description 02/20/2020 Ancillary Orders [facility],Outside Imaging [address] [place], [place] [phone] System, Provider Not In, PhD Partners [address] [address] Social History Tobacco Use Types Packs/Day Years [...] documented as of this encounter Results * XR Pelvis Outside (No Interpretation) (04/16/2018 12:00 AM EST) Narrative SYSTEMGENERATED, DOCUMENTATION - 02/20/2020 8:51 AM EST This study is for PACS [...] documented as of this encounter Care Teams Assistant Professor Of Communication Relationship Specialty Start Date End Date Balaji Ibanez MD [address] [place] [address] [email or web address] PCP - General Family Medicine 02/25/17 09/23/23 Balaji Ibanez MD [address] [place] [address] PCP - General Family Medicine 09/24/23 Elba Olguin NP [address] [place] [address] Historical LMR Provider 02/07/17 2 Balaji Ibanez MD 100 [facility] 340 [place] [address] [email or web address] Historical LMR Provider 02/07/17 Kim Nunes VEHICLE FUEL SYSTEMS CONVERTER 30 [place] [address] Historical LMR Provider 02/07/17 2 [place] [address] [place] [address] [place] [phone] Historical LMR Provider 02/07/17 2 Isiah Abad MD 22 [facility], 2nd [place] [address] [email or web address] Historical LMR Provider 02/07/17 Kimberli Page MD [address] [address] [email or web address] Historical LMR Provider 02/07/17 Italo Ruano MD [address] [place] [phone] Historical LMR Provider 02/07/17 2 Brock Webber MD 61 [place] [address] Historical LMR Provider 02/07/17 2 documented as of this encounter Additional Source Comments The information contained in this document represents components of the legal health record. It is not the complete legal health record.[facility]
--- OUTSIDE RECORDS SUMMARY | 2025-01-10 13:27 | XMS_ITS | Encounter Summary ---
Author Organization [facility] Address [address] [facility] [address] [place] [address] Phone Care Team Providers Care Exit Booth Agent Name Role Phone Balaji Ibanez MD Unavailable [phone] Isiah Abad MD Unavailable [phone] Kimberli Page MD Unavailable Balaji Ibanez MD Primary Care Provider [phone] Balaji Ibanez MD Primary Care Provider [phone] Encounter Details Date Type Department Care Team (Late st Contact Info) Description 07/15/2023 Procedure [facility], [address] [address] Social History Tobacco Use Types Packs/Day Years [...] with a working camera? Not on file 05 / Comments No Sex and Gender Information Value [...] on filedocumented in this encounter Care Teams Exit Booth Agent Relationship Specialty Start Date End Date Balaji Ibanez MD PCP - General Family Medicine 02/25/17 09/23/23 Balaji Ibanez MD [address] [place] [address] PCP - General Family Medicine 09/24/23 Balaji Ibanez MD Historical LMR Provider 02/07/17 Isiah Abad MD [address] [place] [address], [address] [address] Historical LMR Provider 02/07/17 Kimberli Page MD [address] [place] [address], [address] [address] Historical LMR Provider 02/07/17 documented as of this encounter Additional Source Comments The information contained in this document represents components of the legal health record. It is not the complete legal health record.[facility]
--- OUTSIDE RECORDS SUMMARY | 2025-01-10 13:27 | XMS_ITS | Clinical Summary ---
Author Organization [facility] Address [address] [facility] [address] [place] [address] Phone Care Team Providers Care Steward/Stewardess Second Class Name Role Phone Balaji Ibanez MD Unavailable Isiah Abad MD Unavailable [phone] Kimberli Page MD Unavailable Balaji Ibanez MD Primary Care Provider [phone] Allergies Active Allergy Reactions Criticality Noted Date Comments Erythromycin 02/25/2017 Mesalamine Diarrhea 08/01/2024 Penicillins 02/25/2017 Sulfa (Sulfonamide Antibiotics) 07/29/2021 Pt is unsure if this was the exact allergen, pt reports ended up in emergency room Azithromycin 02/25/2017 Medications sertraline (ZOLOFT) 100 MG tablet Take 200 mg by mouth daily. Active Lactobacillus acidophilus (PROBIOTIC) 10 billion cell Cap Take by mouth daily. Active acetaminophen (TYLENOL) 500 MG tablet Take 1,000 mg by mouth every 6 (six) hours as needed for pain (specific location in comments). Active metoprolol succinate (TOPROL-XL) 25 MG 24 hr tablet Take 25 mg by mouth daily. 1 Active QUEtiapine (SEROQUEL) 25 MG tablet Take 25 mg by mouth. 2 Active budesonide (ENTOCORT EC) 3 mg 24 hr capsule 3 Active sertraline (ZOLOFT) 25 MG tablet 5 Active rosuvastatin (CRESTOR) 10 MG tablet Take 1 tablet by mouth every morning. 5 Active oxyCODONE HCl 20 mg Tab TAKE 1 TABLET BY MOUTH TWICE A DAY AND 1/2 TAB DAILY MIDDAY 5 Active ondansetron (ZOFRAN-ODT) 4 MG disintegrating tablet DISSOLVE 1 TABLET UNDER THE TONGUE EVERY 4 TO 6 HOURS NEEDED FOR NAUSEA Active omeprazole (PRILOSEC) 40 MG capsule as needed. Active metroNIDAZOLE (METROCREAM) 0.75 % cream APPLY TO FACIAL RASH TWICE DAILY UNTIL CLEAR THEN NEEDED FOR FLARES 5 Active LORazepam (ATIVAN) 1 MG tablet TAKE 1 TABLET BY MOUTH DAILY NEEDED FOR SEVERE ANXIETY/JEEVAN C Active cyclobenzaprine (FLEXERIL) 5 MG tablet TAKE 1 TABLET EVERY DAY BY ORAL ROUTE, FOR MUSCLE SPASM. 5 Active VITAMIN B-12 1000 MCG tablet Take 1 tablet by mouth every morning. 5 Active clindamycin (CLEOCIN T) 1 % lotion APPLY TO FACE TWICE A DAY UNTIL CLEAR 5 Active cholecalciferol, vitamin D3, 25 mcg (1,000 unit) capsule Take 1 capsule by mouth every morning. 5 Active estradioL (CLIMARA) 0.0375 mg/[address] 1 patch onto the skin once a week. 12 patch 5 Active aspirin 325 MG EC tablet Take 1 tablet (325 mg total) by mouth daily for 14 days. 14 tablet 2 022 Discontin ued(Stop Taking at Discharge ) naproxen (NAPROSYN) 500 MG tablet Take 1 tablet (500 mg total) by mouth 2 (two) times a day with meals for 21 days. 42 tablet 2 022 Discontin ued(Stop Taking at Discharge ) Hospital, Clinic, or Other Facility Administered Medication Ordered Dose Route Frequency Start Date End Date Status levonorgestreL (MIRENA) 21 mcg/24 hours (8 yrs) 52 mg intrauterine device 1 each 1 each Utrn Every 8 years 05/12/2023 Active iohexoL (OMNIPAQUE-300) 300 mg iodine/mL solution 2 mL 2 mL IAtc Once as needed 10/08/2023 Active Active Problems Problem Noted Date Diagnosed Date Hip abductor tendonitis, left 07/29/2024 Chronic pain disorder 10/13/2022 Disorder of sacrum 01/11/2021 Acute ulcerative colitis without complications 1 05/09/2019 Bursitis of left hip 10/19/2019 Lumbar radiculitis 09/20/2018 Trochanteric bursitis of right hip 09/20/2018 Plantar fasciitis of right foot 09/20/2018 Family history of breast cancer 02/16/2018 Overview (03/11/2023): Breast (mother) and ovarian cancer (mat grandmother) Assessment & Plan (03/11/2023 9:50 AM EST): Today she accepts referral to genetic counselor Assessment & Plan (02/16/2018 3:45 PM EDT): Declined genetic counseling again, at risk for BRCA Sacroiliitis, not elsewhere classified 8 Displacement of lumbar inter vertebral disc without myelopathy 06/16/2017 Encounters Date Type Department Care Team Description 10/21/2024 Refill [facility] [address] [place] [address] [place] [address] Becca Santoyo MD Medication Refill from Last 3 Months Immunizations Immunization Administration Dates Next Due INFLUENZA, SPLIT VIRUS, TRIVALENT PF 02/03/2017, 12/06/2015,02/13/2015 INFLUENZA, SPLIT VIRUS, TRIV ALENT W/ PRESERVATIVE IM 01/06/2012,01/30/2010 Influenza Quadrivalent MDCK Preservative Free IM 04/29/2019 Influenza Quadrivalent Preservative Free IM 01/19 Influenza Quadrivalent w/ Preservative IM 2019 Influenza, Unspecified Formulation 03/02/2011 Pneumococcal conjugate PCV13 02/19/2010 Tdap 11/17/2011 Family History Medical History Relation Comments No Known Problems Brother CV disease Father Diabetes mellitus Father Hypertension Father Stroke Father Cancer Maternal Grandfather Ovarian cancer Maternal Grandmother Breast cancer Mother No Known Problems Sister Relation Status Comments Brother Alive Father Alive Maternal Grandfather Maternal Grandmother Mother Alive Sister Alive Social History Tobacco Use Types Packs/Day Years Used Date Smoking Tobacco: Former Cigarettes Q uit: 2015 Smokeless Tobacco: Never Tobacco Cessation:Counseling Given: Not Answered Alcohol Use Standard Drinks/Week Comments Not Currently [...] Orientation Straight 04/27/2017 9: 38 AM EST Last Filed Vital Signs Vital Sign Reading Time Taken Comments Blood Pressure 112/65 08/03/2024 10:39 AM EDT Pulse 70 08/03/2024 10:39 AM EDT Temperature 39.2 C (102.6 F) 03/25/2022 5:20 PM EST Respiratory Rate 18 03/25/2022 9:12 PM EST Oxygen Saturation 99% 08/03/2024 10:39 AM EDT Inhaled Oxygen Concentration - - Weight 93.2 kg (205 lb 6.4 oz) 08/03/2024 10:39 AM EDT Height 167.6 cm (5' 6 ) 08/03/2024 10:39 AM EDT Body Mass Index 33.15 08/03/2024 10:39 AM EDT Plan of Treatment Health Maintenance Due Date Last Done Comments DEPRESSION SCREENING 1988 SMOKING Hx and SMOKELESS TOBACCO SCREENING 1989 HEPATITIS C SCREENING 1994 HIV ONE-TIME SCREENING (18-65 YEARS) 1994 MAMMOGRAM 2016 COLOGUARD 2021 COLONOSCOPY 2021 COLORECTAL CANCER SCREENING 2021 FIT TEST 2021 FOBT 2021 SIGMOIDOSCOPY 2021 VIRTUAL COLONOSCOPY 2021 LIPID PANEL 06/16/2022 06/16/2017 INFLUENZA VACCINE (#1) 2024 , 04/03/2023, 02/04/2022, Additional history exists COVID-19 VACCINE ( season) 2024 04/21/2021, 09/15/2020, 08/25/2020 SCREENING FOR DIABETES 03/25/2025 03/25/2022 PAP SMEAR 08/02/2027 08/01/2024, 11/0 06/2020, 06/12/2015 IUD 05/12/2031 05/12/2023 Adult Td,Tdap Booster 04/03/2033 04/03/2023, 012 PNEUMOCOCCAL VACCINES (0-49 years) Aged Out 02/22/2014, 02/19/2010 No longer eligibl e based on patient's age to complete this topic HEPATITIS A VACCINES Aged Out No long er eligible based on patient's age to complete this topic HIB VACCINES Aged Out No longer eligi ble based on patient's age to complete this topic MENINGOCOCCAL VACCINES (ACWY) Aged Out No longer eligible based on patient's age to complete this topic MENINGOCOCCAL VACCINES (B) Aged Out N o longer eligible based on patient's age to complete this topic Medical Devices Implanted Type Area Carrier Loader Device Identifier Shelf Expiration Date Model / Serial / Lot Iud Implanted: (Quantity not on file) Intrauterine Device Procedures Procedure Name Priority Date/Time Associated Diagnosis Comments PAP TEST Routine 08/01/2024 12:00 AM EDT from Last 3 Months or Most Recently Relevant to Health Maintenance Results * Pap Test (08/01/2024 12:00 AM EDT) 08/01/2024 08/02/2024 9:1 7 AM EDT Narrative SEE NARRATIVE - 08/05/2024 9:48 AM EDT [address] [address] Electromatic Typist: Calixto Kim MD [employer] PRODUCER Cytology Report FINAL DIAGNOSIS A. PAP SMEAR (THIN PREP) CE: SPECIMEN ADEQUACY: Satisfactory for evaluation; transformation zone present. INTERPRETATION: NEGATIVE FOR INTRAEPITHELIAL LESION OR MALIGNANCY. Reactive changes. This specimen was analyzed by the automated ThinPrep Imaging System ([employer] and manually rescreened by a facing cutting machine operator and/or pathologist. Electronically Signed Out By: MD Eliza Calhoun CT([facility]) By his/her signature above, the pathologist listed as making the Final Diagnosis certifies that he/she has personally reviewed this case and confirmed or corrected the diagnosis. The Pap test is a screening test primarily for squamous cancers and precursors and has associated false-negative and false-positive results. New technologies such as liquid-based preparations may decrease but will not eliminate all false-negative results. Regular sampling and follow-up of unexplained clinical signs and symptoms are recommended to minimize false negative results. PROCEDURES/ADDENDA HPV Testing (Requested) Ordered Date: 08/02/2024 A. PAP SMEAR (THIN PREP) CE: High-risk HPV Panel w/ extended genotyping NEG HPV 16-NEG HPV 18-NEG HPV 45-NEG HPV 33/58-NEG HPV 31-NEG HPV 56/59/66-NEG HPV 51-NEG HPV 52-NEG HPV 35/39/68-NEG Performed by real-time polymerase chain reaction (PCR) at [facility], [address] [place] [address] using the FDA-approved BD Onclarity HPV Assay with extended genotyping. Uses of the assay in scenarios other than those approved by the FDA should be considered off-label use. The accuracy and precision of this test for all other off-label specimen sources has been verified in the Cytopathology Laboratory of the [facility] and has not been cleared or approved by the U.S. Food and Drug Administration. Clinical correlation is advised. The assay assesses the E6/E7 DNA target and utilizes human beta globin as an internal control. Cytology and HPV testing are screening assays and should not be used as the sole means of detecting cancer. False-positives and false-negatives can occur. CLINICAL HISTORY Date of Last Menstrual Period: Not Provided Menstrual History: Amalia-Menopausal Contraceptive History: IUD Other Clinical Conditions: Screening Pap SPECIMEN SOURCE A: PAP SMEAR (THIN PREP) CE Patient Name: BÁRBARA WINTER : 1975 (Age: 49) Sex: F Institution: [facility] Location: [facility] Date of Collection: 08/01/2024 Date of Reported: 08/05/2024 09:48 Results to: Becca Santoyo MD Becca Santoyo MD CYTOLOGY ORDERABLES Final Result SEE NARRATIVE from Last 3 Months or Most Recently Relevant to Health Maintenance Insurance HEALTH MEDICARE PART A & [place] MED[place]ARE [place] A & [place] PART A & [address] [place] [address]HEALTH MEDICARE PART A & [place] [facility] [place] [id number] Care Teams Steward/Stewardess Second Class Relationship Specialty Start Date End Date Balaji Ibanez MD [address] [place] [address] [email or web address] PCP - General Family Medicine 09/24/23 Balaji Ibanez MD Historical LMR Provider 02/07/17 Isiah Abad MD 22 [facility], [address] [place] [address] Historical LMR Provider 02/07/17 Kimberli Page MD 22 [facility], [address] [address] Historical LMR Provider 02/07/17 Additional Source Comments The information contained in this document represents components of the legal health record. It is not the complete legal health record.[facility]
--- NOTE | 2025-01-24 09:37 | HO.ANESPROP2 ---
Documented by User: Nydia Watts NP 01/24/25 09:39 HPI - Anesthesia Eval Consult details Narrative: 49 yr old female for Sigmoidoscopy Flexible with balloon dialation Paroxysmal afib: on beta urmila, no anticoagulation. ED visit for CP 03/2024, followed up with [facility] [place] after [place], had negative exercise stress, unremarkable coronary CTA. [facility] Active Problems Active Problems: All Active Problems Leg pain, bilateral (Acute) Rib pain on left side (Acute) Incompetent transcriber vein (Acute) Lumbar spondylosis (Acute) Intractable low back pain (Acute) Leg pain (Acute) Palpitations (Acute) Diarrhea (Acute) Crohn's disease (Acute) Lumbar radiculopathy (Acute) Paroxysmal atrial fibrillation (Acute) Past Medical History Medical History (Updated 01/23/25 @ 13:05 by Tammie Reno RN) Tendonitis involving right hip abductors Chronic pain in right foot Disorder of sacrum Trochanteric bursitis of right hip Lumbar radiculopathy Paroxysmal atrial fibrillation Anxiety Crohn disease Family History Family History Father Atrial fibrillation Family history of problems with anesthesia: No Surgical History Surgical History (Updated 01/23/25 @ 13:06 by Tammie Reno RN) History of esophagogastroduodenoscopy (EGD) History of hip surgery Hx of colonoscopy History of bowel resection Hx of cholecystectomy History of Problems with Anesthesia: No Social History Social History Household Members: Children Housing: House Do you presently have visiting nurse or other home services: No Alcohol intake: never Patient Tobacco Use Status: Former Tobacco user Use of substances other than those prescribed or required for medical reasons: No Advance Directives: No Advance Directives Information Provided: Yes service: No Current occupational status: employed Meds Allergies Allergy/AdvReac Type Severity Reaction Status Date / Time azithromycin (AZITHROMYCIN) Allergy Intermediate HIVES Verified 04/04/24 11:26 erythromycin base Allergy Intermediate Hives Verified 04/04/24 11:26 Penicillins (PCN) Allergy Intermediate Difficulty Verified 04/04/24 11:26 Breathing Sulfa (Sulfonamide Allergy Intermediate Palpitation Verified 04/04/24 11:26 Antibiotics) s Home Medications ?Medication ?Instructions ?Recorded ?Confirmed ?Last Taken ?Type sertraline 100 mg tablet (Zoloft) 200 mg PO DAILY 03/18/22 01/23/25 Unknown History quetiapine 25 mg tablet (Seroquel) 25 mg PO BEDTIME 10/03/22 01/23/25 Unknown History albuterol sulfate 90 mcg/actuation 2 puff inhalation Q4-6H PRN 02/17/23 05/06/24 Unknown History aerosol inhaler Shortness Of Breath budesonide 3 mg 9 mg PO DAILY 02/17/23 05/06/24 Unknown History capsule,delayed,extended release lorazepam 1 mg tablet 1 mg PO DAILY PRN Anxiety 02/17/23 01/23/25 Unknown History omeprazole 40 mg capsule,delayed 40 mg PO BID 05/06/24 01/23/25 Unknown History release ondansetron 4 mg disintegrating 4 mg PO Q4-6H PRN Nausea 05/06/24 01/23/25 Unknown History tablet oxycodone 20 mg tablet 10 mg PO PRN Pain 05/06/24 05/06/24 Unknown History Exam Height,Weight and Vital Signs: Height 5 ft 7 in Assessment and Plan Final Anesthetic Review Family History of Problems with Anesthesia: No History of Problems with Anesthesia: No Documented by User: Enedina Kaur MD 01/25/25 10:05 [facility] Past Medical History Medical History (Updated 01/23/25 @ 13:05 by Tammie Reno RN) Tendonitis involving right hip abductors Chronic pain in right foot Disorder of sacrum Trochanteric bursitis of right hip Lumbar radiculopathy Paroxysmal atrial fibrillation Anxiety Crohn disease Family History Family History Father Atrial fibrillation Surgical History Surgical History (Updated 01/23/25 @ 13:06 by Tammie Reno RN) History of esophagogastroduodenoscopy (EGD) History of hip surgery Hx of colonoscopy History of bowel resection Hx of cholecystectomy Social History Social History Household Members: Children Housing: House Do you presently have visiting nurse or other home services: No Alcohol intake: never Patient Tobacco Use Status: Former Tobacco user Use of substances other than those prescribed or required for medical reasons: No Advance Directives: No Advance Directives Information Provided: Yes service: No Current occupational status: employed Meds Allergies Allergy/AdvReac Type Severity Reaction Status Date / Time azithromycin (AZITHROMYCIN) Allergy Intermediate HIVES Verified 04/04/24 11:26 erythromycin base Allergy Intermediate Hives Verified 04/04/24 11:26 Penicillins (PCN) Allergy Intermediate Difficulty Verified 04/04/24 11:26 Breathing Sulfa (Sulfonamide Allergy Intermediate Palpitation Verified 04/04/24 11:26 Antibiotics) s Home Medications ?Medication ?Instructions ?Recorded ?Confirmed ?Last Taken ?Type sertraline 100 mg tablet (Zoloft) 200 mg PO DAILY 03/18/22 01/23/25 Unknown History quetiapine 25 mg tablet (Seroquel) 25 mg PO BEDTIME 10/03/22 01/23/25 Unknown History albuterol sulfate 90 mcg/actuation 2 puff inhalation Q4-6H PRN 02/17/23 05/06/24 Unknown History aerosol inhaler Shortness Of Breath budesonide 3 mg 9 mg PO DAILY 02/17/23 05/06/24 Unknown History capsule,delayed,extended release lorazepam 1 mg tablet 1 mg PO DAILY PRN Anxiety 02/17/23 01/23/25 Unknown History omeprazole 40 mg capsule,delayed 40 mg PO BID 05/06/24 01/23/25 Unknown History release ondansetron 4 mg disintegrating 4 mg PO Q4-6H PRN Nausea 05/06/24 01/23/25 Unknown History tablet oxycodone 20 mg tablet 10 mg PO PRN Pain 05/06/24 05/06/24 Unknown History Exam Airway Mallampati Class: II (caps laterally) TM Dist: >3cm Neck ROM: Full Heart: rrr Lungs: cta Assessment and Plan Assessment Anesthesia Assessment: Anesthesia Plan Discussed and Chart Reviewed Final Anesthetic Review NPO: Yes ASA Class: II Final Preanesthetic Review: No Changes in Pt Med Stat, Meds/Allgs Chart Reviewed and Consent Obtained/Reviewed Patient Risk: Low Procedure Risk: Low Anesthetic Plan Anesthetic Plan: MAC: Disposition: Standard PACU
[2025-01-25 09:27] VITALS: BMI 31.3
[2025-01-25 09:37] LABS: UPreg QC Valid YES
[2025-01-25] MEDS: Lactated Ringers 1,000 ML 100 ML IVCONT (09:41)
[2025-01-25 09:43] VITALS: BP 119/70; PULSE 64; RESP 16; TEMP 36.3; O2SAT 100
[2025-01-25 12:08] VITALS: BP 107/72; PULSE 81; RESP 16; TEMP 36.3; O2SAT 99
[2025-01-25 12:23] VITALS: BP 115/62; PULSE 62; RESP 16; O2SAT 98
[2025-01-25 12:37] VITALS: BP 112/66; PULSE 59; RESP 16; TEMP 36.3; O2SAT 100
--- NOTE | 2025-01-25 12:37 | PM.OP ---
Brief Operative Note Date of Service: 01/25/25 Pre-op diagnosis: Crohn's disease Post-op diagnosis: other (Crohn's of small bowel; Narrowing of anastomosis) Procedure: Flex sig with with balloon dilation of anastomosis from 12mm to 13.5mm to 15mm to 16.5mm to 18mm Surgeon: Stepan Sheldon MD Anesthesia: MAC Was an Laborer Pipelines used for this Procedure?: No Estimated blood loss (mL): 2.0 Pathology: none sent Condition: stable Disposition: PACU
--- NOTE | 2025-01-26 08:24 | OP_ITS ---
DATE OF SERVICE: 01/25/2025 SURGEON: Stepan Sheldon MD INDICATIONS: The patient presents for evaluation of underlying history of Crohn's disease, previous history of some anastomotic narrowing, and increasing constipation. Full consent has been obtained from her for this, including risks of bleeding and perforation. PREOPERATIVE DIAGNOSIS: POSTOPERATIVE DIAGNOSIS: PROCEDURE PERFORMED: Flexible sigmoidoscopy with balloon dilation of anastomotic stricture. ESTIMATED BLOOD LOSS: COMPLICATIONS: ANESTHESIA: Monitored anesthesia care. ASSISTANTS: SPECIMENS: PREOPERATIVE DIAGNOSES: History of Crohn's disease, history of narrowing at the anastomosis, and constipation. POSTOPERATIVE DIAGNOSES: History of Crohn's disease, history of narrowing at the anastomosis, constipation, relative narrowing at anastomosis. DESCRIPTION OF PROCEDURE: The patient was placed in the left lateral decubitus position. The digital rectal exam revealed no abnormalities. There was no sign of any perianal disease. The Olympus video pediatric gastroscope was used, rather than a colonoscope, as on the previous procedure 2 years ago the colonoscope was not able to get past the anastomosis. The Olympus video gastroscope was passed into the rectum. The scope was then advanced easily to the level of the the anastomosis at 30cm. The colonic mucosa portion of the anastomosis appeared normal, without any sign of active Crohn's disease such as ulcerations or erosions. The mucosa of the small bowel in this area did have some Crohn's disease with erosions and 10 mm ulcerations. The anastomosis into the small bowel was perhaps somewhat narrowed, but did allow easy passage of the gastroscope into the small bowel. There was some looping of the scope as I tried to get from the colon into the anastomosis and small bowel. At times, the scope was retroflexed on itself in this area. The distal 10 to 20 cm of the small bowel had some small ulcerations consistent with Crohn's, but there was no sign of any significant ulcerations or strictures in the small bowel itself. Given her symptomatology and some relative narrowing at the anastomosis, I did use colonic dilating balloons to dilate the ileocolic anastomosis from 12 mm to 13.5 mm to 15 mm at the recommended pressure for 60 seconds each. There was no resistance to inflating the balloon and there was really no appreciable heme at the anastomosis. I therefore used a larger balloon to dilate the anastomosis further from 16.5 mm to 18 mm at the recommended pressure for 60 seconds each. Postdilation, there was perhaps a small amount of heme noted, but no clear disruption of the anastomosis. Again, the balloons all inflated fairly easily without any resistance. The scope was then slowly withdrawn assessing all mucosal surfaces carefully. The distal 30 cm of the colon including the rectum appeared normal without any sign of active Crohn's disease or colitis of any sort. In the rectum, scope was retroflexed visualizing some internal hemorrhoids, but no other pathology. The scope was straightened and withdrawn from the patient. She tolerated the procedure well and was returned to recovery area in stable condition. IMPRESSION: 1. Relatively mild anastomotic stricture, status post balloon dilation up to 18 mm. 2. Active Crohn's disease involving distal small bowel. 3. Internal hemorrhoids. PLAN: The patient will continue her current regimen of budesonide 9 mg daily. Again, most recently, she has been troubled by constipation rather than the frequent loose stools that she had previously been having. I am going to have her start using MiraLAX once or twice a day on a regular basis along with senna to hopefully keep the bowel movements easier and more regular. Given that the anastomosis appeared to be fairly patent today, I am going to have her undergo a CT scan of the abdomen with enterography at some point to rule out any proximal small-bowel strictures. She will be seen in followup. She has been advised to avoid all aspirin and NSAIDs long-term. Of note, she had some recent labs that revealed normal chemistries and renal function, normal CBC with a hemoglobin of 12.3 and MCV of 90, normal sedimentation rate, normal liver profile with albumin of 4.4, and a C-reactive protein that was nondetectable. MD KRISTY Siegel/PJ / [id number] MTDD
== END 2025-01-25 12:56 | disposition home or self-care (01) ==
PROVIDERS: Nurse Practitioner; PCP Family Medicine; Visit Provider Internal Medicine
PROC: 0DJD8ZZ Inspection of Lower Intestinal Tract, Via Natural or Artificial Opening Endoscopic (ICD-10-PCS; CPT 45330; principal; 2025-01-25 10:30)
DX: K50.811 Crohn's disease of both small and large intestine with rectal bleeding (principal); K91.89 Other postprocedural complications and disorders of digestive system; K56.699 Other intestinal obstruction unspecified as to partial versus complete obstruction; K59.00 Constipation, unspecified; K64.8 Other hemorrhoids; Y83.2 Surgical operation with anastomosis, bypass or graft as the cause of abnormal reaction of the patient, or of later complication, without mention of misadventure at the time of the procedure; Y92.9 Unspecified place or not applicable
CPT/HCPCS: 45340; 81025; C1726; J2003; J2250; J2704

== ENCOUNTER 2025-02-02 14:27 | Inpatient (IN) | payer MEDICARE, MEDICAID, SELFPAY ==
--- NOTE | ~2025-02-02 | CT_ITS ---
CLINICAL HISTORY: abd pain, significant surgical hx CT abdomen and pelvis with contrast Comparison: CT of the abdomen and pelvis from 11/20/2022 Findings: Mild bibasilar atelectasis/pneumonitis. CBD dilatation measures 8 mm as can be seen post cholecystectomy. Mild volume loss of the pancreas noted. Mild adjacent fluid is nonspecific and may reflect mild and/or recurrent pancreatitis. Liver and adrenal glands are unchanged. Borderline splenomegaly noted. No hydronephrosis. Small retroperitoneal lymph nodes are nonspecific and likely reactive. Wall thickening of the small intestine approaching remaining left-sided large intestine is nonspecific and can be seen with inflammatory bowel disease. Enteric contrast extends to remaining large intestine anastomosis, without definite small bowel obstruction. Appendix is not definitively seen and likely surgically absent given appearance of the large intestine. The uterus is anteverted with intrauterine device in place. Wall thickening of the large intestine is nonspecific, including distally. No adnexal soft tissue mass by CT. Mild wall thickening of the mildly distended urinary bladder is nonspecific. Facet arthropathy is redemonstrated. 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 The bones are intact. IMPRESSION: 1. Wall thickening of the small intestine as can be seen with inflammatory bowel disease. No small bowel obstruction at this time. 2. Mild fluid adjacent to the pancreas nonspecific and concerning for mild recurrent pancreatitis. This document has been electronically signed by: Leandro Arizmendi MD on 02/02/2025 19:44:56
[2025-02-02 14:33] VITALS: BP 133/61; PULSE 63; RESP 16; TEMP 36.5; O2SAT 98; BMI 31.6
--- NOTE | 2025-02-02 15:11 | ED.GENADULT ---
HPI - General Adult General Chief complaint: Abdominal Pain Stated complaint: Abd pain Time Seen by Provider: 02/02/25 16:06 Source: patient Mode of arrival: ambulatory Limitations: no limitations History of Present Illness ED Provider: Julianna Sotelo PA-C HPI narrative: Patient is a 49 year old assigned female at with a history of chronic back pain for which she is on oxycodone TID, crohn's disease, and paroxysmal atrial fibrillation presenting to the emergency department today with abdominal pain. Patient states that a week ago she had a colonoscopy by Dr. Sheldon. Patient states that she is having abdominal pain and is concerned it is like when she went sepsis 10 years ago and had to have a colectomy. Patient denies any other complaints at this time. Related Data Home Medications ?Medication ?Instructions ?Recorded ?Confirmed sertraline 100 mg tablet (Zoloft) 25 mg PO BEDTIME 03/18/22 02/02/25 quetiapine 25 mg tablet (Seroquel) 25 mg PO BEDTIME 10/03/22 02/02/25 albuterol sulfate 90 mcg/actuation 2 puff inhalation Q4H PRN 02/17/23 02/02/25 aerosol inhaler Shortness Of Breath budesonide 3 mg 9 mg PO BEDTIME 02/17/23 02/02/25 capsule,delayed,extended release lorazepam 1 mg tablet 1 mg PO BEDTIME Anxiety 02/17/23 02/02/25 omeprazole 40 mg capsule,delayed 40 mg PO BID@0630,1630 05/06/24 02/02/25 release ondansetron 4 mg disintegrating 4 mg PO Q4H PRN Nausea 05/06/24 02/02/25 tablet oxycodone 20 mg tablet 10 mg PO DAILY@1300 Pain 05/06/24 02/02/25 cholecalciferol (vitamin D3) 25 25 mcg PO BEDTIME 02/02/25 02/02/25 mcg (1,000 unit) capsule (Vitamin D3) cyanocobalamin (vitamin B-12) 500 500 mcg PO BEDTIME 02/02/25 02/02/25 mcg tablet cyclobenzaprine 5 mg tablet 5 mg PO DAILY PRN muscle spasm 02/02/25 02/02/25 metoprolol succinate 25 mg 25 mg PO BEDTIME 02/02/25 02/02/25 tablet,extended release 24 hr oxycodone 20 mg tablet 20 mg PO BID 02/02/25 02/02/25 rosuvastatin 10 mg tablet 10 mg PO BEDTIME 02/02/25 02/02/25 sertraline 100 mg tablet 200 mg PO BEDTIME 02/02/25 02/02/25 Allergies Allergy/AdvReac Type Severity Reaction Status Date / Time azithromycin (AZITHROMYCIN) Allergy Intermediate HIVES Verified 02/02/25 14:37 erythromycin base Allergy Intermediate Hives Verified 02/02/25 14:37 Penicillins (PCN) Allergy Intermediate Difficulty Verified 02/02/25 14:37 Breathing Sulfa (Sulfonamide Allergy Intermediate Palpitation Verified 02/02/25 14:37 Antibiotics) s Review of Systems Constitutional: Constitutional: Reports as per HPI Eyes: Eyes: Reports as per HPI ENT: Reports as per HPI Cardiovascular: Cardiovascular: Reports as per HPI Respiratory: Respiratory: Reports as per HPI Gastrointestinal: Gastrointestinal: Reports as per HPI Genitourinary: Genitourinary: Reports as per HPI Musculoskeletal: Musculoskeletal: Reports as per HPI Integumentary/Breasts: Skin/Breast: Reports as per HPI Neurologic: Reports as per HPI Psychiatric: Psychiatric: Reports as per HPI Endocrine: Endocrine: Reports as per HPI Hematologic/Lymphatic: Hematologic/Lymphatic: Reports as per HPI Allergic/Immunologic: Allergic/Immunologic: Reports as per HPI [facility] Past Medical History Attestation statement: The following information was validated with the patient. Source: old records reviewed and nursing notes reviewed Medical History Tendonitis involving right hip abductors Chronic pain in right foot Disorder of sacrum Trochanteric bursitis of right hip Lumbar radiculopathy Paroxysmal atrial fibrillation Anxiety Crohn disease Surgical History History of esophagogastroduodenoscopy (EGD) History of hip surgery Hx of colonoscopy History of bowel resection Hx of cholecystectomy Family History Family History Father Atrial fibrillation Social History Social History Household Members: Family Housing: House Do you presently have visiting nurse or other home services: No Alcohol intake: never Patient Tobacco Use Status: Former Tobacco user service: No Current occupational status: employed Physical Exam ED Vital Signs: Vital Signs - 24 hr 02/02/25 14:33 02/02/25 17:12 02/02/25 20:10 Temperature 97.7 F 97.7 F Pulse Rate 63 57 Respiratory Rate 16 17 20 Blood Pressure 133/61 134/63 Pulse Oximetry 98 99 Oxygen Delivery Method Room Air Room Air BMI result Body Mass Index 31.6 Const General: cooperative, no acute distress, alert and awake Nutritional Appearance: well nourished Orientation/consciousness: patient oriented x3 HENMT Head: Yes normal to inspection and Yes atraumatic Ears: hearing grossly normal bilaterally and external ears normal General nose exam: Normal external nose present, no nasal discharge noted and no epistaxis Face and sinus: Yes normal facial exam, No abrasion and No laceration Mouth: Normal oral and palatal mucosa present, no drooling and no muffled voice Eyes General: appearance normal, both eyes and all related structures Periorbital: periorbital findings normal Eyelids: Yes eyelids normal Conjunctivae: conjunctivae normal Pupils: Equal, round and reactive pupils present EOM: EOMs intact bilaterally Neck Neck: Yes normal visual inspection and Yes full ROM Resp Effort & Inspection: normal respiratory effort and able to speak in complete sentences GI Palpation (GI): Soft to palpation, not firm, Tenderness to palpation present (GI) in the LLQ, in the RLQ, in the LUQ and in the RUQ, no guarding and not rigid Neuro General: patient oriented x3, moves all extremities and CN's II-XI intact bilaterally Cranial nerves: Yes Equal, round and reactive pupils present Cognition (Neuro): normal cognition Extrem General: Yes normal to inspection, Yes full ROM and Yes capillary refill normal Psych Appearance: grossly normal Mental Status: mental status grossly normal Affect: normal affect Attitude: cooperative Thought process: Normal thought process present Thought content: Normal thought content present Insight: Good insight present (Psych) Course Course Course Narrative: RME: 49-year-old female status post colonoscopy 1 week ago and history of Crohn presents to ED for abdominal pain with nausea. Patient has history of perforation after colonoscopy 10 years ago. Labs ordered Medications Administered Generic Name Dose Route Start Last Admin Trade Name Freq PRN Reason Stop Dose Admin Cyanocobalamin 500 mcg 02/03/25 08:00 02/03/25 08:11 Cyanocobalamin (Vitamin B-12) 500 Mcg Tablet PO Not Given BEDTIME WILLIAM Cyclobenzaprine HCl 5 mg 02/02/25 21:55 02/03/25 07:16 Cyclobenzaprine Hcl 5 Mg Tablet PO 5 mg DAILY PRN Administration Muscle Spasm Enoxaparin Sodium 40 mg 02/03/25 09:00 02/03/25 07:16 Enoxaparin Sodium 40 Mg/0.4 Ml Syringe SUBCUT 40 mg Q24H WILLIAM Administration Hydromorphone HCl 1 mg 02/03/25 11:22 02/03/25 12:11 Hydromorphone Hcl 1 Mg/Ml Syringe IVPUSH 1 mg Q4H PRN Administration Pain, Severe (Pain Scale 7-10) Protocol Lactated Ringer's 1,000 mls @ 100 mls/hr 02/03/25 11:30 02/03/25 11:38 Lr IVCONT Not Given .Q10H WILLIAM Lorazepam 1 mg 02/02/25 21:55 02/02/25 22:52 Lorazepam 1 Mg Tablet PO 1 mg BEDTIME WILLIAM Administration Methylprednisolone Sodium Succinate 40 mg 02/02/25 22:00 02/03/25 09:54 Methylprednisolone Sod Succ 40 Mg/Ml Vial IVPUSH 40 mg Q12H WILLIAM Administration Metoprolol Succinate 25 mg 02/02/25 23:05 02/02/25 23:46 Metoprolol Succinate Er 25 Mg Tab.Er.24h PO 25 mg BEDTIME WILLIAM Administration Protocol Omeprazole 40 mg 02/03/25 06:30 02/03/25 06:02 Omeprazole 40 Mg Capsule.Dr PO 40 mg BID@0630,1630 WILLIAM Administration Ondansetron HCl 4 mg 02/02/25 21:57 02/02/25 22:51 Ondansetron Hcl 4 Mg/2 Ml Vial IVPUSH 4 mg Q6H PRN Administration Nausea and Vomiting Oxycodone HCl 20 mg 02/03/25 09:00 02/03/25 07:17 Oxycodone Hcl Immed Release 5 Mg Tablet PO 20 mg BID WILLIAM Administration Quetiapine Fumarate 25 mg 02/02/25 21:55 02/02/25 22:52 Quetiapine Fumarate 25 Mg Tablet PO 25 mg BEDTIME WILLIAM Administration Sertraline HCl 200 mg 02/02/25 21:55 02/02/25 22:53 Sertraline Hcl 100 Mg Tablet PO 200 mg BEDTIME WILLIAM Administration Sertraline HCl 25 mg 02/02/25 22:00 02/02/25 22:52 Sertraline Hcl 25 Mg Tablet PO 25 mg BEDTIME WILLIAM Administration Sodium Chloride 3 ml 02/03/25 00:00 02/03/25 08:13 0.9 % Sodium Chloride Flush 3 Ml Syringe IVFLUSH Not Given QSHIFT WILLIAM Discontinued Medications Generic Name Dose Route Start Last Admin Trade Name Freq PRN Reason Stop Dose Admin Diatrizoate Meglum/Diatrizoate Sod 30 ml 02/02/25 19:23 02/02/25 19:24 Diatrizoate Meglumine, Sodium 30 Ml Solution PO 02/02/25 19:24 30 ml ONCE ONE Administration Hydromorphone HCl 1 mg 02/02/25 21:56 02/03/25 02:18 Hydromorphone Hcl 1 Mg/Ml Syringe IVPUSH 1 mg Q3H PRN Administration Abdominal pain Protocol Hydromorphone HCl 1 mg 02/03/25 08:03 02/03/25 08:11 Hydromorphone Hcl 1 Mg/Ml Syringe IVPUSH 02/03/25 08:04 1 mg ONCE ONE Administration Protocol Sodium Chloride 1,000 mls @ 999 mls/hr 02/02/25 20:15 02/02/25 22:59 Ns IV 02/02/25 21:15 Infused .Q1H1M WILLIAM Infusion Lactated Ringer's 1,000 mls @ 100 mls/hr 02/02/25 22:00 02/03/25 08:52 Lr IVCONT 02/03/25 07:59 Infused .Q10H WILLIAM Infusion Influenza Virus Vaccine 0.5 ml 02/03/25 09:00 02/03/25 08:55 Flu Vacc [id number](6mo Up)/Pf 0.5 Ml Syringe IM 02/03/25 09:01 Not Given .ONCE ONE Iohexol 100 ml 02/02/25 19:17 02/02/25 19:22 Iohexol 350 Mg/Ml 100 Ml Infus..Btl IV 02/02/25 19:18 85 ml ONCE ONE Administration Morphine Sulfate 5 mg 02/02/25 16:28 02/02/25 17:12 Morphine Sulfate 10 Mg/Ml Cartridge IVPUSH 02/02/25 16:29 5 mg ONCE ONE Administration Protocol Morphine Sulfate 5 mg 02/02/25 20:02 02/02/25 20:12 Morphine Sulfate 10 Mg/Ml Cartridge IVPUSH 02/02/25 20:03 5 mg ONCE ONE Administration Protocol Ondansetron HCl 4 mg 02/02/25 16:28 02/02/25 17:13 Ondansetron Hcl 4 Mg/2 Ml Vial IVPUSH 02/02/25 16:29 4 mg ONCE ONE Administration Medical Decision Making Medical Decision Making MDM Narrative: Patient is a 49 year old assigned female at with a history of chronic back pain for which she is on oxycodone TID, crohn's disease, and paroxysmal atrial fibrillation presenting to the emergency department today with abdominal pain. Patient's physical exam was as noted in the physical exam portion of this note. Patient's blood work was unremarkable. Patient's abdominal / pelvis CT showed evidence of possible colitis and pancreatitis. I explained my physical exam findings as well as all test results to the patient. I answered all questions asked by the patient. Patient received IV morphine which, upon re-evaluation, she stated it helped her symptoms some. I had an extensive conversation with the patient on discharge vs. admission. Together, through shared decision making, we determined admission for continued pain management and colitis vs. pancreatitis was most appropriate for the patient. I spoke with the hospitalist team who agreed to admission. Patient verbalized agreement and understanding with this treatment plan and admission. Differential Diagnosis Differential Diagnoses: The differential diagnosis associated with the presentation includes Abdominal pain Colitis Pancreatitis Admission/Observation Consideration of admission/observation: Escalation of care including admission/observation considered Patient admitted as noted in the MDM Rationale portion of this note. Consult Healthcare Provider Management of the patient was discussed with: Hospitalist (agreed to admission as noted in the MDM Rationale portion of this note. ) Lab Data [facility] Lab Attestation statement: I reviewed the patient's lab results. My interpretation of these results are in the MDM Rationale portion of this note. 02/03/25 05:51 02/03/25 05:51 Labs: Lab Results 02/02/25 Range/Units 15:17 WBC 6.2 (4.8-10.8) X10*3/uL RBC 4.30 (4.20-5.50) X10*6/uL Hgb 12.6 (12.0-16.0) g/dl Hct 38.0 (37.0-47.0) % MCV 88.4 (80.0-98.0) fL MCH 29.3 (27.0-33.0) pg MCHC 33.2 (31.0-35.0) g/dl RDW 12.4 (11.0-16.0) % Plt Count 189 (160-400) X10*3/uL MPV 9.5 (9.4-12.3) fL Immature Gran % (Auto) 0.2 (0.0-0.4) % Neut % (Auto) 64.5 (45-73) % Lymph % (Auto) 26.7 (20-40) % [place] % (Auto) 7.5 (2-11) % Eos % (Auto) 0.8 (0-4) % Baso % (Auto) 0.3 (0-2) % Lymph # (Auto) 1.7 (1.2-4.9) X10*3/uL [place] # (Auto) 0.5 (0.1-1.2) X10*3/uL Eos # (Auto) 0.1 (0.0-0.4) X10*3/uL Baso # (Auto) 0.0 (0.0-0.2) X10*3/uL Abs Immat Gran (auto) 0.01 (0.00-0.03) X10*3/uL Absolute Neuts (auto) 4.0 (2.0-8.3) x10*3/uL Absolute Nucleated RBC 0.000 (0.0-0.012) X10*3/uL Nucleated RBC % (auto) 0.0 (0.0-0.2) /100WBC Sodium 142 (135-145) mmol/L Potassium 4.4 (3.3-5.1) mmol/L Chloride 110 H (96-108) mmol/L Carbon Dioxide 26 (22-29) mmol/L Anion Gap 10 L (12-20) BUN 8 L (9-16) mg/dL Creatinine 0.67 (0.5-1.4) mg/dL Estim Creat Clear Calc 119.2 Estimated GFR > 60 Random Glucose 127 H (60-115) mg/dL Calcium 9.2 (8.4-10.2) mg/dL Total Bilirubin 0.4 (0.0-1.0) mg/dL AST 18 (5-31) U/L ALT 14 (0-31) U/L Alkaline Phosphatase 49 (39-117) U/L Total Protein 6.9 (6.5-8.0) g/dL Albumin 4.4 (3.5-5.0) g/dL Lipase 29 (8-78) U/L Beta HCG, Quant < 2 mIU/mL Independent Interpretation I performed an independent interpretation of an: CT Scan Interpretation: My interpretation is in agreement with the radiologist's impression of this imaging study. Reason for Exam: abd pain, significant surgical hx CLINICAL HISTORY: abd pain, significant surgical hx CT abdomen and pelvis with contrast Comparison: CT of the abdomen and pelvis from 11/20/2022 Findings: Mild bibasilar atelectasis/pneumonitis. CBD dilatation measures 8 mm as can be seen post cholecystectomy. Mild volume loss of the pancreas noted. Mild adjacent fluid is nonspecific and may reflect mild and/or recurrent pancreatitis. Liver and adrenal glands are unchanged. Borderline splenomegaly noted. No hydronephrosis. Small retroperitoneal lymph nodes are nonspecific and likely reactive. Wall thickening of the small intestine approaching remaining left-sided large intestine is nonspecific and can be seen with inflammatory bowel disease. Enteric contrast extends to remaining large intestine anastomosis, without definite small bowel obstruction. Appendix is not definitively seen and likely surgically absent given appearance of the large intestine. The uterus is anteverted with intrauterine device in place. Wall thickening of the large intestine is nonspecific, including distally. No adnexal soft tissue mass by CT. Mild wall thickening of the mildly distended urinary bladder is nonspecific. Facet arthropathy is redemonstrated. 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 The bones are intact. IMPRESSION: 1. Wall thickening of the small intestine as can be seen with inflammatory bowel disease. No small bowel obstruction at this time. 2. Mild fluid adjacent to the pancreas nonspecific and concerning for mild recurrent pancreatitis. This document has been electronically signed by: Leandro Arizmendi MD on 02/02/2025 19:44:56 Dictated By: Leandro Arizmendi MD Signed By: Electronically signed by Leandro Arizmendi MD 02/02/251944 Radiology Impression Discussion of test interpretation with radiology: I have reviewed the radiologist's reading. Critical Care Time Critical Care Time Critical Care Time: Yes Total Critical Care Time: 48 Attestation: I spent 48 minutes of Critical Care Time with this patient. This does not include time spent on separately reported billable procedures. Discharge Plan Discharge Clinical Impression: Colitis Abdominal pain Qualifiers: Abdominal location: unspecified location Qualified Code(s): R10.9 - Unspecified abdominal pain Patient Disposition: Admitted As Inpatient Interventions: Admission Worksheet (ED) Last Done: 02/03/25 00:07 Discharge Date/Time: 02/03/25 00:47
[2025-02-02 15:22] LABS: MANUAL DIFF FLAG NO
[2025-02-02 15:27] LABS: Hematocrit 38.0 % (37.0-47.0); Hemoglobin 12.6 g/dl (12.0-16.0); Imm Gran Abs Auto 0.01 X10*3/uL (0.00-0.03); Imm Gran Pct Auto 0.2 % (0.0-0.4); Lymphocytes Absolute Auto 1.7 X10*3/uL (1.2-4.9); Mean Corpuscular HGB Conc 33.2 g/dl (31.0-35.0); Mean Corpuscular Hemoglobin 29.3 pg (27.0-33.0); Mean Corpuscular Volume 88.4 fL (80.0-98.0); NRBC Abs Auto 0.000 X10*3/uL (0.0-0.012); NRBC Pct Auto 0.0 /100WBC (0.0-0.2); Platelet Count 189 X10*3/uL (160-400); Red Blood Count 4.30 X10*6/uL (4.20-5.50); White Blood Count 6.2 X10*3/uL (4.8-10.8)
[2025-02-02 15:55] LABS: Alanine Aminotransferase 14 U/L (0-31); Albumin Level 4.4 g/dL (3.5-5.0); Alkaline Phosphatase 49 U/L (39-117); Anion Gap 10 (12-20); Aspartate Amino Transferase 18 U/L (5-31); Blood Urea Nitrogen 8 mg/dL (9-16); Calcium 9.2 mg/dL (8.4-10.2); Carbon Dioxide 26 mmol/L (22-29); Chloride 110 mmol/L (96-108); Creatinine Clr Calc Pharmacy 119.2; Estimated Glomerular Filt Rate > 60; Lipase 29 U/L (8-78); Potassium 4.4 mmol/L (3.3-5.1); Sodium 142 mmol/L (135-145); Total Protein 6.9 g/dL (6.5-8.0)
[2025-02-02 17:12] VITALS: RESP 17
[2025-02-02] MEDS: iohexoL 350 MG/ML 100 ML INFUS..BTL IV (19:22)
--- OUTSIDE RECORDS SUMMARY | 2025-02-02 19:22 | XMS_ITS | Encounter Summary ---
Author Organization [facility] Address [address] [place] [address] [place] [address] Phone Care Team Providers Care Interior Block Wirer Name Role Phone Balaji Ibanez MD Unavailable [phone] Isiah Abad MD Unavailable [phone] Kimberli Page MD Unavailable Balaji Ibanez MD Primary Care Provider [phone] Balaji Ibanez MD Primary Care Provider [phone] Encounter Details Date Type Department Care Team (Late st Contact Info) Description 08/15/2021 Procedure Pass OR Admitting Dept - [facility] Department [address] [place] [id number] Social History Tobacco Use Types Packs/Day Years [...] documented as of this encounter Care Teams Interior Block Wirer Relationship Specialty Start Date End Date Balaji Ibanez MD [email or web address] PCP - General Family Medicine 02/25/17 09/23/23 Balaji Ibanez MD [address] [place] [address] [email or web address] PCP - General Family Medicine 09/24/23 Balaji Ibanez MD [email or web address] Historical LMR Provider 02/07/17 Isiah Abad MD [address] [place] [address], [address] [place] [address] [email or web address] Historical LMR Provider 02/07/17 Kimberli Page MD [address] [place] [address], [address] [address] [email or web address] Historical LMR Provider 02/07/17 documented as of this encounter Additional Source Comments The information contained in this document represents components of the legal health record. It is not the complete legal health record.[facility]
--- OUTSIDE RECORDS SUMMARY | 2025-02-02 19:22 | XMS_ITS | Encounter Summary ---
Author Organization [facility] Address [address] [facility] [address] [place] [address] Phone Care Team Providers Care Developer Advisor Name Role Phone Elba Olguin STORAGE MANAGEMENT ARCHITECT Unavailable Balaji Ibanez MD Unavailable [phone] Kim Nunes STORAGE MANAGEMENT ARCHITECT Unavailable Brunilda Castro STORAGE MANAGEMENT ARCHITECT Unavailable Isiah Abad MD Unavailable [phone] Kimberli Page MD Unavailable Italo Ruano MD Unavailable Brock Webber MD Unavailable [phone] Balaji Ibanez MD Primary Care Provider [phone] Balaji Ibanez MD Unavailable Balaji Ibanez MD Primary Care Provider [phone] Encounter Details Date Type Department Care Team (Late st Contact Info) Description 02/24/2017 Ancillary Orders Virtual Department [address] [place] [address] Balaji Ibanez MD [address] [place], [place] [phone] Pain of right hip joint Social History [...] documented as of this encounter Care Teams Developer Advisor Relationship Specialty Start Date End Date Balaji Ibanez MD [address] [place] [address] [email or web address] PCP - General Family Medicine 02/25/17 09/23/23 Balaji Ibanez MD [address] [place] [address] PCP - General Family Medicine 09/24/23 Elba Olguin NP [address] [facility] [address] [place] [address] Historical LMR Provider 02/07/17 2 Balaji Ibanez MD [address] [address] [email or web address] Historical LMR Provider 02/07/17 Kim Nunes STORAGE MANAGEMENT ARCHITECT [address] [place] [address] Historical LMR Provider 02/07/17 2 Brunilda Castro STORAGE MANAGEMENT ARCHITECT [address] [place] [phone] Historical LMR Provider 02/07/17 2 Isiah Abad MD [address] [facility] [place] [address] Historical LMR Provider 02/07/17 Kimberli Page MD 22 [facility] 102 [place] [address] Historical LMR Provider 02/07/17 Italo Ruano MD [address] [place] [phone] Historical LMR Provider 02/07/17 2 Brock Webber MD [address] [place] [address] Historical LMR Provider 02/07/17 2 Balaji Ibanez MD [address] [place] [address] [email or web address] Insurance Assigned Provider 07/18/17 05/22/18 documented as of this encounter Additional Source Comments The information contained in this document represents components of the legal health record. It is not the complete legal health record.[facility]
--- OUTSIDE RECORDS SUMMARY | 2025-02-02 19:22 | XMS_ITS | Encounter Summary ---
Author Organization [facility] Address [address] [facility] [address] [place] [address] Phone Care Team Providers Care Funeral Director'S Assistant Name Role Phone Balaji Ibanez MD Unavailable [phone] Isiah Abad MD Unavailable [phone] Kimberli Page MD Unavailable Balaji Ibanez MD Primary Care Provider [phone] Balaji Ibanez MD Primary Care Provider [phone] Reason for Referral * MRI/CAT Scan - Closed Specialty Diagnoses / Procedures Referred By Contana t Referred To Contact Radiology Diagnoses Radiculopathy, lumbosacral region Procedures MRI Lumbar Spine Balaji Ibanez MD [address] [place] [address] Phone: tel: fax: [email or web address] Referral ID Status Reason Start Date Expiration Date Visits Re quested Visits Authorized [id number] Closed 07/15/2023 07/14/2024 1 1 Encounter Details Date Type Department Care Team (Late st Contact Info) Description 07/15/2023 Transcribe Orders [facility] Department [address] [place], [place] [id number] Balaji Ibanez MD [address] [place] [address] [email or web address] Radiculopathy, lumbosacral region (Primary Dx) Social History [...] with annular fissure, which is new compared [id number]. Bilateral facet arthropathy. Mild spinal and bilateral foraminalstenosis. L5-S1: Posterior disc bulge with annular fissure and superimposedforaminal protrusions. Findings are progressed since 2021. Mild bilateralfacet arthropathy. Moderate left and mild right foraminal stenosis.Central canal stenosis is minimal. IMPRESSION: Multilevel degenerative disc disease, most notable at L4-L5 and L5-S1, asdescribed. Degenerative disc disease at both levels is progressed [id number]. Moderate right foraminal stenosis at L5-S1. Balaji Ibanez MD IMG MR XSPECIALTY Final Res ult documented in this encounter Visit Diagnoses Diagnosis Radiculopathy, lumbosacral region- Primary Thoracic or lumbosacral neuritis or radiculitis, unspecified Radiculopathy, lumbosacral region Thoracic or lumbosacral neuritis or radiculitis, unspecified documented in this encounter Care Teams Funeral Director'S Assistant Relationship Specialty Start Date End Date Balaji Ibanez MD PCP - General Family Medicine 02/25/17 09/23/23 Balaji Ibanez MD [address] [place] [address] PCP - General Family Medicine 09/24/23 Balaji Ibanez MD [email or web address] Historical LMR Provider 02/07/17 Isiah Abad MD [address] [place] [address], [address] [place] [address] Historical LMR Provider 02/07/17 Kimberli Page MD [address] [place] [address], [facility] [address] [place] [address] [email or web address] Historical LMR Provider 02/07/17 documented as of this encounter Additional Source Comments The information contained in this document represents components of the legal health record. It is not the complete legal health record.[facility]
--- OUTSIDE RECORDS SUMMARY | 2025-02-02 19:22 | XMS_ITS | Encounter Summary ---
Author Organization [facility] Address [address] [facility] [address] [place] [address] Phone Care Team Providers Care Special Services Director Name Role Phone Elba Olguin HOIST WORKER Unavailable Balaji Ibanez MD Unavailable [phone] Kim Nunes HOIST WORKER Unavailable Brunilda Castro HOIST WORKER Unavailable Isiah Abad MD Unavailable Kimberli Page MD Unavailable Italo Ruano MD Unavailable Brock Webber MD Unavailable [phone] Balaji Ibanez MD Primary Care Provider [phone] Balaji Ibanez MD Primary Care Provider [phone] Encounter Details Date Type Department Care Team (Late st Contact Info) Description 02/13/2020 Procedure Pass [address] [place] [address] Social History Tobacco Use Types Packs/Day Years [...] documented as of this encounter Care Teams Special Services Director Relationship Specialty Start Date End Date Balaji Ibanez MD [address] [address] [email or web address] PCP - General Family Medicine 02/25/17 09/23/23 Balaji Ibanez MD [address] [place] [address] [email or web address] PCP - General Family Medicine 09/24/23 Elba Olguin NP [address] [address] Historical LMR Provider 02/07/17 2 Balaji Ibanez MD [address] [address] [email or web address] Historical LMR Provider 02/07/17 Kim Nunes NP 30 [place] [address] Historical LMR Provider 02/07/172 2 Brunilda Castro NP [address] [place] [address] Historical LMR Provider 02/07/172 2 Isiah Abad MD 22 [facility], 2nd [place] [address] Historical LMR Provider 02/07/17 Kimberli Page MD [address] [address] Historical LMR Provider 02/07/17 Italo Ruano MD [address] [place] [phone] Historical LMR Provider 02/07/17 2 Brock Webber MD [address] [place] [address] Historical LMR Provider 02/07/17 2 documented as of this encounter Additional Source Comments The information contained in this document represents components of the legal health record. It is not the complete legal health record.[facility]
--- OUTSIDE RECORDS SUMMARY | 2025-02-02 19:22 | XMS_ITS | Encounter Summary ---
Author Organization [facility] Address [address] [place] [address] [place] [address] Phone Care Team Providers Care Recreation Facility Attendant Name Role Phone Balaji Ibanez MD Unavailable [phone] Isiah Abad MD Unavailable [phone] Kimberli Page MD Unavailable Balaji Ibanez MD Primary Care Provider [phone] Balaji Ibanez MD Primary Care Provider [phone] Encounter Details Date Type Department Care Team (Late st Contact Info) Description 08/12/2021 Prep for Surgery [facility] [address] [place] [address] Jaxon Castano PA-C [address] [place] [address] Orthopedics & Sports Medicine, [facility] [place] [address] [email or web address] Social History Tobacco Use Types Packs/Day Years [...] documented as of this encounter Care Teams Recreation Facility Attendant Relationship Specialty Start Date End Date Balaji Ibanez MD [email or web address] PCP - General Family Medicine 02/25/17 09/23/23 Balaji Ibanez MD [address] [place] [address] [email or web address] PCP - General Family Medicine 09/24/23 Balaji Ibanez MD [email or web address] Historical LMR Provider 02/07/17 Isiah Abad MD 22 [facility], 2nd [place] [address] [email or web address] Historical LMR Provider 02/07/17 Kimberli Page MD 22 [facility], [address] [place] [address] Historical LMR Provider 02/07/17 documented as of this encounter Additional Source Comments The information contained in this document represents components of the legal health record. It is not the complete legal health record.[facility]
--- OUTSIDE RECORDS SUMMARY | 2025-02-02 19:22 | XMS_ITS | Encounter Summary ---
Author Organization [facility] Address [address] [place] [address] [place] [address] Phone Care Team Providers Care Mail Service Coordinator Name Role Phone Balaji Ibanez MD Unavailable [phone] Isiah Abad MD Unavailable [phone] Kimberli Page MD Unavailable Balaji Ibanez MD Primary Care Provider [phone] Balaji Ibanez MD Primary Care Provider [phone] Encounter Details Date Type Department Care Team (Late st Contact Info) Description 01/03/2022 Procedure Pass [facility], [address] [address] Social History Tobacco Use Types Packs/Day Years [...] documented as of this encounter Care Teams Mail Service Coordinator Relationship Specialty Start Date End Date Balaji Ibanez MD [email or web address] PCP - General Family Medicine 02/25/17 09/23/23 Balaji Ibanez MD [address] [place] [address] [email or web address] PCP - General Family Medicine 09/24/23 Balaji Ibanez MD [email or web address] Historical LMR Provider 02/07/17 Isiah Abad MD [address] [place] [address], [facility] [place] [address] [email or web address] Historical LMR Provider 02/07/17 Kimberli Page MD [address] [place] [address], [address] [address] [email or web address] Historical LMR Provider 02/07/17 documented as of this encounter Additional Source Comments The information contained in this document represents components of the legal health record. It is not the complete legal health record.[facility]
--- OUTSIDE RECORDS SUMMARY | 2025-02-02 19:22 | XMS_ITS | Encounter Summary ---
Author Organization [facility] Address [address] [facility] [address] [place] [address] Phone Care Team Providers Care Wood Shop Teacher Name Role Phone Elba Olguin MARKETING SUPPORT COORDINATOR Unavailable [phone] Balaji Ibanez MD Unavailable [phone] Kim Nunes MARKETING SUPPORT COORDINATOR Unavailable Brunilda Castro MARKETING SUPPORT COORDINATOR Unavailable Isiah Abad MD Unavailable Kimberli Page MD Unavailable Italo Ruano MD Unavailable Brock Webber MD Unavailable [phone] Balaji Ibanez MD Primary Care Provider [phone] Balaji Ibanez MD Primary Care Provider [phone] Encounter Details Date Type Department Care Team (Late st Contact Info) Description 01/11/2021 Procedure Pass [facility], [address] [phone] Social History Tobacco Use Types Packs/Day Years [...] as of this encounter Care Teams Wood Shop Teacher Relationship Specialty Start Date End Date Balaji Ibanez MD [address] [place] [address] [email or web address] PCP - General Family Medicine 02/25/17 09/23/23 Balaji Ibanez MD [address] [place] [address] [email or web address] PCP - General Family Medicine 09/24/23 Elba Olguin NP [address] [place] [address] Historical LMR Provider 02/07/17 2 Balaji Ibanez MD [address] [place] [address] [email or web address] Historical LMR Provider 02/07/17 Kim Nunes NP [address] [place] [address] Historical LMR Provider 02/07/17 2 Brunilda Castro NP [address] [place] [address] Historical LMR Provider 02/07/172 2 Isiah Abad MD 22 [facility], 2nd [place] [address] Historical LMR Provider 02/07/17 Kimberli Page MD 22 [facility] [address] [place] [address] Historical LMR Provider 02/07/17 Italo Ruano MD [address] [place] [address] Historical LMR Provider 02/07/172 2 Brock Webber MD [address] [place] [address] Historical LMR Provider 02/07/172 2 documented as of this encounter Additional Source Comments The information contained in this document represents components of the legal health record. It is not the complete legal health record.[facility]
--- OUTSIDE RECORDS SUMMARY | 2025-02-02 19:22 | XMS_ITS | Clinical Summary ---
Author Organization [facility] Address [address] [facility] [address] [place] [address] Phone Care Team Providers Care Alley Worker Name Role Phone Balaji Ibanez MD Unavailable Isiah Abad MD Unavailable [phone] Kimberli Page MD Unavailable Balaji Ibanez MD Primary Care Provider Allergies Active Allergy Reactions Criticality Noted Date [...] lumbar inter vertebral disc without myelopathy 06/16/2017 Immunizations Immunization Administration Dates Next Due INFLUENZA, [...] 04/03/2023, 02/04/2022, Additional history exists COVID-19 VACCINE (4 - 2025-26 season) 2024 04/21/2021, 09/15/2020, 08/25/2020 SCREENING FOR [...] this topic Medical Devices Implanted Type Area Doctor Of Nurse Anesthesia Device Identifier Shelf Expiration Date Model / Serial / Lot Iud Implanted: (Quantity not on file) Intrauterine Device Procedures Procedure Name Priority Date/Time Associated Diagnosis Comments PAP TEST Routine 08/01/2024 12:00 AM EDT from Last 3 Months or Most Recently Relevant to Health Maintenance Results * Pap Test (08/01/2024 12:00 AM EDT) Report [address] [address] Casting Chipper: Calixto Kim MD ELECTRONICS WORKER Cytology Report FINAL DIAGNOSIS A. PAP SMEAR (THIN PREP) CE: SPECIMEN ADEQUACY: Satisfactory for evaluation; transformation zone present. INTERPRETATION: NEGATIVE FOR INTRAEPITHELIAL LESION OR MALIGNANCY. Reactive changes. This specimen was analyzed by the automated ThinPrep Imaging System ([employer] and manually rescreened by a sales representative sales manager and/or pathologist. Electronically Signed Out By: MD Eliza Calhoun CT(ASCP) By his/her signature above, the pathologist listed [...] by real-time polymerase chain reaction (PCR) at [facility], [address] [place] [address] using the FDA-approved Fieldglass Onclarity HPV Assay with extended genotyping. Uses of the assay in scenarios other than those approved by the FDA should be considered off-label use. The accuracy and precision of this test for all other off-label specimen sources has been verified in the Cytopathology Laboratory of the [facility] and has not been cleared or approved [...] : 1975 (Age: 49) Sex: F Institution: [facility] Location: [facility] Date of Collection: 08/01/2024 Date of Reported: 08/05/2024 09:48 Results to: Becca Santoyo MD [facility] Final Diagnosis A. PAP SMEAR (THIN PREP) CE: SPECIMEN ADEQUACY: Satisfactory for evaluation; transformation zone present. INTERPRETATION: NEGATIVE FOR INTRAEPITHELIAL LESION OR MALIGNANCY. Reactive changes. This specimen was analyzed by the automated ThinPrep Imaging System ([employer].) and manually rescreened by a sales representative sales manager and/or pathologist. [facility] Results\Inte rpretation A. PAP SMEAR (THIN PREP) CE: High-risk HPV Panel w/ extended genotyping NEG HPV 16-NEG HPV 18-NEG HPV 45-NEG HPV 33/58-NEG HPV 31-NEG HPV 56/59/66-NEG HPV 51-NEG HPV 52-NEG HPV 35/39/68-NEG Performed by real-time polymerase chain reaction (PCR) at [facility], [address] [place] [address] using the FDA-approved Fieldglass Onclarity HPV Assay with extended genotyping. Uses of the assay in scenarios other than those approved by the FDA should be considered off-label use. The accuracy and precision of this test for all other off-label specimen sources has been verified in the Cytopathology Laboratory of the [facility] and has not been cleared or approved by the U.S. Food and Drug Administration. Clinical correlation is advised. The assay assesses the E6/E7 DNA target and utilizes human beta globin as an internal control. Cytology and HPV testing are screening assays and should not be used as the sole means of detecting cancer. False-positives and false-negatives can occur. [facility] Conversion Type 08/01/2024 9:17 AM EDT Becca Santoyo MD CYTOLOGY ORDERABLES Edited Result - Final [facility] [address] [place] [address] from Last 3 Months or Most Recently Relevant to Health Maintenance [place] [address] [place] [address] MEDICARE PART A & [place] [address] [place] [address] MEDICARE PART A & B [facility] B [facility] A & B [place] & [place] MEDIC[place] PART A & [place] [address] MEDICARE PART A & B Care Teams Alley Worker Relationship Specialty Start Date End Date Balaji Ibanez MD [address] [place] [address] PCP - General Family Medicine 09/24/23 Balaji Ibanez MD Historical LMR Provider 02/07/17 Isiah Abad MD [address] [place] [address] [email or web address] Historical LMR Provider 02/07/17 Kimberli Page MD [address] [place] [address] [email or web address] Historical LMR Provider 02/07/17 Additional Source Comments The information contained in this document represents components of the legal health record. It is not the complete legal health record.[facility]
--- OUTSIDE RECORDS SUMMARY | 2025-02-02 19:22 | XMS_ITS | Encounter Summary ---
Author Organization [facility] Address [address] [facility] [address] [place] [address] Phone Care Team Providers Care Down Filler Name Role Phone Balaji Ibanez MD Unavailable [phone] Isiah Abad MD Unavailable [phone] Kimberli Page MD Unavailable Balaji Ibanez MD Primary Care Provider [phone] Balaji Ibanez MD Primary Care Provider [phone] Encounter Details Date Type Department Care Team (Late st Contact Info) Description 07/15/2023 Procedure Pass [facility], [address] [address] Social History Tobacco Use Types Packs/Day Years [...] on filedocumented in this encounter Care Teams Down Filler Relationship Specialty Start Date End Date Balaji Ibanez MD PCP - General Family Medicine 02/25/17 09/23/23 Balaji Ibanez MD [address] [place] [address] PCP - General Family Medicine 09/24/23 Balaji Ibanez MD Historical LMR Provider 02/07/17 Isiah Abad MD [address] [place] [address], [address] [place] [address] Historical LMR Provider 02/07/17 Kimberli Page MD [address] [place] [address], [address] [address] Historical LMR Provider 02/07/17 documented as of this encounter Additional Source Comments The information contained in this document represents components of the legal health record. It is not the complete legal health record.[facility]
--- OUTSIDE RECORDS SUMMARY | 2025-02-02 19:22 | XMS_ITS | Encounter Summary ---
Author Organization [facility] Address [address] [facility] [address] [place] [address] Phone Care Team Providers Care Greaser Helper Name Role Phone Terry Najera MD Unavailable [phone] Isiah Abad MD Unavailable [phone] Kimberli Page MD Unavailable Terry Najera MD Primary Care Provider [phone] Terry Najera MD Primary Care Provider [phone] Encounter Details Date Type Department Care Team (Late st Contact Info) Description 01/21/2023 Transcribe Orders Virtual Department [address] [place] [address] Terry Najera MD [address] [place] [phone] [email or web address] termite technician (current) use of systemic steroids (Primary Dx) [...] Steroid Treatment (3 Months or Longer) Scanner: Pandabus A with serial# of [id number] located at [facility] Bone Density Scan (DXA) 05/16/24 Details of [...] -2.5), or Osteoporosis (T-score <= -2.5). At [facility], T-scores are compared to peak bone density [...] Steroid Treatment (3 Months or Longer) Scanner: Pandabus A with serial# of [id number] located at [facility] Bone Density Scan (DXA) 05/16/24 Details [...] -2.5), or Osteoporosis (T-score <= -2.5). At [facility], T-scores are compared to peak bone density [...] documented in this encounter Visit Diagnoses Diagnosis jail (current) use of systemic steroids- Primary termite technician (current) use of systemic steroids documented in this encounter Care Teams Greaser Helper Relationship Specialty Start Date End Date Terry Najera MD PCP - General Family Medicine 02/25/17 09/23/23 Terry Najera MD [address] [place] [address] PCP - General Family Medicine 09/24/23 Terry Najera MD Historical LMR Provider 02/07/17 Isiah Abad MD [address] [place] [address], [facility] [place] [address] Historical LMR Provider 02/07/17 Kimberli Page MD [address] [place] [address], [address] [place] [address] Historical LMR Provider 02/07/17 documented as of this encounter Additional Source Comments The information contained in this document represents components of the legal health record. It is not the complete legal health record.[facility]
--- OUTSIDE RECORDS SUMMARY | 2025-02-02 19:22 | XMS_ITS | Encounter Summary ---
Author Organization [facility] Address [address] [place] [address] [place] [address] Phone Care Team Providers Care Wine Sales Representative Name Role Phone Elba Olguin SYSTEMS TEST ENGINEER Unavailable Balaji Ibanez MD Unavailable Kim Nunes SYSTEMS TEST ENGINEER Unavailable Brunilda Castro SYSTEMS TEST ENGINEER Unavailable Isiah Abad MD Unavailable Kimberli Page MD Unavailable Italo Ruano MD Unavailable [phone] Brock Webber MD Unavailable [phone] Balaji Ibanez MD Primary Care Provider [phone] Balaji Ibanez MD Unavailable [phone] Balaji Ibanez MD Primary Care Provider [phone] Encounter Details Date Type Department Care Team (Late st Contact Info) Description 02/24/2017 Procedure Pass [facility], [address] [address] Social History Tobacco Use Types Packs/Day Years [...] documented as of this encounter Care Teams Wine Sales Representative Relationship Specialty Start Date End Date Balaji Ibanez MD [address] [place] [address] [email or web address] PCP - General Family Medicine 02/25/17 09/23/23 Balaji Ibanez MD [address] [place] [address] [email or web address] PCP - General Family Medicine 09/24/23 Elba Olguin NP [address] [place] [address] Historical LMR Provider 02/07/17 2 Balaji Ibanez MD [address] [place] [address] [email or web address] Historical LMR Provider 02/07/17 Kim Nunes NP [address] [place] [address] Historical LMR Provider 02/07/17 2 Brunilda Castro NP [address] [place] [address] Historical LMR Provider 02/07/17 2 Isiah Abad MD 22 [facility], 2nd [place] [address] Historical LMR Provider 02/07/17 Kimberli Page MD [address] [address] Historical LMR Provider 02/07/17 Italo Ruano MD [address] [place] [id number] Historical LMR Provider 02/07/17 2 Brock Webber MD [address] [place] [address] Historical LMR Provider 02/07/17 2 Balaji Ibanez MD [address] [place] [address] Insurance Assigned Provider 07/18/17 05/22/18 documented as of this encounter Additional Source Comments The information contained in this document represents components of the legal health record. It is not the complete legal health record.[facility]
--- OUTSIDE RECORDS SUMMARY | 2025-02-02 19:22 | XMS_ITS | Encounter Summary ---
Author Organization [facility] Address [address] [facility] [address] [place] [address] Phone Care Team Providers Care Electrical And Electronic Assembler Name Role Phone Balaji Ibanez MD Unavailable [phone] Isiah Abad MD Unavailable [phone] Kimberli Page MD Unavailable Balaji Ibanez MD Primary Care Provider Encounter Details Date Type Department Care Team (Late st Contact Info) Description 06/28/2024 Procedure Pass [facility], [address] [address] Social History Tobacco Use Types Packs/Day Years [...] on filedocumented in this encounter Care Teams Electrical And Electronic Assembler Relationship Specialty Start Date End Date Balaji Ibanez MD [address] [place] [address] [email or web address] PCP - General Family Medicine 09/24/23 Balaji Ibanez MD Historical LMR Provider 02/07/17 Isiah Abad MD [address] [place] [address], [facility] [place] [address] Historical LMR Provider 02/07/17 Kimberli Page MD [address] [place] [address], [address] [address] Historical LMR Provider 02/07/17 documented as of this encounter Additional Source Comments The information contained in this document represents components of the legal health record. It is not the complete legal health record.[facility]
--- OUTSIDE RECORDS SUMMARY | 2025-02-02 19:22 | XMS_ITS | Encounter Summary ---
Author Organization [facility] Address [address] [facility] [address] [place] [address] Phone Care Team Providers Care Steel Grinder Name Role Phone Elba Olguin ELEMENTARY SCHOOL COUNSELOR Unavailable [phone] Balaji Ibanez MD Unavailable Kim Nunes ELEMENTARY SCHOOL COUNSELOR Unavailable Brunilda Castro ELEMENTARY SCHOOL COUNSELOR Unavailable Isiah Abad MD Unavailable Kimberli Page MD Unavailable Italo Ruano MD Unavailable Brock Webber MD Unavailable [phone] Balaji Ibanez MD Primary Care Provider [phone] Balaji Ibanez MD Primary Care Provider [phone] Encounter Details Date Type Department Care Team (Late st Contact Info) Description 02/20/2020 Ancillary Orders [facility],Outside Imaging [address] [place], [place] [id number] System, Provider Not In, [facility] [address] [address] Social History Tobacco Use Types Packs/Day Years [...] documented as of this encounter Care Teams Steel Grinder Relationship Specialty Start Date End Date Balaji Ibanez MD [address] [place] [id number] [email or web address] PCP - General Family Medicine 02/25/17 09/23/23 Balaji Ibanez MD [address] [place] [address] PCP - General Family Medicine 09/24/23 Elba Olguin NP [address] [place] [address] Historical LMR Provider 02/07/17 2 Balaji Ibanez MD 100 [facility] [address] [place] [address] [email or web address] Historical LMR Provider 02/07/17 Kim Nunes ELEMENTARY SCHOOL COUNSELOR 30 [place] [address] Historical LMR Provider 02/07/17 2 [place] [address] [place] [address] [place] [phone] Historical LMR Provider 02/07/17 2 Isiah Abad MD 22 [facility], 2nd [place] [address] [email or web address] Historical LMR Provider 02/07/17 Kimberli Page MD [address] [address] [email or web address] Historical LMR Provider 02/07/17 Italo Ruano MD [address] [place] [phone] Historical LMR Provider 02/07/17 2 Brock Webber MD 61 [place] [address] Historical LMR Provider 02/07/17 2 documented as of this encounter Additional Source Comments The information contained in this document represents components of the legal health record. It is not the complete legal health record.[facility]
--- OUTSIDE RECORDS SUMMARY | 2025-02-02 19:22 | XMS_ITS | Encounter Summary ---
Author Organization [facility] Address [address] [place] [address] [place] [address] Phone Care Team Providers Care Shell Sieve Operator Name Role Phone Elba Olguin BEHAVIORAL HEALTH DIRECTOR Unavailable [phone] Balaji Ibanez MD Unavailable Kim Nunes BEHAVIORAL HEALTH DIRECTOR Unavailable Brunilda Castro BEHAVIORAL HEALTH DIRECTOR Unavailable Isiah Abad MD Unavailable Kimberli Page MD Unavailable Italo Ruano MD Unavailable Brock Webber MD Unavailable [phone] Balaji Ibanez MD Primary Care Provider [phone] Balaji Ibanez MD Primary Care Provider [phone] Encounter Details Date Type Department Care Team (Late st Contact Info) Description 06/24/2018 Procedure [facility],Outside Imaging [address] [place] [address] Social History Tobacco Use Types [...] documented as of this encounter Care Teams Shell Sieve Operator Relationship Specialty Start Date End Date Balaji Ibanez MD [address] [place] [phone] [email or web address] PCP - General Family Medicine 02/25/17 09/23/23 Balaji Ibanez MD [address] [place] [address] [email or web address] PCP - General Family Medicine 09/24/23 Elba Olguin NP [address] [place] [address] Historical LMR Provider 02/07/17 2 Balaji Ibanez MD [address] [place] [address] [email or web address] Historical LMR Provider 02/07/17 Kim Nunes NP [address] [place] [address] Historical LMR Provider 02/07/17 2 Brunilda Castro BEHAVIORAL HEALTH DIRECTOR [address] [facility] [place] [address] Historical LMR Provider 02/07/17 2 Isiah Abad MD 22 [facility], 2nd [place] [address] Historical LMR Provider 02/07/17 Kimberli Page MD 22 [facility] 102 [place] [address] Historical LMR Provider 02/07/17 Italo Ruano MD [address] [place] [phone] Historical LMR Provider 02/07/172 2 Brock Webber MD [address] [place] [address] Historical LMR Provider 02/07/172 2 documented as of this encounter Additional Source Comments The information contained in this document represents components of the legal health record. It is not the complete legal health record.[facility]
[2025-02-02 20:10] VITALS: BP 134/63; PULSE 57; RESP 20; TEMP 36.5; O2SAT 99
[2025-02-02 20:45] VITALS: BP 120/70; PULSE 59; RESP 18; O2SAT 97
[2025-02-02 21:06] LABS: Appearance Urine Clear; Glucose Urine UA Negative (Negative); PH 5.5 (5.0-9.0); Specific Gravity - Urine >= 1.030 (1.005-1.025)
[2025-02-02 21:07] LABS: UPreg QC Valid YES
--- NOTE | 2025-02-02 21:25 | PHA.MEDREC ---
Pharmacy Consult ? Medication Reconciliation Pharmacy has completed the medication reconciliation. Spoke to patient at bedside, able to name most meds. States she takes everything at bedtime except for scheduled BID meds
--- NOTE | 2025-02-02 22:05 | PM.IMHP ---
History of Present Illness Date of Service: 02/02/25 Attending physician on admission: Lena Kramer Chief Complaint: Abdominal pain Bárbara Sebastian is a 49 years old woman with a past medical history significant for Crohn's disease on budesonide s/p partial colectomy, s/p recent flexible sigmoidoscopy + balloon dilation by Dr. Sheldon atrial fibrillation -not on anticoagulation, chronic pain on oxycodone and anxiety presents to the emergency department complaining of severe epigastric pain that started today at 04:00 associated with nausea. She denied events of vomiting, diarrhea or constipation. She did not report fever. She denied alcohol abuse. In the ED, she was found to have normal vital signs. CBC and differential is normal. There are no significant electrolyte imbalances. CO2 is 26, creatinine 0.67 and BUN 8. LFTs and lipase are normal. test is negative. Abdominal pelvis CT scan with IV contrast showed wall thickening of the small intestine as can be seen with inflammatory bowel disease without small bowel obstruction. There is mild fluid adjacent to the pancreas specific and concerning for mild recurrent pancreatitis. ED tx: Morphine 10 mg IV total, NS 1 L bolus, Zofran 4 mg IV Review of Systems Review of Systems: All 12 systems were reviewed and normal except as noted in HPI. [facility] Medical History Tendonitis involving right hip abductors Chronic pain in right foot Disorder of sacrum Trochanteric bursitis of right hip Lumbar radiculopathy Paroxysmal atrial fibrillation Anxiety Crohn disease Family History Father Atrial fibrillation Surgical History History of esophagogastroduodenoscopy (EGD) History of hip surgery Hx of colonoscopy History of bowel resection Hx of cholecystectomy Social History Household Members: Children Housing: House Do you presently have visiting nurse or other home services: No Alcohol intake: never Patient Tobacco Use Status: Former Tobacco user Advance Directives: No Advance Directives Information Provided: Yes Patient : No service: No Current occupational status: employed Meds Allergies Allergy/AdvReac Type Severity Reaction Status Date / Time azithromycin (AZITHROMYCIN) Allergy Intermediate HIVES Verified 02/02/25 14:37 erythromycin base Allergy Intermediate Hives Verified 02/02/25 14:37 Penicillins (PCN) Allergy Intermediate Difficulty Verified 02/02/25 14:37 Breathing Sulfa (Sulfonamide Allergy Intermediate Palpitation Verified 02/02/25 14:37 Antibiotics) s Active Medications: Current Medications Albuterol Sulfate (Albuterol Sulfate 90 Mcg 8 Gm Inhaler) 2 puff INHALE Q4H PRN PRN Reason: Shortness of Breath Calcium Carbonate (Calcium Carbonate 750 Mg Tab.Chew) 750 mg PO Q4H PRN PRN Reason: Heartburn Cyclobenzaprine HCl (Cyclobenzaprine Hcl 5 Mg Tablet) 5 mg PO DAILY PRN PRN Reason: Muscle Spasm Enoxaparin Sodium (Enoxaparin Sodium 40 Mg/0.4 Ml Syringe) 40 mg SUBCUT Q24H [facility]IAM Hydromorphone HCl (Hydromorphone Hcl 1 Mg/Ml Syringe) 1 mg IVPUSH Q3H PRN; Protocol PRN Reason: Abdominal pain Lactated Ringer's (Lr) 1,000 mls @ 100 mls/hr IVCONT .Q10H WILLIAM Stop: 02/03/25 07:59 Lorazepam (Lorazepam 1 Mg Tablet) 1 mg PO BEDTIME [facility] Magnesium Hydroxide (Milk Of Magnesia 30 Ml Oral.Susp) 30 ml PO DAILY PRN PRN Reason: Constipation Methylprednisolone Sodium Succinate (Methylprednisolone Sod Succ 40 Mg/Ml Vial) 40 mg IVPUSH Q12H [facility] Metoprolol Succinate (Metoprolol Succinate Er 25 Mg Tab.Er.24h) 25 mg PO BEDTIME WILLIAM; Protocol Omeprazole (Omeprazole 40 Mg Capsule.Dr) 40 mg PO BID@0630,1630 [facility] Ondansetron HCl (Ondansetron Hcl 4 Mg/2 Ml Vial) 4 mg IVPUSH Q6H PRN PRN Reason: Nausea and Vomiting Quetiapine Fumarate (Quetiapine Fumarate 25 Mg Tablet) 25 mg PO BEDTIME [facility] Sertraline HCl (Sertraline Hcl 100 Mg Tablet) 200 mg PO BEDTIME [facility] Sertraline HCl (Sertraline Hcl 25 Mg Tablet) 25 mg PO BEDTIME COUNTS INCLUDE 234 BEDS AT THE [facility] Sodium Chloride (0.9 % Sodium Chloride Flush 3 Ml Syringe) 3 ml IVFLUSH QSHIFT COUNTS INCLUDE 234 BEDS AT THE [facility] Home Medications ?Medication ?Instructions ?Recorded ?Confirmed ?Last Taken ?Type sertraline 100 mg tablet (Zoloft) 25 mg PO BEDTIME 03/18/22 02/02/25 Unknown History quetiapine 25 mg tablet (Seroquel) 25 mg PO BEDTIME 10/03/22 02/02/25 Unknown History albuterol sulfate 90 mcg/actuation 2 puff inhalation Q4H PRN 02/17/23 02/02/25 Unknown History aerosol inhaler Shortness Of Breath budesonide 3 mg 9 mg PO BEDTIME 02/17/23 02/02/25 Unknown History capsule,delayed,extended release lorazepam 1 mg tablet 1 mg PO BEDTIME Anxiety 02/17/23 02/02/25 Unknown History omeprazole 40 mg capsule,delayed 40 mg PO BID@0630,1630 05/06/24 02/02/25 Unknown History release ondansetron 4 mg disintegrating 4 mg PO Q4H PRN Nausea 05/06/24 02/02/25 Unknown History tablet oxycodone 20 mg tablet 10 mg PO DAILY@1300 Pain 05/06/24 02/02/25 Unknown History cholecalciferol (vitamin D3) 25 25 mcg PO BEDTIME 02/02/25 02/02/25 Unknown History mcg (1,000 unit) capsule (Vitamin D3) cyanocobalamin (vitamin B-12) 500 500 mcg PO BEDTIME 02/02/25 02/02/25 Unknown History mcg tablet cyclobenzaprine 5 mg tablet 5 mg PO DAILY PRN muscle spasm 02/02/25 02/02/25 Unknown History metoprolol succinate 25 mg 25 mg PO BEDTIME 02/02/25 02/02/25 Unknown History tablet,extended release 24 hr oxycodone 20 mg tablet 20 mg PO BID 02/02/25 02/02/25 02/02/25 History rosuvastatin 10 mg tablet 10 mg PO BEDTIME 02/02/25 02/02/25 Unknown History sertraline 100 mg tablet 200 mg PO BEDTIME 02/02/25 02/02/25 Unknown History Physical Exam Vital Signs and Narrative: Vital Signs: Last Vital Signs Temp 97.7 F 02/02/25 20:10 Pulse 59 02/02/25 20:45 Resp 18 02/02/25 20:45 BP 120/70 02/02/25 20:45 Pulse Ox 97 02/02/25 20:45 O2 Del Method Room Air 02/02/25 20:45 BMI result Body Mass Index 31.6 General: Alert, oriented, in no acute distress. Well nourished and cooperative. Afebrile. HEENT: Head normocephalic, atraumatic. PER, EOMI. Sclerae anicteric, conjunctiva clear. Oropharynx without erythema or exudate. Mucous membranes moist. Neck: Supple, no lymphadenopathy, or JVD. Heart: RRR, no murmurs, rubs or gallops. Lungs: Clear to auscultation bilaterally. No wheezes, rales, or rhonchi. Normal respiratory effort. Abdomen: Soft, epigastric tenderness to palpation without rebound or guarding, nondistended, normoactive bowel sounds. Midline surgical wound. Extremities: No calf tenderness bilaterally, no swelling Musculoskeletal: Full range of motion. No joint swelling, deformity, or tenderness. Normal muscle tone and strength. Skin: Warm/Dry. No pallor. No jaundice. Neurologic: Alert & oriented x4. Moving all extremities spontaneously. Normal speech. Psychological: Normal mood and affect. Thought process coherent. Results Labs 02/02/25 15:17 02/02/25 15:17 Labs: Laboratory Results - last 24 hr 02/02/25 02/02/25 15:17 20:56 MCV 88.4 MCH 29.3 MCHC 33.2 RDW 12.4 Plt Count 189 MPV 9.5 Immature Gran % (Auto) 0.2 Neut % (Auto) 64.5 Lymph % (Auto) 26.7 Jay % (Auto) 7.5 Eos % (Auto) 0.8 Baso % (Auto) 0.3 Lymph # (Auto) 1.7 Jay # (Auto) 0.5 Eos # (Auto) 0.1 Baso # (Auto) 0.0 Abs Immat Gran (auto) 0.01 Absolute Neuts (auto) 4.0 Absolute Nucleated RBC 0.000 Nucleated RBC % (auto) 0.0 Anion Gap 10 L Estim Creat Clear Calc 119.2 Estimated GFR > 60 Random Glucose 127 H Calcium 9.2 Total Bilirubin 0.4 AST 18 ALT 14 Alkaline Phosphatase 49 Total Protein 6.9 Albumin 4.4 Lipase 29 Beta HCG, Quant < 2 Urine Color Yellow Urine Appearance Clear Urine pH 5.5 Ur Specific [place] >= 1.030 H Urine Protein Negative Urine Glucose (UA) Negative Urine Ketones Negative Urine Blood Negative Urine Nitrite Negative Ur Leukocyte Esterase Negative Urine Test NEGATIVE Assessment and Plan (1) Crohn's colitis: Qualifiers: Digestive disease complication type: other complication Qualified Code(s): K50.118 - Crohn's disease of large intestine with other complication Status: Acute (2) Epigastric pain: Status: Acute Plan Bárbara Sebastian is a 49 y/o with PMHx significant for Crohn's disease s/p recent flexible sigmoidoscopy with balloon dilation of anastomotic stricture (01/26) by Dr. Sheldon who presents with: Epigastric pain, ?Pancreatitis on CT scan; small bowel inflammation likely active Crohn's. normal lipase. Rss. NPO/bowel rest. IV fluids. IV steroids. Pain control. Paroxysmal atrial fibrillation. Not taking anticoagulation. Continue metoprolol. Anxiety. Continue home meds. Hyperlipidemia. On statin. Chronic pain. On oxycodone -currently on hold as she going to be receiving IV narcotics for pain control. Code status: Full DVT prophylaxis: Lovenox Patient will need hospitalization for at least 2 midnights for possible pancreatitis treatment and active Crohn's disease treatment with IV steroids, IV pain meds, IV fluids and subspecialty evaluation. This documentation was generated using dictation software; minor spreading or materials clerk errors may be present. Quality Stroke Does the patient have a stroke diagnosis?: No VTE Prior VTE?: No VTE Risk Level:: Medical - moderate - high VTE Device Contraindication: Treatment Not Indicated VTE Drug Contraindication: N/A - Med Ordered
[2025-02-02] MEDS: Lactated Ringers 1,000 ML 100 ML IVCONT (22:42)
[2025-02-02 22:51] VITALS: BP 118/61; RESP 16
[2025-02-02 23:46] VITALS: BP 110/61; PULSE 62; RESP 16; O2SAT 95
[2025-02-02] MEDS: Metoprolol Succinate ER 25 MG TAB.ER.24H PO (23:46)
[2025-02-03] VITALS (9 sets, daily range): BP systolic 100–122; BP diastolic 55–67; PULSE 47–69; RESP 14–19; TEMP 36.1–36.7; O2SAT 90–97; BMI 32.4
--- NOTE | 2025-02-03 | ECG_ITS ---
Test Reason : ? TACHYCARDIA Blood Pressure : */* mmHG Vent. Rate : 57 BPM Atrial Rate : 57 BPM P-R Int : 154 ms QRS Dur : 78 ms QT Int : 450 ms P-R-T Axes : 27 9 19 degrees QTcB Int : 438 ms Sinus bradycardia with Premature supraventricular complexes Low voltage QRS Cannot rule out Anterior infarct (cited on or before 05-Dec-2020) Abnormal ECG When compared with ECG of 04-Apr-2024 11:04, Premature supraventricular complexes are now Present Referred By: Azar Nielsen Electronically Signed By: Ezekiel White
[2025-02-03 06:25] LABS: Hematocrit 35.5 % (37.0-47.0); Hemoglobin 11.7 g/dl (12.0-16.0); Mean Corpuscular HGB Conc 33.0 g/dl (31.0-35.0); Mean Corpuscular Hemoglobin 29.0 pg (27.0-33.0); Mean Corpuscular Volume 88.1 fL (80.0-98.0); NRBC Abs Auto 0.000 X10*3/uL (0.0-0.012); NRBC Pct Auto 0.0 /100WBC (0.0-0.2); Platelet Count 175 X10*3/uL (160-400); Red Blood Count 4.03 X10*6/uL (4.20-5.50); White Blood Count 3.3 X10*3/uL (4.8-10.8)
[2025-02-03 06:36] LABS: Anion Gap 11 (12-20); Blood Urea Nitrogen 6 mg/dL (9-16); Calcium 8.4 mg/dL (8.4-10.2); Carbon Dioxide 22 mmol/L (22-29); Chloride 111 mmol/L (96-108); Creatinine Clr Calc Pharmacy 124.4; Estimated Glomerular Filt Rate > 60; Potassium 4.3 mmol/L (3.3-5.1); Sodium 140 mmol/L (135-145)
[2025-02-03] MEDS: oxyCODONE HCl Immed Release 5 MG TABLET 20 MG PO ×2 (07:17→20:03)
--- NOTE | 2025-02-03 08:09 | HO.PM.IMPN ---
Subjective Subjective Date of Service: 02/03/25 Interval History: colitis Review of Systems persitent abd pain, seems anxious No fever or chills Review of Systems: Yes all other systems are reviewed and are negative Physical Exam Exam: Exam: Appearance: Alert.? Oriented X3. cvs: rrr, [id number] , no murmur res: clear to auscultation ,no rhonchii or wheezing abd: no rebound or guarding ,has epigastric pain, bs present. ext pulses present , no cyanosis . neuro: axo3 , nonfocal. Vital Signs: Vital Signs: Last Vital Signs Temp 98.1 F 02/03/25 06:59 Pulse 50 02/03/25 06:59 Resp 16 02/03/25 06:59 BP 112/65 02/03/25 06:59 Pulse Ox 96 02/03/25 06:59 O2 Del Method Room Air 02/03/25 06:59 BMI result Body Mass Index 32.4 Objective Data Active Medications Albuterol Sulfate (Albuterol Sulfate 90 Mcg 8 Gm Inhaler) 2 puff INHALE Q4H PRN PRN Reason: Shortness of Breath Calcium Carbonate (Calcium Carbonate 750 Mg Tab.Chew) 750 mg PO Q4H PRN PRN Reason: Heartburn Cyanocobalamin (Cyanocobalamin (Vitamin B-12) 500 Mcg Tablet) 500 mcg PO BEDTIME [facility] Cyclobenzaprine HCl (Cyclobenzaprine Hcl 5 Mg Tablet) 5 mg PO DAILY PRN PRN Reason: Muscle Spasm Last Admin: 02/03/25 07:16 Dose: 5 mg Documented By: MARYA Enoxaparin Sodium (Enoxaparin Sodium 40 Mg/0.4 Ml Syringe) 40 mg SUBCUT Q24H [facility] Last Admin: 02/03/25 07:16 Dose: 40 mg Documented By: MARYA Influenza Virus Vaccine (Flu Vacc [id number](6mo Up)/Pf 0.5 Ml Syringe) 0.5 ml IM .ONCE ONE Stop: 02/03/25 09:01 Lorazepam (Lorazepam 1 Mg Tablet) 1 mg PO BEDTIME [facility] Last Admin: 02/02/25 22:52 Dose: 1 mg Documented By: COOPEB Magnesium Hydroxide (Milk Of Magnesia 30 Ml Oral.Susp) 30 ml PO DAILY PRN PRN Reason: Constipation Methylprednisolone Sodium Succinate (Methylprednisolone Sod Succ 40 Mg/Ml Vial) 40 mg IVPUSH Q12H [facility] Last Admin: 02/02/25 22:51 Dose: 40 mg Documented By: PAUL Metoprolol Succinate (Metoprolol Succinate Er 25 Mg Tab.Er.24h) 25 mg PO BEDTIME [facility]; Protocol Last Admin: 02/02/25 23:46 Dose: 25 mg Documented By: PAUL Omeprazole (Omeprazole 40 Mg Capsule.Dr) 40 mg PO BID@0630,1630 [facility] Last Admin: 02/03/25 06:02 Dose: 40 mg Documented By: RUSS Ondansetron HCl (Ondansetron Hcl 4 Mg/2 Ml Vial) 4 mg IVPUSH Q6H PRN PRN Reason: Nausea and Vomiting Last Admin: 02/02/25 22:51 Dose: 4 mg Documented By: PAUL Oxycodone HCl (Oxycodone Hcl Immed Release 5 Mg Tablet) 20 mg PO BID [facility] Last Admin: 02/03/25 07:17 Dose: 20 mg Documented By: MARYA Oxycodone HCl (Oxycodone Hcl Immed Release 5 Mg Tablet) 10 mg PO DAILY@1300 [facility] Quetiapine Fumarate (Quetiapine Fumarate 25 Mg Tablet) 25 mg PO BEDTIME [facility] Last Admin: 02/02/25 22:52 Dose: 25 mg Documented By: PAUL Sertraline HCl (Sertraline Hcl 100 Mg Tablet) 200 mg PO BEDTIME [facility] Last Admin: 02/02/25 22:53 Dose: 200 mg Documented By: PAUL Sertraline HCl (Sertraline Hcl 25 Mg Tablet) 25 mg PO BEDTIME [facility] Last Admin: 02/02/25 22:52 Dose: 25 mg Documented By: PAUL Sodium Chloride (0.9 % Sodium Chloride Flush 3 Ml Syringe) 3 ml IVFLUSH QSHIFT [facility] Last Admin: 02/03/25 01:11 Dose: Not Given Documented By: RUSS Non-Admin Reason: IV Running Labs 02/03/25 05:51 02/03/25 05:51 Labs: Laboratory Results - last 24 hr 02/02/25 02/02/25 02/03/25 15:17 20:56 05:51 MCV 88.4 88.1 MCH 29.3 29.0 MCHC 33.2 33.0 RDW 12.4 12.3 Plt Count 189 175 MPV 9.5 9.5 Immature Gran % (Auto) 0.2 Neut % (Auto) 64.5 Lymph % (Auto) 26.7 [place] % (Auto) 7.5 Eos % (Auto) 0.8 Baso % (Auto) 0.3 Lymph # (Auto) 1.7 [place] # (Auto) 0.5 Eos # (Auto) 0.1 Baso # (Auto) 0.0 Abs Immat Gran (auto) 0.01 Absolute Neuts (auto) 4.0 Absolute Nucleated RBC 0.000 0.000 Nucleated RBC % (auto) 0.0 0.0 Anion Gap 10 L 11 L Estim Creat Clear Calc 119.2 124.4 Estimated GFR > 60 > 60 Random Glucose 127 H 136 H Calcium 9.2 8.4 D Total Bilirubin 0.4 AST 18 ALT 14 Alkaline Phosphatase 49 Total Protein 6.9 Albumin 4.4 Lipase 29 Beta HCG, Quant < 2 Urine Color Yellow Urine Appearance Clear Urine pH 5.5 Ur Specific [place] >= 1.030 H Urine Protein Negative Urine Glucose (UA) Negative Urine Ketones Negative Urine Blood Negative Urine Nitrite Negative Ur Leukocyte Esterase Negative Urine Test NEGATIVE Assessment and Plan (1) Epigastric pain: Status: Acute Plan 49 y/o with PMHx significant for Crohn's disease s/p recent flexible sigmoidoscopy with balloon dilation of anastomotic stricture (01/26) by Dr. Sheldon who presents with: Epigastric pain, ?Pancreatitis on CT scan; small bowel inflammation likely active Crohn's. normal lipase. Rss. NPO/bowel rest. IV fluids. IV steroids. Pain control. Paroxysmal atrial fibrillation. Not taking anticoagulation. Continue metoprolol. Anxiety. Continue home meds. Hyperlipidemia. On statin. Chronic pain. On oxycodone -currently on hold as she going to be receiving IV narcotics for pain control. Code status: Full DVT prophylaxis: Lovenox ongoing need hospitalization for possible pancreatitis treatment and active Crohn's disease treatment with IV steroids, IV pain meds, IV fluids and subspecialty evaluation. Quality Stroke Does the patient have a stroke diagnosis?: No VTE Prior VTE?: No VTE Risk Level:: Medical - moderate - high VTE Device Contraindication: Treatment Not Indicated VTE Drug Contraindication: N/A - Med Ordered
[2025-02-03] MEDS: oxyCODONE HCl Immed Release 5 MG TABLET 10 MG PO (12:53)
--- NOTE | 2025-02-03 16:25 | MHC.CM.PN ---
PT REPORTS SHE LIVES WITH HER DAUGHTER AND GRANDDAUGHTER SHE IS INDEPENDENT WITH CARE AND MOBILITY PCP: TERRY NAJERA HCP ON FILE IMM DELIVERED DCP: HOME VIA FAMILY TRANSPORT
--- NOTE | 2025-02-03 19:50 | PM.EVENT ---
Event Note Date of Service: 02/03/25 Event Note: GI Consult-Full note dictated Imp: Acute abdominal pain of unclear etiology. This seems to have resolved at the present time, for the most part, without any clear evidence of a flare of her Crohn's, bowel obstruction, pancreatitis, or biliary disease. Her abdominal exam is soft,+ BS, and without significant tenderness. Rec: Low residue diet, D/C IV steroids and restart her outpatient Budesonide, add some Miralax for her apparent constipation, and continue her PPI. Discharge on Thursday if stable. D/W patient in detail and she is comfortable with this plan. She will F/U with me in the office. Thanks Time Spent With Patient Time: Total time managing care of this patient today ____ minutes.
[2025-02-03] MEDS: Lactated Ringers 1,000 ML 100 ML IVCONT (19:56)
[2025-02-04 03:26] VITALS: BP 100/56; PULSE 61; RESP 16; TEMP 36.2; O2SAT 93
[2025-02-04] MEDS: Lactated Ringers 1,000 ML 125 ML IVCONT (03:27)
--- NOTE | 2025-02-04 05:06 | CONS_ITS ---
DATE OF SERVICE: 02/03/2025 REASON FOR CONSULTATION: Abdominal pain and history of Crohn's disease. HISTORY OF PRESENT ILLNESS: The patient is a 49-year-old female well known to me with an underlying history of Crohn's disease. She has had a complicated course after being diagnosed with that at age 31. The Crohn's disease involved her ileum and colon with an associated stricture of the terminal ileum and perianal disease. She had previously been cared for at [facility] and underwent an attempted balloon dilation of a terminal ileum stricture which resulted in a perforation with need for emergent surgery in 2014, with a subsequent ileocolic resection and ileocolic anastomosis. She has been tried on numerous biologic agents prior to my meeting her. Most recently, she had undergone a colonoscopy in September 2022 with me, which revealed a short colon with the ileocolic anastomosis at about 30 to 35 cm. There was some inflammation at the anastomosis that did not allow passage of the colonoscope. It did allow passage of the gastroscope. There was some evidence of active ileitis at that time as well. She has been treated with prednisone in the past, but tends to have a difficult time with that due to some underlying psychiatric issues. Most recently, she had developed some constipation with a concern of a possible partial blockage at the anastomosis given the findings, in 2022, of some narrowing at that level. As such, she underwent a limited colonoscopy last week. This revealed the anastomosis to be fairly open, but with some inflammatory changes from Crohn's disease. I did use a balloon up to 18 mm to dilate the anastomosis, although without any major change in the diameter as it was fairly open to begin with. She tolerated that procedure well. She has been maintained on outpatient budesonide 9 mg daily. She had been tried on Pentasa in the past, but had significant diarrhea while on that. After going home after the procedure last week, she seemed to be doing well. However, she was awakened at 4 a.m. yesterday morning with the onset of abdominal pain and nausea, but there was no vomiting. The pain was in the upper abdomen and lower abdomen, although primarily in the epigastric area as she describes it. She did not notice any jaundice, fevers, or any sign of bleeding. She denies any urinary symptoms. Her workup in the ER included a CT scan that did not show any definitive changes, although the radiologist had described possible pancreatitis due to some minimal amount of fluid in that area, although the pancreas itself looked normal and the lipase was normal. There was no sign of any bowel obstruction. She was admitted to the hospital last evening and started on some IV steroids. Over the course of last night and today, she reports that she is feeling much better with less abdominal pain and tolerating a liquid diet. She did have a bowel movement today. There was no significant diarrhea nor bleeding. She has been on omeprazole at home. She does not use any NSAIDs. She has had a previous cholecystectomy. PRESENT MEDICATIONS: Include omeprazole, albuterol inhaler, vitamins, Lovenox, hydromorphone p.r.n., lorazepam, metoprolol, methylprednisolone. PAST MEDICAL HISTORY: Crohn's disease as above. She has been tried on medication including methotrexate, azathioprine, Remicade, Humira, Cimzia, and Entyvio. She has an underlying history of anxiety, atrial fibrillation, and pneumonia. Upper endoscopy in 2023, revealed some mild gastritis and a minimal hiatal hernia. There was no sign of any ulcer disease, H. pylori, nor Crohn's disease in the upper GI tract. PAST SURGICAL HISTORY: Surgeries include the cholecystectomy, ileocolonic resection in 2014 after perforation during attempted balloon dilation, perirectal fistula treated with surgery and left hip bursectomy. FAMILY HISTORY: Father had colon polyps. Mother had colon polyps. There is no family history of colon cancer or inflammatory bowel disease. SOCIAL HISTORY: She is a former smoker. She does not use any significant amounts of alcohol. REVIEW OF SYSTEMS: CONSTITUTIONAL: She has been feeling fatigue and some anorexia. SKIN: No rash, no pruritus. CARDIAC: No chest pain. PULMONARY: No coughing or hemoptysis. GI: As above. URINARY: No dysuria. No hematuria. NEUROLOGIC: No headache or seizures. PHYSICAL EXAMINATION: GENERAL: The patient is a pleasant, alert, comfortable-appearing female. SKIN: Warm and dry. Anicteric sclerae. Moist mucous membranes. NECK: Supple. ABDOMEN: Soft, nondistended, normal bowel sounds. There is some mild diffuse tenderness without mass, rebound, or guarding. LABORATORY DATA: As above. White blood cell count was 3.3, hemoglobin 11.7, platelets 175,000. Normal chemistries and renal function. Normal LFTs. Albumin 4.4. Lipase 29. Urinalysis appeared negative. The CT of her abdomen describes some thickening of the small intestine wall, consistent with her known Crohn disease, but there was no sign of any bowel obstruction. There was some mild fluid adjacent to the pancreas, but the pancreas itself appeared normal. This was felt to be nonspecific according to the radiologist. IMPRESSION: Overall, the patient presently appears comfortable and stable. I do not have an exact etiology of the pain that woke her up from sleep and brought her to the hospital, but this seems to have resolved. She has been troubled by some constipation lately and this could be as a result of that. However, at this point, things definitely seem to be improved and resolving. There does not appear to be any ongoing active Crohn's, nor any sign of a bowel obstruction. As such, I would advance her diet to low residue. I think the IV steroids can be stopped as there is no apparent flare of the Crohn's and I shall start her back on her outpatient regimen of the budesonide. I will continue her PPI. I would add some MiraLAX for her apparent constipation. If she is tolerating her diet and is comfortable, I think she could be discharged by tomorrow. I will plan to follow her up in the office. We did review that she might benefit from a CT scan with enterography for further evaluation of her GI complaints to rule out any significant Crohn's or small bowel stricture more proximally. This has all been discussed in detail with the patient and she is comfortable with this plan. Thank you for the consultation. MD KRISTY Siegel/PJ / [phone] BENOIT
--- NOTE | 2025-02-04 06:00 | PC.NURSE ---
Pt seen on bed alert and oriented, still endorsing epig pain, requesting for pain med, educated on pain management, scheduled meds given, routine vitals BP 100/58, HR 59-61, Neeta Bai held Metoprolol , pt placed on property assessment monitor, SB-SR with some PACs, LR increased to 125ml/hr, enouraged po fluid as ricky.
[2025-02-04 08:00] VITALS: BP 130/71; PULSE 53; RESP 14; TEMP 36.3; O2SAT 94
[2025-02-04] MEDS: oxyCODONE HCl Immed Release 5 MG TABLET 20 MG PO (08:32)
[2025-02-04] MEDS: Budesonide DR 3 MG Capsule 9 MG PO (08:32)
--- NOTE | 2025-02-04 09:39 | MHC.CM.PN ---
pt dcd yuan,me self care
--- NOTE | 2025-02-04 10:48 | PM.DS ---
DS: Providers Provider Date of Service: 02/04/25 Date of admission: 02/02/25 20:38 Date of discharge: 02/04/25 Primary care physician: Balaji Ibanez MD Consults: 02/02/25 21:59 Consult to Gastroenterology Routine Consulting Provider: Stepan Sheldon Reason for consultation: Colitis, ?pancreatitis, recent colo Has provider been notified: No Attending physician on discharge: Azar Nielsen Discharging clinician: Azar Nielsen DS: Diagnosis Discharge Diagnosis (1) Epigastric pain: Status: Acute DS: Summary Hospital Course Hospital Course: HPI:49 years old woman with a past medical history significant for Crohn's disease on budesonide s/p partial colectomy, s/p recent flexible sigmoidoscopy + balloon dilation by Dr. Sheldon atrial fibrillation -not on anticoagulation, chronic pain on oxycodone and anxiety presents to the emergency department complaining of severe epigastric pain that started today at 04:00 associated with nausea. She denied events of vomiting, diarrhea or constipation. She did not report fever. She denied alcohol abuse. In the ED, she was found to have normal vital signs. CBC and differential is normal. There are no significant electrolyte imbalances. CO2 is 26, creatinine 0.67 and BUN 8. LFTs and lipase are normal. test is negative. Abdominal pelvis CT scan with IV contrast showed wall thickening of the small intestine as can be seen with inflammatory bowel disease without small bowel obstruction. There is mild fluid adjacent to the pancreas specific and concerning for mild recurrent pancreatitis. ED tx: Morphine 10 mg IV total, NS 1 L bolus, Zofran 4 mg IV. hospital course: 49 y/o with PMHx significant for Crohn's disease s/p recent flexible sigmoidoscopy with balloon dilation of anastomotic stricture (01/26) by Dr. Sheldon who presents with: Epigastric pain, ?Pancreatitis on CT scan; small bowel inflammation likely active Crohn's. normal lipase:started pn NPO/bowel rest. IV fluids. IV steroids. Pain control:with above management patient seems to be improved significantly, seen by GI and ct abd reviewed :Acute abdominal pain of unclear etiology. This seems to have resolved at the present time, for the most part, without any clear evidence of a flare of her Crohn's, bowel obstruction, pancreatitis, or biliary disease. Her abdominal exam is soft,+ BS, and without significant tenderness. Patient will be going home will continue PPI, budesonide, added MiraLax for constipation, in addition also encouraged to cutdown opioids outpatient with possible. Paroxysmal atrial fibrillation. Not taking anticoagulation. Continue metoprolol. Anxiety. Continue home meds. Hyperlipidemia. On statin. Chronic pain. On oxycodone -encouraged for cutting down outpatient if possible. plan : as above and follow with Gi outpatient. Time Attestation Total time managing care of this patient today: 45 mintues. Discharge Coordination Time (in mins): 45 min Quality: Safe Use of Opioids Does Pt have an Active Cancer Diagnosis on the Problem List?: No Quality: Stroke Does the patient have a stroke diagnosis?: No Physical Exam Exam: Exam: Appearance: Alert.? Oriented X3. cvs: rrr, [id number] , no murmur res: clear to auscultation ,no rhonchii or wheezing abd: no rebound or guarding ,nt , bs present. ext pulses present , no cyanosis . neuro: axo3 , nonfocal. Vital Signs: Vital Signs: Last Vital Signs Temp 97.3 F 02/04/25 08:00 Pulse 53 02/04/25 08:00 Resp 14 02/04/25 08:00 BP 130/71 02/04/25 08:00 Pulse Ox 94 02/04/25 08:00 O2 Del Method Room Air 02/04/25 08:00 BMI result Body Mass Index 32.4 DS: Data Imaging Chest x-ray: Radiologist's impression: ct abd: 1. Wall thickening of the small intestine as can be seen with inflammatory bowel disease. No small bowel obstruction at this time. 2. Mild fluid adjacent to the pancreas nonspecific and concerning for mild recurrent pancreatitis. Discharge Plan Discharge Anticipated Discharge Date/Time: 02/04/25 10:44 Patient Disposition: Home, Self-Care Discharge Diagnosis: possible Crohn flare Referrals: Balaji Ibanez MD [Primary Care Provider, Internal Medicine] - 1 Week Discharge Medications: New polyethylene glycol 3350 [Miralax] 17 gram/dose powder 17 g PO DAILY PRN (Reason: constipation) Qty: 238 0RF Continued sertraline [Zoloft] 100 mg tablet 25 mg PO BEDTIME sertraline 100 mg tablet 200 mg PO BEDTIME cholecalciferol (vitamin D3) [Vitamin D3] 25 mcg (1,000 unit) capsule 25 mcg PO BEDTIME cyclobenzaprine 5 mg tablet 5 mg PO DAILY PRN (Reason: muscle spasm) oxycodone 20 mg tablet 20 mg PO BID cyanocobalamin (vitamin B-12) 500 mcg Tablet 500 mcg PO BEDTIME metoprolol succinate 25 mg tablet extended release 24 hr 25 mg PO BEDTIME rosuvastatin 10 mg tablet 10 mg PO BEDTIME lorazepam 1 mg tablet 1 mg PO BEDTIME budesonide 3 mg capsule,delayed,extend.release 9 mg PO BEDTIME albuterol sulfate 90 mcg/actuation HFA aerosol inhaler 2 puff inhalation Q4H PRN (Reason: Shortness Of Breath) oxycodone 20 mg tablet 10 mg PO DAILY@1300 quetiapine [Seroquel] 25 mg tablet 25 mg PO BEDTIME omeprazole 40 mg capsule,delayed release(DR/EC) 40 mg PO BID@0630,1630 ondansetron 4 mg tablet,disintegrating 4 mg PO Q4H PRN (Reason: Nausea) Discharge Orders: Discharge Order (Routine); Ordered 02/04/25 Ordered By: Azar Nielsen Diet: Advance to usual diet Activity on Discharge: As tolerated Stand Alone Forms: Patient Portal Discharge page Print Language: Malaysian Care Plan Goals: Crohn flare: Given IV steroids-seems to be improved. Patient will be going home with ppi, MiraLax, continue with budesonide. GI may arrange their own appointment outpatient Health Concerns: As above. Plan of Treatment: As above. Assessment: As above. Discharge Date/Time: 02/04/25 12:36
[2025-02-04 11:35] VITALS: BP 100/57; PULSE 62; RESP 16; TEMP 36.1; O2SAT 96
== END 2025-02-04 12:36 | disposition home or self-care (01) | DRG 387 ==
LOC: HO.ED 20:53 → HO.EDOVER 20:59 → HO.S3 02-03 00:07 → HO.IMC 02-03 09:23 → HO.S3 02-03 09:26
PROVIDERS: Physician Assistant; Admitting Provider Internal Medicine; Emergency Provider Emergency Medicine; PCP Family Medicine; Visit Provider Internal Medicine
DX: K50.00 Crohn's disease of small intestine without complications (principal); M54.9 Dorsalgia, unspecified; G89.29 Other chronic pain; I48.0 Paroxysmal atrial fibrillation; F41.9 Anxiety disorder, unspecified; E78.5 Hyperlipidemia, unspecified; Z79.891 Long term (current) use of opiate analgesic; Z79.899 Other long term (current) drug therapy
CPT/HCPCS: 36415; 74177; 80048; 80053; 81003; 81025; 83690; 84702; 85025; 85027; 93005; 99285; J1171; J1650; J2270; J2405; J2919; J7120; Q9967

== ENCOUNTER → 2025-02-02 16:28 | Outpatient (BNV) | payer MEDICARE, MEDICAID, SELFPAY | PROVIDERS: PCP Family Medicine; Visit Provider Radiology Neuroradiology | DX: K63.89 Other specified diseases of intestine (principal) | CPT/HCPCS: 74177 ==

== ENCOUNTER 2025-02-02 20:38 | Outpatient (BNV) | payer MEDICARE, MEDICAID, SELFPAY | END 2025-02-03 12:24 | PROVIDERS: Admitting Provider Internal Medicine; Emergency Provider Emergency Medicine; PCP Family Medicine; Visit Provider Internal Medicine Cardiovascular Disease | DX: R00.1 Bradycardia, unspecified (principal); I49.3 Ventricular premature depolarization | CPT/HCPCS: 93010 ==

== ENCOUNTER → 2025-02-02 20:38 | Outpatient (BNV) | payer MEDICARE, MEDICAID, SELFPAY | PROVIDERS: Admitting Provider Internal Medicine; Emergency Provider Emergency Medicine; PCP Family Medicine; Visit Provider Internal Medicine | DX: R10.13 Epigastric pain (principal) | CPT/HCPCS: 99223; 99232; 99239 ==

== ENCOUNTER 2025-02-07 13:50 | Inpatient (IN) | payer MEDICARE, MEDICAID, SELFPAY ==
--- NOTE | ~2025-02-07 | CT_ITS ---
EXAMINATION: CT CHEST WITHOUT CONTRAST CLINICAL INFORMATION: hypoxia COMPARISON: Chest radiograph on February 07, 2025 TECHNIQUE: Multidetector volumetric CT imaging of the chest was done. Axial MIP volume rendering provided. Sagittal and coronal reformatted images were obtained. This CT examination was performed using dose optimization techniques as appropriate, variously including the following: *Automated exposure control *Adjustment of mA and/or kV according to patient size (this includes techniques or standardized protocols for targeted exams where dose is matched to indication/reason for exam; i.e. extremities or head) *Use of iterative reconstruction technique FINDINGS: MAINTENANCE JOURNEYMAN: Linear/subsegmental atelectasis in bilateral lung bases. LUNGS: Linear/subsegmental atelectasis in bilateral lung bases. Few scattered pulmonary nodules, for example: 0.2 cm along the right minor fissure (4:17/165), 0.2 cm in the left lung apex (4:35/165). MEDIASTINUM: No thyroid nodules. Heart is normal in size. No pericardial effusion. Thoracic aorta is normal in caliber. CORONARY ARTERY CALCIFICATION: Minimal PLEURA: No pleural effusion or pneumothorax. LYMPH NODES: No mediastinal, hilar or axillary lymphadenopathy. UPPER ABDOMEN: Status post cholecystectomy. OSSEOUS STRUCTURES: No acute or suspicious abnormality. CT/CT chest wo IV con IMPRESSION: 1. Linear/subsegmental atelectasis in bilateral lung bases. 2. Scattered to 0.2 cm pulmonary nodules. Based on Fleischner Criteria 2017, new multiple solid pulmonary nodules measuring <6 mm in low risk patients do not require further imaging studies. However, patients with a history of smoking/asbestos/radiation exposure or a 1st degree relative with lung cancer should consider having a follow-up non-contrast CT in 1 year. If unchanged, no further follow-up studies would be indicated. Note that patients with an infectious process, personal history of cancer, and those with advanced age/co-morbidities may require adjustments to these recommendations. Electronically signed by: Nacho Osborne MD 02/10/2025 12:02 PM EDT
--- NOTE | ~2025-02-07 | CT_ITS ---
CLINICAL HISTORY: worsening epigastric pain CT abdomen and pelvis with contrast Comparison: CT/REG/SR - CT ABDOMEN PELVIS W IV CON - 02/02/25 19:12 EDT Findings: Mild atelectasis at the lung bases. There is mild prominence of both renal collecting systems, slightly more prominent on the right. No urolithiasis. Right colectomy. IUD positioned in the lower uterine segment. The right arm is embedded within the myometrium. Unremarkable ovaries. Mild urinary bladder distention. No inflammatory changes. Left L3-L4 pars interarticularis defect is chronic. No acute fractures. IMPRESSION: 1. Mild prominence of both renal collecting systems. New since the prior exam. Consider nonemergent ultrasound follow-up. 2. Low position of the IUD. Similar to prior. This document has been electronically signed by: Nohemi Don MD on 02/07/2025 22:01:16
--- NOTE | ~2025-02-07 | XR_ITS ---
EXAMINATION: XR CHEST CLINICAL INFORMATION: pain COMPARISON: Previous chest x-ray March 2024 TECHNIQUE: 2 views of the chest were obtained. FINDINGS: Mild subsegmental atelectasis at both lung bases. Lungs are otherwise clear. No evidence of pneumonia or pulmonary edema. No pleural effusion or pneumothorax. Cardiac and mediastinal contours are normal. Mild degenerative changes of the thoracic spine. XR/XR chest 2V IMPRESSION: Mild subsegmental atelectasis at the lung bases. Electronically signed by: Minna Sands MD 02/07/2025 02:54 PM EDT
--- NOTE | 2025-02-07 13:52 | ECG_ITS ---
Test Reason : chest pain Blood Pressure : */* mmHG Vent. Rate : 53 BPM Atrial Rate : 53 BPM P-R Int : 148 ms QRS Dur : 84 ms QT Int : 414 ms P-R-T Axes : 19 8 14 degrees QTcB Int : 388 ms Sinus bradycardia Low voltage QRS Cannot rule out Anterior infarct (cited on or before 05-Dec-2020) Abnormal ECG When compared with ECG of 03-Feb-2025 12:24, Premature supraventricular complexes are no longer Present Referred By: Generic ED Physician Electronically Signed By: MARÍA ELENA CRAIG MD
--- NOTE | 2025-02-07 14:34 | ED.GENADULT ---
HPI - General Adult General Chief complaint: Chest Pain Stated complaint: Chest pain Time Seen by Provider: 02/07/25 20:05 Source: patient Mode of arrival: ambulatory Limitations: no limitations History of Present Illness ED Provider: Dr. Nel Carter HPI narrative: Patient comes to the emergency room complaining of palpitations, new lower extremity edema, 10 lb weight gain over last few days since she was discharged from the hospital, shortness of breath with exertion and lying flat. To patient's knowledge, she has not been diagnosed with CHF. Patient states that she does have history of atrial fibrillation and does not take any anticoagulation. Patient also complaining of epigastric pain. Patient was discharged from the hospital 3 days ago, patient was treated for Crohn's exacerbation. Patient states that she was told that she had a bit of inflammation around the pancreas. Related Data Home Medications ?Medication ?Instructions ?Recorded ?Confirmed sertraline 100 mg tablet (Zoloft) 25 mg PO BEDTIME 03/18/22 02/02/25 quetiapine 25 mg tablet (Seroquel) 25 mg PO BEDTIME 10/03/22 02/02/25 albuterol sulfate 90 mcg/actuation 2 puff inhalation Q4H PRN 02/17/23 02/02/25 aerosol inhaler Shortness Of Breath budesonide 3 mg 9 mg PO BEDTIME 02/17/23 02/02/25 capsule,delayed,extended release lorazepam 1 mg tablet 1 mg PO BEDTIME Anxiety 02/17/23 02/02/25 omeprazole 40 mg capsule,delayed 40 mg PO BID@0630,1630 05/06/24 02/02/25 release ondansetron 4 mg disintegrating 4 mg PO Q4H PRN Nausea 05/06/24 02/02/25 tablet oxycodone 20 mg tablet 10 mg PO DAILY@1300 Pain 05/06/24 02/02/25 cholecalciferol (vitamin D3) 25 25 mcg PO BEDTIME 02/02/25 02/02/25 mcg (1,000 unit) capsule (Vitamin D3) cyanocobalamin (vitamin B-12) 500 500 mcg PO BEDTIME 02/02/25 02/02/25 mcg tablet cyclobenzaprine 5 mg tablet 5 mg PO DAILY PRN muscle spasm 02/02/25 02/02/25 metoprolol succinate 25 mg 25 mg PO BEDTIME 02/02/25 02/02/25 tablet,extended release 24 hr oxycodone 20 mg tablet 20 mg PO BID 02/02/25 02/02/25 rosuvastatin 10 mg tablet 10 mg PO BEDTIME 02/02/25 02/02/25 sertraline 100 mg tablet 200 mg PO BEDTIME 02/02/25 02/02/25 Previous Rx's ?Medication ?Instructions ?Recorded polyethylene glycol 3350 17 17 g PO DAILY PRN constipation 02/04/25 gram/dose oral powder (Miralax) #238 grams Allergies Allergy/AdvReac Type Severity Reaction Status Date / Time azithromycin (AZITHROMYCIN) Allergy Intermediate HIVES Verified 02/07/25 14:37 erythromycin base Allergy Intermediate Hives Verified 02/07/25 14:37 Penicillins (PCN) Allergy Intermediate Difficulty Verified 02/07/25 14:37 Breathing Sulfa (Sulfonamide Allergy Intermediate Palpitation Verified 02/07/25 14:37 Antibiotics) s Review of Systems Review of Systems: Constitutional : No Weight loss, No Fever, No Chills, No Night Sweats, No Fatigue, No Malaise ENT/Mouth : No Hearing loss, No Ear Pain, No Nasal Congestion, No Sinus Pain, No Hoarseness, No sore throat, No Rhinorrhea, No Swallowing Difficulty Eyes: No Eye Pain, No Swelling, No Redness, No Foreign Body, No Discharge, No Vision Changes Cardiovascular : Denies chest pain, complaining of dyspnea with exertion, complaining of orthopnea and intermittent palpitations, complaining of temp gain over last week and lower extremity edema Respiratory : No Cough, No Sputum, No Wheezing, No Smoke Exposure, No Dyspnea Gastrointestinal : No Nausea, No Vomiting, No Diarrhea, No Constipation, No abdominal Pain, No Hematochezia, No Melena Genitourinary : no irregular bleeding, No Dysuria, No Urinary Frequency, No Hematuria, No Urinary Incontinence, No Urgency, No Flank Pain, No Urinary Flow Changes, No Hesitancy Musculoskeletal : No joint pain, No Myalgias, No Joint Swelling Skin : No Skin Lesions, No rash Neuro : No Weakness, No Numbness, No Paresthesias, No Loss of Consciousness, No Dizziness, No Headache Psych : No Anxiety/Panic, No Depression, No SI/HI/AH/VH, No Social Issues, Heme/Lymph: No Bruising, No Bleeding,No Lymphadenopathy Endocrine : No Polyuria, No Polydipsia, No Temperature Intolerance [facility] Past Medical History Medical History Tendonitis involving right hip abductors Chronic pain in right foot Disorder of sacrum Trochanteric bursitis of right hip Lumbar radiculopathy Paroxysmal atrial fibrillation Anxiety Crohn disease Surgical History History of esophagogastroduodenoscopy (EGD) History of hip surgery Hx of colonoscopy History of bowel resection Hx of cholecystectomy Family History Family History Father Atrial fibrillation Social History Social History Household Members: Family Housing: House Do you presently have visiting nurse or other home services: No Alcohol intake: never Patient Tobacco Use Status: Former Tobacco user Smoked in Last 30 Days: No Use of substances other than those prescribed or required for medical reasons: No Advance Directives: Yes Advance Directives on File: Yes Advance Directives Date on File: 07/04/20 Do you have a plan to hurt others: No Plan service: No Current occupational status: employed Physical Exam ED Exam Exam: Appearance: Alert. Oriented X3. No acute distress. Eyes: Pupils equal, round and reactive to light. ENT: Pharynx normal. Neck: Normal inspection. Neck supple. No lymph nodes noted. No crepitus CVS: Sinus rhythm, bradycardic, heart rate in the mid 50s, Pulses normal. Normal S1 and S2 Respiratory: No respiratory distress. Breath sounds normal. No Wheezing. No rales Abdomen: Soft , No rigidity. No distention. Skin: Skin warm and dry. Normal skin color. Normal skin turgor. Extremities: +2 pitting edema bilaterally Neuro: Oriented X 3. No motor deficit. No sensory deficit. Moving all extremities. No slurred speech. CN 2 through 12 grossly intact Psych: calm, cooperative, normal affect Vital Signs: Vital Signs - 24 hr 02/07/25 14:35 02/07/25 19:37 02/07/25 20:48 Temperature 97.6 F 97.7 F Pulse Rate 56 49 L Respiratory Rate 18 16 Blood Pressure 153/70 H 145/75 H 145/75 H Pulse Oximetry 98 100 Oxygen Delivery Method Room Air Room Air 02/07/25 22:19 Temperature 97.8 F Pulse Rate 51 Respiratory Rate 13 Blood Pressure 142/73 H Pulse Oximetry 98 Oxygen Delivery Method Room Air BMI result Body Mass Index 32.9 Course Course Course Narrative: RME, this is a rapid medical exam performed by Saurabh Moran please refer to primary provider for complete H&P- 49-year-old female presents for evaluation of chest pain with fluttering. She has a history of atrial fibrillation he is not anticoagulated. Plan for cardiac workup. She was also recently admitted for colitis Medications Administered Discontinued Medications Generic Name Dose Route Start Last Admin Trade Name Freq PRN Reason Stop Dose Admin Furosemide 40 mg 02/07/25 20:19 02/07/25 20:48 Furosemide 40 Mg/4 Ml Vial IVPUSH 02/07/25 20:20 40 mg STAT STA Administration Protocol Iohexol 85 ml 02/07/25 21:00 02/07/25 21:02 Iohexol 350 Mg/Ml 100 Ml Infus..Btl IV 02/07/25 21:01 85 ml ONCE ONE Administration Morphine Sulfate 2 mg 02/07/25 20:19 02/07/25 20:45 Morphine Sulfate 4 Mg/Ml Cartridge IVPUSH 02/07/25 20:20 2 mg ONCE ONE Administration Protocol Medical Decision Making Medical Decision Making [facility] Narrative: My interpretation of EKG: Sinus bradycardia, heart rate 53, no ST segment depression or elevation, nonspecific T-wave inversion in lead 3, QTC 388 My interpretation of labs: Patient's hemoglobin and chemistry did not show any acute abnormality, ALT slightly elevated 69, lipase 27. Patient's troponin is negative, new elevation of pro BNP at 628 Chest x-ray shows subsegmental atelectasis at the lung bases, which is new from previous chest x-rays. This is likely CHF. I discussed the above-mentioned with the patient, patient will be given IV Lasix in patient will be admitted. At this time, no chest pain. Patient is also complaining of abdominal pain. Last time that she was here 3 days ago, patient was diagnosed with pancreatitis. Patient's enzymes were normal, but patient did have epigastric pain along with radiological findings. Today the lipase is normal, CT scan does not show any acute abdominal abnormality. Overall, patient gets short of breath with minimal exertion. Patient has new onset CHF. Patient receiving Lasix. Patient's blood pressure within normal limits, patient is a bit bradycardic, heart rate in the 50s, oxygen saturation 99% on room air. PE is not suspected. I discussed the patient with Dr. Vega, patient being admitted Differential Diagnosis Differential Diagnoses: The differential diagnosis associated with the presentation includes (CHF, viral illness, pancreatitis, Crohn's disease exacerbation) Admission/Observation Consideration of admission/observation: Escalation of care including admission/observation considered Consult Healthcare Provider Management of the patient was discussed with: Hospitalist Lab Data [facility] Lab Attestation statement: I reviewed the patient's lab results. 02/07/25 16:57 02/07/25 16:57 Labs: Lab Results 02/07/25 02/07/25 Range/Units 16:57 22:21 WBC 6.1 (4.8-10.8) X10*3/uL RBC 3.98 L (4.20-5.50) X10*6/uL Hgb 11.8 L (12.0-16.0) g/dl Hct 35.1 L (37.0-47.0) % MCV 88.2 (80.0-98.0) fL MCH 29.6 (27.0-33.0) pg MCHC 33.6 (31.0-35.0) g/dl RDW 12.6 (11.0-16.0) % Plt Count 186 (160-400) X10*3/uL MPV 9.6 (9.4-12.3) fL Immature Gran % (Auto) 0.5 H (0.0-0.4) % Neut % (Auto) 60.7 (45-73) % Lymph % (Auto) 30.1 (20-40) % Overton % (Auto) 7.4 (2-11) % Eos % (Auto) 0.8 (0-4) % Baso % (Auto) 0.5 (0-2) % Lymph # (Auto) 1.8 (1.2-4.9) X10*3/uL Overton # (Auto) 0.5 (0.1-1.2) X10*3/uL Eos # (Auto) 0.1 (0.0-0.4) X10*3/uL Baso # (Auto) 0.0 (0.0-0.2) X10*3/uL Abs Immat Gran (auto) 0.03 (0.00-0.03) X10*3/uL Absolute Neuts (auto) 3.7 (2.0-8.3) x10*3/uL Absolute Nucleated RBC 0.000 (0.0-0.012) X10*3/uL Nucleated RBC % (auto) 0.0 (0.0-0.2) /100WBC Sodium 140 (135-145) mmol/L Potassium 3.8 (3.3-5.1) mmol/L Chloride 111 H (96-108) mmol/L Carbon Dioxide 25 (22-29) mmol/L Anion Gap 8 L (12-20) BUN 4 L (9-16) mg/dL Creatinine 0.69 (0.5-1.4) mg/dL Estim Creat Clear Calc 118.2 Estimated GFR > 60 Random Glucose 100 (60-115) mg/dL Calcium 8.6 (8.4-10.2) mg/dL Magnesium 2.0 (1.6-2.6) mg/dL Total Bilirubin 0.5 (0.0-1.0) mg/dL AST 21 (5-31) U/L ALT 69 H (0-31) U/L Alkaline Phosphatase 67 (39-117) U/L Troponin I High Sens < 2.7 (<3.5-17.0) ng/L NT-Pro-B Natriuret Pep 627.9 H (<300) pg/mL Total Protein 6.7 (6.5-8.0) g/dL Albumin 4.3 (3.5-5.0) g/dL Lipase 27 (8-78) U/L TSH 2.18 (0.32-4.0) uIU/mL Beta HCG, Quant < 2 mIU/mL Urine Color Yellow Urine Appearance Clear Urine pH 7.5 (5.0-9.0) Ur Specific Bradley 1.010 (1.005-1.025) Urine Protein Negative (Neg-Trace) mg/dL Urine Glucose (UA) Negative (Negative) mg/dL Urine Ketones Negative (Negative) mg/dL Urine Blood Negative (Negative) Urine Nitrite Negative (Negative) Ur Leukocyte Esterase Negative (Negative) Urine RBC 0-2 (0-2) /HPF Urine WBC 0-5 (0-5) /HPF Ur Squamous Epith Cells 0-2 (0-2) /HPF Urine Bacteria None Seen (None Seen) Hyaline Casts 0-2 (0-2) /LPF Independent Interpretation I performed an independent interpretation of an: EKG and Plain X-Ray Radiology Impression Discussion of test interpretation with radiology: I have reviewed the radiologist's reading. Radiologist Impression: Mild subsegmental atelectasis at both lung bases. Lungs are otherwise clear. No evidence of pneumonia or pulmonary edema. No pleural effusion or pneumothorax. Cardiac and mediastinal contours are normal. Mild degenerative changes of the thoracic spine. Critical Care Time Critical Care Time Critical Care Time: Yes Total Critical Care Time: 60 Attestation: I have personally provided critical care time. Time includes review of lab data, radiology results, discussion with consultants, and monitoring for potential decompensation. Intervention performed as documented. Discharge Plan Discharge Clinical Impression: New onset of congestive heart failure, Acute pancreatitis Patient Disposition: Admitted As Inpatient Print Language: Yemeni
[2025-02-07 14:35] VITALS: BP 153/70; PULSE 56; RESP 18; TEMP 36.4; O2SAT 98; BMI 32.9
--- NOTE | 2025-02-07 17:03 | MHC.EDTECH ---
attempted to collect a urine sample pt stated she doesnt have to go
[2025-02-07 17:07] LABS: MANUAL DIFF FLAG NO
[2025-02-07 17:09] LABS: Hematocrit 35.1 % (37.0-47.0); Hemoglobin 11.8 g/dl (12.0-16.0); Imm Gran Abs Auto 0.03 X10*3/uL (0.00-0.03); Imm Gran Pct Auto 0.5 % (0.0-0.4); Lymphocytes Absolute Auto 1.8 X10*3/uL (1.2-4.9); Mean Corpuscular HGB Conc 33.6 g/dl (31.0-35.0); Mean Corpuscular Hemoglobin 29.6 pg (27.0-33.0); Mean Corpuscular Volume 88.2 fL (80.0-98.0); NRBC Abs Auto 0.000 X10*3/uL (0.0-0.012); NRBC Pct Auto 0.0 /100WBC (0.0-0.2); Platelet Count 186 X10*3/uL (160-400); Red Blood Count 3.98 X10*6/uL (4.20-5.50); White Blood Count 6.1 X10*3/uL (4.8-10.8)
[2025-02-07 17:31] LABS: Alanine Aminotransferase 69 U/L (0-31); Albumin Level 4.3 g/dL (3.5-5.0); Alkaline Phosphatase 67 U/L (39-117); Anion Gap 8 (12-20); Aspartate Amino Transferase 21 U/L (5-31); Blood Urea Nitrogen 4 mg/dL (9-16); Calcium 8.6 mg/dL (8.4-10.2); Carbon Dioxide 25 mmol/L (22-29); Chloride 111 mmol/L (96-108); Creatinine Clr Calc Pharmacy 118.2; Estimated Glomerular Filt Rate > 60; Lipase 27 U/L (8-78); Magnesium 2.0 mg/dL (1.6-2.6); Potassium 3.8 mmol/L (3.3-5.1); Sodium 140 mmol/L (135-145); Total Protein 6.7 g/dL (6.5-8.0); Troponin-I High Sensitivity < 2.7 ng/L (<3.5-17.0)
[2025-02-07 17:32] LABS: NT Pro B Type Natriuretic Pept 627.9 pg/mL (<300)
[2025-02-07 19:37] VITALS: BP 145/75; PULSE 49; RESP 16; TEMP 36.5; O2SAT 100
[2025-02-07 20:48] VITALS: BP 145/75
[2025-02-07] MEDS: Furosemide 40 MG/4 ML VIAL IVPUSH (20:48)
[2025-02-07] MEDS: iohexoL 350 MG/ML 100 ML INFUS..BTL 85 ML IV (21:02)
--- OUTSIDE RECORDS SUMMARY | 2025-02-07 21:47 | XMS_ITS | Encounter Summary ---
Author Organization [facility] Address [address] [place] [address] Phone Care Team Providers Care Senior Gamemaster Name Role Phone Elba Olguin FUEL CELL ENGINEER Unavailable [phone] Balaji Ibanez MD Unavailable Kim Nunes FUEL CELL ENGINEER Unavailable Brunilda Castro FUEL CELL ENGINEER Unavailable Isiah Abad MD Unavailable Kimberli Page MD Unavailable Italo Ruano MD Unavailable Brock Webber MD Unavailable [phone] Balaji Ibanez MD Primary Care Provider [phone] Balaji Ibanez MD Primary Care Provider [phone] Reason for Referral * MRI/CAT Scan - Closed Specialty Diagnoses / Procedures Referred By Contac t Referred To Contact Procedures MRI Spine (Bone) Outside (No Interpretation) System, Provider Not In, [place] [address] Referral ID Status Reason Start Date Expiration Date Visits Re quested Visits Authorized [id number] Closed 06/24/2018 06/24/2019 1 1 Encounter Details Date Type Department Care Team (Late st Contact Info) Description 06/24/2018 Ancillary Orders [facility],Outside Imaging [address] [place] [address] System, Provider Not In, PhD [facility] [address] [address] Social History Tobacco Use Types Packs/Day Years [...] documented as of this encounter Care Teams Senior Gamemaster Relationship Specialty Start Date End Date Balaji Ibanez MD [address] [place] [address] [email or web address] PCP - General Family Medicine 02/25/17 09/23/23 Balaji Ibanez MD [address] [place] [address] [email or web address] PCP - General Family Medicine 09/24/23 Elba Olguin NP [address] [address] Historical LMR Provider 02/07/17 2 Balaji Ibanez MD [address] [address] [email or web address] Historical LMR Provider 02/07/17 Kim Nunes NP [address] [place] [address] Historical LMR Provider 02/07/17 2 Brunilda Castro NP [address] [place] [phone] Historical LMR Provider 02/07/17 2 Isiah Abad MD [address] [facility] [place], [address]nd [place] [address] Historical LMR Provider 02/07/17 Kimberli Page MD [address] [address] Historical LMR Provider 02/07/17 Italo Ruano MD [address] [place] [phone] Historical LMR Provider 02/07/17 2 Brock Webber MD [address] [place] [address] Historical LMR Provider 02/07/17 2 documented as of this encounter Additional Source Comments The information contained in this document represents components of the legal health record. It is not the complete legal health record.[facility]
--- OUTSIDE RECORDS SUMMARY | 2025-02-07 21:47 | XMS_ITS | Encounter Summary ---
Author Organization [facility] Address [address] [facility] [address] [place] [address] Phone Care Team Providers Care Expert Medical Writer Name Role Phone Balaji Ibanez MD Unavailable [phone] Isiah Abad MD Unavailable [phone] Kimberli Page MD Unavailable Balaji Ibanez MD Primary Care Provider [phone] Encounter Details Date Type Department Care Team (Late st Contact Info) Description 06/28/2024 Procedure Pass [facility], [address] [address] Social History Tobacco Use Types Packs/Day Years [...] on filedocumented in this encounter Care Teams Expert Medical Writer Relationship Specialty Start Date End Date Balaji Ibanez MD [address] [place] [address] [email or web address] PCP - General Family Medicine 09/24/23 Balaji Ibanez MD Historical LMR Provider 02/07/17 Isiah Abad MD [address] [place] [address], [facility] [place] [address] Historical LMR Provider 02/07/17 Kimberli Page MD [address] [place] [address], [address] [address] Historical LMR Provider 02/07/17 documented as of this encounter Additional Source Comments The information contained in this document represents components of the legal health record. It is not the complete legal health record.[facility]
--- OUTSIDE RECORDS SUMMARY | 2025-02-07 21:47 | XMS_ITS | Encounter Summary ---
Author Organization [facility] Address [address] [place] [address] [place] [address] Phone Care Team Providers Care Colored Liquid Plastic Applier Name Role Phone Balaji Ibanez MD Unavailable [phone] Isiah Abad MD Unavailable [phone] Kimberli Page MD Unavailable Balaji Ibanez MD Primary Care Provider [phone] Balaji Ibanez MD Primary Care Provider [phone] Encounter Details Date Type Department Care Team (Late st Contact Info) Description 08/12/2021 Prep for Surgery [facility] & [facility] Medicine [address] [place] [address] Jaxon Castano PA-C [address] [place] [address] Orthopedics & Sports Medicine, [facility] [place] [address] [email or web address] Social History Tobacco Use Types Packs/Day Years [...] documented as of this encounter Care Teams Colored Liquid Plastic Applier Relationship Specialty Start Date End Date Balaji Ibanez MD [email or web address] PCP - General Family Medicine 02/25/17 09/23/23 Balaji Ibanez MD [address] [place] [address] [email or web address] PCP - General Family Medicine 09/24/23 Balaji Ibanez MD [email or web address] Historical LMR Provider 02/07/17 Isiah Abad MD [address] [facility], [address] [place] [address] [email or web address] Historical LMR Provider 02/07/17 Kimberli Page MD 22 [facility], [address] [place] [address] Historical LMR Provider 02/07/17 documented as of this encounter Additional Source Comments The information contained in this document represents components of the legal health record. It is not the complete legal health record.[facility]
--- OUTSIDE RECORDS SUMMARY | 2025-02-07 21:47 | XMS_ITS | Encounter Summary ---
Author Organization [facility] Address [address] [place] [address] [place] [address] Phone Care Team Providers Care Trimmer Buffing Wheel Name Role Phone Elba Olguin PEANUT PICKER Unavailable [phone] Balaji Ibanez MD Unavailable [phone] Kim Nunes PEANUT PICKER Unavailable Brunilda Castro PEANUT PICKER Unavailable Isiah Abad MD Unavailable [phone] Kimberli Page MD Unavailable Italo Ruano MD Unavailable Brock Webber MD Unavailable [phone] Balaji Ibanez MD Primary Care Provider [phone] Balaji Ibanez MD Unavailable [phone] Balaji Ibanez MD Primary Care Provider [phone] Encounter Details Date Type Department Care Team (Late st Contact Info) Description 02/24/2017 Procedure Pass [facility], [address] [address] Social History Tobacco Use Types Packs/Day Years [...] documented as of this encounter Care Teams Trimmer Buffing Wheel Relationship Specialty Start Date End Date Balaji Ibanez MD [address] [place] [address] [email or web address] PCP - General Family Medicine 02/25/17 09/23/23 Balaji Ibanez MD [address] [place] [address] [email or web address] PCP - General Family Medicine 09/24/23 Elba Olguin NP [address] [place] [address] Historical LMR Provider 02/07/17 2 Baalji Ibanez MD [address] [place] [address] [email or web address] Historical LMR Provider 02/07/17 Kim Nunes NP [address] [place] [address] Historical LMR Provider 02/07/17 2 Brunilda Castro NP [address] [place] [address] Historical LMR Provider 02/07/17 2 Isiah Abad MD 22 [facility], 2nd [place] [address] Historical LMR Provider 02/07/17 Kimberli Page MD [address] [address] Historical LMR Provider 02/07/17 Italo Ruano MD [address] [place] [phone] Historical LMR Provider 02/07/17 2 Brock Webber MD [address] [place] [address] Historical LMR Provider 02/07/17 2 Balaji Ibanez MD [address] [place] [address] Insurance Assigned Provider 07/18/17 05/22/18 documented as of this encounter Additional Source Comments The information contained in this document represents components of the legal health record. It is not the complete legal health record.[facility]
--- OUTSIDE RECORDS SUMMARY | 2025-02-07 21:47 | XMS_ITS | Encounter Summary ---
Author Organization [facility] Address [address] [facility] [address] [place] [address] Phone Care Team Providers Care Loan Inspector Name Role Phone Elba Olguin INPUT OUTPUT CLERK Unavailable Balaji Ibanez MD Unavailable [phone] Kim Nunes INPUT OUTPUT CLERK Unavailable Brunilda Castro INPUT OUTPUT CLERK Unavailable Isiah Abad MD Unavailable Kimberli Page MD Unavailable Italo Ruano MD Unavailable Brock Webber MD Unavailable [phone] Balaji Ibanez MD Primary Care Provider [phone] Balaji Ibanez MD Primary Care Provider [phone] Encounter Details Date Type Department Care Team (Late st Contact Info) Description 01/11/2021 Procedure Pass [facility], [address] [phone] Social History Tobacco Use Types Packs/Day Years [...] documented as of this encounter Care Teams Loan Inspector Relationship Specialty Start Date End Date Balaji Ibanez MD [address] [place] [address] [email or web address] PCP - General Family Medicine 02/25/17 09/23/23 Balaji Ibanez MD [address] [place] [address] [email or web address] PCP - General Family Medicine 09/24/23 Elba Olguin NP [address] [place] [address] Historical LMR Provider 02/07/17 2 Balaji Ibanez MD [address] [place] [address] [email or web address] Historical LMR Provider 02/07/17 Kim Nunes NP [address] [place] [address] Historical LMR Provider 02/07/17 2 Brunilda Castro NP [address] [place] [address] Historical LMR Provider 02/07/172 2 Isiah Abad MD 22 [facility], 2nd [place] [address] Historical LMR Provider 02/07/17 Kimberli Page MD 22 [facility] [address] [place] [address] Historical LMR Provider 02/07/17 Italo Ruano MD [address] [place] [phone] Historical LMR Provider 02/07/172 2 Brock Webber MD [address] [place] [address] Historical LMR Provider 02/07/172 2 documented as of this encounter Additional Source Comments The information contained in this document represents components of the legal health record. It is not the complete legal health record.[facility]
--- OUTSIDE RECORDS SUMMARY | 2025-02-07 21:47 | XMS_ITS | Encounter Summary ---
Author Organization [facility] Address [address] [facility] [address] [place] [address] Phone Care Team Providers Care Canvas Cutter Machine Name Role Phone Balaji Ibanez MD Unavailable [phone] Isiah Abad MD Unavailable [phone] Kimberli Page MD Unavailable Balaji Ibanez MD Primary Care Provider [phone] Balaji Ibanez MD Primary Care Provider [phone] Reason for Referral * MRI/CAT Scan - Closed Specialty Diagnoses / Procedures Referred By Contana t Referred To Contact Radiology Diagnoses Radiculopathy, lumbosacral region Procedures MRI Lumbar Spine Balaji Ibanez MD [address] [place] [address] Phone: tel: fax: [email or web address] Referral ID Status Reason Start Date Expiration Date Visits Re quested Visits Authorized [id number] Closed 07/15/2023 07/14/2024 1 1 Encounter Details Date Type Department Care Team (Late st Contact Info) Description 07/15/2023 Transcribe Orders [facility] Department [address] [place], [place] [phone] Balaji Ibanez MD [address] [place] [address] [email or web address] Radiculopathy, lumbosacral region (Primary Dx) Social History [...] Central canal stenosis is minimal. Procedure Note Jontaan Katz MD - 08/18/2023 MRI LUMBAR SPINE [...] with annular fissure, which is new compared [id number]. Bilateral facet arthropathy. Mild spinal and bilateral foraminalstenosis. L5-S1: Posterior disc bulge with annular fissure and superimposedforaminal protrusions. Findings are progressed since 2021. Mild bilateralfacet arthropathy. Moderate left and mild right foraminal stenosis.Central canal stenosis is minimal. IMPRESSION: Multilevel degenerative disc disease, most notable at L4-L5 and L5-S1, asdescribed. Degenerative disc disease at both levels is progressed [id number]. Moderate right foraminal stenosis at L5-S1. Balaji Ibanez MD IMG MR XSPECIALTY Final Res ult documented in this encounter Visit Diagnoses Diagnosis Radiculopathy, lumbosacral region- Primary Thoracic or lumbosacral neuritis or radiculitis, unspecified Radiculopathy, lumbosacral region Thoracic or lumbosacral neuritis or radiculitis, unspecified documented in this encounter Care Teams Canvas Cutter Machine Relationship Specialty Start Date End Date Balaji Ibanez MD [email or web address] PCP - General Family Medicine 02/25/17 09/23/23 Balaji Ibanez MD [address] [place] [address] PCP - General Family Medicine 09/24/23 Balaji Ibanez MD [email or web address] Historical LMR Provider 02/07/17 Isiah Abad MD [address] [place] [address], [address] [place] [address] Historical LMR Provider 02/07/17 Kimberli Page MD [address] [place] [address], [facility] [address] [place] [address] [email or web address] Historical LMR Provider 02/07/17 documented as of this encounter Additional Source Comments The information contained in this document represents components of the legal health record. It is not the complete legal health record.[facility]
--- OUTSIDE RECORDS SUMMARY | 2025-02-07 21:47 | XMS_ITS | Encounter Summary ---
Author Organization [facility] Address [address] [facility] [address] [place] [address] Phone Care Team Providers Care Trial Examiner Name Role Phone Elba Olguin ANIMAL DAMAGE CONTROL AGENT Unavailable [phone] Balaji Ibanez MD Unavailable Kim Nunes ANIMAL DAMAGE CONTROL AGENT Unavailable Brunilda Castro ANIMAL DAMAGE CONTROL AGENT Unavailable Isiah Abad MD Unavailable Kimberli Page MD Unavailable Italo Ruano MD Unavailable [phone] Brock Webber MD Unavailable [phone] Balaji Ibanez MD Primary Care Provider [phone] Balaji Ibanez MD Primary Care Provider [phone] Encounter Details Date Type Department Care Team (Late st Contact Info) Description 02/13/2020 Procedure Pass [address] [place] [address] Social History Tobacco Use Types Packs/Day Years [...] documented as of this encounter Care Teams Trial Examiner Relationship Specialty Start Date End Date Balaji Ibanez MD [address] [address] [email or web address] PCP - General Family Medicine 02/25/17 09/23/23 Balaji Ibanez MD [address] [place] [address] [email or web address] PCP - General Family Medicine 09/24/23 Elba Olguin NP [address] [address] Historical LMR Provider 02/07/17 2 Balaji Ibanez MD [address] [address] [email or web address] Historical LMR Provider 02/07/17 Kim Nunes NP 30 [place] [address] Historical LMR Provider 02/07/172 2 Brunilda Castro NP [address] [place] [address] Historical LMR Provider 02/07/172 2 Isiah Abad MD 22 [facility], 2nd [place] [address] Historical LMR Provider 02/07/17 Kimberli Page MD [address] [address] Historical LMR Provider 02/07/17 Italo Ruano MD [address] [place] [phone] Historical LMR Provider 02/07/17 2 Brock Webber MD [address] [place] [address] Historical LMR Provider 02/07/17 2 documented as of this encounter Additional Source Comments The information contained in this document represents components of the legal health record. It is not the complete legal health record.[facility]
--- OUTSIDE RECORDS SUMMARY | 2025-02-07 21:47 | XMS_ITS | Encounter Summary ---
Author Organization [facility] Address [address] [facility] [address] [place] [address] Phone Care Team Providers Care Candy Forming Machine Operator Name Role Phone Elba Olguin BLAST HOLE DRILLER Unavailable Balaji Ibanez MD Unavailable [phone] Kim Nunes BLAST HOLE DRILLER Unavailable Brunilda Castro BLAST HOLE DRILLER Unavailable Isiah Abad MD Unavailable [phone] Kimberli Page MD Unavailable Italo Ruano MD Unavailable Brock Webber MD Unavailable [phone] Balaji Ibanez MD Primary Care Provider [phone] Balaji Ibanez MD Unavailable [phone] Balaji Ibanez MD Primary Care Provider [phone] Encounter Details Date Type Department Care Team (Late st Contact Info) Description 08/24/2017 Ancillary Orders [facility] Spine Medicine [place] [address] [place] [address] Isiah Abad MD 22 [facility], 2nd [place] [address] [email or web address] Sacroiliitis, not elsewhere classified Social History Tobacco [...] documented as of this encounter Care Teams Candy Forming Machine Operator Relationship Specialty Start Date End Date Balaji Ibanez MD [address] [place] [address] [email or web address] PCP - General Family Medicine 02/25/17 09/23/23 Balaji Ibanez MD [address] [place] [address] [email or web address] PCP - General Family Medicine 09/24/23 Elba Olguin NP [address] [place] [address] Historical LMR Provider 02/07/17 2 Balaji Ibanez MD [address] [place] [address] [address] [place] [address] [email or web address] Historical LMR Provider 02/07/17 Kim Nunes NP 30 [place] [address] Historical LMR Provider 02/07/17 2 Brunilda Castro NP [address] [place] [phone] Historical LMR Provider 02/07/17 2 Isiah Abad MD 22 [facility], 2nd [place] [address] Historical LMR Provider 02/07/17 Kimberli Page MD 22 [facility] 102 [place] [address] Historical LMR Provider 02/07/17 Italo Ruano MD [address] [place] [phone] Historical LMR Provider 02/07/17 2 Brock Webber MD 61 [place] [address] Historical LMR Provider 02/07/17 2 Balaji Ibanez MD [address] [place] [address] [email or web address] Insurance Assigned Provider 07/18/17 05/22/18 documented as of this encounter Additional Source Comments The information contained in this document represents components of the legal health record. It is not the complete legal health record.[facility]
--- OUTSIDE RECORDS SUMMARY | 2025-02-07 21:47 | XMS_ITS | Encounter Summary ---
Author Organization [facility] Address [address] [place] [address] [place] [address] Phone Care Team Providers Care Pick Up Worker Name Role Phone Balaji Ibanez MD Unavailable [phone] Isiah Abad MD Unavailable [phone] Kimberli Page MD Unavailable Balaji Ibanez MD Primary Care Provider [phone] Balaji Ibanez MD Primary Care Provider [phone] Encounter Details Date Type Department Care Team (Late st Contact Info) Description 08/15/2021 Procedure Pass OR Admitting Dept - [facility] Department [address] [place] [address] Social History Tobacco Use Types Packs/Day Years [...] documented as of this encounter Care Teams Pick Up Worker Relationship Specialty Start Date End Date Balaji Ibanez MD [email or web address] PCP - General Family Medicine 02/25/17 09/23/23 Balaji Ibanez MD [address] [place] [address] [email or web address] PCP - General Family Medicine 09/24/23 Balaji Ibanez MD [email or web address] Historical LMR Provider 02/07/17 Isiah Abad MD [address] [place] [address], [address] [place] [address] [email or web address] Historical LMR Provider 02/07/17 Kimberli Page MD [address] [place] [address], [address] [address] [email or web address] Historical LMR Provider 02/07/17 documented as of this encounter Additional Source Comments The information contained in this document represents components of the legal health record. It is not the complete legal health record.[facility]
--- OUTSIDE RECORDS SUMMARY | 2025-02-07 21:47 | XMS_ITS | Encounter Summary ---
Author Organization [facility] Address [address] [place] [address] [place] [address] Phone Care Team Providers Care Group Director Name Role Phone Elba Olguin FISH ROE TECHNICIAN Unavailable Balaji Ibanez MD Unavailable [phone] Kim Nunes FISH ROE TECHNICIAN Unavailable Brunilda Castro FISH ROE TECHNICIAN Unavailable Isiah Abad MD Unavailable Kimberli Page MD Unavailable Italo Ruano MD Unavailable Brock Webber MD Unavailable [phone] Balaji Ibanez MD Primary Care Provider [phone] Balaji Ibanez MD Primary Care Provider [phone] Encounter Details Date Type Department Care Team (Late st Contact Info) Description 06/24/2018 Procedure Pass [facility] 30 [place] [address] Social History Tobacco Use Types [...] documented as of this encounter Care Teams Group Director Relationship Specialty Start Date End Date Balaji Ibanez MD [address] [place] [address] [email or web address] PCP - General Family Medicine 02/25/17 09/23/23 Balaji Ibanez MD [address] [place] [address] [email or web address] PCP - General Family Medicine 09/24/23 Elba Olguin NP [address] [place] [address] Historical LMR Provider 02/07/17 2 Balaji Ibanez MD [address] [place] [address] [email or web address] Historical LMR Provider 02/07/17 Kim Nunes NP [address] [place] [address] Historical LMR Provider 02/07/17 2 Brunilda Castro FISH ROE TECHNICIAN [address] [facility] [place] [address] Historical LMR Provider 02/07/17 2 Isiah Abad MD [address] [facility], 2nd [place] [address] Historical LMR Provider 02/07/17 Kimberli Page MD 22 [facility] 102 [place] [address] Historical LMR Provider 02/07/17 Italo Ruano MD [address] [place] [address] Historical LMR Provider 02/07/172 2 Brock Webber MD [address] [place] [address] Historical LMR Provider 02/07/172 2 documented as of this encounter Additional Source Comments The information contained in this document represents components of the legal health record. It is not the complete legal health record.[facility]
--- OUTSIDE RECORDS SUMMARY | 2025-02-07 21:47 | XMS_ITS | Encounter Summary ---
Author Organization [facility] Address [address] [facility] [address] [place] [address] Phone Care Team Providers Care Process Controller Name Role Phone Terry Najera MD Unavailable [phone] Isiah Abad MD Unavailable [phone] Kimberli Page MD Unavailable Terry Najera MD Primary Care Provider [phone] Terry Najera MD Primary Care Provider [phone] Encounter Details Date Type Department Care Team (Late st Contact Info) Description 01/21/2023 Transcribe Orders Virtual Department [address] [place] [address] Terry Najera MD [address] [place] [address] [phone] [email or web address] bibliographic services specialist (current) use of systemic steroids (Primary Dx) [...] Steroid Treatment (3 Months or Longer) Scanner: [employer] A with serial# of [id number] located at [facility] Bone Density Scan (DXA) 05/16/24 Details [...] -2.5), or Osteoporosis (T-score <= -2.5). At [facility], T-scores are compared to peak bone [...] Steroid Treatment (3 Months or Longer) Scanner: [employer] A with serial# of [id number] located at [facility] Bone Density Scan (DXA) 05/16/24 Details of [...] -2.5), or Osteoporosis (T-score <= -2.5). At [facility], T-scores are compared to peak bone [...] documented in this encounter Visit Diagnoses Diagnosis [facility] (current) use of systemic steroids- Primary bibliographic services specialist (current) use of systemic steroids documented in this encounter Care Teams Process Controller Relationship Specialty Start Date End Date Terry Najera MD PCP - General Family Medicine 02/25/17 09/23/23 Terry Najera MD [address] [place] [address] PCP - General Family Medicine 09/24/23 Terry Najera MD Historical LMR Provider 02/07/17 Isiah Abad MD [address] [place] [address], [facility] [place] [address] Historical LMR Provider 02/07/17 Kimberli Page MD [address] [place] [address], [address] [place] [address] Historical LMR Provider 02/07/17 documented as of this encounter Additional Source Comments The information contained in this document represents components of the legal health record. It is not the complete legal health record.[facility]
--- OUTSIDE RECORDS SUMMARY | 2025-02-07 21:47 | XMS_ITS | Encounter Summary ---
Author Organization [facility] Address [address] [facility] [address] [place] [address] Phone Care Team Providers Care Director Speech Name Role Phone Elba Olguin RENTAL REPRESENTATIVE Unavailable [phone] Balaji Ibanez MD Unavailable [phone] Kim Nunes RENTAL REPRESENTATIVE Unavailable Brunilda Castro RENTAL REPRESENTATIVE Unavailable Isiah Abad MD Unavailable [phone] Kimberli Page MD Unavailable Italo Ruano MD Unavailable Brock Webber MD Unavailable [phone] Balaji Ibanez MD Primary Care Provider [phone] Balaji Ibanez MD Unavailable [phone] Balaji Ibanez MD Primary Care Provider [phone] Encounter Details Date Type Department Care Team (Late st Contact Info) Description 02/24/2017 Ancillary Orders Virtual Department 30 [place] [address] Balaji Ibanez MD [address] [place], [place] [phone] Pain of right hip joint Social History [...] documented as of this encounter Care Teams Director Speech Relationship Specialty Start Date End Date Balaji Ibanez MD [address] [place] [address] [email or web address] PCP - General Family Medicine 02/25/17 09/23/23 Balaji Ibanez MD [address] [place] [address] PCP - General Family Medicine 09/24/23 Elba Olguin NP 100 [facility] 340 [place] [address] Historical LMR Provider 02/07/17 2 Balaji Ibanez MD [address] [address] [email or web address] Historical LMR Provider 02/07/17 Kim Nunes RENTAL REPRESENTATIVE 30 [place] [address] Historical LMR Provider 02/07/17 2 Brunilda Castro RENTAL REPRESENTATIVE [address] [place] [phone] Historical LMR Provider 02/07/17 2 Isiah Abad MD 22 [facility], 2nd [place] [address] Historical LMR Provider 02/07/17 Kimberli Page MD 22 [facility] 102 [place] [address] Historical LMR Provider 02/07/17 Italo Ruano MD [address] [place] [phone] Historical LMR Provider 02/07/17 2 Brock Webber MD 61 [place] [address] Historical LMR Provider 02/07/17 2 Balaji Ibanez MD [address] [place] [address] [email or web address] Insurance Assigned Provider 07/18/17 05/22/18 documented as of this encounter Additional Source Comments The information contained in this document represents components of the legal health record. It is not the complete legal health record.[facility]
--- OUTSIDE RECORDS SUMMARY | 2025-02-07 21:47 | XMS_ITS | Encounter Summary ---
Author Organization [facility] Address [address] [facility] [address] [place] [address] Phone Care Team Providers Care Door Assembler Name Role Phone Balaji Ibanez MD Unavailable [phone] Isiah Abad MD Unavailable [phone] Kimberli Page MD Unavailable Balaji Ibanez MD Primary Care Provider [phone] Balaji Ibanez MD Primary Care Provider [phone] Encounter Details Date Type Department Care Team (Late st Contact Info) Description 07/15/2023 Procedure Pass [facility], [address] [address] Social History Tobacco Use Types Packs/Day Years [...] on filedocumented in this encounter Care Teams Door Assembler Relationship Specialty Start Date End Date Balaji Ibanez MD PCP - General Family Medicine 02/25/17 09/23/23 Balaji Ibanez MD [address] [place] [address] PCP - General Family Medicine 09/24/23 Balaji Ibanez MD Historical LMR Provider 02/07/17 Isiah Abad MD [address] [place] [address], [address] [place] [address] Historical LMR Provider 02/07/17 Kimberli Page MD [address] [place] [address], [address] [address] Historical LMR Provider 02/07/17 documented as of this encounter Additional Source Comments The information contained in this document represents components of the legal health record. It is not the complete legal health record.[facility]
--- OUTSIDE RECORDS SUMMARY | 2025-02-07 21:47 | XMS_ITS | Encounter Summary ---
Author Organization [facility] Address [address] [place] [address] [place] [address] Phone Care Team Providers Care Professor Computer Science Name Role Phone Balaji Ibanez MD Unavailable [phone] Isiah Abad MD Unavailable [phone] Kimberli Page MD Unavailable Balaji Ibanez MD Primary Care Provider [phone] Balaji Ibanez MD Primary Care Provider [phone] Encounter Details Date Type Department Care Team (Late st Contact Info) Description 01/03/2022 Procedure Pass [facility], [address] [address] Social History Tobacco Use Types Packs/Day Years [...] documented as of this encounter Care Teams Professor Computer Science Relationship Specialty Start Date End Date Balaji Ibanez MD [email or web address] PCP - General Family Medicine 02/25/17 09/23/23 Balaji Ibanez MD [address] [place] [address] [email or web address] PCP - General Family Medicine 09/24/23 Balaji Ibanez MD [email or web address] Historical LMR Provider 02/07/17 Isiah Abad MD [address] [place] [address], [facility] [place] [address] [email or web address] Historical LMR Provider 02/07/17 Kimberli Page MD [address] [place] [address], [address] [address] [email or web address] Historical LMR Provider 02/07/17 documented as of this encounter Additional Source Comments The information contained in this document represents components of the legal health record. It is not the complete legal health record.[facility]
--- OUTSIDE RECORDS SUMMARY | 2025-02-07 21:47 | XMS_ITS | Clinical Summary ---
Author Organization [facility] Address [address] [facility] [address] [place] [phone] Phone Care Team Providers Care Software Test Developer Name Role Phone Balaji Ibanez MD Unavailable Isiah Abad MD Unavailable [phone] Kimberli Page MD Unavailable Balaji Ibanez MD [...] this topic Medical Devices Implanted Type Area Obstetrics Gynecology Physician Device Identifier Shelf Expiration Date Model / Serial / Lot Iud Implanted: (Quantity not on file) Intrauterine Device Procedures Procedure Name Priority Date/Time Associated Diagnosis Comments PAP TEST Routine 08/01/2024 12:00 AM EDT from Last 3 Months or Most Recently Relevant to Health Maintenance Results * Pap Test (08/01/2024 12:00 AM EDT) Report [address] [address] Direct Sales Professional: Calixto Kim MD GROUNDS PERSON Cytology Report FINAL DIAGNOSIS A. PAP SMEAR (THIN PREP) CE: SPECIMEN ADEQUACY: Satisfactory for evaluation; transformation zone present. INTERPRETATION: NEGATIVE FOR INTRAEPITHELIAL LESION OR MALIGNANCY. Reactive changes. This specimen was analyzed by the automated ThinPrep Imaging System ([employer].) and manually rescreened by a social services and/or pathologist. Electronically Signed Out By: MD [...] by real-time polymerase chain reaction (PCR) at [facility], [address] [place] [address] using the FDA-approved [employer] Onclarity HPV Assay with extended genotyping. Uses of the assay in scenarios other than those approved by the FDA should be considered off-label use. The accuracy and precision of this test for all other off-label specimen sources has been verified in the Cytopathology Laboratory of the [facility] and has not been cleared or [...] : 1975 (Age: 49) Sex: F Institution: [facility] Location: [facility] Date of Collection: 08/01/2024 Date of Reported: 08/05/2024 09:48 Results to: Becca Santoyo MD [facility] Final Diagnosis A. PAP SMEAR (THIN PREP) CE: SPECIMEN ADEQUACY: Satisfactory for evaluation; transformation zone present. INTERPRETATION: NEGATIVE FOR INTRAEPITHELIAL LESION OR MALIGNANCY. Reactive changes. This specimen was analyzed by the automated ThinPrep Imaging System ([employer].) and manually rescreened by a social services and/or pathologist. [facility] Results\Inte rpretation A. PAP SMEAR (THIN PREP) CE: High-risk HPV Panel w/ extended genotyping NEG HPV 16-NEG HPV 18-NEG HPV 45-NEG HPV 33/58-NEG HPV 31-NEG HPV 56/59/66-NEG HPV 51-NEG HPV 52-NEG HPV 35/39/68-NEG Performed by real-time polymerase chain reaction (PCR) at [facility], [address] [place] [address] using the FDA-approved [employer] Onclarity HPV Assay with extended genotyping. Uses of the assay in scenarios other than those approved by the FDA should be considered off-label use. The accuracy and precision of this test for all other off-label specimen sources has been verified in the Cytopathology Laboratory of the [facility] and has not been cleared or approved by the U.S. Food and Drug Administration. Clinical correlation is advised. The assay assesses the E6/E7 DNA target and utilizes human beta globin as an internal control. Cytology and HPV testing are screening assays and should not be used as the sole means of detecting cancer. False-positives and false-negatives can occur. [facility] Conversion Type (Conversion Source) 08/01/2024 08/02/2024 9:17 AM EDT Becca Santoyo MD CYTOLOGY ORDERABLES Edited Result - Final [facility] [address] [place] [address] from Last 3 Months or Most Recently Relevant to Health Maintenance [place] [address] [place] [address] MEDICARE PART A & B [facility] MEDICARE PART A & B [place] & [place] & [place] & [place]ARE PART A & B [facility] MEDICARE PART A & B Care Teams Software Test Developer Relationship Specialty Start Date End Date Balaji Ibanez MD [address] [place] [phone] [email or web address] PCP - General Family Medicine 09/24/23 Balaji Ibanez MD Historical LMR Provider 02/07/17 Isiah Abad MD [address] [place] [phone] [email or web address] Historical LMR Provider 02/07/17 Kimberli Page MD [address] [place] [address] [address] [place] [address] [email or web address] Historical LMR Provider 02/07/17 Additional Source Comments The information contained in this document represents components of the legal health record. It is not the complete legal health record.[facility]
--- OUTSIDE RECORDS SUMMARY | 2025-02-07 21:47 | XMS_ITS | Encounter Summary ---
Author Organization [facility] Address [address] [facility] [address] [place] [address] Phone Care Team Providers Care Zigzag Topstitcher Name Role Phone Elba Olguin SAMPLE STITCHER Unavailable Balaji Ibanez MD Unavailable [phone] Kim Nunes SAMPLE STITCHER Unavailable Brunilda Castro SAMPLE STITCHER Unavailable Isiah Abad MD Unavailable Kimberli Page MD Unavailable Italo Ruano MD Unavailable Brock Webber MD Unavailable [phone] Balaji Ibanez MD Primary Care Provider [phone] Balaji Ibanez MD Primary Care Provider [phone] Encounter Details Date Type Department Care Team (Late st Contact Info) Description 02/20/2020 Ancillary Orders [facility],Outside Imaging [address] [place], [place] [id number] System, Provider Not In, [facility] [address] [address] Social History Tobacco Use Types Packs/Day Years [...] documented as of this encounter Care Teams Zigzag Topstitcher Relationship Specialty Start Date End Date Balaji Ibanez MD [address] [place] [id number] [email or web address] PCP - General Family Medicine 02/25/17 09/23/23 Balaji Ibanez MD [address] [place] [phone] PCP - General Family Medicine 09/24/23 Elba Olguin NP [address] [place] [phone] Historical LMR Provider 02/07/17 2 Balaji Ibanez MD [address] [facility] [address] [place] [address] [email or web address] Historical LMR Provider 02/07/17 Kim Nunes SAMPLE STITCHER [address] [place] [address] Historical LMR Provider 02/07/17 [address] [place] [address] [place] [address] [place] [phone] Historical LMR Provider 02/07/17 2 Isiah Abad MD [address] [facility], 2nd [place] [address] [email or web address] Historical LMR Provider 02/07/17 Kimberli Page MD [address] [address] [email or web address] Historical LMR Provider 02/07/17 Italo Ruano MD [address] [place] [phone] Historical LMR Provider 02/07/17 2 Brock Webber MD [address] [place] [address] Historical LMR Provider 02/07/17 2 documented as of this encounter Additional Source Comments The information contained in this document represents components of the legal health record. It is not the complete legal health record.[facility]
[2025-02-07 22:19] VITALS: BP 142/73; PULSE 51; RESP 13; TEMP 36.6; O2SAT 98
[2025-02-07 22:29] LABS: Appearance Urine Clear; Glucose Urine UA Negative (Negative); PH 7.5 (5.0-9.0); Specific Gravity - Urine 1.010 (1.005-1.025)
--- NOTE | 2025-02-07 23:41 | PM.IMHP ---
History of Present Illness Date of Service: 02/07/25 Chief Complaint: SOB Vqsbs-nnnrr-qdif-old female with a past medical history of Crohn's disease, chronic back pain, paroxysmal AFib-not on anticoagulation; presented to the hospital today with a chief complaint of shortness of breath. Patient reported that she presented to the ER couple days ago for epigastric pain and was admitted to the hospital for 2 days; patient was diagnosed with pancreatitis. Patient actually left the hospital she continued to have epigastric pain. Has not been eating well. Over the past couple days she also noticed shortness of breath and dyspnea on exertion. And at nighttime and she lying flat she could not breathe and has to get up. On Thursday she noticed multiple episodes of lightheadedness and felt like she is going to faint but did not lose consciousness or fall. Called her PCP who did an EKG on Thursday and noted to have bradycardia and asked her to follow-up with her business services sales agent. But she continued to have the increased shortness of breath hence presented to the ER for further evaluation. Reports having continuous epigastric pain. Denies any chest pain. Denies any nausea vomiting. Denies any diarrhea. Denies any alcohol use or smoking. Review of all other systems is negative except mentioned above ER course: Per ER team, patient noted have epigastric tenderness; chest x-ray showed no acute cardiopulmonary process; proBNP elevated; concern for possible new onset CHF. Given a dose of Lasix. [facility] Medical History Tendonitis involving right hip abductors Chronic pain in right foot Disorder of sacrum Trochanteric bursitis of right hip Lumbar radiculopathy Paroxysmal atrial fibrillation Anxiety Crohn disease Family History Father Atrial fibrillation Surgical History History of esophagogastroduodenoscopy (EGD) History of hip surgery Hx of colonoscopy History of bowel resection Hx of cholecystectomy Social History Household Members: Family Housing: House Do you presently have visiting nurse or other home services: No Alcohol intake: never Patient Tobacco Use Status: Former Tobacco user Smoked in Last 30 Days: No Use of substances other than those prescribed or required for medical reasons: No Advance Directives: Yes Advance Directives on File: Yes Advance Directives Date on File: 07/04/20 Do you have a plan to hurt others: No Plan service: No Current occupational status: employed Meds Allergies Allergy/AdvReac Type Severity Reaction Status Date / Time azithromycin (AZITHROMYCIN) Allergy Intermediate HIVES Verified 02/07/25 14:37 erythromycin base Allergy Intermediate Hives Verified 02/07/25 14:37 Penicillins (PCN) Allergy Intermediate Difficulty Verified 02/07/25 14:37 Breathing Sulfa (Sulfonamide Allergy Intermediate Palpitation Verified 02/07/25 14:37 Antibiotics) s Active Medications: Current Medications Acetaminophen (Acetaminophen 325 Mg Tablet) 650 mg PO Q6H PRN PRN Reason: Pain, Mild 1-3,fever,headache Calcium Carbonate (Calcium Carbonate 750 Mg Tab.Chew) 750 mg PO Q4H PRN PRN Reason: Heartburn Enoxaparin Sodium (Enoxaparin Sodium 40 Mg/0.4 Ml Syringe) 40 mg SUBCUT Q24H WILLIAM Hydromorphone HCl (Hydromorphone Hcl 0.5 Mg/0.5 Ml Syringe) 0.5 mg IVPUSH Q4H PRN; Protocol PRN Reason: Pain, Severe (Pain Scale 7-10) Magnesium Hydroxide (Milk Of Magnesia 30 Ml Oral.Susp) 30 ml PO DAILY PRN PRN Reason: Constipation Melatonin (Melatonin 3 Mg Tablet) 6 mg PO BEDTIME PRN PRN Reason: Insomnia Sodium Chloride (0.9 % Sodium Chloride Flush 3 Ml Syringe) 3 [facility] Home Medications ?Medication ?Instructions ?Recorded ?Confirmed ?Last Taken ?Type sertraline 100 mg tablet (Zoloft) 25 mg PO BEDTIME 03/18/22 02/02/25 Unknown History quetiapine 25 mg tablet (Seroquel) 25 mg PO BEDTIME 10/03/22 02/02/25 Unknown History albuterol sulfate 90 mcg/actuation 2 puff inhalation Q4H PRN 02/17/23 02/02/25 Unknown History aerosol inhaler Shortness Of Breath budesonide 3 mg 9 mg PO BEDTIME 02/17/23 02/02/25 Unknown History capsule,delayed,extended release lorazepam 1 mg tablet 1 mg PO BEDTIME Anxiety 02/17/23 02/02/25 Unknown History omeprazole 40 mg capsule,delayed 40 mg PO BID@0630,1630 05/06/24 02/02/25 Unknown History release ondansetron 4 mg disintegrating 4 mg PO Q4H PRN Nausea 05/06/24 02/02/25 Unknown History tablet oxycodone 20 mg tablet 10 mg PO DAILY@1300 Pain 05/06/24 02/02/25 Unknown History cholecalciferol (vitamin D3) 25 25 mcg PO BEDTIME 02/02/25 02/02/25 Unknown History mcg (1,000 unit) capsule (Vitamin D3) cyanocobalamin (vitamin B-12) 500 500 mcg PO BEDTIME 02/02/25 02/02/25 Unknown History mcg tablet cyclobenzaprine 5 mg tablet 5 mg PO DAILY PRN muscle spasm 02/02/25 02/02/25 Unknown History metoprolol succinate 25 mg 25 mg PO BEDTIME 02/02/25 02/02/25 Unknown History tablet,extended release 24 hr oxycodone 20 mg tablet 20 mg PO BID 02/02/25 02/02/25 02/02/25 History rosuvastatin 10 mg tablet 10 mg PO BEDTIME 02/02/25 02/02/25 Unknown History sertraline 100 mg tablet 200 mg PO BEDTIME 02/02/25 02/02/25 Unknown History Physical Exam Vital Signs and Narrative: Vital Signs: Last Vital Signs Temp 97.8 F 02/07/25 22:19 Pulse 51 02/07/25 22:19 Resp 13 02/07/25 22:19 BP 142/73 H 02/07/25 22:19 Pulse Ox 98 02/07/25 22:19 O2 Del Method Room Air 02/07/25 22:19 BMI result Body Mass Index 32.9 Gen: Appears be in no acute distress HEENT: NCAT, Moist mucosa. Pulmonary: Coarse breath sounds CVS: Normal S1-S2 Abdomen: BS+, Soft, tender in the epigastrium-no guarding no rigidity Extremities: Warm well perfused; mild pedal edema Neuro: Alert and awake. Results Labs 02/07/25 16:57 02/07/25 16:57 Labs: Laboratory Results - last 24 hr 02/07/25 02/07/25 16:57 22:21 MCV 88.2 MCH 29.6 MCHC 33.6 RDW 12.6 Plt Count 186 MPV 9.6 Immature Gran % (Auto) 0.5 H Neut % (Auto) 60.7 Lymph % (Auto) 30.1 [place] % (Auto) 7.4 Eos % (Auto) 0.8 Baso % (Auto) 0.5 Lymph # (Auto) 1.8 [place] # (Auto) 0.5 Eos # (Auto) 0.1 Baso # (Auto) 0.0 Abs Immat Gran (auto) 0.03 Absolute Neuts (auto) 3.7 Absolute Nucleated RBC 0.000 Nucleated RBC % (auto) 0.0 Anion Gap 8 L Estim Creat Clear Calc 118.2 Estimated GFR > 60 Random Glucose 100 Calcium 8.6 Magnesium 2.0 Total Bilirubin 0.5 AST 21 ALT 69 H Alkaline Phosphatase 67 Troponin I High Sens < 2.7 NT-Pro-B Natriuret Pep 627.9 H Total Protein 6.7 Albumin 4.3 Lipase 27 TSH 2.18 Beta HCG, Quant < 2 Urine Color Yellow Urine Appearance Clear Urine pH 7.5 Ur Specific [place] 1.010 Urine Protein Negative Urine Glucose (UA) Negative Urine Ketones Negative Urine Blood Negative Urine Nitrite Negative Ur Leukocyte Esterase Negative Urine RBC 0-2 Urine WBC 0-5 Ur Squamous Epith Cells 0-2 Urine Bacteria None Seen Hyaline Casts 0-2 Imaging Radiologist's Impressions: Impressions Chest X-Ray 02/07/25 14:45 IMPRESSION: Mild subsegmental atelectasis at the lung bases. Electronically signed by: Minna Sands MD 02/07/2025 02:54 PM EDT RP Assessment and Plan (1) New onset of congestive heart failure: Status: Acute Plan Dqhrz-krtcx-rdoj-old female with a past medical history of Crohn's disease, chronic back pain, paroxysmal AFib-not on anticoagulation; presented to the hospital today with a chief complaint of shortness of breath/epigastric pain. Admitted for following New onset CHF: Patient reports having SOB/FARIA/orthopnea/PND. ProBNP elevated. Has trace edema. Will obtain echocardiogram Telemetry Daily weights and I's and os Patient given Lasix trial Will defer to Cardiology regarding continuation of Lasix HX paroxysmal AFib: Patient currently in sinus. Not on anticoagulation. Patient now has high CHADS-VASc score. Will defer to the Cardiology records initiating anticoagulation. Bradycardia/near-syncope/dizziness: Patient reports having episodes of dizziness/near-syncope. Patient heart rate was in 40s. Sinus Tim. Cardiology consult for further input. Patient's home medication metoprolol is held for now. Pancreatitis: HX Crohn's: Unclear etiology for pancreatitis. Patient continued to have epigastric pain even after discharge from the hospital. Gastroenterology consult for further input Pain control Advance diet as tolerated Chronic low back pain: Pain control DVT prophylaxis: Lovenox Code status: Full code Quality Stroke Does the patient have a stroke diagnosis?: No VTE Prior VTE?: No VTE Risk Level:: Medical - moderate - high VTE Device Contraindication: N/A - Device Ordered VTE Drug Contraindication: Treatment Not Indicated
[2025-02-07 23:56] VITALS: BP 156/75; PULSE 53; RESP 13; O2SAT 98
[2025-02-08] VITALS (7 sets, daily range): BP systolic 110–116; BP diastolic 59–71; PULSE 59–76; RESP 14–18; TEMP 36.3–37; O2SAT 93–97
[2025-02-08 05:08] LABS: MANUAL DIFF FLAG NO
[2025-02-08 05:10] LABS: Hematocrit 34.6 % (37.0-47.0); Hemoglobin 11.7 g/dl (12.0-16.0); Imm Gran Abs Auto 0.03 X10*3/uL (0.00-0.03); Imm Gran Pct Auto 0.5 % (0.0-0.4); Lymphocytes Absolute Auto 2.0 X10*3/uL (1.2-4.9); Mean Corpuscular HGB Conc 33.8 g/dl (31.0-35.0); Mean Corpuscular Hemoglobin 29.1 pg (27.0-33.0); Mean Corpuscular Volume 86.1 fL (80.0-98.0); NRBC Abs Auto 0.000 X10*3/uL (0.0-0.012); NRBC Pct Auto 0.0 /100WBC (0.0-0.2); Platelet Count 176 X10*3/uL (160-400); Red Blood Count 4.02 X10*6/uL (4.20-5.50); White Blood Count 6.5 X10*3/uL (4.8-10.8)
[2025-02-08 05:26] LABS: Alanine Aminotransferase 61 U/L (0-31); Albumin Level 4.1 g/dL (3.5-5.0); Alkaline Phosphatase 64 U/L (39-117); Anion Gap 11 (12-20); Aspartate Amino Transferase 26 U/L (5-31); Blood Urea Nitrogen 4 mg/dL (9-16); Calcium 8.7 mg/dL (8.4-10.2); Carbon Dioxide 24 mmol/L (22-29); Chloride 107 mmol/L (96-108); Creatinine Clr Calc Pharmacy 121.6; Estimated Glomerular Filt Rate > 60; Potassium 3.3 mmol/L (3.3-5.1); Sodium 139 mmol/L (135-145); Total Protein 6.5 g/dL (6.5-8.0)
--- NOTE | 2025-02-08 05:48 | PC.NURSE ---
0500- late entry pt noted to desat to 875-89% on room air, placed pt on 2L NC with improvement to 97-98%.
--- NOTE | 2025-02-08 07:00 | CA_ITS ---
Transthoracic Echocardiogram Patient (Last, First, Middle): Bárbara Sebastian M Gender: F Date of : 1975 Age: 49 Procedure Date: 02/08/2025 Procedure Type: Transthoracic Echocardiogram Location: ER Height: 170.18 cm Weight: 95.26 kg BSA: 2.06 m2 Heart Rate: bpm BP: 116 / 69 mmHg Firewall Engineer: Referring MD: Pavan Vega MD Stone Processing Machine Operator: Alfa Flores MD Symptoms: chf Study Quality: Good ECG Rhythm: Sinus Conclusions: - Essentially normal study with trivial pericardial effusion Findings Left Ventricle Normal left ventricular size, thickness, and systolic function. The visually estimated ejection fraction is between 60-65%. Spectral Doppler is indicative of a normal filling pattern. Right Ventricle Normal right ventricular cavity size and systolic function. Atria Both atria are normal in size. There is no evidence of interatrial shunt. Aortic Valve Normal aortic valve structure and function. There is no aortic valve stenosis. There is no aortic valve regurgitation. Mitral Valve Normal mitral valve structure and function. There is trace mitral valve regurgitation. There is no mitral valve stenosis. Pulmonic Valve The pulmonic valve is likely normal. Tricuspid Valve Normal tricuspid valve structure. There is trace tricuspid valve regurgitation. The right ventricular systolic pressure is normal. The right ventricular systolic pressure is 14 mmHg. Normal right atrial pressure. There is no evidence of pulmonary hypertension. Great Vessels All visible segments of the aorta are normal in size. The pulmonary artery was not well visualized. Venous The inferior vena cava is normal in size and collapses greater than 50% with inspiration. Pericardium/Pleural There is a trivial pericardial effusion. Prior Study Comparison No significant change compared to prior study dated: 02/25/2022. Measurements 2D Linear Measurements IVSd: 1.06 0.6-0.9/0.6-1.0 cm LVIDd: 4.77 3.9-5.3/4.2-5.9 cm LVIDd Index: 2.32 2.4-3.2/2.2-3.1 cm/m2 LVIDs: 3.08 2.0-3.6 cm LVPWd: 1.03 0.7-1.1 cm Ao Root: 3.00 2.1-3.5 cm LA Diam: 3.60 2.7-3.8/3.0-4.0 cm LAIDs Index: 1.75 1.5-2.3 cm/m2 LV Mass: 222.87 67-162/88-224 g LV Mass Index: 108.19 43-95/49-115 g/m2 LVOT Diam: 1.90 3.0+(-)1.3 cm Mitral Valve MV Pk E: 0.57 MV PK A: 0.58 MV Decel Time: 206.00 E/A: 1.00 E'Lateral: 8.27 E'Medial: 6.96 E/E' Med: 8.20 E/E' Lat: 6.90 PHT: 60.00 MVA PHT: 3.67 Decel [place]: 2.76 Aortic Valve AoV Pk Beb[place]: 1.66 AoV Mn Beb[place]: 1.06 AoV VTI: 0.33 AoV Pk Grad: 11.00 Aov Mn Grad: 5.00 LIZETTE Cont.VTI: 2.69 LVOT LVOT Pk [place]: 1.36 LVOT Mn [place]: 0.89 LVOT VTI: 0.31 LVOT Pk Grad: 7.00 LVOT Mn Grad: 4.00 LVOT Diam: 1.90 LVOT Area: 2.84 Diastolic Function MV Pk E: 0.57 MV Pk A: 0.58 E/A: 1.00 E'Medial: 6.96 E/E' Med: 8.20 E' Laterial: 8.27 E/E' Lat: 6.90 Right Ventricle TAPSE (mm): 26.00 TVS' Bebeto: 13.00 Tricuspid Valve TR Pk Bebeto: 1.67 TR Pk Grad: 11.00 RA Press: 3.00 RVSP: 14.00 Great Vessels Aorta Ao Root-2D: 3.00 2.0-3.7 cm Ao Asc: 3.20 2.1-3.4 cm Pulmonary Veins Pulm Vein S/D 1.50 Pulmonary Valve PV Pk Bebeto: 1.34 Peak PV Grad: 7.00 Updated in Other Vendor System with Status of Final Alfa Flores MD electronically signed on 02/08/2025 12:42:55 PM with status of Final
--- NOTE | 2025-02-08 07:20 | HO.NURTONUR ---
Addendum entered by Stacie Nobles RN 02/08/25 16:16: 1419 pt was medicated for 10/27 abd pain with dilaudid, pt states her pain remains the same. she has ambulated to bathroom with stby assist. Original Note: Pt from home with complaints of epigastric pain, cp, palpitaions, sob, and lower extremity edema. Pt states she has had a 10lb weight gain over the last few days since being discharged from the hospital. Work up in the ED showed BNP- 627, anion gap 8, and BUN 4. Pt being admitted for new onset CHF. Pt is a&ox4 able to make her needs known, ambulates with steady gait, and has a puriwck in place. pt has 20G IV in RAC and has been medicated per jun. pt pending cardiology consult EKG- Sinus bradycardia CT abdomen/pelvis: MPRESSION: 1. Mild prominence of both renal collecting systems. New since the prior exam. Consider nonemergent ultrasound follow-up. 2. Low position of the IUD. Similar to prior. Chest Xray: FINDINGS: Mild subsegmental atelectasis at both lung bases. Lungs are otherwise clear. No evidence of pneumonia or pulmonary edema. No pleural effusion or pneumothorax. Cardiac and mediastinal contours are normal. Mild degenerative changes of the thoracic spine.
[2025-02-08] MEDS: 0.9 % Sodium Chloride Flush 3 ML SYRINGE IVFLUSH ×2 (07:45→17:00)
--- NOTE | 2025-02-08 08:43 | PM.CNCAR ---
History of Present Illness History of Present Illness Date of Service: 02/08/25 Requesting physician: Pavan Vega Consult reason: shortness of breath and other (Elevated BNP, bradycardia) Chief complaint: CHF Narrative: I was consulted to see Bárbara in cardiology consultation today because of bradycardia as well as shortness of breath with elevated NT pro BNP. Otilio's 49-year-old female with prior history of anxiety, Crohn's disease status post right colectomy, paroxysmal atrial fibrillation being managed with metoprolol without anticoagulation due to low risk. Recent chest pain and recent stress test which was negative for myocardial ischemia in July. Patient came to the hospital with epigastric pain was recently admitted and was diagnose with a acute pancreatitis seen by GI. However she continues to have epigastric pain which is constant in nature comes to the hospital because she will also getting more and more short of breath and was having dizziness. She is noted to have sinus bradycardia in the EKGs with PACs. She came to the hospital and metoprolol has been held. Her heart rate has improved. She was also noted to have elevated pro BNP and was given Lasix 20 mg. Has diuresed about-1500 cc. She still complains of shortness of breath although clinically has no signs of fluid overload. Chest x-ray did not show any evidence of heart failure but showed bilateral atelectasis. She has not had any chest pain. Troponin negative on admission. EKGs does not show any acute ischemic changes. Review of Systems Constitutional: Constitutional: Reports anorexia, Denies chills, Denies fever(s) and Denies weight gain Cardiovascular: Cardiovascular: Denies chest pain at rest, Denies chest pain with activity, Reports leg edema, Denies lightheadedness, Denies palpitations, Reports dyspnea, Reports orthopnea and Reports other (Feels fluttering in his chest) Respiratory: Respiratory: Reports dyspnea Gastrointestinal: Gastrointestinal: Reports nausea and Reports other (Epigastric pain) Musculoskeletal: Musculoskeletal: Reports no additional musculoskeletal complaints Integumentary/Breasts: Skin/Breast: Reports system reviewed and no additional complaints, except as docu Endocrine: Endocrine: Reports no additional endocrine complaints and Denies palpitations PMFSH Past Medical History Medical History Tendonitis involving right hip abductors Chronic pain in right foot Disorder of sacrum Trochanteric bursitis of right hip Lumbar radiculopathy Paroxysmal atrial fibrillation Anxiety Crohn disease Family History Family History Father Atrial fibrillation Surgical History Surgical History History of esophagogastroduodenoscopy (EGD) History of hip surgery Hx of colonoscopy History of bowel resection Hx of cholecystectomy Social History Social History Household Members: Family Housing: House Do you presently have visiting nurse or other home services: No Alcohol intake: never Patient Tobacco Use Status: Former Tobacco user Smoked in Last 30 Days: No Use of substances other than those prescribed or required for medical reasons: No Advance Directives: Yes Advance Directives on File: Yes Advance Directives Date on File: 07/04/20 Do you have a plan to hurt others: No Plan service: No Current occupational status: employed Meds Allergies Allergy/AdvReac Type Severity Reaction Status Date / Time azithromycin (AZITHROMYCIN) Allergy Intermediate HIVES Verified 02/07/25 14:37 erythromycin base Allergy Intermediate Hives Verified 02/07/25 14:37 Penicillins (PCN) Allergy Intermediate Difficulty Verified 02/07/25 14:37 Breathing Sulfa (Sulfonamide Allergy Intermediate Palpitation Verified 02/07/25 14:37 Antibiotics) s Active Medications: Current Medications Acetaminophen (Acetaminophen 325 Mg Tablet) 650 mg PO Q6H PRN PRN Reason: Pain, Mild 1-3,fever,headache Last Admin: 02/08/25 07:42 Dose: 650 mg Calcium Carbonate (Calcium Carbonate 750 Mg Tab.Chew) 750 mg PO Q4H PRN PRN Reason: Heartburn Enoxaparin Sodium (Enoxaparin Sodium 40 Mg/0.4 Ml Syringe) 40 mg SUBCUT Q24H WILLIAM Last Admin: 02/08/25 07:43 Dose: 40 mg Hydromorphone HCl (Hydromorphone Hcl 0.5 Mg/0.5 Ml Syringe) 0.5 mg IVPUSH Q4H PRN; Protocol PRN Reason: Pain, Severe (Pain Scale 7-10) Last Admin: 02/08/25 04:21 Dose: 0.5 mg Magnesium Hydroxide (Milk Of Magnesia 30 Ml Oral.Susp) 30 ml PO DAILY PRN PRN Reason: Constipation Melatonin (Melatonin 3 Mg Tablet) 6 mg PO BEDTIME PRN PRN Reason: Insomnia Sodium Chloride (0.9 % Sodium Chloride Flush 3 Ml Syringe) 3 ml IVFLUSH QSHIFT [facility] Last Admin: 02/08/25 07:45 Dose: 3 ml Home Medications ?Medication ?Instructions ?Recorded ?Confirmed ?Last Taken ?Type sertraline 100 mg tablet (Zoloft) 25 mg PO BEDTIME 03/18/22 02/08/25 02/06/25 History quetiapine 25 mg tablet (Seroquel) 25 mg PO BEDTIME 10/03/22 02/08/25 02/06/25 History albuterol sulfate 90 mcg/actuation 2 puff inhalation Q4H PRN 02/17/23 02/08/25 02/06/25 History aerosol inhaler Shortness Of Breath budesonide 3 mg 9 mg PO BEDTIME 02/17/23 02/08/25 02/06/25 History capsule,delayed,extended release lorazepam 1 mg tablet 1 mg PO BEDTIME Anxiety 02/17/23 02/08/25 02/06/25 History omeprazole 40 mg capsule,delayed 40 mg PO BID@0630,1630 05/06/24 02/08/25 02/06/25 History release ondansetron 4 mg disintegrating 4 mg PO Q4H PRN Nausea 05/06/24 02/08/25 02/06/25 History tablet oxycodone 20 mg tablet 10 mg PO DAILY@1300 Pain 05/06/24 02/08/25 02/06/25 History cholecalciferol (vitamin D3) 25 25 mcg PO BEDTIME 02/02/25 02/08/25 02/06/25 History mcg (1,000 unit) capsule (Vitamin D3) cyanocobalamin (vitamin B-12) 500 500 mcg PO BEDTIME 02/02/25 02/08/25 02/06/25 History mcg tablet cyclobenzaprine 5 mg tablet 5 mg PO DAILY PRN muscle spasm 02/02/25 02/08/25 02/06/25 History metoprolol succinate 25 mg 25 mg PO BEDTIME 02/02/25 02/08/25 02/06/25 History tablet,extended release 24 hr oxycodone 20 mg tablet 20 mg PO BID 02/02/25 02/08/25 02/06/25 History rosuvastatin 10 mg tablet 5 mg PO BEDTIME 02/02/25 02/08/25 02/06/25 History sertraline 100 mg tablet 200 mg PO BEDTIME 02/02/25 02/08/25 02/06/25 History Physical Exam Vital Signs: Vital Signs: Last Vital Signs Temp 98.0 F 02/08/25 06:04 Pulse 74 02/08/25 07:22 Resp 14 02/08/25 07:22 BP 116/69 02/08/25 07:22 Pulse Ox 96 02/08/25 07:22 O2 Del Method Nasal Cannula 02/08/25 07:22 O2 Flow Rate 1 02/08/25 07:22 BMI result Body Mass Index 32.9 Const: General: cooperative, comfortable, no acute distress, awake and anxious Nutritional Appearance: overweight Orientation/consciousness: patient oriented x3 HEENT: Head: Yes normocephalic and Yes atraumatic Neck: Neck: Yes trachea midline, Yes supple and Yes no JVD Resp: Effort & Inspection: normal respiratory effort Auscultation: no rales, no wheezes and breath sounds absent on th left (Based) Cardio: Jugular venous distension: no JVD Rate: regular rate Rhythm: regular rhythm Heart sounds: S1 normal heart sound present, S2 normal heart sound present, no click, no gallops and no murmurs GI: Inspection: Yes other (Epigastric tenderness) Auscultation: normal bowel sounds Skin: General skin exam: no rashes or lesions noted Neuro: General: patient oriented x3 and no focal motor deficits Extrem: General: Yes no clubbing, cyanosis or edema Objective Labs and Meds 02/08/25 04:33 02/08/25 04:33 Lab results: Laboratory Results - last 24 hr 02/07/25 02/07/25 02/08/25 16:57 22:21 04:33 WBC 6.1 6.5 RBC 3.98 L 4.02 L Hgb 11.8 L 11.7 L Hct 35.1 L 34.6 L MCV 88.2 86.1 MCH 29.6 29.1 MCHC 33.6 33.8 RDW 12.6 12.6 Plt Count 186 176 MPV 9.6 9.5 Immature Gran % (Auto) 0.5 H 0.5 H Neut % (Auto) 60.7 59.4 Lymph % (Auto) 30.1 31.1 [place] % (Auto) 7.4 7.7 Eos % (Auto) 0.8 0.8 Baso % (Auto) 0.5 0.5 Lymph # (Auto) 1.8 2.0 [place] # (Auto) 0.5 0.5 Eos # (Auto) 0.1 0.1 Baso # (Auto) 0.0 0.0 Abs Immat Gran (auto) 0.03 0.03 Absolute Neuts (auto) 3.7 3.9 Absolute Nucleated RBC 0.000 0.000 Nucleated RBC % (auto) 0.0 0.0 Sodium 140 139 Potassium 3.8 3.3 Chloride 111 H 107 Carbon Dioxide 25 24 Anion Gap 8 L 11 L BUN 4 L 4 L Creatinine 0.69 0.67 Estim Creat Clear Calc 118.2 121.6 Estimated GFR > 60 > 60 Random Glucose 100 105 Calcium 8.6 8.7 Magnesium 2.0 Total Bilirubin 0.5 0.5 AST 21 26 ALT 69 H 61 H Alkaline Phosphatase 67 64 Troponin I High Sens < 2.7 NT-Pro-B Natriuret Pep 627.9 H Total Protein 6.7 6.5 Albumin 4.3 4.1 Lipase 27 TSH 2.18 Beta HCG, Quant < 2 Urine Color Yellow Urine Appearance Clear Urine pH 7.5 Ur Specific [place] 1.010 Urine Protein Negative Urine Glucose (UA) Negative Urine Ketones Negative Urine Blood Negative Urine Nitrite Negative Ur Leukocyte Esterase Negative Urine RBC 0-2 Urine WBC 0-5 Ur Squamous Epith Cells 0-2 Urine Bacteria None Seen Hyaline Casts 0-2 Imaging Radiologist's impression: Impressions Chest X-Ray 02/07/25 14:45 IMPRESSION: Mild subsegmental atelectasis at the lung bases. Electronically signed by: Minna Sands MD 02/07/2025 02:54 PM EDT RP Assessment and Plan (1) SOB (shortness of breath): Status: Acute Shortness of breath exertion with some symptoms suggestive of heart failure with elevated pro BNP and had some weight gain although she has already received Lasix and has a negative balance of 200 cc. On my examination she has no signs of fluid overload at this point in time. Unclear as to why she is elevated BNP. Her shortness of breath can also be explained by atelectasis. Would suggest incentive spirometry. Hold off on diuretic regimen. Obtain an echocardiogram to assess for LV systolic and diastolic function as well as right atrial pressure evaluation by echocardiogram that will further guide treatment. Currently blood pressure is optimized. Elevated pro BNP could be related to bradycardia and/or atelectasis with RV strain. (2) Sinus bradycardia: Status: Acute Sinus bradycardia related to metoprolol therapy. At this point time the heart rate has improved with holding her metoprolol therapy. Continue to hold metoprolol therapy. She is not having any significant cardiac arrhythmias at this point in time. Continue full disclosure cardiac telemetry. (3) Paroxysmal atrial fibrillation: Status: Acute Prior history of paroxysmal atrial fibrillation without any obvious clinical recurrence at this point time. Will continue monitor by full disclosure cardiac telemetry. Avoidance of stimulants was discussed. Will follow up with you Procedures Date of Service Date of Service: 02/08/25
--- NOTE | 2025-02-08 08:51 | PHA.MEDREC ---
Pharmacy Consult ? Medication Reconciliation Pharmacy has completed the medication reconciliation. Spoke to patient to confirm med list. Patient was recently discharged on 02/04/25 and confirmed that everything is still the same. She takes oxycodone 20 mg bid in the morning and bedtime and 10 mg in the middle of the day @1300. She takes total of 225 mg of sertraline qhs. She said her dose of rosuvastatin is 5 mg at bedtime. Last dose of medications was thursday02/06/25 night.
--- NOTE | 2025-02-08 09:31 | MHC.CM.PN ---
IMM 02/08/25, Pt. lives with family, PCP confirmed: Balaji Joseph MD at [facility]. HCP on file and confirmed: Christy and Jessica. Pt. was here 02/03/25-02/04/25, was DC home, self care. She does not use home health services or DME. She is able to arrange transport home at DC, DCP; home, self care, CM to follow for DC needs.
[2025-02-08] MEDS: oxyCODONE HCl Immed Release 5 MG TABLET 20 MG PO ×2 (09:45→20:22)
--- NOTE | 2025-02-08 11:40 | P.PNIM_ITS ---
Subjective Subjective Date of Service: 02/08/25 Interval History: sob, anxious, headache Physical Exam 2 Exam: Exam: General: AO X 3, anxious Resp: diminished bilateral, no accessory muscles used CVS: S1,S2,RRR GI: soft, non tender, non distended Neuro: motor grossly intact, alert Psych: appropriate insight Vital Signs: Vital Signs: Last Vital Signs Temp 98.0 F 02/08/25 06:04 Pulse 74 02/08/25 07:22 Resp 14 02/08/25 07:22 BP 116/69 02/08/25 07:22 Pulse Ox 96 02/08/25 07:22 O2 Del Method Nasal Cannula 02/08/25 07:22 O2 Flow Rate 1 02/08/25 07:22 BMI result Body Mass Index 32.9 Objective Data Active Medications Acetaminophen (Acetaminophen 325 Mg Tablet) 650 mg PO Q6H PRN PRN Reason: Pain, Mild 1-3,fever,headache Last Admin: 02/08/25 07:42 Dose: 650 mg Documented By: LARRY Albuterol Sulfate (Albuterol Sulfate 90 Mcg 8 Gm Inhaler) 2 puff INHALE Q4H PRN PRN Reason: Shortness of Breath Atorvastatin Calcium (Atorvastatin Calcium 20 Mg Tablet) 20 mg PO BEDTIME WILLIAM Budesonide (Budesonide Dr 3 Mg Capsule) 9 mg PO BEDTIME WILLIAM Calcium Carbonate (Calcium Carbonate 750 Mg Tab.Chew) 750 mg PO Q4H PRN PRN Reason: Heartburn Cyanocobalamin (Cyanocobalamin (Vitamin B-12) 500 Mcg Tablet) 500 mcg PO BEDTIME WILLIAM Cyclobenzaprine HCl (Cyclobenzaprine Hcl 5 Mg Tablet) 5 mg PO DAILY PRN PRN Reason: Muscle Spasm Enoxaparin Sodium (Enoxaparin Sodium 40 Mg/0.4 Ml Syringe) 40 mg SUBCUT Q24H WILLIAM Last Admin: 02/08/25 07:43 Dose: 40 mg Documented By: LARRY Hydromorphone HCl (Hydromorphone Hcl 0.5 Mg/0.5 Ml Syringe) 0.5 mg IVPUSH Q4H PRN; Protocol PRN Reason: Pain, Severe (Pain Scale 7-10) Last Admin: 02/08/25 04:21 Dose: 0.5 mg Documented By: KULWANT Lorazepam (Lorazepam 1 Mg Tablet) 1 mg PO BEDTIME WILLIAM Magnesium Hydroxide (Milk Of Magnesia 30 Ml Oral.Susp) 30 ml PO DAILY PRN PRN Reason: Constipation Melatonin (Melatonin 3 Mg Tablet) 6 mg PO BEDTIME PRN PRN Reason: Insomnia Omeprazole (Omeprazole 40 Mg Capsule.Dr) 40 mg PO BID@0630,1630 [facility] Ondansetron HCl (Ondansetron Hcl 4 Mg/2 Ml Vial) 4 mg IVPUSH Q6H PRN PRN Reason: Nausea Oxycodone HCl (Oxycodone Hcl Immed Release 5 Mg Tablet) 20 mg PO BID [facility] Last Admin: 02/08/25 09:45 Dose: 20 mg Documented By: LARRY Quetiapine Fumarate (Quetiapine Fumarate 25 Mg Tablet) 25 mg PO BEDTIME [facility] Sertraline HCl (Sertraline Hcl 25 Mg Tablet) 25 mg PO BEDTIME [facility] Sertraline HCl (Sertraline Hcl 100 Mg Tablet) 200 mg PO BEDTIME [facility] Sodium Chloride (0.9 % Sodium Chloride Flush 3 Ml Syringe) 3 ml IVFLUSH QSHIFT [facility] Last Admin: 02/08/25 07:45 Dose: 3 ml Documented By: LARRY Labs 02/08/25 04:33 02/08/25 04:33 Labs: Laboratory Results - last 24 hr 02/07/25 02/07/25 02/08/25 16:57 22:21 04:33 MCV 88.2 86.1 MCH 29.6 29.1 MCHC 33.6 33.8 RDW 12.6 12.6 Plt Count 186 176 MPV 9.6 9.5 Immature Gran % (Auto) 0.5 H 0.5 H Neut % (Auto) 60.7 59.4 Lymph % (Auto) 30.1 31.1 [place] % (Auto) 7.4 7.7 Eos % (Auto) 0.8 0.8 Baso % (Auto) 0.5 0.5 Lymph # (Auto) 1.8 2.0 [place] # (Auto) 0.5 0.5 Eos # (Auto) 0.1 0.1 Baso # (Auto) 0.0 0.0 Abs Immat Gran (auto) 0.03 0.03 Absolute Neuts (auto) 3.7 3.9 Absolute Nucleated RBC 0.000 0.000 Nucleated RBC % (auto) 0.0 0.0 Anion Gap 8 L 11 L Estim Creat Clear Calc 118.2 121.6 Estimated GFR > 60 > 60 Random Glucose 100 105 Calcium 8.6 8.7 Magnesium 2.0 Total Bilirubin 0.5 0.5 AST 21 26 ALT 69 H 61 H Alkaline Phosphatase 67 64 Troponin I High Sens < 2.7 NT-Pro-B Natriuret Pep 627.9 H Total Protein 6.7 6.5 Albumin 4.3 4.1 Lipase 27 TSH 2.18 Beta HCG, Quant < 2 Urine Color Yellow Urine Appearance Clear Urine pH 7.5 Ur Specific [place] 1.010 Urine Protein Negative Urine Glucose (UA) Negative Urine Ketones Negative Urine Blood Negative Urine Nitrite Negative Ur Leukocyte Esterase Negative Urine RBC 0-2 Urine WBC 0-5 Ur Squamous Epith Cells 0-2 Urine Bacteria None Seen Hyaline Casts 0-2 Assessment and Plan (1) Crohn's disease: Status: Acute Plan 49F PMH crohns, chronic back pain, pafib, presented with sob acute hypoxic respiratory failure due to acute on chronic diastolic CHF and atelectasis Improved with IV diuresis, no further needed at this time Incentive spirometry Wean O2 as tolerated, was desatting to mid to high 80s on room air Check echo Cardio appreciated Paroxysmal AFib with sinus bradycardia Holding metoprolol for bradycardia Holding off on anticoagulation, outpatient follow up Cardiology Epigastric abdominal pain GI eval ? Pancreatitis DVT prophylaxis Lovenox Full code reason for continued hospitalization: Hypoxia Quality Stroke Does the patient have a stroke diagnosis?: No VTE Prior VTE?: No VTE Risk Level:: Medical - moderate - high VTE Device Contraindication: N/A - Device Ordered VTE Drug Contraindication: Treatment Not Indicated
--- NOTE | 2025-02-08 14:22 | PC.NURSE ---
pt ambulated with stby assist to bathroom- pt returned to room requested pain medication for 7/10 abd pain- pt medicated per pt request, cardiac monitor technician intact nsr 80s, call cason within reach, plan of care ongoin
[2025-02-08 18:58] LABS: D Dimer High Sensitivity < 150 NG/ML
[2025-02-08] MEDS: Budesonide DR 3 MG Capsule 9 MG PO (20:23)
[2025-02-09 03:23] VITALS: BP 121/77; PULSE 83; RESP 16; TEMP 36.7; O2SAT 92
--- NOTE | 2025-02-09 03:32 | CONS_ITS ---
DATE OF SERVICE: 02/08/2025 REFERRING PHYSICIAN: Dr. Cabrera REASON FOR CONSULTATION: History of Crohn disease and pancreas problems with epigastric pain. HISTORY OF PRESENT ILLNESS: The patient is a pleasant 49-year-old woman who was admitted to the hospital after presenting to the emergency department yesterday with complaints of palpitations, lower extremity edema, 10-pound weight gain, and shortness of breath. She was recently hospitalized in January because of abdominal pain and a history of Crohn disease and seen by Dr. Sheldon. At that time, she was treated initially with IV steroids, which were stopped. She was given MiraLAX for constipation, and outpatient CT enterography was planned. She has a history of Crohn disease and has been treated with budesonide and underwent colonoscopy with balloon dilation of the ileocolonic anastomosis on January 26, those records are reviewed. There was some concern about a possibility of pancreatitis based on her CT scan on February 02, which showed mild fluid adjacent to the pancreas that was nonspecific. She has no prior history of pancreas problems and does not drink alcohol to excess. CT scanning on this admission is reviewed with Dr. Sands and does not appear to show any evidence of pancreatitis. Lipase was normal. PAST MEDICAL HISTORY: 1. Crohn disease, with history of colonoscopy as above. Current treatment budesonide. 2. Atrial fibrillation. 3. Anxiety. 4. Pneumonia. 5. Family history of colon polyps. PAST SURGICAL HISTORY: Includes: 1. Cholecystectomy, ileocolonic resection resulting from attempted balloon dilation and subsequent perforation and perirectal fistula. 2. Left hip surgery. CURRENT MEDICATIONS: Her current medication list is reviewed in the chart. ALLERGIES: MULTIPLE ANTIBIOTIC AND OTHER MEDICATION ALLERGIES ARE REVIEWED. FAMILY HISTORY: As above. SOCIAL HISTORY: There is no current tobacco, alcohol, or substance abuse. REVIEW OF SYSTEMS: SKIN: No pruritus. HEENT: Negative. CARDIOPULMONARY: No shortness of breath or chest pain. GASTROINTESTINAL: As above. GENITOURINARY: Negative. NEUROPSYCHIATRIC: Negative. PHYSICAL EXAMINATION: GENERAL: Shows a pleasant female, lying comfortably in bed. VITAL SIGNS: Reviewed in the electronic medical record and are stable. SKIN: Anicteric. HEENT: Shows no scleral icterus. NECK: Without lymphadenopathy or thyromegaly. LUNGS: Clear. HEART: Shows a regular rate and rhythm. S1, S2. No murmur. ABDOMEN: Soft. There is minimal epigastric tenderness to palpation. Bowel sounds are present. No organomegaly is noted. EXTREMITIES: Without edema. IMPRESSION: 1. Crohn disease. 2. Abdominal pain. She does not appear to have pancreatitis based on her most recent CT scan and laboratory studies. I would recommend a trial of dicyclomine for her abdominal symptoms. She is currently being evaluated from a cardiac standpoint by Dr. Flores, and I would recommend continuing budesonide for her underlying Crohn disease. I do not think she needs steroids at this time. Thanks for asking me to see her. I will follow her in the hospital with you. MD FRANKIE Red/PJ / [id number]
[2025-02-09 07:05] LABS: Hematocrit 38.8 % (37.0-47.0); Hemoglobin 12.8 g/dl (12.0-16.0); Mean Corpuscular HGB Conc 33.0 g/dl (31.0-35.0); Mean Corpuscular Hemoglobin 29.3 pg (27.0-33.0); Mean Corpuscular Volume 88.8 fL (80.0-98.0); NRBC Abs Auto 0.000 X10*3/uL (0.0-0.012); NRBC Pct Auto 0.0 /100WBC (0.0-0.2); Platelet Count 168 X10*3/uL (160-400); Red Blood Count 4.37 X10*6/uL (4.20-5.50); White Blood Count 7.1 X10*3/uL (4.8-10.8)
[2025-02-09 07:26] VITALS: BP 112/63; PULSE 72; RESP 18; TEMP 36.4; O2SAT 92
[2025-02-09 07:46] LABS: Anion Gap 12 (12-20); Blood Urea Nitrogen 5 mg/dL (9-16); Calcium 8.6 mg/dL (8.4-10.2); Carbon Dioxide 25 mmol/L (22-29); Chloride 107 mmol/L (96-108); Creatinine Clr Calc Pharmacy 123.5; Estimated Glomerular Filt Rate > 60; Magnesium 2.0 mg/dL (1.6-2.6); Potassium 3.5 mmol/L (3.3-5.1); Sodium 140 mmol/L (135-145)
[2025-02-09] MEDS: oxyCODONE HCl Immed Release 5 MG TABLET 20 MG PO ×2 (09:03→21:19)
[2025-02-09] MEDS: 0.9 % Sodium Chloride Flush 3 ML SYRINGE IVFLUSH ×3 (09:05→11:12)
--- NOTE | 2025-02-09 10:55 | P.PNIM_ITS ---
Subjective Subjective Date of Service: 02/09/25 Interval History: ongoing abd pain, nausea Physical Exam 2 Exam: Exam: General: AO X 3, anxious Resp: diminished bilateral, no accessory muscles used CVS: S1,S2,RRR GI: soft, non tender, non distended Neuro: motor grossly intact, alert Psych: appropriate insight Vital Signs: Vital Signs: Last Vital Signs Temp 97.5 F 02/09/25 07:26 Pulse 72 02/09/25 07:26 Resp 18 02/09/25 07:26 BP 112/63 02/09/25 07:26 Pulse Ox 92 02/09/25 07:26 O2 Del Method Room Air 02/09/25 07:26 O2 Flow Rate 1 02/08/25 07:22 BMI result Body Mass Index 32.9 Objective Data Active Medications Acetaminophen (Acetaminophen 325 Mg Tablet) 650 mg PO Q6H PRN PRN Reason: Pain, Mild 1-3,fever,headache Last Admin: 02/08/25 07:42 Dose: 650 mg Documented By: LARRY Albuterol Sulfate (Albuterol Sulfate 90 Mcg 8 Gm Inhaler) 2 puff INHALE Q4H PRN PRN Reason: Shortness of Breath Atorvastatin Calcium (Atorvastatin Calcium 20 Mg Tablet) 20 mg PO BEDTIME [facility] Last Admin: 02/08/25 20:36 Dose: Not Given Documented By: DEIDRA Non-Admin Reason: Patient Refused Budesonide (Budesonide Dr 3 Mg Capsule) 9 mg PO BEDTIME [facility] Last Admin: 02/08/25 20:23 Dose: 9 mg Documented By: DEIDRA Calcium Carbonate (Calcium Carbonate 750 Mg Tab.Chew) 750 mg PO Q4H PRN PRN Reason: Heartburn Last Admin: 02/08/25 20:36 Dose: 750 mg Documented By: DEIDRA Cyanocobalamin (Cyanocobalamin (Vitamin B-12) 500 Mcg Tablet) 500 mcg PO BEDTIME [facility] Last Admin: 02/08/25 20:23 Dose: 500 mcg Documented By: DEIDRA Cyclobenzaprine HCl (Cyclobenzaprine Hcl 5 Mg Tablet) 5 mg PO DAILY PRN PRN Reason: Muscle Spasm Dicyclomine HCl (Dicyclomine Hcl 10 Mg Capsule) 10 mg PO QIDACHS [facility] Last Admin: 02/09/25 09:04 Dose: 10 mg Documented By: BERHANE Enoxaparin Sodium (Enoxaparin Sodium 40 Mg/0.4 Ml Syringe) 40 mg SUBCUT Q24H [facility] Last Admin: 02/09/25 09:04 Dose: 40 mg Documented By: BERHANE Hydromorphone HCl (Hydromorphone Hcl 0.5 Mg/0.5 Ml Syringe) 0.5 mg IVPUSH Q4H PRN; Protocol PRN Reason: Pain, Severe (Pain Scale 7-10) Last Admin: 02/09/25 06:56 Dose: 0.5 mg Documented By: DEIDRA Lorazepam (Lorazepam 1 Mg Tablet) 1 mg PO BEDTIME [facility] Last Admin: 02/08/25 20:23 Dose: 1 mg Documented By: DEIDRA Magnesium Hydroxide (Milk Of Magnesia 30 Ml Oral.Susp) 30 ml PO DAILY PRN PRN Reason: Constipation Melatonin (Melatonin 3 Mg Tablet) 6 mg PO BEDTIME PRN PRN Reason: Insomnia Omeprazole (Omeprazole 40 Mg Capsule.Dr) 40 mg PO BID@0630,1630 [facility] Last Admin: 02/09/25 05:22 Dose: 40 mg Documented By: DEIDRA Ondansetron HCl (Ondansetron Hcl 4 Mg/2 Ml Vial) 4 mg IVPUSH Q6H PRN PRN Reason: Nausea Oxycodone HCl (Oxycodone Hcl Immed Release 5 Mg Tablet) 20 mg PO BID [facility] Last Admin: 02/09/25 09:03 Dose: 20 mg Documented By: BERHANE Quetiapine Fumarate (Quetiapine Fumarate 25 Mg Tablet) 25 mg PO BEDTIME [facility] Last Admin: 02/08/25 20:23 Dose: 25 mg Documented By: DEIDRA Sertraline HCl (Sertraline Hcl 25 Mg Tablet) 25 mg PO BEDTIME [facility] Last Admin: 02/08/25 20:22 Dose: 25 mg Documented By: DEIDRA Sertraline HCl (Sertraline Hcl 100 Mg Tablet) 200 mg PO BEDTIME [facility] Last Admin: 02/08/25 20:22 Dose: 200 mg Documented By: DEIDRA Sodium Chloride (0.9 % Sodium Chloride Flush 3 Ml Syringe) [facility] Admin: 02/09/25 09:05 Dose: 3 ml Documented By: BERHANE Labs 02/09/25 06:43 02/09/25 06:43 Labs: Laboratory Results - last 24 hr 02/08/25 02/09/25 18:40 06:43 MCV 88.8 MCH 29.3 MCHC 33.0 RDW 12.5 Plt Count 168 MPV 9.5 Absolute Nucleated RBC 0.000 Nucleated RBC % (auto) 0.0 D-Dimer High Sensitivty < 150 Anion Gap 12 Estim Creat Clear Calc 123.5 Estimated GFR > 60 Random Glucose 127 H Calcium 8.6 Magnesium 2.0 Assessment and Plan (1) Crohn's disease: Status: Acute Plan 49F PMH crohns, chronic back pain, pafib, presented with sob acute hypoxic respiratory failure due to acute on chronic diastolic CHF and atelectasis Improved with IV diuresis, no further needed at this time Incentive spirometry now on room air Cardio appreciated Paroxysmal AFib with sinus bradycardia Holding metoprolol for bradycardia - resolved Holding off on anticoagulation, outpatient follow up Cardiology Epigastric abdominal pain GI appreciated - pancreatitis unlikely, recommending bentyl, ppi crohns no acute flare continue budesonide mood disorder seroquel, ativan, zoloft DVT prophylaxis Lovenox Full code reason for continued hospitalization: not tolerating po, needing iv pain meds Quality Stroke Does the patient have a stroke diagnosis?: No VTE Prior VTE?: No VTE Risk Level:: Medical - moderate - high VTE Device Contraindication: N/A - Device Ordered VTE Drug Contraindication: Treatment Not Indicated
[2025-02-09 11:07] VITALS: BP 103/58; PULSE 81; RESP 18; TEMP 36.7; O2SAT 93
--- NOTE | 2025-02-09 11:53 | P.PNCA_ITS ---
Subjective Subjective Date of Service: 02/09/25 Principal diagnosis: Bradycardia, shortness of breath Interval history: Patient continues to have abdominal pain. Continues to feel fluttering but that has no arrhythmias noted. Heart rate has remained sterile. That has no leg edema. Has diuresed well. Complains of lightheadedness when she gets about also gets lightheadedness while she is laying in bed. She continues to have anxiety about her clinical situation. Has been seen by GI and felt that she does not have pancreatitis. Review of Systems Eyes: Reports no additional eye complaints Cardiovascular: Denies chest pain, Denies leg edema, Reports lightheadedness, Denies Loss of Consciousness, Reports dyspnea and Reports other (Flutter) Respiratory: Reports dyspnea Gastrointestinal: Reports abdominal pain Genitourinary: Reports no additional female genitourinary complaints Musculoskeletal: Reports no additional musculoskeletal complaints Reports system reviewed and no additional complaints, except as documented Physical Exam Vital Signs: Last Vital Signs Temp 98.1 F 02/09/25 11:07 Pulse 81 02/09/25 11:07 Resp 18 02/09/25 11:07 BP 103/58 L 02/09/25 11:07 Pulse Ox 93 02/09/25 11:07 O2 Del Method Room Air 02/09/25 11:07 O2 Flow Rate 1 02/08/25 07:22 BMI result Body Mass Index 32.9 Const General: cooperative, comfortable, no acute distress, awake and anxious Nutritional Appearance: overweight Orientation/consciousness: patient oriented x3 HEENT Head: Yes normocephalic and Yes atraumatic Neck Neck: Yes trachea midline, Yes supple and Yes no JVD Resp Effort & Inspection: normal respiratory effort Auscultation: no rales, no wheezes and breath sounds absent on th left (Based) Cardio Jugular venous distension: no JVD Rate: regular rate Rhythm: regular rhythm Heart sounds: S1 normal heart sound present, S2 normal heart sound present, no click, no gallops and no murmurs GI Inspection: Yes other (Epigastric tenderness) Auscultation: normal bowel sounds Skin General skin exam: no rashes or lesions noted Neuro General: patient oriented x3 and no focal motor deficits Extrem General: Yes no clubbing, cyanosis or edema Objective Labs and Meds 02/09/25 06:43 02/09/25 06:43 Lab results: Laboratory Results - last 24 hr 02/08/25 02/09/25 18:40 06:43 WBC 7.1 RBC 4.37 Hgb 12.8 Hct 38.8 MCV 88.8 MCH 29.3 MCHC 33.0 RDW 12.5 Plt Count 168 MPV 9.5 Absolute Nucleated RBC 0.000 Nucleated RBC % (auto) 0.0 D-Dimer High Sensitivty < 150 Sodium 140 Potassium 3.5 Chloride 107 Carbon Dioxide 25 Anion Gap 12 BUN 5 L Creatinine 0.66 Estim Creat Clear Calc 123.5 Estimated GFR > 60 Random Glucose 127 H Calcium 8.6 Magnesium 2.0 Progress Note: A&P Assessment and plan (1) SOB (shortness of breath): Status: Acute Assessment and Plan: Shortness of breath, with elevated pro BNP and some leg edema and has diuresed well. If at all she had congestive heart failure was very transient. Her echocardiogram shows no significant structural abnormalities. This was discussed in details with her and her family members present at bedside. She has no signs of heart failure today. I do not think she needs long-term diuretic regimen. She remains constantly worried about her heart condition at this point time. Try to LAD or anxiety and say that this does not portend into long term care pharmacist poor prognosis. Advised to maintain activity level as tolerated. Recheck NT pro BNP. (2) Sinus bradycardia: Status: Acute Assessment and Plan: Sinus bradycardia has resolved with holding her metoprolol therapy. Discontinue metoprolol therapy and shelter. Will monitor with a Holter monitor as outpatient. She is worried about recurrence of atrial fibrillation. We discussed about dealing with this when there is any obvious clinical recurrence. Will sign of the case. From our perspective patient can be discharged home. Time Spent With Patient Time: Total time managing care of this patient today ____ minutes. Progress Note: Quality Stroke Does the patient have a stroke diagnosis?: No Procedures Date of Service Date of Service: 02/09/25
[2025-02-09 12:45] LABS: NT Pro B Type Natriuretic Pept 82.1 pg/mL (<300)
[2025-02-09 15:06] VITALS: BP 112/68; PULSE 79; RESP 18; TEMP 36.7; O2SAT 96
[2025-02-09 19:57] VITALS: BP 122/58; PULSE 61; RESP 16; TEMP 36.5; O2SAT 97
[2025-02-09] MEDS: Budesonide DR 3 MG Capsule 9 MG PO (21:19)
[2025-02-09 23:49] VITALS: BP 116/68; PULSE 83; RESP 16; TEMP 36.7; O2SAT 92
[2025-02-10 03:36] VITALS: BP 108/55; PULSE 64; RESP 16; TEMP 36.6; O2SAT 96
[2025-02-10 07:57] VITALS: BP 123/60; PULSE 58; RESP 20; TEMP 36.1; O2SAT 99
[2025-02-10] MEDS: oxyCODONE HCl Immed Release 5 MG TABLET 20 MG PO ×2 (09:40→21:15)
--- NOTE | 2025-02-10 11:47 | P.PNIM_ITS ---
Subjective Subjective Date of Service: 02/10/25 Interval History: ongoing abd pain, nausea Physical Exam 2 Vital Signs: Vital Signs: Last Vital Signs Temp 97.0 F 02/10/25 07:57 Pulse 58 02/10/25 07:57 Resp 20 02/10/25 07:57 BP 123/60 02/10/25 07:57 Pulse Ox 99 02/10/25 07:57 O2 Del Method Nasal Cannula 02/10/25 07:57 O2 Flow Rate 1 02/10/25 07:57 BMI result Body Mass Index 32.9 Const: General: cooperative, comfortable, no acute distress, awake and anxious Nutritional Appearance: overweight Orientation/consciousness: patient oriented x3 HEENT: Head: Yes normocephalic and Yes atraumatic Neck: Neck: Yes trachea midline, Yes supple and Yes no JVD Resp: Effort & Inspection: normal respiratory effort Auscultation: no rales, no wheezes and breath sounds absent on th left (Based) Cardio: Jugular venous distension: no JVD Rate: regular rate Rhythm: r egular rhythm Heart sounds: S1 normal heart sound present, S2 normal heart sound present, no click, no gallops and no murmurs GI: Inspection: Yes other (Epigastric tenderness) Auscultation: normal bowel sounds Skin: General skin exam: no rashes or lesions noted Neuro: General: patient oriented x3 and no focal motor deficits Extrem: General: Yes no clubbing, cyanosis or edema Objective Data Active Medications Acetaminophen (Acetaminophen 325 Mg Tablet) 650 mg PO Q6H PRN PRN Reason: Pain, Mild 1-3,fever,headache Last Admin: 02/08/25 07:42 Dose: 650 mg Documented By: LARRY Albuterol Sulfate (Albuterol Sulfate 90 Mcg 8 Gm Inhaler) 2 puff INHALE Q4H PRN PRN Reason: Shortness of Breath Atorvastatin Calcium (Atorvastatin Calcium 20 Mg Tablet) 20 mg PO BEDTIME [facility] Last Admin: 02/09/25 21:19 Dose: 20 mg Documented By: DEIDRA Budesonide (Budesonide Dr 3 Mg Capsule) 9 mg PO BEDTIME [facility] Last Admin: 02/09/25 21:19 Dose: 9 mg Documented By: DEIDRA Calcium Carbonate (Calcium Carbonate 750 Mg Tab.Chew) 750 mg PO Q4H PRN PRN Reason: Heartburn Last Admin: 02/08/25 20:36 Dose: 750 mg Documented By: DEIDRA Cyanocobalamin (Cyanocobalamin (Vitamin B-12) 500 Mcg Tablet) 500 mcg PO BEDTIME [facility] Last Admin: 02/09/25 21:19 Dose: 500 mcg Documented By: DEIDRA Cyclobenzaprine HCl (Cyclobenzaprine Hcl 5 Mg Tablet) 5 mg PO DAILY PRN PRN Reason: Muscle Spasm Dicyclomine HCl (Dicyclomine Hcl 10 Mg Capsule) 10 mg PO QIDACHS [facility] Last Admin: 02/10/25 09:42 Dose: 10 mg Documented By: NAFISA Enoxaparin Sodium (Enoxaparin Sodium 40 Mg/0.4 Ml Syringe) 40 mg SUBCUT Q24H [facility] Last Admin: 02/10/25 09:42 Dose: 40 mg Documented By: NAFISA Hydromorphone HCl (Hydromorphone Hcl 0.5 Mg/0.5 Ml Syringe) 0.5 mg IVPUSH Q4H PRN; Protocol PRN Reason: Pain, Severe (Pain Scale 7-10) Last Admin: 02/10/25 06:20 Dose: 0.5 mg Documented By: DEIDRA Lorazepam (Lorazepam 1 Mg Tablet) 1 mg PO BEDTIME [facility] Last Admin: 02/09/25 21:19 Dose: 1 mg Documented By: DEIDRA Magnesium Hydroxide (Milk Of Magnesia 30 Ml Oral.Susp) 30 ml PO DAILY PRN PRN Reason: Constipation Melatonin (Melatonin 3 Mg Tablet) 6 mg PO BEDTIME PRN PRN Reason: Insomnia Omeprazole (Omeprazole 40 Mg Capsule.Dr) 40 mg PO BID@0630,1630 [facility] Last Admin: 02/10/25 06:20 Dose: 40 mg Documented By: DEIDRA Ondansetron HCl (Ondansetron Hcl 4 Mg/2 Ml Vial) 4 mg IVPUSH Q6H PRN PRN Reason: Nausea Oxycodone HCl (Oxycodone Hcl Immed Release 5 Mg Tablet) 20 mg PO BID [facility] Last Admin: 02/10/25 09:40 Dose: 20 mg Documented By: NAFISA Quetiapine Fumarate (Quetiapine Fumarate 25 Mg Tablet) 25 mg PO BEDTIME [facility] Last Admin: 02/09/25 21:19 Dose: 25 mg Documented By: DEIDRA Sertraline HCl (Sertraline Hcl 25 Mg Tablet) 25 mg PO BEDTIME [facility] Last Admin: 02/09/25 21:19 Dose: 25 mg Documented By: DEIDRA Sertraline HCl (Sertraline Hcl 100 Mg Tablet) 200 mg PO BEDTIME [facility] Last Admin: 02/09/25 21:19 Dose: 200 mg Documented By: DEIDRA Sodium Chloride (0.9 % Sodium Chloride Flush 3 Ml Syringe) 3 ml IVFLUSH QSHIFT [facility] Last Admin: 02/10/25 09:42 Dose: Not Given Documented By: NAFISA Non-Admin Reason: Previously Administered Labs 02/09/25 06:43 02/09/25 06:43 Labs: Laboratory Results - last 24 hr 02/09/25 06:43 NT-Pro-B Natriuret Pep 82.1 Assessment and Plan (1) Crohn's disease: Status: Acute Plan 49F PMH crohns, chronic back pain, pafib, presented with sob acute hypoxic respiratory failure due to acute on chronic diastolic CHF and atelectasis Improved with IV diuresis, no further needed at this time Incentive spirometry now on room air Cardio appreciated Paroxysmal AFib with sinus bradycardia Holding metoprolol for bradycardia - resolved Holding off on anticoagulation, outpatient follow up Cardiology Epigastric abdominal pain GI appreciated - pancreatitis unlikely, continue bentyl, ppi crohns no acute flare continue budesonide nocturnal hyopxia ?TAMERA check CT chest mood disorder seroquel, ativan, zoloft DVT prophylaxis Lovenox Full code reason for continued hospitalization: not tolerating po, needing iv pain meds Quality Stroke Does the patient have a stroke diagnosis?: No VTE Prior VTE?: No VTE Risk Level:: Medical - moderate - high VTE Device Contraindication: N/A - Device Ordered VTE Drug Contraindication: Treatment Not Indicated
[2025-02-10 12:00] VITALS: BP 133/64; PULSE 70; RESP 18; TEMP 36.3; O2SAT 98
[2025-02-10 15:22] VITALS: BP 129/61; PULSE 62; RESP 18; TEMP 36.4; O2SAT 97
--- NOTE | 2025-02-10 16:07 | MHC.CM.PN ---
EMR REVIEWED AND PER MD ROUNDS, PATIENT IS NOT MEDICALLY CLEARED FOR DISCHARGE DUE TO MANAGEMENT OF ACUTE ON CHRONIC CHF.
[2025-02-10 19:34] VITALS: BP 110/66; PULSE 67; RESP 18; TEMP 36.6; O2SAT 96
[2025-02-10] MEDS: Budesonide DR 3 MG Capsule 9 MG PO (21:19)
[2025-02-10] MEDS: 0.9 % Sodium Chloride Flush 3 ML SYRINGE IVFLUSH (21:21)
[2025-02-11] VITALS: BP 109/60; PULSE 74; RESP 20; TEMP 36.7; O2SAT 95
[2025-02-11 04:00] VITALS: BP 110/56; PULSE 70; RESP 20; TEMP 36.6; O2SAT 94
[2025-02-11 08:00] VITALS: BP 133/61; PULSE 58; RESP 18; TEMP 36.5; O2SAT 97
[2025-02-11 08:18] LABS: Hematocrit 39.7 % (37.0-47.0); Hemoglobin 12.8 g/dl (12.0-16.0); Mean Corpuscular HGB Conc 32.2 g/dl (31.0-35.0); Mean Corpuscular Hemoglobin 29.0 pg (27.0-33.0); Mean Corpuscular Volume 89.8 fL (80.0-98.0); NRBC Abs Auto 0.000 X10*3/uL (0.0-0.012); NRBC Pct Auto 0.0 /100WBC (0.0-0.2); Platelet Count 184 X10*3/uL (160-400); Red Blood Count 4.42 X10*6/uL (4.20-5.50); White Blood Count 6.5 X10*3/uL (4.8-10.8)
[2025-02-11 08:37] LABS: Anion Gap 11 (12-20); Blood Urea Nitrogen 4 mg/dL (9-16); Calcium 8.5 mg/dL (8.4-10.2); Carbon Dioxide 27 mmol/L (22-29); Chloride 107 mmol/L (96-108); Creatinine Clr Calc Pharmacy 118.2; Estimated Glomerular Filt Rate > 60; Magnesium 1.8 mg/dL (1.6-2.6); Potassium 4.0 mmol/L (3.3-5.1); Sodium 141 mmol/L (135-145)
[2025-02-11] MEDS: oxyCODONE HCl Immed Release 5 MG TABLET 20 MG PO ×2 (09:36→20:51)
[2025-02-11] MEDS: 0.9 % Sodium Chloride Flush 3 ML SYRINGE IVFLUSH ×3 (09:37→23:28)
--- NOTE | 2025-02-11 10:34 | P.PNIM_ITS ---
Subjective Subjective Date of Service: 02/11/25 Interval History: still with pain Physical Exam 2 Vital Signs: Vital Signs: Last Vital Signs Temp 97.7 F 02/11/25 08:00 Pulse 58 02/11/25 08:00 Resp 18 02/11/25 08:00 BP 133/61 02/11/25 08:00 Pulse Ox 97 02/11/25 08:00 O2 Del Method Room Air 02/11/25 08:00 O2 Flow Rate 1 02/10/25 07:57 BMI result Body Mass Index 32.9 Const: General: cooperative, comfortable, no acute distress, awake and anxious Nutritional Appearance: overweight Orientation/consciousness: patient oriented x3 HEENT: Head: Yes normocephalic and Yes atraumatic Neck: Neck: Yes trachea midline, Yes supple and Yes no JVD Resp: Effort & Inspection: normal respiratory effort Auscultation: no rales, no wheezes and breath sounds absent on th left (Based) Cardio: Jugular venous distension: no JVD Rate: regular rate Rhythm: r egular rhythm Heart sounds: S1 normal heart sound present, S2 normal heart sound present, no click, no gallops and no murmurs GI: Inspection: Yes other (Epigastric tenderness) Auscultation: normal bowel sounds Skin: General skin exam: no rashes or lesions noted Neuro: General: patient oriented x3 and no focal motor deficits Extrem: General: Yes no clubbing, cyanosis or edema Objective Data Active Medications Acetaminophen (Acetaminophen 325 Mg Tablet) 650 mg PO Q6H PRN PRN Reason: Pain, Mild 1-3,fever,headache Last Admin: 02/08/25 07:42 Dose: 650 mg Documented By: LARRY Albuterol Sulfate (Albuterol Sulfate 90 Mcg 8 Gm Inhaler) 2 puff INHALE Q4H PRN PRN Reason: Shortness of Breath Atorvastatin Calcium (Atorvastatin Calcium 20 Mg Tablet) 20 mg PO BEDTIME [facility] Last Admin: 02/10/25 21:16 Dose: 20 mg Documented By: DILIP Budesonide (Budesonide Dr 3 Mg Capsule) 9 mg PO BEDTIME [facility] Last Admin: 02/10/25 21:19 Dose: 9 mg Documented By: DILIP Calcium Carbonate (Calcium Carbonate 750 Mg Tab.Chew) 750 mg PO Q4H PRN PRN Reason: Heartburn Last Admin: 02/10/25 12:20 Dose: 750 mg Documented By: NAFISA Cyanocobalamin (Cyanocobalamin (Vitamin B-12) 500 Mcg Tablet) 500 mcg PO BEDTIME [facility] Last Admin: 02/10/25 21:16 Dose: 500 mcg Documented By: DILIP Cyclobenzaprine HCl (Cyclobenzaprine Hcl 5 Mg Tablet) 5 mg PO DAILY PRN PRN Reason: Muscle Spasm Dicyclomine HCl (Dicyclomine Hcl 10 Mg Capsule) 10 mg PO QIDACHS [facility] Last Admin: 02/11/25 09:36 Dose: 10 mg Documented By: AIYANA Enoxaparin Sodium (Enoxaparin Sodium 40 Mg/0.4 Ml Syringe) 40 mg SUBCUT Q24H [facility] Last Admin: 02/11/25 09:37 Dose: 40 mg Documented By: AIYANA Hydromorphone HCl (Hydromorphone Hcl 0.5 Mg/0.5 Ml Syringe) 0.5 mg IVPUSH Q4H PRN; Protocol PRN Reason: Pain, Severe (Pain Scale 7-10) Last Admin: 02/11/25 10:26 Dose: 0.5 mg Documented By: AIYANA Lorazepam (Lorazepam 1 Mg Tablet) 1 mg PO BEDTIME [facility] Last Admin: 02/10/25 21:17 Dose: 1 mg Documented By: DILIP Magnesium Hydroxide (Milk Of Magnesia 30 Ml Oral.Susp) 30 ml PO DAILY PRN PRN Reason: Constipation Melatonin (Melatonin 3 Mg Tablet) 6 mg PO BEDTIME PRN PRN Reason: Insomnia Omeprazole (Omeprazole 40 Mg Capsule.Dr) 40 mg PO BID@0630,1630 [facility] Last Admin: 02/11/25 06:15 Dose: 40 mg Documented By: DILIP Ondansetron HCl (Ondansetron Hcl 4 Mg/2 Ml Vial) 4 mg IVPUSH Q6H PRN PRN Reason: Nausea Oxycodone HCl (Oxycodone Hcl Immed Release 5 Mg Tablet) 20 mg PO BID [facility] Last Admin: 02/11/25 09:36 Dose: 20 mg Documented By: AIYANA Quetiapine Fumarate (Quetiapine Fumarate 25 Mg Tablet) 25 mg PO BEDTIME [facility] Last Admin: 02/10/25 21:18 Dose: 25 mg Documented By: DILIP Sertraline HCl (Sertraline Hcl 25 Mg Tablet) 25 mg PO BEDTIME [facility] Last Admin: 02/10/25 21:17 Dose: 25 mg Documented By: DILIP Sertraline HCl (Sertraline Hcl 100 Mg Tablet) 200 mg PO BEDTIME [facility] Last Admin: 02/10/25 21:20 Dose: 200 mg Documented By: DILIP Sodium Chloride (0.9 % Sodium Chloride Flush 3 Ml Syringe) 3 ml IVFLUSH QSHIFT [facility] Last Admin: 02/11/25 09:37 Dose: 3 ml Documented By: AIYANA Labs 02/11/25 07:11 02/11/25 07:11 Labs: Laboratory Results - last 24 hr 02/11/25 02/11/25 07:10 07:11 MCV 89.8 MCH 29.0 MCHC 32.2 RDW 12.4 Plt Count 184 MPV 9.8 Absolute Nucleated RBC 0.000 Nucleated RBC % (auto) 0.0 ESR 9 Anion Gap 11 L Estim Creat Clear Calc 118.2 Estimated GFR > 60 Random Glucose 106 Calcium 8.5 Magnesium 1.8 Assessment and Plan (1) Crohn's disease: Status: Acute Plan 49F PMH crohns, chronic back pain, pafib, presented with sob acute hypoxic respiratory failure due to acute on chronic diastolic CHF and atelectasis Improved with IV diuresis, no further needed at this time Incentive spirometry now on room air Cardio appreciated Paroxysmal AFib with sinus bradycardia Holding metoprolol for bradycardia - resolved Holding off on anticoagulation, outpatient follow up Cardiology Epigastric abdominal pain GI appreciated - pancreatitis unlikely, continue bentyl, ppi crohns no acute flare continue budesonide nocturnal hyopxia ?TAMERA ct chest only with atelectasis mood disorder seroquel, ativan, zoloft DVT prophylaxis Lovenox Full code reason for continued hospitalization: not tolerating po, needing iv pain meds Quality Stroke Does the patient have a stroke diagnosis?: No VTE Prior VTE?: No VTE Risk Level:: Medical - moderate - high VTE Device Contraindication: N/A - Device Ordered VTE Drug Contraindication: Treatment Not Indicated
[2025-02-11 12:00] VITALS: BP 120/59; PULSE 60; RESP 18; TEMP 36.8; O2SAT 95
[2025-02-11 15:44] VITALS: BP 110/60; PULSE 89; RESP 19; TEMP 37.3; O2SAT 97
[2025-02-11 19:48] VITALS: BP 118/67; PULSE 72; RESP 16; TEMP 36.7; O2SAT 94
[2025-02-11] MEDS: Budesonide DR 3 MG Capsule 9 MG PO (20:53)
[2025-02-12] VITALS (7 sets, daily range): BP systolic 106–136; BP diastolic 58–81; PULSE 65–85; RESP 18–20; TEMP 36.4–37.2; O2SAT 93–97
[2025-02-12] MEDS: oxyCODONE HCl Immed Release 5 MG TABLET 20 MG PO ×2 (07:58→20:06)
[2025-02-12] MEDS: 0.9 % Sodium Chloride Flush 3 ML SYRINGE IVFLUSH ×3 (07:58→23:48)
--- NOTE | 2025-02-12 10:11 | HO.PM.IMPN ---
Subjective Subjective Date of Service: 02/12/25 Interval History: still with pain Physical Exam Vital Signs: Vital Signs: Last Vital Signs Temp 97.9 F 02/12/25 08:00 Pulse 65 02/12/25 08:00 Resp 18 02/12/25 08:00 BP 126/71 02/12/25 08:00 Pulse Ox 95 02/12/25 08:00 O2 Del Method Room Air 02/12/25 08:00 O2 Flow Rate 1 02/10/25 07:57 BMI result Body Mass Index 32.9 Const: General: cooperative, comfortable, no acute distress, awake and anxious Nutritional Appearance: overweight Orientation/consciousness: patient oriented x3 HEENT: Head: Yes normocephalic and Yes atraumatic Neck: Neck: Yes trachea midline, Yes supple and Yes no JVD Resp: Effort & Inspection: normal respiratory effort Auscultation: no rales, no wheezes and breath sounds absent on th left (Based) Cardio: Jugular venous distension: no JVD Rate: regular rate Rhythm: regular rhythm Heart sounds: S1 normal heart sound present, S2 normal heart sound present, no click, no gallops and no murmurs GI: Inspection: Yes other (Epigastric tenderness) Auscultation: normal bowel sounds Skin: General skin exam: no rashes or lesions noted Neuro: General: patient oriented x3 and no focal motor deficits Extrem: General: Yes no clubbing, cyanosis or edema Objective Data Active Medications Acetaminophen (Acetaminophen 325 Mg Tablet) 650 mg PO Q6H PRN PRN Reason: Pain, Mild 1-3,fever,headache Last Admin: 02/08/25 07:42 Dose: 650 mg Documented By: LARRY Albuterol Sulfate (Albuterol Sulfate 90 Mcg 8 Gm Inhaler) 2 puff INHALE Q4H PRN PRN Reason: Shortness of Breath Atorvastatin Calcium (Atorvastatin Calcium 20 Mg Tablet) 20 mg PO BEDTIME [facility] Last Admin: 02/11/25 20:53 Dose: 20 mg Documented By: DILIP Budesonide (Budesonide Dr 3 Mg Capsule) 9 mg PO BEDTIME [facility] Last Admin: 02/11/25 20:53 Dose: 9 mg Documented By: DILIP Calcium Carbonate (Calcium Carbonate 750 Mg Tab.Chew) 750 mg PO Q4H PRN PRN Reason: Heartburn Last Admin: 02/10/25 12:20 Dose: 750 mg Documented By: NAFISA Cyanocobalamin (Cyanocobalamin (Vitamin B-12) 500 Mcg Tablet) 500 mcg PO BEDTIME [facility] Last Admin: 02/11/25 20:53 Dose: 500 mcg Documented By: DILIP Cyclobenzaprine HCl (Cyclobenzaprine Hcl 5 Mg Tablet) 5 mg PO DAILY PRN PRN Reason: Muscle Spasm Dicyclomine HCl (Dicyclomine Hcl 10 Mg Capsule) 10 mg PO QIDACHS [facility] Last Admin: 02/12/25 07:58 Dose: 10 mg Documented By: AIYANA Enoxaparin Sodium (Enoxaparin Sodium 40 Mg/0.4 Ml Syringe) 40 mg SUBCUT Q24H [facility] Last Admin: 02/12/25 07:57 Dose: 40 mg Documented By: AIYANA Hydromorphone HCl (Hydromorphone Hcl 0.5 Mg/0.5 Ml Syringe) 0.5 mg IVPUSH Q4H PRN; Protocol PRN Reason: Pain, Severe (Pain Scale 7-10) Last Admin: 02/12/25 05:34 Dose: 0.5 mg Documented By: DILIP Lorazepam (Lorazepam 1 Mg Tablet) 1 mg PO BEDTIME [facility] Last Admin: 02/11/25 20:52 Dose: 1 mg Documented By: DILIP Magnesium Hydroxide (Milk Of Magnesia 30 Ml Oral.Susp) 30 ml PO DAILY PRN PRN Reason: Constipation Melatonin (Melatonin 3 Mg Tablet) 6 mg PO BEDTIME PRN PRN Reason: Insomnia Omeprazole (Omeprazole 40 Mg Capsule.Dr) 40 mg PO BID@0630,1630 [facility] Last Admin: 02/12/25 05:35 Dose: 40 mg Documented By: DILIP Ondansetron HCl (Ondansetron Hcl 4 Mg/2 Ml Vial) 4 mg IVPUSH Q6H PRN PRN Reason: Nausea Oxycodone HCl (Oxycodone Hcl Immed Release 5 Mg Tablet) 20 mg PO BID [facility] Last Admin: 02/12/25 07:58 Dose: 20 mg Documented By: AIYANA Quetiapine Fumarate (Quetiapine Fumarate 25 Mg Tablet) 25 mg PO BEDTIME [facility] Last Admin: 02/11/25 20:52 Dose: 25 mg Documented By: DILIP Sertraline HCl (Sertraline Hcl 25 Mg Tablet) 25 mg PO BEDTIME [facility] Last Admin: 02/11/25 20:53 Dose: 25 mg Documented By: DILIP Sertraline HCl (Sertraline Hcl 100 Mg Tablet) 200 mg PO BEDTIME [facility] Last Admin: 02/11/25 20:52 Dose: 200 mg Documented By: DILIP Sodium Chloride (0.9 % Sodium Chloride Flush 3 Ml Syringe) 3 ml IVFLUSH QSHIFT [facility] Last Admin: 02/12/25 07:58 Dose: 3 ml Documented By: AIYANA Labs 02/11/25 07:11 02/11/25 07:11 Assessment and Plan (1) Crohn's disease: Status: Acute Plan 49F PMH crohns, chronic back pain, pafib, presented with sob acute hypoxic respiratory failure due to acute on chronic diastolic CHF and atelectasis Improved with IV diuresis, no further needed at this time Incentive spirometry now on room air Cardio appreciated Paroxysmal AFib with sinus bradycardia Holding metoprolol for bradycardia - resolved Holding off on anticoagulation, outpatient follow up Cardiology Epigastric abdominal pain GI appreciated - pancreatitis unlikely, continue bentyl, ppi cotninues to require iv pain meds CT abd unremarkable follow up gi crohns no acute flare continue budesonide nocturnal hyopxia ?TAMERA ct chest only with atelectasis mood disorder seroquel, ativan, zoloft DVT prophylaxis Lovenox Full code reason for continued hospitalization: not tolerating po, needing iv pain meds Quality Stroke Does the patient have a stroke diagnosis?: No VTE Prior VTE?: No VTE Risk Level:: Medical - moderate - high VTE Device Contraindication: N/A - Device Ordered VTE Drug Contraindication: Treatment Not Indicated
[2025-02-12] MEDS: Budesonide DR 3 MG Capsule 9 MG PO (20:08)
[2025-02-13 02:45] VITALS: BP 128/67; PULSE 72; RESP 18; TEMP 36.9; O2SAT 98
[2025-02-13 08:00] VITALS: BP 131/67; PULSE 60; RESP 19; TEMP 36.7; O2SAT 95
--- NOTE | 2025-02-13 09:23 | HO.PM.IMPN ---
Subjective Subjective Date of Service: 02/13/25 Interval History: ongoing pain Physical Exam Vital Signs: Vital Signs: Last Vital Signs Temp 98.1 F 02/13/25 08:00 Pulse 60 02/13/25 08:00 Resp 19 02/13/25 08:00 BP 131/67 02/13/25 08:00 Pulse Ox 95 02/13/25 08:00 O2 Del Method Room Air 02/13/25 08:00 O2 Flow Rate 1 02/10/25 07:57 BMI result Body Mass Index 32.9 Const: General: cooperative, comfortable, no acute distress, awake and anxious Nutritional Appearance: overweight Orientation/consciousness: patient oriented x3 HEENT: Head: Yes normocephalic and Yes atraumatic Neck: Neck: Yes trachea midline, Yes supple and Yes no JVD Resp: Effort & Inspection: normal respiratory effort Auscultation: no rales, no wheezes and breath sounds absent on th left (Based) Cardio: Jugular venous distension: no JVD Rate: regular rate Rhythm: regular rhythm Heart sounds: S1 normal heart sound present, S2 normal heart sound present, no click, no gallops and no murmurs GI: Inspection: Yes other (Epigastric tenderness) Auscultation: normal bowel sounds Skin: General skin exam: no rashes or lesions noted Neuro: General: patient oriented x3 and no focal motor deficits Extrem: General: Yes no clubbing, cyanosis or edema Objective Data Active Medications Acetaminophen (Acetaminophen 325 Mg Tablet) 650 mg PO Q6H PRN PRN Reason: Pain, Mild 1-3,fever,headache Last Admin: 02/08/25 07:42 Dose: 650 mg Documented By: LARRY Albuterol Sulfate (Albuterol Sulfate 90 Mcg 8 Gm Inhaler) 2 puff INHALE Q4H PRN PRN Reason: Shortness of Breath Atorvastatin Calcium (Atorvastatin Calcium 20 Mg Tablet) 20 mg PO BEDTIME [facility] Last Admin: 02/12/25 20:09 Dose: 20 mg Documented By: DILIP Budesonide (Budesonide Dr 3 Mg Capsule) 9 mg PO BEDTIME [facility] Last Admin: 02/12/25 20:08 Dose: 9 mg Documented By: DILIP Calcium Carbonate (Calcium Carbonate 750 Mg Tab.Chew) 750 mg PO Q4H PRN PRN Reason: Heartburn Last Admin: 02/10/25 12:20 Dose: 750 mg Documented By: NAFISA Cyanocobalamin (Cyanocobalamin (Vitamin B-12) 500 Mcg Tablet) 500 mcg PO BEDTIME [facility] Last Admin: 02/12/25 20:08 Dose: 500 mcg Documented By: DILIP Cyclobenzaprine HCl (Cyclobenzaprine Hcl 5 Mg Tablet) 5 mg PO DAILY PRN PRN Reason: Muscle Spasm Dicyclomine HCl (Dicyclomine Hcl 10 Mg Capsule) 10 mg PO QIDACHS [facility] Last Admin: 02/12/25 20:09 Dose: 10 mg Documented By: DILIP Enoxaparin Sodium (Enoxaparin Sodium 40 Mg/0.4 Ml Syringe) 40 mg SUBCUT Q24H [facility] Last Admin: 02/12/25 07:57 Dose: 40 mg Documented By: AIYANA Hydromorphone HCl (Hydromorphone Hcl 0.5 Mg/0.5 Ml Syringe) 0.5 mg IVPUSH Q4H PRN; Protocol PRN Reason: Pain, Severe (Pain Scale 7-10) Lorazepam (Lorazepam 1 Mg Tablet) 1 mg PO BEDTIME [facility] Last Admin: 02/12/25 20:10 Dose: 1 mg Documented By: DILIP Magnesium Hydroxide (Milk Of Magnesia 30 Ml Oral.Susp) 30 ml PO DAILY PRN PRN Reason: Constipation Melatonin (Melatonin 3 Mg Tablet) 6 mg PO BEDTIME PRN PRN Reason: Insomnia Omeprazole (Omeprazole 40 Mg Capsule.Dr) 40 mg PO BID@0630,1630 [facility] Last Admin: 02/13/25 06:12 Dose: 40 mg Documented By: DILIP Ondansetron HCl (Ondansetron Hcl 4 Mg/2 Ml Vial) 4 mg IVPUSH Q6H PRN PRN Reason: Nausea Oxycodone HCl (Oxycodone Hcl Immed Release 5 Mg Tablet) 20 mg PO BID [facility] Last Admin: 02/12/25 20:06 Dose: 20 mg Documented By: DILIP Quetiapine Fumarate (Quetiapine Fumarate 25 Mg Tablet) 25 mg PO BEDTIME [facility] Last Admin: 02/12/25 20:09 Dose: 25 mg Documented By: DILIP Sertraline HCl (Sertraline Hcl 25 Mg Tablet) 25 mg PO BEDTIME [facility] Last Admin: 02/12/25 20:10 Dose: 25 mg Documented By: DILIP Sertraline HCl (Sertraline Hcl 100 Mg Tablet) 200 mg PO BEDTIME [facility] Last Admin: 02/12/25 20:05 Dose: 200 mg Documented By: DILIP Sodium Chloride (0.9 % Sodium Chloride Flush 3 Ml Syringe) 3 ml IVFLUSH QSHIFT [facility] Last Admin: 02/12/25 23:48 Dose: 3 ml Documented By: DILIP Labs 02/11/25 07:11 02/11/25 07:11 Assessment and Plan (1) Crohn's disease: Status: Acute Plan 49F PMH crohns, chronic back pain, pafib, presented with sob acute hypoxic respiratory failure due to acute on chronic diastolic CHF and atelectasis Improved with IV diuresis, no further needed at this time Incentive spirometry now on room air Cardio appreciated Paroxysmal AFib with sinus bradycardia Holding metoprolol for bradycardia - resolved Holding off on anticoagulation, outpatient follow up Cardiology will dc tele for now has been persistently in sinus Epigastric abdominal pain GI appreciated - pancreatitis unlikely, continue bentyl, ppi cotninues to require iv pain meds CT abd unremarkable follow up gi crohns no acute flare continue budesonide nocturnal hyopxia ?TAMERA ct chest only with atelectasis mood disorder seroquel, ativan, zoloft DVT prophylaxis Lovenox Full code reason for continued hospitalization: not tolerating po, needing iv pain meds Quality Stroke Does the patient have a stroke diagnosis?: No VTE Prior VTE?: No VTE Risk Level:: Medical - moderate - high VTE Device Contraindication: N/A - Device Ordered VTE Drug Contraindication: Treatment Not Indicated
[2025-02-13] MEDS: oxyCODONE HCl Immed Release 5 MG TABLET 20 MG PO ×2 (10:59→20:32)
[2025-02-13 11:57] VITALS: BP 118/61; PULSE 73; RESP 17; TEMP 36.4; O2SAT 96
--- NOTE | 2025-02-13 15:14 | MHC.CM.PN ---
EMR REVIEWED AND PER MD ROUNDS, PATIENT IS NOT MEDICALLY CLEARED FOR DISCHARGE DUE TO MANAGEMENT OF PAIN, REQUIRING IV PAIN MEDS, ALSO NOT TOLERATING PO INTAKE.
[2025-02-13 15:29] VITALS: BP 118/64; PULSE 71; RESP 16; TEMP 36.7; O2SAT 95
[2025-02-13 19:07] VITALS: BP 102/61; PULSE 69; RESP 17; TEMP 36.7; O2SAT 98
[2025-02-13] MEDS: Budesonide DR 3 MG Capsule 9 MG PO (20:32)
[2025-02-13] MEDS: 0.9 % Sodium Chloride Flush 3 ML SYRINGE IVFLUSH (23:15)
[2025-02-13 23:29] VITALS: BP 105/63; PULSE 81; RESP 18; TEMP 36.6; O2SAT 95
[2025-02-14 03:14] VITALS: BP 138/60; PULSE 72; RESP 18; TEMP 36.2; O2SAT 95
[2025-02-14 07:16] VITALS: BP 128/66; PULSE 57; RESP 18; TEMP 36.6; O2SAT 96
[2025-02-14] MEDS: oxyCODONE HCl Immed Release 5 MG TABLET 20 MG PO (08:18)
--- NOTE | 2025-02-14 09:36 | PM.DS ---
DS: Providers Provider Date of Service: 02/14/25 Date of admission: 02/07/25 23:34 Date of discharge: 02/14/25 Primary care physician: Balaji Ibanez MD Consults: 02/07/25 23:34 Consult to Cardiology Routine Consulting Provider: [facility] Reason for consultation: New CHF, bradycardia, near syncope 02/08/25 09:20 Consult to Gastroenterology Routine Consulting Provider: [facility] Reason for consultation: epigastric pain, history of crohns, pancreatitis DS: Diagnosis Discharge Diagnosis (1) Crohn's disease: Status: Acute DS: Summary Hospital Course Hospital Course: from initial hpi: [id number]-old female with a past medical history of Crohn's disease, chronic back pain, paroxysmal AFib-not on anticoagulation; presented to the hospital today with a chief complaint of shortness of breath. Patient reported that she presented to the ER couple days ago for epigastric pain and was admitted to the hospital for 2 days; patient was diagnosed with pancreatitis. Patient actually left the hospital she continued to have epigastric pain. Has not been eating well. Over the past couple days she also noticed shortness of breath and dyspnea on exertion. And at nighttime and she lying flat she could not breathe and has to get up. On Thursday she noticed multiple episodes of lightheadedness and felt like she is going to faint but did not lose consciousness or fall. 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 But she continued to have the increased shortness of breath hence presented to the ER for further evaluation. Reports having continuous epigastric pain. Denies any chest pain. Denies any nausea vomiting. Denies any diarrhea. Denies any alcohol use or smoking. Review of all other systems is negative except mentioned above ER course: Per ER team, patient noted have epigastric tenderness; chest x-ray showed no acute cardiopulmonary process; proBNP elevated; concern for possible new onset CHF. Given a dose of Lasix. hospital course: Patient was admitted for acute hypoxic respiratory failure due to acute on chronic diastolic CHF and atelectasis. This improved with IV diuresis and incentive spirometry and was weaned to room air. For paroxysmal AFib with sinus bradycardia was seen by Cardiology recommended discontinuing metoprolol and felt patient no longer needed anticoagulation. Patient's heart rate improved and remains 50s to 60s asymptomatic. For epigastric abdominal pain was seen by gastroenterology recommended Marilee, CAT scan did not reveal acute pathology. Patient is still has abdominal pain on discharge but is able to maintain hydration and nutrition. She will follow up outpatient with GI. For Crohn's there was no acute flare and was continued on budesonide. For mood disorder was continued on Seroquel, Ativan, Zoloft. Time Attestation Discharge Coordination Time (in mins): 33 Quality: Safe Use of Opioids Does Pt have an Active Cancer Diagnosis on the Problem List?: No Quality: Stroke Does the patient have a stroke diagnosis?: No Physical Exam Vital Signs: Vital Signs: Last Vital Signs Temp 97.9 F 02/14/25 07:16 Pulse 57 02/14/25 07:16 Resp 18 02/14/25 07:16 BP 128/66 02/14/25 07:16 Pulse Ox 96 02/14/25 07:16 O2 Del Method Room Air 02/14/25 07:16 O2 Flow Rate 1 02/10/25 07:57 BMI result Body Mass Index 32.9 Const: General: cooperative, comfortable, no acute distress, awake and anxious Nutritional Appearance: overweight Orientation/consciousness: patient oriented x3 HEENT: Head: Yes normocephalic and Yes atraumatic Neck: Neck: Yes trachea midline, Yes supple and Yes no JVD Resp: Effort & Inspection: normal respiratory effort Auscultation: no rales, no wheezes and breath sounds absent on th left (Based) Cardio: Jugular venous distension: no JVD Rate: regular rate Rhythm: regular rhythm Heart sounds: S1 normal heart sound present, S2 normal heart sound present, no click, no gallops and no murmurs GI: Inspection: Yes other (Epigastric tenderness) Auscultation: normal bowel sounds Skin: General skin exam: no rashes or lesions noted Neuro: General: patient oriented x3 and no focal motor deficits Extrem: General: Yes no clubbing, cyanosis or edema Discharge Plan Discharge Anticipated Discharge Date/Time: 02/14/25 09:34 Patient Disposition: Home, Self-Care Discharge Diagnosis: abd pain, misael Referrals: Balaji Ibanez MD [Primary Care Provider, Internal Medicine] - 1 Week Stepan Sheldon MD [Physician, Gastroenterology] - 1 Week Discharge Medications: New dicyclomine 10 mg Capsule 10 mg PO QIDACHS 90 Days Qty: 240 0RF Continued sertraline [Zoloft] 100 mg tablet 25 mg PO BEDTIME sertraline 100 mg tablet 200 mg PO BEDTIME cholecalciferol (vitamin D3) [Vitamin D3] 25 mcg (1,000 unit) capsule 25 mcg PO BEDTIME cyclobenzaprine 5 mg tablet 5 mg PO DAILY PRN (Reason: muscle spasm) oxycodone 20 mg tablet 20 mg PO BID cyanocobalamin (vitamin B-12) 500 mcg Tablet 500 mcg PO BEDTIME rosuvastatin 10 mg tablet 5 mg PO BEDTIME polyethylene glycol 3350 [Miralax] 17 gram/dose powder 17 g PO DAILY PRN (Reason: constipation) Qty: 238 0RF lorazepam 1 mg tablet 1 mg PO BEDTIME budesonide 3 mg capsule,delayed,extend.release 9 mg PO BEDTIME albuterol sulfate 90 mcg/actuation HFA aerosol inhaler 2 puff inhalation Q4H PRN (Reason: Shortness Of Breath) oxycodone 20 mg tablet 10 mg PO DAILY@1300 quetiapine [Seroquel] 25 mg tablet 25 mg PO BEDTIME omeprazole 40 mg capsule,delayed release(DR/EC) 40 mg PO BID@0630,1630 ondansetron 4 mg tablet,disintegrating 4 mg PO Q4H PRN (Reason: Nausea) Discontinued metoprolol succinate 25 mg tablet extended release 24 hr 25 mg PO BEDTIME Discharge Orders: Discharge Order (Routine); Ordered 02/14/25 Ordered By: Luis Enrique Cabrera Diet: Advance to usual diet Activity on Discharge: As tolerated Stand Alone Forms: Patient Portal Discharge page Print Language: Frisian Care Plan Goals: manage abd pain Health Concerns: abd pain, misael Plan of Treatment: marilee follow up with gi stop metoprolol Assessment: see above
--- NOTE | 2025-02-14 10:22 | MHC.CM.PN ---
PT MEDICALLY CLEARED FOR DC HOME SELF CARE W/OUTPT FOLLOW-UP W/GI DR. KC, PT TO [facility].
== END 2025-02-14 11:02 | disposition home or self-care (01) | DRG 291 ==
LOC: HO.ED 20:42 → HO.EDOVER 23:41 → HO.IMC 02-08 15:26
PROVIDERS: Physician Assistant; Admitting Provider Hospitalist; Emergency Provider Emergency Medicine; PCP Family Medicine; Visit Provider Internal Medicine
DX: I50.33 Acute on chronic diastolic (congestive) heart failure (principal); J96.01 Acute respiratory failure with hypoxia; J98.11 Atelectasis; K50.90 Crohn's disease, unspecified, without complications; R00.1 Bradycardia, unspecified; I48.0 Paroxysmal atrial fibrillation; G47.33 Obstructive sleep apnea (adult) (pediatric); M54.9 Dorsalgia, unspecified; G89.29 Other chronic pain; Z87.891 Personal history of nicotine dependence; Z79.899 Other long term (current) drug therapy
CPT/HCPCS: 36415; 71046; 71250; 74177; 80048; 80053; 81001; 83690; 83735; 83880; 84443; 84484; 84702; 85025; 85027; 85379; 85652; 93005; 93306; 99285; J1171; J1650; J1938; J2270; J2405; Q9967

== ENCOUNTER → 2025-02-07 13:52 | Outpatient (BNV) | payer MEDICARE, MEDICAID, SELFPAY | PROVIDERS: PCP Family Medicine; Visit Provider Internal Medicine Cardiovascular Disease | DX: R00.1 Bradycardia, unspecified (principal) | CPT/HCPCS: 93010 ==

== ENCOUNTER → 2025-02-07 14:35 | Outpatient (BNV) | payer MEDICARE, MEDICAID, SELFPAY | PROVIDERS: PCP Family Medicine; Visit Provider Radiology Diagnostic Radiology | DX: J98.11 Atelectasis (principal) | CPT/HCPCS: 71046 ==

== ENCOUNTER 2025-02-07 23:34 | Outpatient (BNV) | payer MEDICARE, MEDICAID, SELFPAY | END 2025-02-10 11:14 | PROVIDERS: Admitting Provider Hospitalist; Emergency Provider Emergency Medicine; PCP Family Medicine; Visit Provider Radiology Body Imaging | DX: R91.8 Other nonspecific abnormal finding of lung field (principal) | CPT/HCPCS: 71250 ==

== ENCOUNTER 2025-02-07 23:34 | Outpatient (BNV) | payer MEDICARE, MEDICAID, SELFPAY | END 2025-02-08 07:00 | PROVIDERS: Admitting Provider Hospitalist; Emergency Provider Emergency Medicine; PCP Family Medicine; Visit Provider Internal Medicine Cardiovascular Disease | DX: I50.9 Heart failure, unspecified (principal); I31.39 Other pericardial effusion (noninflammatory) | CPT/HCPCS: 93306 ==

== ENCOUNTER → 2025-02-07 23:34 | Outpatient (BNV) | payer MEDICARE, MEDICAID, SELFPAY | PROVIDERS: Admitting Provider Hospitalist; Emergency Provider Emergency Medicine; PCP Family Medicine; Visit Provider Internal Medicine | DX: K50.90 Crohn's disease, unspecified, without complications (principal) | CPT/HCPCS: 99232; 99233 ==

== ENCOUNTER → 2025-02-07 23:34 | Outpatient (BNV) | payer MEDICARE, MEDICAID, SELFPAY | PROVIDERS: Admitting Provider Hospitalist; Emergency Provider Emergency Medicine; PCP Family Medicine; Visit Provider Internal Medicine Cardiovascular Disease | DX: R06.02 Shortness of breath (principal); R00.1 Bradycardia, unspecified | CPT/HCPCS: 99233 ==

== ENCOUNTER 2025-03-06 14:21 | Outpatient (AMB) | payer MEDICARE, MEDICAID, SELFPAY ==
[2025-03-06 14:24] VITALS: BP 130/80; PULSE 58; BMI 32.5
--- NOTE | 2025-03-06 14:24 | MHC.OFFVIS ---
Vital Signs 03/06/25 14:24 Height 5 ft 7 in Weight 207 lb 3.752 oz BMI 32.5 BP 130/80 Blood Pressure Location Lt brachial Position Sitting Pulse 58 Intake Visit Reasons: [id number] up Intake Note: Follow-up [facility] dc c/o sob and then sometimes heart racing or dizzy Waist Presser Required: No Allergies azithromycin (AZITHROMYCIN) Allergy (Intermediate, Verified 02/07/25 14:37) HIVES erythromycin base Allergy (Intermediate, Verified 02/07/25 14:37) Hives Penicillins (PCN) Allergy (Intermediate, Verified 02/07/25 14:37) Difficulty Breathing Sulfa (Sulfonamide Antibiotics) Allergy (Intermediate, Verified 02/07/25 14:37) Palpitations Medication List - Last Reconciled 03/06/25 by Alfa Flores MD albuterol sulfate 90 mcg/actuation 2 puffs inhalation Q4H PRN budesonide DR-ER 9 mg PO BEDTIME cholecalciferol (vitamin D3) (Vitamin D3) 25 mcg PO BEDTIME cyanocobalamin (vitamin B-12) 500 mcg PO BEDTIME cyclobenzaprine 5 mg PO DAILY PRN lorazepam 1 mg PO BEDTIME omeprazole 40 mg PO BID@0630,1630 ondansetron 4 mg PO Q4H PRN oxycodone 20 mg PO BID polyethylene glycol 3350 (Miralax) 17 grams PO DAILY PRN quetiapine (Seroquel) 25 mg PO BEDTIME rosuvastatin 5 mg PO BEDTIME rosuvastatin (Crestor) 5 mg PO DAILY sertraline 200 mg PO BEDTIME sertraline (Zoloft) 25 mg PO BEDTIME HPI Comments Details: Bárbara comes for follow-up after recent hospitalization with belly pain and shortness of breath. She was question diagnose with a acute pancreatitis. However with the shortness of breath she had a BNP done which was transiently elevated in 600 range. She was subsequently diuresed and then her BNP is normalized. Echocardiogram during the hospital showed normal study. She had also noted to have bradycardia and her metoprolol was discontinued. Since then she continues to have symptoms of shortness of breath associated with lightheadedness. She says she gets lightheaded when she would bends over and gets up. She denies any prolonged palpitation irregular heartbeat. REPLACED BY [facility] Medical History Tendonitis involving right hip abductors Chronic pain in right foot Disorder of sacrum Trochanteric bursitis of right hip Lumbar radiculopathy Paroxysmal atrial fibrillation Anxiety Crohn disease Surgical History History of esophagogastroduodenoscopy (EGD) History of hip surgery Hx of colonoscopy History of bowel resection Hx of cholecystectomy Family History Father Atrial fibrillation Social History Household Members: Family Housing: House Do you presently have visiting nurse or other home services: No Alcohol intake: never Comment: Pt w/ steady gait Patient Tobacco Use Status: Former Tobacco user Second Hand Smoke Exposure: No Advance Directives Date on File: 07/04/20 service: No Current occupational status: employed Review of Systems Const Denies chills, Denies fatigue, Denies fever(s), Denies frequent falls, Denies weakness, Denies weight gain and Denies weight loss ENT Denies dizziness Card Denies chest pain, Denies leg edema, Denies lightheadedness, Denies palpitations, Denies dyspnea, Denies dyspnea on exertion, Denies orthopnea and Denies other (loss of consciousness) Resp Denies cough, Denies dyspnea and Denies dyspnea on exertion GI Denies hematochezia and Denies change in stool character Musc Denies abnormal gait, Denies muscle weakness, Denies numbness, Denies radiating pain into limb and Denies tingling Neuro Denies abnormal gait, Denies dizziness, Denies frequent falls, Denies numbness, Denies tingling and Denies weakness Endo Denies fatigue and Denies palpitations Physical Exam Vital Signs: Last Vital Signs Pulse 58 03/06/25 14:24 BP 130/80 03/06/25 14:24 BMI result Body Mass Index 32.5 Const General: cooperative, comfortable, no acute distress, awake and anxious Nutritional Appearance: average body habitus Orientation/consciousness: patient oriented x3 Limitations: no limitations Neck Neck: Yes trachea midline, Yes supple and Yes no JVD Resp Effort & Inspection: normal respiratory effort Auscultation: clear to auscultation bilaterally Cardio Jugular venous distension: no JVD Palpation: normal PMI Rate: regular rate Rhythm: regular rhythm Heart sounds: S1 normal heart sound present and S2 normal heart sound present Skin General skin exam: no rashes or lesions noted Neuro General: patient oriented x3 and no focal motor deficits Extrem General: Yes no clubbing, cyanosis or edema Psych Appearance: grossly normal Assessment & Plan Assessment & Plan (1) Elevated brain natriuretic peptide (BNP) level: Code(s): R79.89 - Other specified abnormal findings of blood chemistry Plan: Patient with transiently elevated BNP, probably related to her systemic illness rather than heart failure. Echocardiogram shows normal structure of the heart. She clinically she has no signs of heart failure. I do not think overall she is skilled nursing heart failure syndrome. Will recheck NT pro BNP today. Discussed with her. She is worried about her heart disease given her family history of CHF. Discussed that likelihood of CHF is extremely low. (2) Sinus bradycardia: Code(s): R00.1 - Bradycardia, unspecified Plan: Sinus bradycardia which seems to have resolved after stopping metoprolol therapy. She is scheduled for undergoing Holter monitor in near future. Will pursue that. (3) Lightheadedness: Code(s): R42 - Dizziness and giddiness Plan: Symptoms of lightheadedness suggestive of orthostatic lightheadedness. Advised increase fluid intake. Orthostatic precautions were discussed. Does not appear to be related to bradycardia. (4) Paroxysmal atrial fibrillation: Code(s): I48.0 - Paroxysmal atrial fibrillation Category: Medical Plan: Prior history of paroxysmal atrial fibrillation without any obvious clinical recurrence. She is currently off all medications. I would suggest stress mitigation strategies and treatment of her anxiety. Avoidance of stimulants was discussed. No other therapy is recommended. Will follow up in the clinic in 1 year's time, sooner PRN. Thank you for allowing me to partake in her care Orders: Orders NT Pro B Type Natriuretic Pept Today R06.02 - Shortness of breath Coding Level of Care Code Est Pt Level 4 (59439) Complex EM visit Add On G2211 Diagnoses Elevated brain natriuretic peptide (BNP) level R79.89 Sinus bradycardia R00.1 Lightheadedness R42 Paroxysmal atrial fibrillation I48.0
== END 2025-03-06 14:59 | disposition home or self-care (01) ==
LOC: HO.HCS 14:21
PROVIDERS: PCP Family Medicine; Visit Provider Internal Medicine Cardiovascular Disease
DX: R79.89 Other specified abnormal findings of blood chemistry (principal); R00.1 Bradycardia, unspecified; R42 Dizziness and giddiness; I48.0 Paroxysmal atrial fibrillation
CPT/HCPCS: 99214; G2211

== ENCOUNTER 2025-03-06 14:21 | Outpatient (REF) | payer MEDICARE, MEDICAID, SELFPAY ==
[2025-03-06 16:54] LABS: NT Pro B Type Natriuretic Pept 51.5 pg/mL (<300)
--- OUTSIDE RECORDS SUMMARY | 2025-03-07 05:05 | XMS_ITS | Encounter Summary ---
Author Organization Located [facility] Address [address] [place] [address] [place] [address] Phone Care Team Providers Care Jewel Waxer Name Role Phone Balaji Ibanez MD Unavailable [phone] Isiah Abad MD Unavailable [phone] Kimberli Page MD Unavailable Balaji Ibanez MD Primary Care Provider [phone] Balaji Ibanez MD Primary Care Provider [phone] Encounter Details Date Type Department Care Team (Late st Contact Info) Description 08/15/2021 Procedure Pass OR Admitting Dept - [facility] [address] [place] [address] Social History Tobacco Use Types Packs/Day Years [...] documented as of this encounter Care Teams Jewel Waxer Relationship Specialty Start Date End Date Balaji Ibanez MD [email or web address] PCP - General Family Medicine 02/25/17 09/23/23 Balaji Ibanez MD [address] [place] [address] [email or web address] PCP - General Family Medicine 09/24/23 Balaji Ibanez MD [email or web address] Historical LMR Provider 02/07/17 Isiah Abad MD [address] [place] [address], [address] [place] [address] [email or web address] Historical LMR Provider 02/07/17 Kimberli Page MD [address] [place] [address], [address] [address] [email or web address] Historical LMR Provider 02/07/17 documented as of this encounter Additional Source Comments The information contained in this document represents components of the legal health record. It is not the complete legal health record.[facility]
--- OUTSIDE RECORDS SUMMARY | 2025-03-07 05:05 | XMS_ITS | Encounter Summary ---
Author Organization [facility] Address [address] [place] [address] [place] [address] Phone Care Team Providers Care Chemical Laboratory Assistant Name Role Phone Balaji Ibanez MD Unavailable [phone] Isiah Abad MD Unavailable [phone] Kimberli Page MD Unavailable Balaji Ibanez MD Primary Care Provider [phone] Balaji Ibanez MD Primary Care Provider [phone] Encounter Details Date Type Department Care Team (Late st Contact Info) Description 01/03/2022 Procedure Pass [facility], [address] [address] Social History Tobacco Use Types Packs/Day Years [...] documented as of this encounter Care Teams Chemical Laboratory Assistant Relationship Specialty Start Date End Date Balaji Ibanez MD [email or web address] PCP - General Family Medicine 02/25/17 09/23/23 Balaji Ibanez MD [address] [place] [address] [email or web address] PCP - General Family Medicine 09/24/23 Balaji Ibanez MD [email or web address] Historical LMR Provider 02/07/17 Isiah Abad MD [address] [place] [address], [facility] [place] [address] [email or web address] Historical LMR Provider 02/07/17 Kimberli Page MD [address] [place] [address], [address] [address] [email or web address] Historical LMR Provider 02/07/17 documented as of this encounter Additional Source Comments The information contained in this document represents components of the legal health record. It is not the complete legal health record.[facility]
--- OUTSIDE RECORDS SUMMARY | 2025-03-07 05:06 | XMS_ITS | Encounter Summary ---
Author Organization [facility] Address [address] [place] [address] Phone Care Team Providers Care Plate Printer Name Role Phone Elba Olguin DIESEL BUS MECHANIC Unavailable Balaji Ibanez MD Unavailable Kim Nunes DIESEL BUS MECHANIC Unavailable Brunilda Castro DIESEL BUS MECHANIC Unavailable Isiah Abad MD Unavailable Kimberli Page MD Unavailable Italo Ruano MD Unavailable Brock Webber MD Unavailable [phone] Balaji Ibanez MD Primary Care Provider [phone] Balaji Ibanez MD Primary Care Provider [phone] Reason for Referral * MRI/CAT Scan - Closed Specialty Diagnoses / Procedures Referred By Contac t Referred To Contact Procedures MRI Spine (Bone) Outside (No Interpretation) System, [place] In, [place] [address] Referral ID Status Reason Start Date Expiration Date Visits Re quested Visits Authorized [id number] Closed 06/24/2018 06/24/2019 1 1 Encounter Details Date Type Department Care Team (Late st Contact Info) Description 06/24/2018 Ancillary Orders [facility],Outside Imaging [address] [place] [address] System, Provider Not In, [facility] [address] [address] Social History Tobacco Use Types Packs/Day Years [...] documented as of this encounter Care Teams Plate Printer Relationship Specialty Start Date End Date Balaji Ibanez MD [address] [place] [address] [email or web address] PCP - General Family Medicine 02/25/17 09/23/23 Balaji Ibanez MD [address] [place] [address] [email or web address] PCP - General Family Medicine 09/24/23 Elba Olguin NP [address] [address] Historical LMR Provider 02/07/17 2 Balaji Ibanez MD [address] [address] [email or web address] Historical LMR Provider 02/07/17 Kim Nunes NP [address] [place] [address] Historical LMR Provider 02/07/17 2 Brunilda Castro NP [address] [place] [phone] Historical LMR Provider 02/07/17 2 Isiah Abad MD 22 [facility], 2nd [place] [address] Historical LMR Provider 02/07/17 Kimberli Page MD [address] [address] Historical LMR Provider 02/07/17 Italo Ruano MD [address] [place] [phone] Historical LMR Provider 02/07/17 2 Brock Webber MD [address] [place] [address] Historical LMR Provider 02/07/17 2 documented as of this encounter Additional Source Comments The information contained in this document represents components of the legal health record. It is not the complete legal health record.[facility]
--- OUTSIDE RECORDS SUMMARY | 2025-03-07 05:06 | XMS_ITS | Encounter Summary ---
Author Organization [facility] Address [address] [facility] [address] [place] [address] Phone Care Team Providers Care Instructor Of Spanish Name Role Phone Elba Olguin BACON SKINNER Unavailable Balaji Ibanez MD Unavailable [phone] Kim Nunes BACON SKINNER Unavailable Brunilda Castro BACON SKINNER Unavailable Isiah Abad MD Unavailable [phone] Kimberli Page MD Unavailable Italo Ruano MD Unavailable Brock Webber MD Unavailable [phone] Balaji Ibanez MD Primary Care Provider [phone] Balaji Ibanez MD Primary Care Provider [phone] Encounter Details Date Type Department Care Team (Late st Contact Info) Description 02/20/2020 Ancillary Orders [facility],Outside Imaging 30 [place], [place] [phone] System, Provider Not In, [facility] [address] [address] Social History Tobacco Use Types Packs/Day Years [...] documented as of this encounter Care Teams Instructor Of Spanish Relationship Specialty Start Date End Date Balaji Ibanez MD [address] [place] [address] [email or web address] PCP - General Family Medicine 02/25/17 09/23/23 Balaji Ibanez MD [address] [place] [address] PCP - General Family Medicine 09/24/23 Elba Olguin NP [address] [place] [address] Historical LMR Provider 02/07/17 2 Balaji Ibanez MD 100 [facility] 340 [place] [address] [email or web address] Historical LMR Provider 02/07/17 Kim Nunes BACON SKINNER 30 [place] [address] Historical LMR Provider 02/07/17 2 [place] [address] [place] [address] [place] [address] Historical LMR Provider 02/07/17 2 Isiah Abad MD 22 [facility], 2nd [place] [address] [email or web address] Historical LMR Provider 02/07/17 Kimberli Page MD [address] [address] [email or web address] Historical LMR Provider 02/07/17 Italo Ruano MD [address] [place] [phone] Historical LMR Provider 02/07/17 2 Brock Webber MD 61 [place] [address] Historical LMR Provider 02/07/17 2 documented as of this encounter Additional Source Comments The information contained in this document represents components of the legal health record. It is not the complete legal health record.[facility]
--- OUTSIDE RECORDS SUMMARY | 2025-03-07 05:06 | XMS_ITS | Encounter Summary ---
Author Organization [facility] Address [address] [place] [address] [place] [address] Phone Care Team Providers Care Call Center Rn Name Role Phone Balaji Ibanez MD Unavailable [phone] Isiah Abad MD Unavailable [phone] Kimberli Page MD Unavailable Balaji Ibanez MD Primary Care Provider [phone] Balaji Ibanez MD Primary Care Provider [phone] Encounter Details Date Type Department Care Team (Late st Contact Info) Description 08/12/2021 Prep for Surgery [facility] [address] [place] [address] Jaxon Castano PA-C [address] [place] [address] Orthopedics & Sports Medicine, [facility] [place] [place] [address] [email or web address] Social History Tobacco Use Types Packs/Day Years [...] documented as of this encounter Care Teams Call Center Rn Relationship Specialty Start Date End Date Balaji Ibanez MD [email or web address] PCP - General Family Medicine 02/25/17 09/23/23 Balaji Ibanez MD [address] [place] [address] [email or web address] PCP - General Family Medicine 09/24/23 Balaji Ibanez MD [email or web address] Historical LMR Provider 02/07/17 Isiah Abad MD 22 [facility], 2nd [place] [address] [email or web address] Historical LMR Provider 02/07/17 Kimberli Page MD 22 [facility], [address] [place] [address] Historical LMR Provider 02/07/17 documented as of this encounter Additional Source Comments The information contained in this document represents components of the legal health record. It is not the complete legal health record.[facility]
--- OUTSIDE RECORDS SUMMARY | 2025-03-07 05:07 | XMS_ITS | Encounter Summary ---
Author Organization [facility] Address [address] [facility] [address] [place] [address] Phone Care Team Providers Care Skidway Man Name Role Phone Balaji Ibanez MD Unavailable [phone] Isiah Abad MD Unavailable [phone] Kimberli Page MD Unavailable Balaji Ibanez MD Primary Care Provider [phone] Balaji Ibanez MD Primary Care Provider [phone] Encounter Details Date Type Department Care Team (Late st Contact Info) Description 07/15/2023 Procedure Pass [facility], [address] [address] Social History Tobacco Use Types Packs/Day Years [...] on filedocumented in this encounter Care Teams Skidway Man Relationship Specialty Start Date End Date Balaji Ibanez MD PCP - General Family Medicine 02/25/17 09/23/23 Balaji Ibanez MD [address] [place] [address] PCP - General Family Medicine 09/24/23 Balaji Ibanez MD Historical LMR Provider 02/07/17 Isiah Abad MD [address] [place] [address], [address] [place] [address] Historical LMR Provider 02/07/17 Kimberli Page MD [address] [place] [address], [address] [address] Historical LMR Provider 02/07/17 documented as of this encounter Additional Source Comments The information contained in this document represents components of the legal health record. It is not the complete legal health record.[facility]
--- OUTSIDE RECORDS SUMMARY | 2025-03-07 05:07 | XMS_ITS | Encounter Summary ---
Author Organization [facility] Address [address] [place] [address] [place] [address] Phone Care Team Providers Care Emblem Cutter Name Role Phone Elba Olguin EXPERIMENTAL DISPLAY BUILDER Unavailable Balaji Ibanez MD Unavailable Kim Nunes EXPERIMENTAL DISPLAY BUILDER Unavailable Brunilda Castro EXPERIMENTAL DISPLAY BUILDER Unavailable Isiah Abad MD Unavailable Kimberli Page MD Unavailable Italo Ruano MD Unavailable Brock Webber MD Unavailable [phone] Balaji Ibanez MD Primary Care Provider [phone] Balaji Ibanez MD Primary Care Provider [phone] Encounter Details Date Type Department Care Team (Late st Contact Info) Description 06/24/2018 Procedure Pass [facility],Outside Imaging 30 [place] [address] Social History Tobacco Use Types [...] documented as of this encounter Care Teams Emblem Cutter Relationship Specialty Start Date End Date Balaji Ibanez MD [address] [place] [address] [email or web address] PCP - General Family Medicine 02/25/17 09/23/23 Balaji Ibanez MD [address] [place] [address] [email or web address] PCP - General Family Medicine 09/24/23 Elba Olguin NP [address] [place] [address] Historical LMR Provider 02/07/17 2 Balaji Ibanez MD [address] [place] [address] [email or web address] Historical LMR Provider 02/07/17 Kim Nunes NP [address] [place] [address] Historical LMR Provider 02/07/17 2 Brunilda Castro EXPERIMENTAL DISPLAY BUILDER [address] [facility] [place] [address] Historical LMR Provider 02/07/17 2 Isiah Abad MD 22 [facility], 2nd [place] [address] Historical LMR Provider 02/07/17 Kimberli Page MD 22 [facility] 102 [place] [address] Historical LMR Provider 02/07/17 Italo Ruano MD [address] [place] [phone] Historical LMR Provider 02/07/172 2 Brock Webber MD [address] [place] [address] Historical LMR Provider 02/07/172 2 documented as of this encounter Additional Source Comments The information contained in this document represents components of the legal health record. It is not the complete legal health record.[facility]
--- OUTSIDE RECORDS SUMMARY | 2025-03-07 05:08 | XMS_ITS | Encounter Summary ---
Author Organization [facility] Address [address] [facility] [address] [place] [address] Phone Care Team Providers Care Gearcase Assembler Name Role Phone Elba Olguin ELECTRICAL TECHNICIAN INSTRUCTOR Unavailable [phone] Balaji Ibanez MD Unavailable Kim Nunes ELECTRICAL TECHNICIAN INSTRUCTOR Unavailable Brunilda Castro ELECTRICAL TECHNICIAN INSTRUCTOR Unavailable Isiah Abad MD Unavailable Kimberli Page MD Unavailable Italo Ruano MD Unavailable Brock Webber MD Unavailable [phone] Balaji Ibanez MD Primary Care Provider [phone] Balaji Ibanez MD Unavailable Balaji Ibanez MD Primary Care Provider [phone] Encounter Details Date Type Department Care Team (Late st Contact Info) Description 02/24/2017 Ancillary Orders Virtual Department 30 [place] [address] Balaji Ibanez MD 238 [place], [place] [phone] Pain of right hip joint Social History [...] documented as of this encounter Care Teams Gearcase Assembler Relationship Specialty Start Date End Date Balaji Ibanez MD [address] [place] [address] [email or web address] PCP - General Family Medicine 02/25/17 09/23/23 Balaji Ibanez MD [address] [place] [address] PCP - General Family Medicine 09/24/23 Elba Olguin NP 100 [facility] 340 [place] [address] Historical LMR Provider 02/07/17 2 Balaji Ibanez MD [address] [address] [email or web address] Historical LMR Provider 02/07/17 Kim Nunes ELECTRICAL TECHNICIAN INSTRUCTOR 30 [place] [address] Historical LMR Provider 02/07/17 2 Brunilda Castro ELECTRICAL TECHNICIAN INSTRUCTOR [address] [place] [phone] Historical LMR Provider 02/07/17 2 Isiah Abad MD 22 [facility], 2nd [place] [address] Historical LMR Provider 02/07/17 Kimberli Page MD 22 [facility] 102 [place] [address] Historical LMR Provider 02/07/17 Italo Ruano MD [address] [place] [phone] Historical LMR Provider 02/07/17 2 Brock Webber MD 61 [place] [address] Historical LMR Provider 02/07/17 2 Balaji Ibanez MD [address] [place] [address] [email or web address] Insurance Assigned Provider 07/18/17 05/22/18 documented as of this encounter Additional Source Comments The information contained in this document represents components of the legal health record. It is not the complete legal health record.[facility]
--- OUTSIDE RECORDS SUMMARY | 2025-03-07 05:08 | XMS_ITS | Encounter Summary ---
Author Organization [facility] Address [address] [facility] [address] [place] [address] Phone Care Team Providers Care Embedded Linux Developer Name Role Phone Balaji Ibanez MD Unavailable [phone] Isiah Abad MD Unavailable [phone] Kimberli Page MD Unavailable Balaji Ibanez MD Primary Care Provider [phone] Balaji Ibanez MD Primary Care Provider [phone] Reason for Referral * MRI/CAT Scan - Closed Specialty Diagnoses / Procedures Referred By Contana t Referred To Contact Radiology Diagnoses Radiculopathy, lumbosacral region Procedures MRI Lumbar Spine Balaji Ibanez MD [address] [place] [address] Phone: tel: fax: [email or web address] Referral ID Status Reason Start Date Expiration Date Visits Re quested Visits Authorized [id number] Closed 07/15/2023 07/14/2024 1 1 Encounter Details Date Type Department Care Team (Late st Contact Info) Description 07/15/2023 Transcribe Orders [facility] Department [address] [place], [place] [phone] Balaji Ibanez MD [address] [place] [address] [email or web address] Radiculopathy, lumbosacral region (Primary Dx) Social History [...] with annular fissure, which is new compared [id number]. Bilateral facet arthropathy. Mild spinal and bilateral foraminalstenosis. L5-S1: Posterior disc bulge with annular fissure and superimposedforaminal protrusions. Findings are progressed since 2021. Mild bilateralfacet arthropathy. Moderate left and mild right foraminal stenosis.Central canal stenosis is minimal. IMPRESSION: Multilevel degenerative disc disease, most notable at L4-L5 and L5-S1, asdescribed. Degenerative disc disease at both levels is progressed [id number]. Moderate right foraminal stenosis at L5-S1. Balaji Ibanez MD IMG MR XSPECIALTY Final Res ult documented in this encounter Visit Diagnoses Diagnosis Radiculopathy, lumbosacral region- Primary Thoracic or lumbosacral neuritis or radiculitis, unspecified Radiculopathy, lumbosacral region Thoracic or lumbosacral neuritis or radiculitis, unspecified documented in this encounter Care Teams Embedded Linux Developer Relationship Specialty Start Date End Date Balaji Ibanez MD PCP - General Family Medicine 02/25/17 09/23/23 Balaji Ibanez MD [address] [place] [address] [email or web address] PCP - General Family Medicine 09/24/23 Balaji Ibanez MD [email or web address] Historical LMR Provider 02/07/17 Isiah Abad MD [address] [place] [address], [address] [place] [address] Historical LMR Provider 02/07/17 Kimberli Page MD [address] [place] [address], [facility] 102 [place] [address] [email or web address] Historical LMR Provider 02/07/17 documented as of this encounter Additional Source Comments The information contained in this document represents components of the legal health record. It is not the complete legal health record.[facility]
--- OUTSIDE RECORDS SUMMARY | 2025-03-07 05:09 | XMS_ITS | Clinical Summary ---
Author Organization [facility] Address [address] [facility] [address] [place] [address] Phone Care Team Providers Care Remote Operations Producer Name Role Phone Balaji Ibanez MD Unavailable Isiah Abad MD Unavailable [phone] Kimberli Page MD Unavailable Balaji Ibanez MD [...] 09/15/2020, 08/25/2020 SCREENING FOR DIABETES 03/25/2025 03/25/2022 PNEUMOCOCCAL VACCINES (0-49 years) (3 of 3 - PCV20 or PCV21) 2026 02/22/2014, 02/19/2010 PAP SMEAR 08/02/2027 08/01/2024, 06/2020, 06/12/2015 IUD 05/12/2031 05/12/2023 Adult Td,Tdap Booster 04/03/2033 04/03/2023, 012 HEPATITIS A VACCINES Aged Out No long er eligible based on patient's age to complete this topic HIB VACCINES Aged Out No longer eligi ble based on patient's age to complete this topic IPV VACCINES Aged Out No longer eligi ble based on patient's age to complete this topic MENINGOCOCCAL VACCINES (ACWY) Aged Out No longer eligible based on patient's age to complete this topic MENINGOCOCCAL VACCINES (B) Aged Out N o longer eligible based on patient's age to complete this topic Medical Devices Implanted Type Area Procurement Professional Logistics Device Identifier Shelf Expiration Date Model / Serial / Lot Iud Implanted: (Quantity not on file) Intrauterine Device Procedures Procedure Name Priority Date/Time Associated Diagnosis Comments PAP TEST Routine 08/01/2024 12:00 AM EDT from Last 3 Months or Most Recently Relevant to Health Maintenance Results * Pap Test (08/01/2024 12:00 AM EDT) Report [address] [address] [employer]: Calixto Kim MD SUGARCANE PLANTER Cytology Report FINAL DIAGNOSIS A. PAP SMEAR (THIN PREP) CE: SPECIMEN ADEQUACY: Satisfactory for evaluation; transformation zone present. INTERPRETATION: NEGATIVE FOR INTRAEPITHELIAL LESION OR MALIGNANCY. Reactive changes. This specimen was analyzed by the automated ThinPrep Imaging System (MONOCO.) and manually rescreened by a registrar museum and/or pathologist. Electronically Signed Out By: MD [...] by real-time polymerase chain reaction (PCR) at [facility], [address] [place] [address] using the FDA-approved Clupedia Onclarity HPV Assay with extended genotyping. Uses of the assay in scenarios other than those approved by the FDA should be considered off-label use. The accuracy and precision of this test for all other off-label specimen sources has been verified in the Cytopathology Laboratory of the [facility] and has not been cleared or [...] : 1975 (Age: 49) Sex: F Institution: [facility] Location: [facility] Date of Collection: 08/01/2024 Date of Reported: 08/05/2024 09:48 Results to: Becca Santoyo MD [facility] Final Diagnosis A. PAP SMEAR (THIN PREP) CE: SPECIMEN ADEQUACY: Satisfactory for evaluation; transformation zone present. INTERPRETATION: NEGATIVE FOR INTRAEPITHELIAL LESION OR MALIGNANCY. Reactive changes. This specimen was analyzed by the automated ThinPrep Imaging System (MONOCO.) and manually rescreened by a registrar museum and/or pathologist. [facility] Results\Inte rpretation A. PAP SMEAR (THIN PREP) CE: High-risk HPV Panel w/ extended genotyping NEG HPV 16-NEG HPV 18-NEG HPV 45-NEG HPV 33/58-NEG HPV 31-NEG HPV 56/59/66-NEG HPV 51-NEG HPV 52-NEG HPV 35/39/68-NEG Performed by real-time polymerase chain reaction (PCR) at [facility], [address] [place] [address] using the FDA-approved Clupedia Onclarity HPV Assay with extended genotyping. Uses of the assay in scenarios other than those approved by the FDA should be considered off-label use. The accuracy and precision of this test for all other off-label specimen sources has been verified in the Cytopathology Laboratory of the [facility] and has not been cleared or approved by the U.S. Food and Drug Administration. Clinical correlation is advised. The assay assesses the E6/E7 DNA target and utilizes human beta globin as an internal control. Cytology and HPV testing are screening assays and should not be used as the sole means of detecting cancer. False-positives and false-negatives can occur. [facility] Conversion Type (Conversion Source) 08/01/2024 08/02/2024 9:17 AM EDT us Becca Santoyo MD CYTOLOGY ORDERABLES Edited Result - Final [facility] [address] [place] [address] from Last 3 Months or Most Recently Relevant to Health Maintenance [place] [address] [place] [address] MEDICARE PART A & B [facility] MEDICARE PART A & B [place] & B [place] B [facility] MEDICARE PART A & B Care Teams Remote Operations Producer Relationship Specialty Start Date End Date Balaji Ibanez MD [address] [place] [address] PCP - General Family Medicine 09/24/23 Balaji Ibanez MD [email or web address] Historical LMR Provider 02/07/17 Isiah Abad MD [address] [place] [address] [place] [address] [email or web address] Historical LMR Provider 02/07/17 Kimberli Page MD [address] [place] [address], [address] [place] [address] [email or web address] Historical LMR Provider 02/07/17 Additional Source Comments The information contained in this document represents components of the legal health record. It is not the complete legal health record.[facility]
--- OUTSIDE RECORDS SUMMARY | 2025-03-07 05:09 | XMS_ITS | Encounter Summary ---
Author Organization [facility] Address [address] [place] [address] [place] [address] Phone Care Team Providers Care Molding And Trim Installer Name Role Phone Elba Olguin LICENSED PROSTHETIST Unavailable Balaji Ibanez MD Unavailable [phone] Kim Nunes LICENSED PROSTHETIST Unavailable Brunilda Castro LICENSED PROSTHETIST Unavailable Isiah Abad MD Unavailable Kimberli Page MD Unavailable Italo Ruano MD Unavailable Brock Webber MD Unavailable [phone] Balaji Ibanez MD Primary Care Provider [phone] Balaji Ibanez MD Unavailable [phone] Balaji Ibanez MD Primary Care Provider [phone] Encounter Details Date Type Department Care Team (Late st Contact Info) Description 02/24/2017 Procedure Pass [facility], [address] [address] Social History Tobacco Use Types Packs/Day Years [...] documented as of this encounter Care Teams Molding And Trim Installer Relationship Specialty Start Date End Date Balaji Ibanez MD [address] [place] [address] [email or web address] PCP - General Family Medicine 02/25/17 09/23/23 Balaji Ibanez MD [address] [place] [address] [email or web address] PCP - General Family Medicine 09/24/23 Elba Olguin NP [address] [place] [address] Historical LMR Provider 02/07/17 2 Balaji Ibanez MD [address] [place] [address] [email or web address] Historical LMR Provider 02/07/17 Kim Nunes NP [address] [place] [address] Historical LMR Provider 02/07/17 2 Brunilda Castro NP [address] [place] [address] Historical LMR Provider 02/07/17 2 Isiah Abad MD 22 [facility], 2nd [place] [address] Historical LMR Provider 02/07/17 Kimberli Page MD [address] [address] Historical LMR Provider 02/07/17 Italo Ruano MD [address] [place] [phone] Historical LMR Provider 02/07/17 2 Brock Webber MD [address] [place] [address] Historical LMR Provider 02/07/17 2 Balaji Ibanez MD [address] [place] [address] Insurance Assigned Provider 07/18/17 05/22/18 documented as of this encounter Additional Source Comments The information contained in this document represents components of the legal health record. It is not the complete legal health record.[facility]
--- OUTSIDE RECORDS SUMMARY | 2025-03-07 05:10 | XMS_ITS | Encounter Summary ---
Author Organization [facility] Address [address] [facility] [address] [place] [address] Phone Care Team Providers Care Special Warfare Combatant Crewman Name Role Phone Elba Olguin COST CONTROLLER Unavailable Balaji Ibanez MD Unavailable Kim Nunes COST CONTROLLER Unavailable Brunilda Castro COST CONTROLLER Unavailable Isiah Abad MD Unavailable Kimberli Page MD Unavailable Italo Ruano MD Unavailable Brock Webber MD Unavailable [phone] Balaji Ibanez MD Primary Care Provider [phone] Balaji Ibanez MD Unavailable [phone] Balaji Ibanez MD Primary Care Provider [phone] Encounter Details Date Type Department Care Team (Late st Contact Info) Description 08/24/2017 Ancillary Orders [facility] Medical [facility] Spine Medicine [place] [address] [place] [address] Isiah Abad MD 22 [facility], 2nd [place] [address] [email or web address] Sacroiliitis, not elsewhere classified Social History Tobacco [...] as of this encounter Care Teams Special Warfare Combatant Crewman Relationship Specialty Start Date End Date Balaji Ibanez MD [address] [place] [address] [email or web address] PCP - General Family Medicine 02/25/17 09/23/23 Balaji Ibanez MD [address] [place] [address] [email or web address] PCP - General Family Medicine 09/24/23 Elba Olguin NP [address] [place] [address] Historical LMR Provider 02/07/17 2 Balaji Ibanez MD [address] [place] [address] [address] [place] [address] [email or web address] Historical LMR Provider 02/07/17 Kim Nunes NP [address] [place] [address] Historical LMR Provider 02/07/17 2 Brunilda Castro NP [address] [place] [address] Historical LMR Provider 02/07/17 2 Isiah Abad MD 22 [facility], 2nd [place] [address] Historical LMR Provider 02/07/17 Kimberli Page MD 22 [facility] [address] [place] [address] Historical LMR Provider 02/07/17 Italo Ruano MD [address] [place] [phone] Historical LMR Provider 02/07/17 2 Brock Webber MD [address] [place] [address] Historical LMR Provider 02/07/17 2 Balaji Ibanez MD [address] [place] [address] [email or web address] Insurance Assigned Provider 07/18/17 05/22/18 documented as of this encounter Additional Source Comments The information contained in this document represents components of the legal health record. It is not the complete legal health record.[facility]
--- OUTSIDE RECORDS SUMMARY | 2025-03-07 05:10 | XMS_ITS | Encounter Summary ---
Author Organization [facility] Address [address] [facility] [address] [place] [address] Phone Care Team Providers Care Bike Designer Name Role Phone Balaji Ibanez MD Unavailable [phone] Isiah Abad MD Unavailable [phone] Kimberli Page MD Unavailable Balaji Ibanez MD Primary Care Provider [phone] Encounter Details Date Type Department Care Team (Late st Contact Info) Description 06/28/2024 Procedure Pass [facility], [address] [address] Social History Tobacco Use Types Packs/Day Years [...] on filedocumented in this encounter Care Teams Bike Designer Relationship Specialty Start Date End Date Balaji Ibanez MD [address] [place] [address] [email or web address] PCP - General Family Medicine 09/24/23 Balaji Ibanez MD Historical LMR Provider 02/07/17 Isiah Abad MD [address] [place] [address], [facility] [place] [address] Historical LMR Provider 02/07/17 Kimberli Page MD [address] [place] [address], [address] [address] Historical LMR Provider 02/07/17 documented as of this encounter Additional Source Comments The information contained in this document represents components of the legal health record. It is not the complete legal health record.[facility]
== END 2025-03-06 14:22 | disposition home or self-care (01) ==
LOC: HO.LAB 14:21
PROVIDERS: PCP Family Medicine; Visit Provider Internal Medicine Cardiovascular Disease
DX: I48.0 Paroxysmal atrial fibrillation (principal); R79.89 Other specified abnormal findings of blood chemistry; R00.1 Bradycardia, unspecified; R42 Dizziness and giddiness; Z87.891 Personal history of nicotine dependence
CPT/HCPCS: 36415; 83880; 99212

== ENCOUNTER → 2025-03-08 11:17 | Outpatient (REF) | payer MEDICARE, MEDICAID, SELFPAY ==
--- OUTSIDE RECORDS SUMMARY | 2023-12-14 09:10 | XMS_ITS ---
Author Organization [facility] Address [address] [place] [address] Care Team Providers Care Rice Farmworker Name Role Phone Balaji Ibanez MD Primary Care Provider Stepan Watkins [phone] REASON FOR VISIT gerd, nausea Problems Problem Type SNOMED Code ICD Code Onset Dates Problem Status W/U Status Risk Notes Problem Gastro-esophagea l reflux disease without esophagitis (106419282) Gastro-esophage al reflux disease without esophagitis (K21.9) Active confirmed Problem Chronic gastritis (7485520) Chronic gastritis (K29.50) Active confirmed Encounters Encounter Location Date Provider Diagnosis [facility] Outpatient [address] [place] [id number] 12/14/2023 Stepan Sheldon Gastro-esophageal reflux disease without esophagitis K21.9 ; Hiatal hernia K44.9 ; Chronic gastritis K29.50 and Nausea R11.0 Assessments Encounter Date Diagnosis (ICD Code) Assessment Notes Treatment Notes Treatment Clinical Notes Section Notes 12/14/2023 Gastro-esophagea l reflux disease without esophagitis (ICD-10 - K21.9) 12/14/2023 Hiatal hernia (ICD-10 - K44.9) 12/14/2023 Chronic gastritis (ICD-10 - K29.50) 12/14/2023 Nausea (ICD-10 - R11.0) Plan Of Treatment Next Appt Details Provider Name:Stepan Sheldon , 05/16/2025 09:30:00 AM, [address], [address], [place], [address], Progress Notes * JOSH WINTEROB: [birth year] (49 yo F)Acc No.[id number]:12/14/2023 EGD/MAC Patient: JAVIER SALAZAR Provider: Jabier Sheldon MD :1975 A ge:48 Y S ex:Female Date:12/14/2023 Address:[address] [place] [address] Pcp:Balaji Ibanez MD Subjective: * Chief Complaints: * G erd, nausea Assessment: * Assessment: 1. G damián-esophageal reflux disease without esophagitis - K21.9 (Primary) 2 .?Hiatal hernia - K44.9 3 . C hronic gastritis - K29.50 4 .?Nausea - R11.0 Plan: * Procedure Codes: 4 3239 UPPER GI ENDOSCOPY, BIOPSY Billing Information: * Procedure Codes: 23535 UPPER GI ENDOSCOPY, BIOPSY. * The named appointment provid er may or may not be the originator of this progress note, and it is not deemed complete until electronically signed by the appointment provider. Sign off status: Pending * Provider: Jabier Sheldon MD Date: 0 12/14/2023 Generated for Harish quinn/Lazaro/Suhasitting on: 05/08/2024 10:14 PM EST
--- OUTSIDE RECORDS SUMMARY | 2025-01-25 05:30 | XMS_ITS ---
Author Organization [facility] Address [address] [place] [id number] Care Team Providers Care Rating Clerk Name Role Phone Balaji Ibanez MD Primary Care Provider Stepan Watkins [phone] REASON FOR VISIT crohn's rectal bleeding, constipation Encounters Encounter Location Date Provider Diagnosis [facility] [address] [place] [id number] 01/25/2025 Stepan Sheldon Plan Of Treatment Next Appt Details Provider Name:Stepan Sheldon , 05/16/2025 09:30:00 AM, [address] [place] [address], [place] [address], [place], [id number], Progress Notes * MOYWAN FAULKNERCHARLEYOB: [birth year] (49 yo F)Acc No.[id number]:01/25/2025 Progress Notes Patient: JAVIER SALAZAR Provider: Jabier Sheldon MD :1975 A ge:49 Y S ex:Female Date:01/25/2025 Address:[address] [place], [place] [id number] Pcp:Balaji Ibanez MD Subjective: * Chief Complaints: * C rohn's rectal bleeding, constipation Billing Information: * Procedure Codes: * The named appointment provid er may or may not be the originator of this progress note, and it is not deemed complete until electronically signed by the appointment provider. Sign off status: Pending * Provider: Jabier Sheldon MD Date: 1 Generated for Harish quinn/Lazaro/Vitaly on: 1 05/08/2024 10:14 PM EST
--- NOTE | 2025-03-08 11:19 | HM_ITS ---
* Total monitoring time 3 days. * Underlying rhythm is sinus with an average rate of 78/Min. * Rare supraventricular ectopy. * Rare ventricular ectopy. * No significant pauses or high-grade AV blocks. * Patient marker used with sinus rhythm. * No diary events. MTDD
--- OUTSIDE RECORDS SUMMARY | 2025-03-08 22:14 | XMS_ITS | Encounter Summary ---
Author Organization [facility] Address [address] [facility] [address] [place] [address] Phone Care Team Providers Care Fur Blowing Machine Attendant Name Role Phone Balaji Ibanez MD Unavailable [phone] Isiah Abad MD Unavailable [phone] Kimberli Page MD Unavailable Balaji Ibanez MD Primary Care Provider [phone] Balaji Ibanez MD Primary Care Provider [phone] Reason for Referral * MRI/CAT Scan - Closed Specialty Diagnoses / Procedures Referred By Contana t Referred To Contact Radiology Diagnoses Radiculopathy, lumbosacral region Procedures MRI Lumbar Spine Balaji Ibanez MD [address] [place] [address] Phone: tel: fax: [email or web address] Referral ID Status Reason Start Date Expiration Date Visits Re quested Visits Authorized [id number] Closed 07/15/2023 07/14/2024 1 1 Encounter Details Date Type Department Care Team (Late st Contact Info) Description 07/15/2023 Transcribe Orders [facility] Department [address] [place], [place] [phone] Balaji Ibanez MD [address] [place] [address] [email or web address] [...] with annular fissure, which is new compared [id number]. Bilateral facet arthropathy. Mild spinal and bilateral foraminalstenosis. L5-S1: Posterior disc bulge with annular fissure and superimposedforaminal protrusions. Findings are progressed since 2021. Mild bilateralfacet arthropathy. Moderate left and mild right foraminal stenosis.Central canal stenosis is minimal. IMPRESSION: Multilevel degenerative disc disease, most notable at L4-L5 and L5-S1, asdescribed. Degenerative disc disease at both levels is progressed [id number]. Moderate right foraminal stenosis at L5-S1. Balaji Ibanez MD IMG MR XSPECIALTY Final Res ult documented in this encounter Visit Diagnoses Diagnosis Radiculopathy, lumbosacral region- Primary Thoracic or lumbosacral neuritis or radiculitis, unspecified Radiculopathy, lumbosacral region Thoracic or lumbosacral neuritis or radiculitis, unspecified documented in this encounter Care Teams Fur Blowing Machine Attendant Relationship Specialty Start Date End Date Balaji Ibanez MD PCP - General Family Medicine 02/25/17 09/23/23 Balaji Ibanez MD [address] [place] [address] PCP - General Family Medicine 09/24/23 Balaji Ibanez MD [email or web address] Historical LMR Provider 02/07/17 Isiah Abad MD [address] [place] [address], [address] [place] [address] Historical LMR Provider 02/07/17 Kimberli Page MD [address] [place] [address], [facility] [address] [place] [address] [email or web address] Historical LMR Provider 02/07/17 documented as of this encounter Additional Source Comments The information contained in this document represents components of the legal health record. It is not the complete legal health record.[facility]
--- OUTSIDE RECORDS SUMMARY | 2025-03-08 22:14 | XMS_ITS | Encounter Summary ---
Author Organization [facility] Address [address] [place] [address] [place] [address] Phone Care Team Providers Care Management Engineer Name Role Phone Balaji Ibanez MD Unavailable [phone] Isiah Abad MD Unavailable [phone] Kimberli Page MD Unavailable Balaji Ibanez MD Primary Care Provider [phone] Balaji Ibanez MD Primary Care Provider [phone] Encounter Details Date Type Department Care Team (Late st Contact Info) Description 08/12/2021 Prep for Surgery [facility] Medicine [address] [place] [address] Jaxon Castano PA-C [address] [place] [address] Orthopedics & Sports Medicine, [facility] [place] [address] [email or web address] Social History Tobacco Use Types [...] documented as of this encounter Care Teams Management Engineer Relationship Specialty Start Date End Date Balaji Ibanez MD [email or web address] PCP - General Family Medicine 02/25/17 09/23/23 Balaji Ibanez MD [address] [place] [address] [email or web address] PCP - General Family Medicine 09/24/23 Balaij Ibanez MD [email or web address] Historical LMR Provider 02/07/17 Isiah Abad MD 22 [facility], 2nd [place] [address] [email or web address] Historical LMR Provider 02/07/17 Kimberli Page MD 22 [facility], [address] [place] [address] Historical LMR Provider 02/07/17 documented as of this encounter Additional Source Comments The information contained in this document represents components of the legal health record. It is not the complete legal health record.[facility]
--- OUTSIDE RECORDS SUMMARY | 2025-03-08 22:14 | XMS_ITS | Encounter Summary ---
Author Organization [facility] Address [address] [facility] [address] [place] [address] Phone Care Team Providers Care Client Solutions Director Name Role Phone Terry Najera MD Unavailable [phone] Isiah Abad MD Unavailable [phone] Kimberli Page MD Unavailable Terry Najera MD Primary Care Provider [phone] Terry Najera MD Primary Care Provider [phone] Encounter Details Date Type Department Care Team (Late st Contact Info) Description 01/21/2023 Transcribe Orders Virtual Department [address] [place] [address] Terry Najera MD [address] [place] [phone] [email or web address] nursing home (current) use of systemic steroids (Primary Dx) [...] Steroid Treatment (3 Months or Longer) Scanner: Unified Social A with serial# of [id number] located at [facility] Bone Density Scan (DXA) 05/16/24 Details [...] -2.5), or Osteoporosis (T-score <= -2.5). At [facility], T-scores are compared to peak bone [...] Steroid Treatment (3 Months or Longer) Scanner: Unified Social A with serial# of [id number] located at [facility] Bone Density Scan (DXA) 05/16/24 Details [...] -2.5), or Osteoporosis (T-score <= -2.5). 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) use of systemic steroids documented in this encounter Care Teams Client Solutions Director Relationship Specialty Start Date End Date Terry Najera MD PCP - General Family Medicine 02/25/17 09/23/23 Terry Najera MD [address] [place] [address] PCP - General Family Medicine 09/24/23 Terry Najera MD Historical LMR Provider 02/07/17 Isiah Abad MD [address] [place] [address], [facility] [place] [address] Historical LMR Provider 02/07/17 Kimberli Page MD [address] [place] [address], [address] [place] [address] Historical LMR Provider 02/07/17 documented as of this encounter Additional Source Comments The information contained in this document represents components of the legal health record. It is not the complete legal health record.[facility]
--- OUTSIDE RECORDS SUMMARY | 2025-03-08 22:14 | XMS_ITS | Encounter Summary ---
Author Organization [facility] Address [address] [facility] [address] [place] [address] Phone Care Team Providers Care Boilermaker Welder Name Role Phone Elba Olguin BODY FITTER Unavailable Balaji Ibanez MD Unavailable [phone] Kim Nunes BODY FITTER Unavailable Brunilda Castro BODY FITTER Unavailable Isiah Abad MD Unavailable Kimberli Page MD Unavailable Italo Ruano MD Unavailable Brock Webber MD Unavailable [phone] Balaji Ibanez MD Primary Care Provider [phone] Balaji Ibanez MD Unavailable Balaji Ibanez MD Primary Care Provider [phone] Encounter Details Date Type Department Care Team (Late st Contact Info) Description 02/24/2017 Ancillary Orders Virtual Department 30 [place] [address] Balaji Ibanez MD [address] [place], [place] [phone] Pain of right hip joint Social History [...] documented as of this encounter Care Teams Boilermaker Welder Relationship Specialty Start Date End Date Balaji Ibanez MD [address] [place] [address] [email or web address] PCP - General Family Medicine 02/25/17 09/23/23 Balaji Ibanez MD [address] [place] [address] PCP - General Family Medicine 09/24/23 Elba Olguin NP 100 [facility] [address] [place] [address] Historical LMR Provider 02/07/17 2 Balaji Ibanez MD [address] [address] [email or web address] Historical LMR Provider 02/07/17 Kim Nunes BODY FITTER 30 [place] [address] Historical LMR Provider 02/07/17 2 Brunilda Castro BODY FITTER [address] [place] [phone] Historical LMR Provider 02/07/17 2 Isiah Abad MD 22 [facility], 2nd [place] [address] Historical LMR Provider 02/07/17 Kimberli Page MD 22 [facility] 102 [place] [address] Historical LMR Provider 02/07/17 Italo Ruano MD [address] [place] [phone] Historical LMR Provider 02/07/17 2 Brock Webber MD [address] [place] [address] Historical LMR Provider 02/07/17 2 Balaji Ibanez MD [address] [place] [address] [email or web address] Insurance Assigned Provider 07/18/17 05/22/18 documented as of this encounter Additional Source Comments The information contained in this document represents components of the legal health record. It is not the complete legal health record.[facility]
--- OUTSIDE RECORDS SUMMARY | 2025-03-08 22:14 | XMS_ITS | Encounter Summary ---
Author Organization [facility] Address [address] [place] [address] Phone Care Team Providers Care Specialty Therapist Name Role Phone Elba Olguin DRAFTER Unavailable Balaji Ibanez MD Unavailable Kim Nunes DRAFTER Unavailable Brunilda Castro DRAFTER Unavailable Isiah Abad MD Unavailable Kimberli Page MD Unavailable Italo Ruano MD Unavailable Brock Webber MD Unavailable [phone] Balaji Ibanez MD Primary Care Provider [phone] Balaji Ibanez MD Primary Care Provider [phone] Reason for Referral * MRI/CAT Scan - Closed Specialty Diagnoses / Procedures Referred By Contac t Referred To Contact Procedures MRI Spine (Bone) Outside (No Interpretation) System, Provider [place] In, [place] [address] Referral ID Status Reason Start Date Expiration Date Visits Re quested Visits Authorized [id number] Closed 06/24/2018 06/24/2019 1 1 Encounter Details Date Type Department Care Team (Late st Contact Info) Description 06/24/2018 Ancillary Orders [facility],Outside Imaging [address] [place] [address] System, Provider Not In, PhD Partners [address] [address] Social History Tobacco Use Types Packs/Day Years [...] documented as of this encounter Care Teams Specialty Therapist Relationship Specialty Start Date End Date Balaji Ibanez MD [address] [place] [address] [email or web address] PCP - General Family Medicine 02/25/17 09/23/23 Balaji Ibanez MD [address] [place] [address] [email or web address] PCP - General Family Medicine 09/24/23 Elba Olguin NP [address] [address] Historical LMR Provider 02/07/17 2 Balaji Ibanez MD [address] [address] [email or web address] Historical LMR Provider 02/07/17 Kim Nunes NP [address] [place] [address] Historical LMR Provider 02/07/17 2 Brunilda Castro NP [address] [place] [phone] Historical LMR Provider 02/07/17 2 Isiah Abad MD 22 [facility], 2nd [place] [address] Historical LMR Provider 02/07/17 Kimberli Page MD [address] [address] Historical LMR Provider 02/07/17 Italo Ruano MD [address] [place] [phone] Historical LMR Provider 02/07/17 2 Brock Webber MD [address] [place] [address] Historical LMR Provider 02/07/17 2 documented as of this encounter Additional Source Comments The information contained in this document represents components of the legal health record. It is not the complete legal health record.[facility]
--- OUTSIDE RECORDS SUMMARY | 2025-03-08 22:14 | XMS_ITS | Encounter Summary ---
Author Organization [facility] Address [address] [place] [address] [place] [address] Phone Care Team Providers Care Showcase Maker Name Role Phone Balaji Ibanez MD Unavailable [phone] Isiah Abad MD Unavailable [phone] Kimberli Page MD Unavailable Balaji Ibanez MD Primary Care Provider [phone] Balaji Ibanez MD Primary Care Provider [phone] Encounter Details Date Type Department Care Team (Late st Contact Info) Description 01/03/2022 Procedure Pass [facility], [address] [address] Social History Tobacco Use Types Packs/Day Years [...] documented as of this encounter Care Teams Showcase Maker Relationship Specialty Start Date End Date Balaji Ibanez MD [email or web address] PCP - General Family Medicine 02/25/17 09/23/23 Balaji Ibanez MD [address] [place] [address] [email or web address] PCP - General Family Medicine 09/24/23 Balaji Ibanez MD [email or web address] Historical LMR Provider 02/07/17 Isiah Abad MD [address] [place] [address], [facility] [place] [address] [email or web address] Historical LMR Provider 02/07/17 Kimberli Page MD [address] [place] [address], [address] [address] [email or web address] Historical LMR Provider 02/07/17 documented as of this encounter Additional Source Comments The information contained in this document represents components of the legal health record. It is not the complete legal health record.[facility]
--- OUTSIDE RECORDS SUMMARY | 2025-03-08 22:14 | XMS_ITS | Encounter Summary ---
Author Organization [facility] Address [address] [facility] [address] [place] [address] Phone Care Team Providers Care Clerical Support Specialist Name Role Phone Balaji Ibanez MD Unavailable [phone] Isiah Abad MD Unavailable [phone] Kimberli Page MD Unavailable Balaji Ibanez MD Primary Care Provider [phone] Balaji Ibanez MD Primary Care Provider [phone] Encounter Details Date Type Department Care Team (Late st Contact Info) Description 07/15/2023 Procedure Pass [facility], [address] [address] Social History Tobacco Use Types Packs/Day Years [...] on filedocumented in this encounter Care Teams Clerical Support Specialist Relationship Specialty Start Date End Date Balaji Ibanez MD PCP - General Family Medicine 02/25/17 09/23/23 Balaji Ibanez MD [address] [place] [address] PCP - General Family Medicine 09/24/23 Balaji Ibanez MD Historical LMR Provider 02/07/17 Isiah Abad MD [address] [place] [address], [address] [place] [address] Historical LMR Provider 02/07/17 Kimberli Page MD [address] [place] [address], [address] [address] Historical LMR Provider 02/07/17 documented as of this encounter Additional Source Comments The information contained in this document represents components of the legal health record. It is not the complete legal health record.[facility]
--- OUTSIDE RECORDS SUMMARY | 2025-03-08 22:14 | XMS_ITS | Encounter Summary ---
Author Organization [facility] Address [address] [facility] [address] [place] [address] Phone Care Team Providers Care Enrobing Machine Corder Name Role Phone Elba Olguin TRUCK CATERER Unavailable Balaji Ibanez MD Unavailable [phone] Kim Nunes TRUCK CATERER Unavailable Brunilda Castro TRUCK CATERER Unavailable Isiah Abad MD Unavailable Kimberli Page MD Unavailable Italo Ruano MD Unavailable Brock Webber MD Unavailable [phone] Balaji Ibanez MD Primary Care Provider [phone] Balaji Ibanez MD Primary Care Provider [phone] Encounter Details Date Type Department Care Team (Late st Contact Info) Description 01/11/2021 Procedure Pass [facility], [address] [id number] Social History Tobacco Use Types Packs/Day Years [...] documented as of this encounter Care Teams Enrobing Machine Corder Relationship Specialty Start Date End Date Balaji Ibanez MD [address] [place] [address] [email or web address] PCP - General Family Medicine 02/25/17 09/23/23 Balaji Ibanez MD [address] [place] [address] [email or web address] PCP - General Family Medicine 09/24/23 Elba Olguin NP [address] [place] [address] Historical LMR Provider 02/07/17 2 Balaji Ibanez MD [address] [place] [address] [email or web address] Historical LMR Provider 02/07/17 Kim Nunes NP [address] [place] [address] Historical LMR Provider 02/07/17 2 Brunilda Castro NP [address] [place] [address] Historical LMR Provider 02/07/172 2 Isiah Abad MD 22 [facility], 2nd [place] [address] Historical LMR Provider 02/07/17 Kimberli Page MD 22 [facility] [address] [place] [address] Historical LMR Provider 02/07/17 Italo Ruano MD [address] [place] [phone] Historical LMR Provider 02/07/172 2 Brock Webber MD [address] [place] [address] Historical LMR Provider 02/07/172 2 documented as of this encounter Additional Source Comments The information contained in this document represents components of the legal health record. It is not the complete legal health record.[facility]
--- OUTSIDE RECORDS SUMMARY | 2025-03-08 22:14 | XMS_ITS | Encounter Summary ---
Author Organization [facility] Address [address] [facility] [address] [place] [address] Phone Care Team Providers Care Box Machine Operator Name Role Phone Elba Olguin HAUL CANE BRAKEMAN Unavailable Balaji Ibanez MD Unavailable Kim Nunes HAUL CANE BRAKEMAN Unavailable Brunilda Castro HAUL CANE BRAKEMAN Unavailable Isiah Abad MD Unavailable [phone] Kimberli Page MD Unavailable Italo Ruano MD Unavailable Brock Webber MD Unavailable [phone] Balaji Ibanez MD Primary Care Provider [phone] Balaji Ibanez MD Primary Care Provider [phone] Encounter Details Date Type Department Care Team (Late st Contact Info) Description 02/20/2020 Ancillary Orders [facility],Outside Imaging [address] [place], [place] [phone] System, Provider Not In, PhD Partners [address] [address] Social History Tobacco Use Types Packs/Day Years [...] documented as of this encounter Care Teams Box Machine Operator Relationship Specialty Start Date End Date Balaji Ibanez MD [address] [place] [address] [email or web address] PCP - General Family Medicine 02/25/17 09/23/23 Balaji Ibanez MD [address] [place] [address] PCP - General Family Medicine 09/24/23 Elba Olguin NP [address] [place] [address] Historical LMR Provider 02/07/17 2 Balaji Ibanez MD 100 [facility] [address] [place] [address] [email or web address] Historical LMR Provider 02/07/17 Kim Nunes HAUL CANE BRAKEMAN 30 [place] [address] Historical LMR Provider 02/07/17 2 [place] [address] [place] [address] [place] [address] Historical LMR Provider 02/07/17 2 Isiah Abad MD 22 [facility], 2nd [place] [address] [email or web address] Historical LMR Provider 02/07/17 Kimberli Page MD [address] [address] [email or web address] Historical LMR Provider 02/07/17 Italo Ruano MD [address] [place] [phone] Historical LMR Provider 02/07/17 2 Brock Webber MD [address] [place] [address] Historical LMR Provider 02/07/17 2 documented as of this encounter Additional Source Comments The information contained in this document represents components of the legal health record. It is not the complete legal health record.[facility]
--- OUTSIDE RECORDS SUMMARY | 2025-03-08 22:14 | XMS_ITS | Encounter Summary ---
Author Organization [facility] Address [address] [place] [address] [place] [address] Phone Care Team Providers Care Medical Care Manager Name Role Phone Balaji Ibanez MD Unavailable [phone] Isiah Abad MD Unavailable [phone] Kimberli Page MD Unavailable Balaji Ibanez MD Primary Care Provider [phone] Balaji Ibanez MD Primary Care Provider [phone] Encounter Details Date Type Department Care Team (Late st Contact Info) Description 08/15/2021 Procedure Pass [place] Admitting Dept - [facility] Department [address] [place] [address] Social History Tobacco Use Types Packs/Day Years [...] documented as of this encounter Care Teams Medical Care Manager Relationship Specialty Start Date End Date Balaji Ibanez MD [email or web address] PCP - General Family Medicine 02/25/17 09/23/23 Balaji Ibanez MD [address] [place] [address] [email or web address] PCP - General Family Medicine 09/24/23 Balaji Ibanez MD [email or web address] Historical LMR Provider 02/07/17 Isiah Abad MD [address] [place] [address], [address] [place] [address] [email or web address] Historical LMR Provider 02/07/17 Kimberli Page MD [address] [place] [address], [address] [address] [email or web address] Historical LMR Provider 02/07/17 documented as of this encounter Additional Source Comments The information contained in this document represents components of the legal health record. It is not the complete legal health record.[facility]
--- OUTSIDE RECORDS SUMMARY | 2025-03-08 22:14 | XMS_ITS | Encounter Summary ---
Author Organization [facility] Address [address] [place] [address] [place] [address] Phone Care Team Providers Care Swimming Pool Installer Name Role Phone Elba Olguin RN SANE Unavailable Balaji Ibanez MD Unavailable Kim Nunes RN SANE Unavailable Brunilda Castro RN SANE Unavailable Isiah Abad MD Unavailable Kimberli Page MD Unavailable Italo Ruano MD Unavailable [phone] Brock Webber MD Unavailable [phone] Balaji Ibanez MD Primary Care Provider [phone] Balaji Ibanez MD Primary Care Provider [phone] Encounter Details Date Type Department Care Team (Late st Contact Info) Description 06/24/2018 Procedure Pass [facility],Outside Imaging [address] [place] [address] Social History Tobacco Use Types [...] documented as of this encounter Care Teams Swimming Pool Installer Relationship Specialty Start Date End Date Balaji Ibanez MD [address] [place] [address] [email or web address] PCP - General Family Medicine 02/25/17 09/23/23 Balaji Ibanez MD [address] [place] [address] [email or web address] PCP - General Family Medicine 09/24/23 Elba Olguin NP [address] [place] [address] Historical LMR Provider 02/07/17 2 Balaji Ibanez MD [address] [place] [address] [email or web address] Historical LMR Provider 02/07/17 Kim Nunes NP [address] [place] [address] Historical LMR Provider 02/07/17 2 Brunilda Castro RN SANE [address] [place] [address] Historical LMR Provider 02/07/17 2 Isiah Abad MD [address] [facility], 2nd [place] [address] Historical LMR Provider 02/07/17 Kimberli Page MD 22 [facility] 102 [place] [address] Historical LMR Provider 02/07/17 Italo Ruano MD [address] [place] [phone] Historical LMR Provider 02/07/172 2 Brock Webber MD [address] [place] [address] Historical LMR Provider 02/07/172 2 documented as of this encounter Additional Source Comments The information contained in this document represents components of the legal health record. It is not the complete legal health record.[facility]
--- OUTSIDE RECORDS SUMMARY | 2025-03-08 22:15 | XMS_ITS | Encounter Summary ---
Author Organization [facility] Address [address] [facility] [address] [place] [address] Phone Care Team Providers Care Crate Repairer Name Role Phone Balaji Ibanez MD Unavailable [phone] Isiah Abad MD Unavailable [phone] Kimberli Page MD Unavailable Balaji Ibanez MD Primary Care Provider Encounter Details Date Type Department Care Team (Late st Contact Info) Description 06/28/2024 Procedure Pass [facility], [address] [address] Social History Tobacco Use Types Packs/Day Years [...] on filedocumented in this encounter Care Teams Crate Repairer Relationship Specialty Start Date End Date Balaji Ibanez MD [address] [place] [address] [email or web address] PCP - General Family Medicine 09/24/23 Balaji Ibanez MD Historical LMR Provider 02/07/17 Isiah Abad MD [address] [place] [address], [facility] [place] [address] Historical LMR Provider 02/07/17 Kimberli Page MD [address] [place] [address], [address] [address] Historical LMR Provider 02/07/17 documented as of this encounter Additional Source Comments The information contained in this document represents components of the legal health record. It is not the complete legal health record.[facility]
--- OUTSIDE RECORDS SUMMARY | 2025-03-08 22:15 | XMS_ITS | Patient Health Record ---
Author Organization [facility] Address [address] [place] [address] Care Team Providers Care Aircraft Sheet Metal Mechanic Name Role Phone Balaji Ibanez MD Primary Care Provider Stepan Watkins [phone] Allergies Allergen (clinical drug ingredient) Drug/Non Drug Allergy documented on EMR Reaction Allergy Type Onset Date Status mesalamine Pentasa diarrhea Drug Allergy Active azithromycin Zithromax Unknown Drug Allergy Acti ve Substance with sulfonamide structure and antibacterial mechanism of action (substance) Sulfa Antibiotics Unknown Drug Allergy Active erythromycin Erythromycin Unknown Drug Allergy A ctive Penicillin Unknown Drug Allergy Active Results Component Value Reference Range Flag Notes Complete Blood Count Auto Di ff Reviewed date:01/21/2025 11:41:48 PM Interpretation: Performing Lab:[facility], [address] [place] [phone] Notes/Report: White Blood Count 5.1 4.8-10.8 X10*3/uL N Red Blood Count 4.20 4.20-5.50 X10*6/uL N Hemoglobin 12.3 12.0-16.0 g/dl N Hematocrit 37.7 37.0-47.0 % N Mean Corpuscular Volume 89.8 80.0-98.0 fL N Mean Corpuscular Hemoglobin 29.3 27.0-33.0 pg N Mean Corpuscular HGB Conc 32.6 31.0-35.0 g/dl N Red Cell Distribution Width 12.6 11.0-16.0 % N Platelet Count 193 160-400 X10*3/uL N Mean Platelet Volume 9.6 9.4-12.3 fL N Neutrophils Percent Auto 56.8 45-73 % N Imm Gran Pct Auto 0.4 0.0-0.4 % N Lymphocytes Percent Auto 31.6 20-40 % N Monocytes Percent Auto 9.6 2-11 % N Eosinophils Percent Auto 1.0 0-4 % N Basophils Percent Auto 0.6 0-2 % N NRBC Pct Auto 0.0 0.0-0.2 /100WBC N Neutrophils Absolute Auto 2.9 2.0-8.3 x10*3/uL N Imm Gran Abs Auto 0.02 0.00-0.03 X10*3/uL N Lymphocytes Absolute Auto 1.6 1.2-4.9 X10*3/uL N Monocytes Absolute Auto 0.5 0.1-1.2 X10*3/uL N Eosinophils Absolute Auto 0.1 0.0-0.4 X10*3/uL N Basophils Absolute Auto 0.0 0.0-0.2 X10*3/uL N NRBC Abs Auto 0.000 0.0-0.012 X10*3/uL N Erythrocyte Sedimentation Ra te Reviewed date:01/21/2025 11:41:34 PM Interpretation: Performing Lab:[address] [phone] Notes/Report: Erythrocyte Sedimentation Rate 7 0-20 MM/HR N Patients with polycythemia and many hemoglobin abnormalities may have depressed sed rates whereas patients with anemia may have elevated sed rates. Liver Panel Reviewed date:01/21/2025 11:41:22 PM Interpretation: Performing Lab:[address] [phone] Notes/Report: Bilirubin Total 0.3 0.0-1.0 mg/dL N Bilirubin Direct 0.2 0.0-0.5 mg/dL N Aspartate Amino Transferase 21 5-31 U/L N Alanine Aminotransferase 21 0-31 U/L N Total Protein 7.0 6.5-8.0 g/dL N Albumin Level 4.4 3.5-5.0 g/dL N Alkaline Phosphatase 45 39-117 U/L N Basic Metabolic Panel Reviewed date:01/11/2025 12:41:29 AM Interpretation: Performing Lab:[facility], [address] [place] [phone] Notes/Report: Sodium 140 135-145 mmol/L N Potassium 4.3 3.3-5.1 mmol/L N Chloride 109 96-108 mmol/L H Carbon Dioxide 27 22-29 mmol/L N Anion Gap 8 12-20 L Blood Urea Nitrogen 7 9-16 mg/dL L Creatinine 0.74 0.5-1.4 mg/dL N Estimated Glomerular Filt Rate > 60 Chronic Kidney Disease: Estimated GFR < 60 mL/min/1.73m2 Severe Kidney Disease: Estimated GFR < 15 mL/min/1.73m2 Glucose Random 86 60-115 mg/dL N Calcium 8.9 8.4-10.2 mg/dL N C Reactive Protein Reviewed date:01/21/2025 11:29:45 PM Interpretation: Performing Lab:[address] [phone] Notes/Report: C Reactive Protein < 0.10 < or = 0.50 mg/dL N Ur Preg Test Reviewed date:01/26/2025 01:40:11 AM Interpretation: Performing Lab:[facility], [address] [place] [phone] Notes/Report: Urine NEGATIVE NEGATIVE This test was developed to detect early . False negative results may occur after the 5th - 7th week of when using this test method. If clinically indicated, consider a serum hCG. Reason For Referral No Information Medications Medication SIG (Take, Route, Frequency, Duration) Notes Start Date End Date Status Omeprazole 40 MG Capsule Delayed Release TAKE 1 CAPSULE BY MOUTH TWICE A DAY AM AND LATE AFTERNOON OR EARLY EVENING FOR 90 DAYS; Duration: 90 Active Metoprolol Succinate ER 25 MG Tablet Extended Release 24 Hour TAKE 1 TABLET BY MOUTH EVERY DAY Oral; Duration: 90 A.fib Active oxyCODONE HCl 10 MG Tablet TAKE 1 TABLET (10 MG TOTAL) BY MOUTH 5 (FIVE) TIMES A DAY. Oral; Duration: 28 Back and hip pain Active Mirena (52 MG) 20 MCG/DAY Intrauterine Device as directed Intrauterine Active Ativan 0.5 MG Tablet 1 tablet at bedtime as needed Orally Once a day PRN Active Colestipol HCl 1 GM Tablet TAKE 2 TABLETS BY MOUTH TWICE A DAY FOR DIARRHEA 30 DAY(S); Duration: 90 prn Not-Taking/P RN tylenol prn Active Cyclobenzaprine HCl 5 MG Tablet TAKE 1 TABLET EVERY DAY BY ORAL ROUTE, FOR MUSCLE SPASM. Oral; Duration: 30 Days Active Rosuvastatin Calcium 5 MG Tablet 1 tablet Orally Once a day 01/10/2025 Active Vitamin B12 Active Ondansetron 4 MG Tablet Disintegrating DISSOLVE 1 TABLET UNDER THE TONGUE AND ALLOW TO DISSOLVE ORALLY EVERY 4 TO 6 HOURS NEEDED FOR NAUSEA 30 DAY(S); Duration: 5 Active Budesonide 3 MG Capsule Delayed Release Particles 3 Orally Once a day; Duration: 30 day(s) 10/13/2022 Active Sertraline HCl 100 MG Tablet TAKE 2 TABLETS BY MOUTH ONCE DAILY Oral; Duration: 90 Active QUEtiapine Fumarate 25 MG Tablet TAKE 1 TABLETS BY MOUTH EVERY EVENING NEEDED Oral; Duration: 90 Insomnia Active Immunizations Vaccine Route Administration Date Status Comme nts Influenza Unknown 03/11/2022 Administered Influenza Unknown 01/10/2025 Administered Social History Tobacco Use: Social History Observation Description Date Details (start date - stop date) Former Smoker NA - NA Social History Drugs/Alcohol: Social Info Question Answer Notes Alcohol Screen Did you have a drink containing alcohol in the past year? No Points 0 Interpretation Negative Tobacco Use: Social Info Question Answer Notes Tobacco Use/Smoking Patient is a former smoker How long has it been since you last smoked? 5-10 years Additional Details Category Social Info Options Details Miscellaneous: Marital status: single Occupation: disability Section Notes: Nonsmoker; no sig alcohol Nonsmoker; no sig alcohol Nonsmoker; no sig alcohol Nonsmoker; no sig alcohol Nonsmoker; no sig alcohol Nonsmoker; no sig alcohol Problems Problem Type SNOMED Code ICD Code Onset Dates Problem Status W/U Status Risk Notes Problem Rectal bleeding (41848145) Rectal bleeding (K62.5) Active confirmed Problem Gastro-esophageal reflux disease without esophagitis (241320391) Gastro-esophageal reflux disease without esophagitis (K21.9) Active confirmed Problem Constipation (47126651) Constipation (K59.00) Active confirmed Problem Diarrhea (11354675) Diarrhea (R19.7) Active con firmed Problem Crohn's disease of small AND large intestines (39431549) Crohn's disease of both small and large intestine with unspecified complications (K50.819) Active confirmed Problem Nausea (710195200) Nausea (R11.0) Active confir med Problem History of gastrointestinal tract bypass (813326382) Intestinal bypass and anastomosis status (Z98.0) Active confirmed Problem Crohns disease (72028955) Crohns disease (K50.90) Active confirmed Problem Chronic gastritis (3119870) Chronic gastritis (K29.50) Active confirmed Problem Generalized abdominal pain (092854658) Abdominal pain, generalized (R10.84) Active confirmed Problem Diarrhea (71963160) Diarrhea, unspecified type (R19.7) Active confirmed Problem Crohn's disease of small intestine (56195033) Crohn''s disease of small intestine without complication (K50.00) Active confirmed Problem Crohn's disease of small AND large intestines (86293471) Crohn''s disease of small and large intestines with complication (K50.819) Active confirmed Problem Gastroesophageal reflux disease (257682681) Gastroesophageal reflux disease, unspecified whether esophagitis present (K21.9) Active confirmed Problem Crohn's disease of small AND large intestines (66686255) Crohn's disease of small and large intestines with complication (K50.819) Active confirmed Problem Gastroesophageal reflux disease (disorder) (484705701) Chronic GERD (K21.9) Active confirmed Vital Signs Temperature 97.7 degrees Fahrenheit 01/10/2025 Blood pressure diastolic 01 mm Hg 01/10/2025 Height 67 in 01/10/2025 Blood pressure systolic 001 mm Hg 01/10/2025 Weight 202.4 lbs 01/10/2025 BMI 31.7 kg/m2 01/10/2025 Procedures Procedure Date Ordered Date Performed Result Body Sit e FLEXIBLE SIGMOIDOSCOPY, DIAGNOSTIC 01/10/2025 N /A Encounters Encounter Location Date Provider Diagnosis [facility] [address] [place], [place] [id number] 01/25/2025 Stepan Sheldon [facility] [address] [place] [phone] 05/03/2024 Stepan Sheldon Crohn's disease of s mall and large intestines with complication K50.819 and Gastroesophageal reflux disease, unspecified whether esophagitis present K21.9 [facility] [address] [place] [phone] 01/10/2025 Stepan Sheldon Crohn's disease of s mall and large intestines with complication K50.819 ; Rectal bleeding K62.5 and Constipation K59.00 [facility] [address] [place] [address] 01/30/2025 Stepan Sheldon [facility] [address] [place] [address] 02/02/2025 Stepan Sheldon [facility] [address] [place] [address] 02/15/2025 Stepan Sheldon Crohn''s disease of small and large intestines with complication K50.819 and Abdominal pain, generalized R10.84 Assessments Encounter Date Diagnosis (ICD Code) Assessment Notes Treatment Notes Treatment Clinical Notes Section Notes 01/10/2025 Crohn's disease of small and large intestines with complication (ICD-10 - K50.819) Overall Javier appears well from a clinical standpoint but her current symptoms of the constipation are worrisome. Given the findings on her colonoscopy about 2 years ago with the relative narrowing at the ileocolonic anastomosis with some associated Crohn's disease I am concerned that she may have developed a worsening stricture at this area causing her current symptomatology in regard to her decrease in bowel movements with some bleeding. As such, I did recommend she undergo a flexible sigmoidoscopy for evaluation of this with possible balloon dilation if indicated. She was quite concerned about hearing a potential need for balloon dilation given the complications she had in [place] about 10 years ago. However I did advise her that I would only try to do that if absolutely necessary. Otherwise, if there is a significant stricture and it remains tight, she would need potential surgery to correct that. Full consent has been obtained for the sigmoidoscopy and potential balloon dilation, including risks of bleeding and perforation. In the meantime I did advise her to continue her senna but to add MiraLAX once or twice a day on a regular basis. I advised her to stay on a fairly normal diet but to avoid a lot of roughage with raw vegetables and salads. I did advise her that if she develops any abdominal distention, increasing abdominal pain, and/or vomiting with the associated decrease in bowel movements, she should go to the ER for evaluation to rule out any type of obstruction. In the meantime she will continue her budesonide. I shall check some laboratories today including a CBC in regard to the reported bleeding. Javier was comfortable with this plan. Thank you again for allowing me to participate in Javier's care. I shall continue to keep you advised of her progress. 02/15/2025 Crohn''s disease of small and large intestines with complication (ICD-10 - K50.819) 05/03/2024 Gastroesophageal reflux disease, unspecified whether esophagitis [...] to keep you advised of her progress. 01/10/2025 Rectal bleeding (ICD-10 - K62.5) Overall Javier appears well from a clinical standpoint but her current symptoms of the constipation are worrisome. Given the findings on her colonoscopy about 2 years ago with the relative narrowing at the ileocolonic anastomosis with some associated Crohn's disease I am concerned that she may have developed a worsening stricture at this area causing her current symptomatology in regard to her decrease in bowel movements with some bleeding. As such, I did recommend she undergo a flexible sigmoidoscopy for evaluation of this with possible balloon dilation if indicated. She was quite concerned about hearing a potential need for balloon dilation given the complications she had in [place] about 10 years ago. However I did advise her that I would only try to do that if absolutely necessary. Otherwise, if there is a significant stricture and it remains tight, she would need potential surgery to correct that. Full consent has been obtained for the sigmoidoscopy and potential balloon dilation, including risks of bleeding and perforation. In the meantime I did advise her to continue her senna but to add MiraLAX once or twice a day on a regular basis. I advised her to stay on a fairly normal diet but to avoid a lot of roughage with raw vegetables and salads. I did advise her that if she develops any abdominal distention, increasing abdominal pain, and/or vomiting with the associated decrease in bowel movements, she should go to the ER for evaluation to rule out any type of obstruction. In the meantime she will continue her budesonide. I shall check some laboratories today including a CBC in regard to the reported bleeding. Javier was comfortable with this plan. Thank you again for allowing me to participate in Javier's care. I shall continue to keep you advised of her progress. 01/10/2025 Constipation (ICD-10 - K59.00) Use Senna twice a day and add a dose of Miralax once or twice a day Overall Javier appears well from a clinical standpoint but her current symptoms of the constipation are worrisome. Given the findings on her colonoscopy about 2 years ago with the relative narrowing at the ileocolonic anastomosis with some associated Crohn's disease I am concerned that she may have developed a worsening stricture at this area causing her current symptomatology in regard to her decrease in bowel movements with some bleeding. As such, I did recommend she undergo a flexible sigmoidoscopy for evaluation of this with possible balloon dilation if indicated. She was quite concerned about hearing a potential need for balloon dilation given the complications she had in [place] about 10 years ago. However I did advise her that I would only try to do that if absolutely necessary. Otherwise, if there is a significant stricture and it remains tight, she would need potential surgery to correct that. Full consent has been obtained for the sigmoidoscopy and potential balloon dilation, including risks of bleeding and perforation. In the meantime I did advise her to continue her senna but to add MiraLAX once or twice a day on a regular basis. I advised her to stay on a fairly normal diet but to avoid a lot of roughage with raw vegetables and salads. I did advise her that if she develops any abdominal distention, increasing abdominal pain, and/or vomiting with the associated decrease in bowel movements, she should go to the ER for evaluation to rule out any type of obstruction. In the meantime she will continue her budesonide. I shall check some laboratories today including a CBC in regard to the reported bleeding. Javier was comfortable with this plan. Thank you again for allowing me to participate in Javier's care. I shall continue to keep you advised of her progress. 02/15/2025 Abdominal pain, generalized (ICD-10 - R10.84) Plan Of Treatment Pending Test Test Name Order Date FLEXIBLE SIGMOIDOSCOPY, DIAGNOSTIC 01/10 CHEM 7 PROFILE 01/10/2025 CHEM 7 PROFILE 08/19/2022 LIVER PROFILE 08/19/2022 LIVER PROFILE 01/10/2025 CRP 01/10/2025 CRP 08/19/2022 CBC w DIFF 08/19/2022 CBC w DIFF 01/10/2025 SED RATE (ESR) 08/19/2022 SED RATE (ESR) 01/10/2025 CELIAC PANEL #10 08/19/2022 C DIFFICILE RFLX PCR 08/19/2022 CT enterography 02/15/2025 Future Test Test Name Order Date COLONOSCOPY 08/19/2022 UPPER GI ENDOSCOPY 10/15/2023 Next Appt Details Provider Name:Stepan Sheldon , 05/16/2025 09:30:00 AM, [address] [facility] [address], [address], [place], [address], Insurance Providers Payer Name Payer Address Payer Phone Subscriber Number Group Number Insured Name Patient Relationship to Insured Coverage Start Date Coverage End Date MEDICARE OF [place] [address] [place] [address] [id number] JAVIER WINTER Self - patient is the insured MEDICAID OF [facility] [address] [place] [address] [id number] JAVIER WINTER Self - patient is the insured Medical (General) History Medical History History ICD Code Denies [place],DM,CVA,Lung disease,renal dise ase Afib Crohn's disease diagnosed [...] was in 01/[address] Garcia at [facility] revealed some erosions at the ileocolic [...]
--- OUTSIDE RECORDS SUMMARY | 2025-03-08 22:15 | XMS_ITS | Clinical Summary ---
Author Organization [facility] Address [address] [place] [address] Phone Care Team Providers Care Utility Tech Name Role Phone Balaji Ibanez MD Unavailable Isiah Abad MD Unavailable [phone] Kimberli Page MD Unavailable Balaji Ibanez MD [...] this topic Medical Devices Implanted Type Area Callisthenics Instructor Device Identifier Shelf Expiration Date Model / Serial / Lot Iud Implanted: (Quantity not on file) Intrauterine Device Procedures Procedure Name Priority Date/Time Associated Diagnosis Comments PAP TEST Routine 08/01/2024 12:00 AM EDT from Last 3 Months or Most Recently Relevant to Health Maintenance Results * Pap Test (08/01/2024 12:00 AM EDT) Report [address] [address] Dump Grounds Checker: Calixto Kim MD [employer]REIGHT CLAIM INVESTIGATOR Cytology Report FINAL DIAGNOSIS A. PAP SMEAR (THIN PREP) CE: SPECIMEN ADEQUACY: Satisfactory for evaluation; transformation zone present. INTERPRETATION: NEGATIVE FOR INTRAEPITHELIAL LESION OR MALIGNANCY. Reactive changes. This specimen was analyzed by the automated ThinPrep Imaging System ([employer] and manually rescreened by a radio recorder and/or pathologist. Electronically Signed Out By: MD [...] by real-time polymerase chain reaction (PCR) at [facility], [address] [place] [address] using the FDA-approved [employer] Onclarity HPV Assay with extended genotyping. Uses of the assay in scenarios other than those approved by the FDA should be considered off-label use. The accuracy and precision of this test for all other off-label specimen sources has been verified in the Cytopathology Laboratory of the [facility] and has not been cleared or approved [...] : 1975 (Age: 49) Sex: F Institution: [facility] Location: [facility] Date of Collection: 08/01/2024 Date of Reported: 08/05/2024 09:48 Results to: Becca Santoyo MD [facility] Final Diagnosis A. PAP SMEAR (THIN PREP) CE: SPECIMEN ADEQUACY: Satisfactory for evaluation; transformation zone present. INTERPRETATION: NEGATIVE FOR INTRAEPITHELIAL LESION OR MALIGNANCY. Reactive changes. This specimen was analyzed by the automated ThinPrep Imaging System ([employer] and manually rescreened by a radio recorder and/or pathologist. [facility] Results\Inte rpretation A. PAP SMEAR (THIN PREP) CE: High-risk HPV Panel w/ extended genotyping NEG HPV 16-NEG HPV 18-NEG HPV 45-NEG HPV 33/58-NEG HPV 31-NEG HPV 56/59/66-NEG HPV 51-NEG HPV 52-NEG HPV 35/39/68-NEG Performed by real-time polymerase chain reaction (PCR) at [facility], [address] [place] [address] using the FDA-approved [employer] Onclarity HPV Assay with extended genotyping. Uses of the assay in scenarios other than those approved by the FDA should be considered off-label use. The accuracy and precision of this test for all other off-label specimen sources has been verified in the Cytopathology Laboratory of the [facility] and has not been cleared or approved by the U.S. Food and Drug Administration. Clinical correlation is advised. The assay assesses the E6/E7 DNA target and utilizes human beta globin as an internal control. Cytology and HPV testing are screening assays and should not be used as the sole means of detecting cancer. False-positives and false-negatives can occur. [facility] Conversion Type (Conversion Source) 08/01/2024 08/02/2024 9:17 AM EDT Becca Santoyo MD CYTOLOGY ORDERABLES Edited Result - Final [facility] [address] [place] [address] from Last 3 Months or Most Recently Relevant to Health Maintenance [place] [address] [place] [address] MEDICARE PART A & B [facility] MEDICARE PART A & [place] A & B [facility] MEDICARE PART A & B Care Teams Utility Tech Relationship Specialty Start Date End Date Balaji Ibanez MD [address] [place] [phone] [email or web address] PCP - General Family Medicine 09/24/23 Balaji Ibanez MD Historical LMR Provider 02/07/17 Isiah Abad MD [address] [place] [phone] [email or web address] Historical LMR Provider 02/07/17 Kimberli Page MD [address] [place] [address] [address] [place] [address] [email or web address] Historical LMR Provider 02/07/17 Additional Source Comments The information contained in this document represents components of the legal health record. It is not the complete legal health record.[facility]
--- OUTSIDE RECORDS SUMMARY | 2025-03-08 22:15 | XMS_ITS | Encounter Summary ---
Author Organization [facility] Address [address] [facility] [address] [place] [address] Phone Care Team Providers Care Spinneret Person Name Role Phone Elba Olguin DEPARTMENT OF SOCIOLOGY CHAIR Unavailable [phone] Balaji Ibanez MD Unavailable [phone] Kim Nunes DEPARTMENT OF SOCIOLOGY CHAIR Unavailable Brunilda Castro DEPARTMENT OF SOCIOLOGY CHAIR Unavailable Isiah Abad MD Unavailable Kimberli Page MD Unavailable Italo Ruano MD Unavailable Brock Webber MD Unavailable [phone] Balaji Ibanez MD Primary Care Provider [phone] Balaji Ibanez MD Unavailable [phone] Balaji Ibanez MD Primary Care Provider [phone] Encounter Details Date Type Department Care Team (Late st Contact Info) Description 08/24/2017 Ancillary Orders [facility] Spine Medicine Nitro 4 [place] [address] Isiah Abad MD 22 [facility], 2nd [place] [address] [email or web address] Sacroiliitis, not elsewhere classified Social History Tobacco [...] documented as of this encounter Care Teams Spinneret Person Relationship Specialty Start Date End Date Balaji Ibanez MD [address] [place] [address] [email or web address] PCP - General Family Medicine 02/25/17 09/23/23 Balaji Ibanez MD [address] [place] [address] [email or web address] PCP - General Family Medicine 09/24/23 Elba Olguin NP [address] [place] [address] Historical LMR Provider 02/07/17 2 Balaji Ibanez MD [address] [place] [address] 340 [place] [address] [email or web address] Historical LMR Provider 02/07/17 Kim Nunes NP 30 [place] [address] Historical LMR Provider 02/07/17 2 Brunilda Castro NP [address] [place] [phone] Historical LMR Provider 02/07/17 2 Isiah Abad MD 22 [facility], 2nd [place] [address] Historical LMR Provider 02/07/17 Kimberli Page MD 22 [facility] 102 [place] [address] Historical LMR Provider 02/07/17 Italo Ruano MD [address] [place] [phone] Historical LMR Provider 02/07/17 2 Brock Webber MD 61 [place] [address] Historical LMR Provider 02/07/17 2 Balaji Ibanez MD [address] [place] [address] [email or web address] Insurance Assigned Provider 07/18/17 05/22/18 documented as of this encounter Additional Source Comments The information contained in this document represents components of the legal health record. It is not the complete legal health record.[facility]
--- OUTSIDE RECORDS SUMMARY | 2025-03-08 22:15 | XMS_ITS | Encounter Summary ---
Author Organization [facility] Address [address] [facility] [address] [place] [address] Phone Care Team Providers Care Pigment Presser Name Role Phone Elba Olguin MONORAIL OPERATOR Unavailable Balaji Ibanez MD Unavailable Kim Nunes MONORAIL OPERATOR Unavailable Brunilda Castro MONORAIL OPERATOR Unavailable Isiah Abad MD Unavailable Kimberli Page MD Unavailable Italo Ruano MD Unavailable [phone] Brock Webber MD Unavailable [phone] Balaji Ibanez MD Primary Care Provider [phone] Balaji Ibanez MD Primary Care Provider [phone] Encounter Details Date Type Department Care Team (Late st Contact Info) Description 02/13/2020 Procedure Pass [address] [place] [address] Social History Tobacco Use Types Packs/Day Years [...] documented as of this encounter Care Teams Pigment Presser Relationship Specialty Start Date End Date Balaji Ibanez MD [address] [address] [email or web address] PCP - General Family Medicine 02/25/17 09/23/23 Balaji Ibanez MD [address] [place] [address] [email or web address] PCP - General Family Medicine 09/24/23 Elba Olguin NP [address] [address] Historical LMR Provider 02/07/17 2 Balaji Ibanez MD [address] [address] [email or web address] Historical LMR Provider 02/07/17 Kim Nunes NP 30 [place] [address] Historical LMR Provider 02/07/172 2 Brunilda Castro NP [address] [place] [address] Historical LMR Provider 02/07/172 2 Isiah Abad MD 22 [facility], 2nd [place] [address] Historical LMR Provider 02/07/17 Kimberli Page MD [address] [address] Historical LMR Provider 02/07/17 Italo Ruano MD [address] [place] [phone] Historical LMR Provider 02/07/17 2 Brock Webber MD [address] [place] [address] Historical LMR Provider 02/07/17 2 documented as of this encounter Additional Source Comments The information contained in this document represents components of the legal health record. It is not the complete legal health record.[facility]
== END ==
LOC: HO.CARD 11:17
PROVIDERS: PCP Family Medicine; Visit Provider Internal Medicine Cardiovascular Disease
DX: I48.0 Paroxysmal atrial fibrillation (principal); I50.9 Heart failure, unspecified
CPT/HCPCS: 93242

== ENCOUNTER → 2025-03-08 11:19 | Outpatient (BNV) | payer MEDICARE, MEDICAID, SELFPAY | PROVIDERS: PCP Family Medicine; Visit Provider Internal Medicine | DX: I49.3 Ventricular premature depolarization (principal); I49.49 Other premature depolarization | CPT/HCPCS: 93244 ==

== ENCOUNTER 2025-04-18 07:59 | Outpatient (REF) | payer MEDICARE, MEDICAID, SELFPAY ==
--- NOTE | ~2025-04-18 | CT_ITS ---
EXAMINATION: CT ENTEROGRAPHY ABDOMEN AND PELVIS WITH CONTRAST CLINICAL INFORMATION: Crohn's disease of the small intestine COMPARISON: Previous CT of the abdomen and pelvis most recent January 2025 and older exams from 2022 and 2020 TECHNIQUE: Study performed with oral VoLumen (1350 mL) and 480 mL of water to distend the abdomen. The patient was injected with 85 mL Omnipaque 350 intravenous contrast which was administered without adverse effect. Coronal and sagittal reformatted images were obtained at the technologist's workstation. This CT examination was performed using dose optimization techniques as appropriate, variously including the following: *Automated exposure control *Adjustment of mA and/or kV according to patient size (this includes techniques or standardized protocols for targeted exams where dose is matched to indication/reason for exam; i.e. extremities or head) *Use of iterative reconstruction technique DLP 540 mgy/cm FINDINGS: GASTROINTESTINAL FINDINGS: Stomach: Well-distended and normal in appearance. Postsurgical change following proximal colectomy with resection of the right, transverse and proximal left colon. There is an enterocolonic anastomosis seen in the left mid abdomen. There is short segment 3.5 cm in length mild narrowing, wall thickening and mucosal enhancement of the distal small bowel just proximal to the enterocolic anastomosis axial image 60 series 4 and coronal image 19 series 6. Questionable area of slightly more proximal wall thickening and increased enhancement versus underdistention of the distal small bowel or example axial image 22 series 6 vs changes due to underdistention. This does not appear as severe as seen on November 2022 exam. Small bowel is otherwise normal. There is increased stool in the colon questionable for mild constipation. Colon is otherwise unremarkable. Additional findings: No abnormal enhancement of the vasa recta or significant mesenteric or retroperitoneal lymphadenopathy is seen. No abdominal abscess or fistulous tract demonstrated. ABDOMINAL AND PELVIC CT FINDINGS: Liver, gallbladder, biliary tract: Normal-appearing liver. Cholecystectomy. No intra or extrahepatic biliary duct dilatation. Pancreas: Normal Spleen: Slightly enlarged measuring 14.5 cm in length. This is similar to previous exams. No focal lesion. Adrenal glands and kidneys: Normal Ureters and bladder: No ureteral dilatation. Bladder not optimally distended and not well evaluated. Lymphovascular structures: Small, small bowel mesentery and retroperitoneal and portacaval lymph nodes. Small bilateral inguinal lymph nodes. No enlarged lymph nodes. Normal vascular structures. No aneurysm. Pelvis: Underdistended bladder not well evaluated. IUD in the uterus unchanged in position with top of the IUD 2.3 cm from the top of the uterine fundus.. No pelvic mass. Bones: Mild degenerative changes at L5-S1. Postsurgical changes to the anterior abdominal wall. Small umbilical hernia containing fat. Lung bases: Improving subsegmental atelectasis or small infiltrate at the lung bases from January [address]/CT enterography IMPRESSION: Postsurgical changes following resection of the proximal colon with enterocolic anastomosis in the left mid abdomen. Mild wall thickening and mucosal enhancement and narrowing of the distal small bowel at the enterocolic anastomosis to the left colon and question mild similar findings versus changes due to underdistention of the distal small bowel approximately 10 cm proximal to this region described above. Increased stool. Question mild constipation. Mild splenomegaly and IUD in the uterus similar to previous exams. Electronically signed by: Minna Sands MD 04/18/2025 09:57 AM [facility]
--- OUTSIDE RECORDS SUMMARY | 2025-04-18 09:25 | XMS_ITS | Encounter Summary ---
Author Organization [facility] Address [address] [place] [address] [place] [address] Phone Care Team Providers Care Clinical Operations Consultant Name Role Phone Elba Olguin NEWS REEL CAMERAMAN Unavailable Balaji Ibanez MD Unavailable Kim Nunes NEWS REEL CAMERAMAN Unavailable Brunilda Castro NEWS REEL CAMERAMAN Unavailable Isiah Abad MD Unavailable [phone] Kimberli Page MD Unavailable Italo Ruano MD Unavailable Brock Webber MD Unavailable [phone] Balaji Ibanez MD Primary Care Provider [phone] Balaji Ibanez MD Primary Care Provider [phone] Encounter Details Date Type Department Care Team (Late st Contact Info) Description 06/24/2018 Procedure Pass [facility],Outside Imaging 30 [place] [address] Social History Tobacco Use Types Packs/Day Years Used Date Smoking Tobacco: Former Smokeless Tobacco: Never Comments Unknown Sex and Gender Information Value Date Recorded Sex Assigned at Female 04/27/2017 9:38 AM EST Legal Sex Female 9:27 PM EDT Gender Identity Female 04/27/2017 9:38 AM EST Sexual Orientation Straight 04/27/2017 9: 38 AM EST documented as of this encounter Plan of Treatment Upcoming Encounters Date Type Department Care Team (Late st Contact Info) Description 03/27/2025 Procedure Pass [address] [address] 05/03/2025 8:30 PM EST Appointment [address] [address] Isiah Abad MD 22 [facility], 2nd [place] [address] [email or web address] documented as of this encounter Visit Diagnoses Not on filedocumented in this encounter Additional Health Concerns Infection Onset Date Last Indicated Resolved Time CoV-Risk 05/07/2020 05/08/2020 05/17/2020 1:24 AM EST CoV-Risk 03/25/2022 03/25/2022 03/25/2022 8:01 PM EST COVID-19 03/25/2022 03/25/2022 04/15/2022 1:21 AM EST documented as of this encounter Care Teams Clinical Operations Consultant Relationship Specialty Start Date End Date Balaji Ibanez MD [address] [place] [address] PCP - General Family Medicine 02/25/17 09/23/23 Balaji Ibanez MD [address] [place] [address] PCP - General Family Medicine 09/24/23 Elba Olguin NP [address] [place] [address] Historical LMR Provider 02/07/17 2 Balaji Ibanez MD [address] [facility] [address] [place] [address] [email or web address] Historical LMR Provider 02/07/17 Kim Nunes NP 30 [place] [address] Historical LMR Provider 02/07/17 2 Brunilda Castro NP [address] [facility] [place] [address] Historical LMR Provider 02/07/17 2 Isiah Abad MD 22 [facility], 2nd [place] [address] [email or web address] Historical LMR Provider 02/07/17 Kimberli Page MD [address] [address] [email or web address] Historical LMR Provider 02/07/17 Italo Ruano MD [address] [place] [phone] Historical LMR Provider 02/07/17 2 Brock Webber MD 61 [place] [address] Historical LMR Provider 02/07/17 2 documented as of this encounter Additional Source Comments The information contained in this document represents components of the legal health record. It is not the complete legal health record.[facility]
--- OUTSIDE RECORDS SUMMARY | 2025-04-18 09:25 | XMS_ITS | Encounter Summary ---
Author Organization [facility] Address [address] [place] [address] Phone Care Team Providers Care Gasoline Plant Operator Name Role Phone Balaji Ibanez MD Unavailable [phone] Isiah Abad MD Unavailable [phone] Kimberli Page MD Unavailable Balaji Ibanez MD Primary Care Provider [phone] Balaji Ibanez MD Primary Care Provider [phone] Encounter Details Date Type Department Care Team (Late st Contact Info) Description 08/12/2021 Prep for Surgery [facility] [address] [place] [address] Jaxon Castano PA-C [address] [place] [address] Orthopedics [facility] Sports Medicine, [place] [address] [email or web address] Social History Tobacco Use [...] st Contact Info) Description 03/27/2025 Procedure Pass [facility], [address] [address] 05/03/2025 8:30 PM EST Appointment [address] [address] Isiah Abad MD [address] [place] [address] [email or web address] documented as of this encounter Visit Diagnoses Not on filedocumented in this encounter Additional Health Concerns Infection Onset Date Last Indicated Resolved Time CoV-Risk 03/25/2022 03/25/2022 03/25/2022 8:01 PM EST COVID-19 03/25/2022 03/25/2022 04/15/2022 1:21 AM EST documented as of this encounter Care Teams Gasoline Plant Operator Relationship Specialty Start Date End Date Balaji Ibanez MD PCP - General Family Medicine 02/25/17 09/23/23 Balaji Ibanez MD [address] [place] [address] PCP - General Family Medicine 09/24/23 Balaji Ibanez MD Historical LMR Provider 02/07/17 Isiah Abad MD [address] [place] [address] [email or web address] Historical LMR Provider 02/07/17 Kimberli Page MD [address] [place] [address], [place] [address] [email or web address] Historical LMR Provider 02/07/17 documented as of this encounter Additional Source Comments The information contained in this document represents components of the legal health record. It is not the complete legal health record.[facility]
--- OUTSIDE RECORDS SUMMARY | 2025-04-18 09:25 | XMS_ITS | Encounter Summary ---
Author Organization [facility] Address [address] [place] [address] [place] [address] Phone Care Team Providers Care Facilities Plant Engineer Name Role Phone Balaji Ibanez MD Unavailable [phone] Isiah Abad MD Unavailable [phone] Kimberli Page MD Unavailable Balaji Ibanez MD Primary Care Provider [phone] Balaji Ibanez MD Primary Care Provider [phone] Encounter Details Date Type Department Care Team (Late st Contact Info) Description 01/03/[address] [address] Social History Tobacco Use Types Packs/Day Years [...] (Late st Contact Info) Description 03/27/[address] [place] [address] 05/03/2025 8:30 PM EST Appointment [address] [address] Isiah Abad MD [address] [address] [email or web address] documented as of this encounter Visit Diagnoses Not on filedocumented in this encounter Additional Health Concerns Infection Onset Date Last Indicated Resolved Time CoV-Risk 03/25/2022 03/25/2022 03/25/2022 8:01 PM EST COVID-19 03/25/2022 03/25/2022 04/15/2022 1:21 AM EST documented as of this encounter Care Teams Facilities Plant Engineer Relationship Specialty Start Date End Date Balaji Ibanez MD [email or web address] PCP - General Family Medicine 02/25/17 09/23/23 Balaji Ibanez MD [address] [place] [address] [email or web address] PCP - General Family Medicine 09/24/23 Balaji Ibanez MD [email or web address] Historical LMR Provider 02/07/17 Isiah Abad MD [address] [place] [address] [email or web address] Historical LMR Provider 02/07/17 Kimberli Page MD [address] [place] [address], [facility] [address] [place] [address] [email or web address] Historical LMR Provider 02/07/17 documented as of this encounter Additional Source Comments The information contained in this document represents components of the legal health record. It is not the complete legal health record.[facility]
--- OUTSIDE RECORDS SUMMARY | 2025-04-18 09:25 | XMS_ITS | Encounter Summary ---
Author Organization [facility] Address [address] [place] [address] Phone Care Team Providers Care Humidifier Attendant Name Role Phone Elba Olguin BLIND AIDE Unavailable [phone] Balaji Ibanez MD Unavailable Kim Nunes BLIND AIDE Unavailable Brunilda Castro BLIND AIDE Unavailable Isiah Abad MD Unavailable Kimberli Page MD Unavailable Italo Ruano MD Unavailable Brock Webber MD Unavailable [phone] Balaji Ibanez MD Primary Care Provider [phone] Balaji Ibanez MD Primary Care Provider [phone] Reason for Referral * MRI/CAT Scan - Closed Specialty Diagnoses / Procedures Referred By Contac t Referred To Contact Procedures MRI Spine (Bone) Outside (No Interpretation) System, Provider [place] In, [place] [address] Referral ID Status Reason Start Date Expiration Date Visits Re quested Visits Authorized [id number] Closed 06/24/2018 06/24/2019 1 1 Encounter Details Date Type Department Care Team (Late st Contact Info) Description 06/24/2018 Ancillary Orders [facility],Outside Imaging [address] [place] [address] System, Provider Not In, [place] [address] Social History Tobacco Use Types Packs/Day Years [...] Encounters Date Type Department Care Team (Late Contact Info) Description 03/27/2025 Procedure Pass [address] [address] 05/03/2025 8:30 PM EST Appointment [address] [address] Isiah Abad MD [address] [place] [address], [address] [place] [address] [email or web address] documented as of this encounter Results * [...] documented as of this encounter Care Teams Humidifier Attendant Relationship Specialty Start Date End Date Balaji Ibanez MD [address] [address] PCP - General Family Medicine 02/25/17 09/23/23 Balaji Ibanez MD [address] [place] [address] PCP - General Family Medicine 09/24/23 Elba Olguin NP [address] [place] [address] Historical LMR Provider 02/07/17 2 Balaji Ibanez MD [address] [place] [address] Historical LMR Provider 02/07/17 Kim Nunes BLIND AIDE [address] [place] [address] Historical LMR Provider 02/07/17 2 Brunilda Castro BLIND AIDE [address] [place] [phone] Historical LMR Provider 02/07/17 2 Isiah Abad MD [address] [place] [address], [address] [place] [address] Historical LMR Provider 02/07/17 Kimberli Page MD [address] [place] [address], [facility] 102 [place] [address] [email or web address] Historical LMR Provider 02/07/17 Italo Ruano MD [address] [place] [phone] Historical LMR Provider 02/07/17 2 Brock Wbeber MD [address] [place] [address] Historical LMR Provider 02/07/17 2 documented as of this encounter Additional Source Comments The information contained in this document represents components of the legal health record. It is not the complete legal health record.[facility]
--- OUTSIDE RECORDS SUMMARY | 2025-04-18 09:25 | XMS_ITS | Encounter Summary ---
Author Organization [facility] Address [address] [place] [address] [place] [address] Phone Care Team Providers Care Rn Review Name Role Phone Balaji Ibanez MD Unavailable [phone] Isiah Abad MD Unavailable [phone] Kimberli Page MD Unavailable Balaji Ibanez MD Primary Care Provider [phone] Balaji Ibanez MD Primary Care Provider [phone] Encounter Details Date Type Department Care Team (Late st Contact Info) Description 08/15/2021 Procedure Pass [place] Admitting Dept - [facility] Department [address] [place] [address] Social History Tobacco Use Types Packs/Day Years [...] (Late Contact Info) Description 03/27/2025 Procedure Pass [facility], [address] [address] 05/03/2025 8:30 PM EST Appointment [address] [address] Isiah Abad MD [address] [place] [address] [email or web address] documented as of this encounter Visit Diagnoses Not on filedocumented in this encounter Additional Health Concerns Infection Onset Date Last Indicated Resolved Time CoV-Risk 03/25/2022 03/25/2022 03/25/2022 8:01 PM EST COVID-19 03/25/2022 03/25/2022 04/15/2022 1:21 AM EST documented as of this encounter Care Teams Rn Review Relationship Specialty Start Date End Date Balaji Ibanez MD [email or web address] PCP - General Family Medicine 02/25/17 09/23/23 Balaji Ibanez MD [address] [place] [address] [email or web address] PCP - General Family Medicine 09/24/23 Balaji Ibanez MD [email or web address] Historical LMR Provider 02/07/17 Isiah Abad MD [address] [place] [address] [email or web address] Historical LMR Provider 02/07/17 Kimberli Page MD [address] [place] [address], [facility] [address] [place] [address] [email or web address] Historical LMR Provider 02/07/17 documented as of this encounter Additional Source Comments The information contained in this document represents components of the legal health record. It is not the complete legal health record.[facility]
--- OUTSIDE RECORDS SUMMARY | 2025-04-18 09:25 | XMS_ITS | Encounter Summary ---
Author Organization [facility] Address [address] [place] [address] [place] [address] Phone Care Team Providers Care Mica Layer Name Role Phone Elba Olguin MARKETING FINANCE SPECIALIST Unavailable [phone] Balaji Ibanez MD Unavailable Kim Nunes MARKETING FINANCE SPECIALIST Unavailable Brunilda Castro MARKETING FINANCE SPECIALIST Unavailable Isiah Abad MD Unavailable [phone] Kimberli Page MD Unavailable Italo Ruano MD Unavailable Brock Webber MD Unavailable [phone] Balaji Ibanez MD Primary Care Provider [phone] Balaji Ibanez MD Unavailable [phone] Balaji Ibanez MD Primary Care Provider [phone] Encounter Details Date Type Department Care Team (Late st Contact Info) Description 02/24/2017 Procedure Pass [facility], [address] [address] Social History Tobacco Use Types Packs/Day Years [...] st Contact Info) Description 03/27/2025 Procedure Pass [address] [address] 05/03/2025 8:30 PM EST Appointment [address] [address] Isiah Abad MD [address] [place] [address], 2[address] [place] [address] [email or web address] documented as of this encounter Visit Diagnoses Not on filedocumented in this encounter Additional Health Concerns Infection Onset Date Last Indicated Resolved Time CoV-Risk 05/07/2020 05/08/2020 05/17/2020 1:24 AM EST CoV-Risk 03/25/2022 03/25/2022 03/25/2022 8:01 PM EST COVID-19 03/25/2022 03/25/2022 04/15/2022 1:21 AM EST documented as of this encounter Care Teams Mica Layer Relationship Specialty Start Date End Date Balaji Ibanez MD [address] [place] [address] [email or web address] PCP - General Family Medicine 02/25/17 09/23/23 Balaji Ibanez MD [address] [place] [address] [email or web address] PCP - General Family Medicine 09/24/23 Elba Olguin NP [address] [place] [address] Historical LMR Provider 02/07/17 2 Balaji Ibanez MD 100 [facility] 340 [place] [address] [email or web address] Historical LMR Provider 02/07/17 Kim Nunes NP 30 [place] [address] Historical LMR Provider 02/07/17 2 Brunilda Castro NP [address] [place] [phone] Historical LMR Provider 02/07/17 2 Isiah Abad MD 22 [facility], 2nd [place] [address] [email or web address] Historical LMR Provider 02/07/17 Kimberli Page MD 22 [facility] 102 [place] [address] [email or web address] Historical LMR Provider 02/07/17 Italo Ruano MD [address] [place] [phone] Historical LMR Provider 02/07/17 2 Brock Webber MD 61 [place] [address] Historical LMR Provider 02/07/17 2 Balaji Ibanez MD [address] [place] [address] [email or web address] Insurance Assigned Provider 07/18/17 05/22/18 documented as of this encounter Additional Source Comments The information contained in this document represents components of the legal health record. It is not the complete legal health record.[facility]
--- OUTSIDE RECORDS SUMMARY | 2025-04-18 09:25 | XMS_ITS | Encounter Summary ---
Author Organization [facility] Address [address] [facility] [address] [place] [address] Phone Care Team Providers Care Shop Mechanic Name Role Phone Elba Olguin CAR VARNISHER Unavailable Balaji Ibanez MD Unavailable [phone] Kim Nunes CAR VARNISHER Unavailable Brunilda Castro CAR VARNISHER Unavailable Isiah Abad MD Unavailable [phone] Kimberli Page MD Unavailable Italo Ruano MD Unavailable Brock Webber MD Unavailable [phone] Balaji Ibanez MD Primary Care Provider [phone] Balaji Ibanez MD Unavailable Balaji Ibanez MD Primary Care Provider [phone] Encounter Details Date Type Department Care Team (Late st Contact Info) Description 02/24/2017 Ancillary Orders Virtual Department 30 [place] [address] Balaji Ibanez MD [address] [place] [address] [phone] Pain of right hip joint Social History [...] st Contact Info) Description 03/27/2025 Procedure Pass [address] [address] 05/03/2025 8:30 PM EST Appointment [address] [address] Isiah Abad MD [address] [place] [address], 2[address] [place] [address] documented as of this encounter Results * [...] documented as of this encounter Care Teams Shop Mechanic Relationship Specialty Start Date End Date Balaji Ibanez MD [address] [address] [email or web address] PCP - General Family Medicine 02/25/17 09/23/23 Balaji Ibanez MD [address] [place] [address] PCP - General Family Medicine 09/24/23 Elba Olguin NP [address] [address] Historical LMR Provider 02/07/17 2 Balaji Ibanez MD [address] [place] [address] Historical LMR Provider 02/07/17 Kim Nunes NP [address] [place] [address] Historical LMR Provider 02/07/17 2 Brunilda Castro NP [address] [place] [address] Historical LMR Provider 02/07/17 2 Isiah Abad MD [address] [place] [address], 2nd [place] [address] Historical LMR Provider 02/07/17 Kimberli Page MD [address] [address] [email or web address] Historical LMR Provider 02/07/17 Italo Ruano MD [facility] [place] [phone] Historical LMR Provider 02/07/1704/27/ 2 Brock Webber MD [address] [place] [address] Historical LMR Provider 02/07/1704/27/2 2 Balaji Ibanez MD [address] [place] [address] [email or web address] Insurance Assigned Provider 07/18/17 05/22/18 documented as of this encounter Additional Source Comments The information contained in this document represents components of the legal health record. It is not the complete legal health record.[facility]
--- OUTSIDE RECORDS SUMMARY | 2025-04-18 09:25 | XMS_ITS | Encounter Summary ---
Author Organization [facility] Address [address] [facility] [address] [place] [address] Phone Care Team Providers Care Lieutenant Ballistics Name Role Phone Balaji Ibanez MD Unavailable [phone] Isiah Abad MD Unavailable [phone] Kimberli Page MD Unavailable Balaji Ibanez MD Primary Care Provider [phone] Balaji Ibanez MD Primary Care Provider [phone] Encounter Details Date Type Department Care Team (Late st Contact Info) Description 07/15/2023 Procedure Pass [facility], [address] [address] Social History Tobacco Use Types Packs/Day Years [...] st Contact Info) Description 03/27/2025 Procedure Pass [address] [address] 05/03/2025 8:30 PM EST Appointment [address] [address] Isiah Abad MD [address] [place] [address] documented as of this encounter Visit Diagnoses Not on filedocumented in this encounter Care Teams Lieutenant Ballistics Relationship Specialty Start Date End Date Balaji Ibanez MD PCP - General Family Medicine 02/25/17 09/23/23 Balaji Ibanez MD [address] [place] [address] PCP - General Family Medicine 09/24/23 Balaji Ibanez MD Historical LMR Provider 02/07/17 Isiah Abad MD [address] [place] [address] Historical LMR Provider 02/07/17 Kimberli Page MD 22 [facility], [address] [address] [email or web address] Historical LMR Provider 02/07/17 documented as of this encounter Additional Source Comments The information contained in this document represents components of the legal health record. It is not the complete legal health record.[facility]
--- OUTSIDE RECORDS SUMMARY | 2025-04-18 09:25 | XMS_ITS | Encounter Summary ---
Author Organization [facility] Address [address] [facility] [address] [place] [address] Phone Care Team Providers Care Rail Car Operator Name Role Phone Balaji Ibanez MD Unavailable [phone] Isiah Abad MD Unavailable [phone] Kimberli Page MD Unavailable Balaji Ibanez MD Primary Care Provider [phone] Balaji Ibanez MD Primary Care Provider [phone] Reason for Referral * MRI/CAT Scan - Closed Specialty Diagnoses / Procedures Referred By Contana t Referred To Contact Radiology Diagnoses Radiculopathy, lumbosacral region Procedures MRI Lumbar Spine Balaji Ibanez MD [address] [place] [address] Phone: tel: fax: [email or web address] Referral ID Status Reason Start Date Expiration Date Visits Re quested Visits Authorized [id number] Closed 07/15/2023 07/14/2024 1 1 Encounter Details Date Type Department Care Team (Late st Contact Info) Description 07/15/2023 Transcribe Orders Virtual Department 30 [place], [place] [phone] Balaji Ibanez MD [address] [place] [address] [email or web address] Radiculopathy, lumbosacral region (Primary Dx) Social History [...] st Contact Info) Description 03/27/2025 Procedure Pass [address] [address] 05/03/2025 8:30 PM EST Appointment [address] [address] Isiah Abad MD 22 [facility], 2nd [place] [address] [email or web address] documented as of this encounter Results * [...] clinician's provided indication for this examination in [facility]: Outside Radiology Order; lumbosacral radiculopathy TECHNIQUE: Multi-sequence, [...] with annular fissure, which is new compared it3022. Bilateral facet arthropathy. Mild spinal and bilateral foraminalstenosis. L5-S1: Posterior disc bulge with annular fissure and superimposedforaminal protrusions. Findings are progressed since 2021. Mild bilateralfacet arthropathy. Moderate left and mild right foraminal stenosis.Central canal stenosis is minimal. IMPRESSION: Multilevel degenerative disc disease, most notable at L4-L5 and L5-S1, asdescribed. Degenerative disc disease at both levels is progressed [id number]. Moderate right foraminal stenosis at L5-S1. Balaji Ibanez MD G MR XSPECIALTY Final Res ult documented in this encounter Visit Diagnoses Diagnosis Radiculopathy, lumbosacral region- Primary Thoracic or lumbosacral neuritis or radiculitis, unspecified Radiculopathy, lumbosacral region Thoracic or lumbosacral neuritis or radiculitis, unspecified documented in this encounter Care Teams Rail Car Operator Relationship Specialty Start Date End Date Balaji Ibanez MD [email or web address] PCP - General Family Medicine 02/25/17 09/23/23 Balaji Ibanez MD [address] [place] [address] [email or web address] PCP - General Family Medicine 09/24/23 Balaji Ibanez MD Historical LMR Provider 02/07/17 Isiah Abad MD [address] [place] [address], [address] [place] [address] Historical LMR Provider 02/07/17 Kimberli Page MD [address] [place] [address], [address] [address] Historical LMR Provider 02/07/17 documented as of this encounter Additional Source Comments The information contained in this document represents components of the legal health record. It is not the complete legal health record.[facility]
--- OUTSIDE RECORDS SUMMARY | 2025-04-18 09:25 | XMS_ITS | Encounter Summary ---
Author Organization [facility] Address [address] [facility] [address] [place] [address] Phone Care Team Providers Care Lockstitch Zipper Setter Name Role Phone Elba Olguin FENCE INSTALLER Unavailable Balaji Ibanez MD Unavailable [phone] Kim Nunes FENCE INSTALLER Unavailable Brunilda Castro FENCE INSTALLER Unavailable sIiah Abad MD Unavailable [phone] Kimberli Page MD Unavailable Italo Ruano MD Unavailable Brock Webber MD Unavailable [phone] Balaji Ibanez MD Primary Care Provider [phone] Balaji Ibanez MD Primary Care Provider [phone] Encounter Details Date Type Department Care Team (Late st Contact Info) Description 01/11/2021 Procedure Pass [facility], [address] [phone] Social History Tobacco Use Types Packs/Day Years [...] st Contact Info) Description 03/27/2025 Procedure Pass [address] [address] 05/03/2025 8:30 PM EST Appointment [address] [address] Isiah Abad MD [address] [place] [address], 2[address] [place] [address] [email or web address] documented as of this encounter Visit Diagnoses Not on filedocumented in this encounter Additional Health Concerns Infection Onset Date Last Indicated Resolved Time CoV-Risk 03/25/2022 03/25/2022 03/25/2022 8:01 PM EST COVID-19 03/25/2022 03/25/2022 04/15/2022 1:21 AM EST documented as of this encounter Care Teams Lockstitch Zipper Setter Relationship Specialty Start Date End Date Balaji Ibanez MD [address] [place] [address] [email or web address] PCP - General Family Medicine 02/25/17 09/23/23 Balaji Ibanez MD [address] [place] [address] PCP - General Family Medicine 09/24/23 Elba Olguin NP [address] [place] [address] Historical LMR Provider 02/07/17 2 Balaji Ibanez MD 100 [facility] 340 [place] [address] [email or web address] Historical LMR Provider 02/07/17 Kim Nunes FENCE INSTALLER 30 [place] [address] Historical LMR Provider 02/07/17 2 Brunilda Castro NP [address] [facility] [place] [address] Historical LMR Provider 02/07/17 2 Isiah Abad MD 22 [facility], 2nd [place] [address] [email or web address] Historical LMR Provider 02/07/17 Kimberli Page MD [address] [address] [email or web address] Historical LMR Provider 02/07/17 Italo Ruano MD [address] [place] [phone] Historical LMR Provider 02/07/17 2 Brock Webber MD 61 [place] [address] Historical LMR Provider 02/07/17 2 documented as of this encounter Additional Source Comments The information contained in this document represents components of the legal health record. It is not the complete legal health record.[facility]
--- OUTSIDE RECORDS SUMMARY | 2025-04-18 09:25 | XMS_ITS | Encounter Summary ---
Author Organization [facility] Address [address] [facility] [address] [place] [address] Phone Care Team Providers Care Hypo Splasher Name Role Phone Terry Najera MD Unavailable [phone] Isiah Abad MD Unavailable [phone] Kimberli Page MD Unavailable Terry Najera MD Primary Care Provider [phone] Terry Najera MD Primary Care Provider [phone] Encounter Details Date Type Department Care Team (Late st Contact Info) Description 01/21/2023 Transcribe Orders Virtual Department [address] [place] [address] Terry Najera MD [address] [place] [address] [phone] [email or web address] technician terminal and repeater (current) use of systemic steroids (Primary Dx) [...] st Contact Info) Description 03/27/2025 Procedure Pass [address] [address] 05/03/2025 8:30 PM EST Appointment [address] [address] Isiah Abad MD [address] [place] [address] [email or web address] documented as of this encounter Results * BD DXA AXIAL (SPINE) WITH HIP (05/16/2024 11:12 AM EST) Anatomical Region Laterality Modality Bone Density Bone Density 05/16/2024 11:0 9 AM EST Impressions 05/16/2024 11:14 AM EST Interpretation: Osteopenia. Narrative 05/16/2024 11:14 AM EST Referred By: TERRY NAJERA Indications: Long-Term Steroid Treatment (3 Months or Longer) Scanner: [employer] A with serial# of [id number] located at [facility] Bone Density Scan (DXA) 05/16/24 Details of [...] -2.5), or Osteoporosis (T-score <= -2.5). At [facility], T-scores are compared to peak bone density [...] Steroid Treatment (3 Months or Longer) Scanner: [employer] A with serial# of [id number] located at [facility] Bone Density Scan (DXA) 05/16/24 Details of [...] -2.5), or Osteoporosis (T-score <= -2.5). At [facility], T-scores are compared to peak bone density [...] documented in this encounter Visit Diagnoses Diagnosis half-way (current) use of systemic steroids- Primary half-way (current) use of systemic steroids documented in this encounter Care Teams Hypo Splasher Relationship Specialty Start Date End Date Terry Najera MD PCP - General Family Medicine 02/25/17 09/23/23 Terry Najera MD [address] [place] [address] PCP - General Family Medicine 09/24/23 Terry Najera MD Historical LMR Provider 02/07/17 Isiah Abad MD [address] [place] [address], 2nd [place] [address] [email or web address] Historical LMR Provider 02/07/17 Kimberli Page MD [address] [place] [address], [address] [place] [address] Historical LMR Provider 02/07/17 documented as of this encounter Additional Source Comments The information contained in this document represents components of the legal health record. It is not the complete legal health record.[facility]
--- OUTSIDE RECORDS SUMMARY | 2025-04-18 09:25 | XMS_ITS | Encounter Summary ---
Author Organization [facility] Address [address] [facility] [address] [place] [address] Phone Care Team Providers Care Teacher Tutor Name Role Phone Elba Olguin MEDICAL INSURANCE BILLER Unavailable Balaji Ibanez MD Unavailable [phone] Kim Nunes MEDICAL INSURANCE BILLER Unavailable Brunilda Castro MEDICAL INSURANCE BILLER Unavailable Isiah Abad MD Unavailable Kimberli Page MD Unavailable Italo Ruano MD Unavailable Brock Webber MD Unavailable [phone] Balaji Ibanez MD Primary Care Provider [phone] Balaji Ibanez MD Primary Care Provider [phone] Encounter Details Date Type Department Care Team (Late st Contact Info) Description 02/20/2020 Ancillary Orders [facility],Outside Imaging 30 [place], [place] [phone] System, Provider Not In, [facility] [address] [address] Social History Tobacco Use Types Packs/Day Years [...] st Contact Info) Description 03/27/2025 Procedure Pass [address] [address] 05/03/2025 8:30 PM EST Appointment [address] [address] Isiah Abad MD [address] [place] [address] documented as of this encounter Results * [...] documented as of this encounter Care Teams Teacher Tutor Relationship Specialty Start Date End Date Balaji Ibanez MD [address] [place] [address] PCP - General Family Medicine 02/25/17 09/23/23 Balaji Ibanez MD [address] [place] [address] [email or web address] PCP - General Family Medicine 09/24/23 Elba Olguin NP [address] [place] [address] Historical LMR Provider 02/07/17 2 Balaji Ibanez MD [address] [place] [address] [email or web address] Historical LMR Provider 02/07/17 Kim Nunes NP [address] [place] [address] Historical LMR Provider 02/07/17 2 Brunilda Castro NP [address] [place] [phone] Historical LMR Provider 02/07/17 2 Isiah Abad MD [address] [place] [address], [address] [place] [address] Historical LMR Provider 02/07/17 Kimberli Page MD [address] [place] [address] Historical LMR Provider 02/07/17 Italo Ruano MD [address] [place] [phone] Historical LMR Provider 02/07/17 2 Brock Webber MD [address] [place] [address] Historical LMR Provider 02/07/17 2 documented as of this encounter Additional Source Comments The information contained in this document represents components of the legal health record. It is not the complete legal health record.[facility]
--- OUTSIDE RECORDS SUMMARY | 2025-04-18 09:26 | XMS_ITS | Clinical Summary ---
Author Organization [facility] Address [address] [facility] [address] [place] [address] Phone Care Team Providers Care Tick Sewer Name Role Phone Balaji Ibanez MD Unavailable Isiah Abad MD Unavailable [phone] Kimberli Page MD Unavailable Balaji Ibanez MD [...] Encounters Date Type Department Care Team Description 04/17/2025 Orders Only [facility] [address] [place] [address] [place] [address] Isiah Abad MD 03/29/2025 Telephone [facility] Spine [address] [place] [address] Sujit Sifuentes PA 03/27/2025 11:20 AM EST Telemedicine - audio only [facility] [address] [place] [address] [place] [address] Isiah Abad MD Right lumbar radiculitis (Primary Dx) from Last 3 Months Immunizations Immunization Administration [...] 08/03/2024 10:39 AM EDT Plan of Treatment Upcoming Encounters Date Type Department Care Team (Late st Contact Info) Description 03/27/2025 Procedure Pass [address] [address] 05/03/2025 8:30 PM EST Appointment [address] [address] Isiah Abad MD [address] [place] [address], 2nd [place] [address] Health Maintenance Due Date Last Done Comments [...] this topic Medical Devices Implanted Type Area Melting Supervisor Device Identifier Shelf Expiration Date Model / Serial / Lot Iud Implanted: (Quantity not on file) Intrauterine Device Procedures Procedure Name Priority Date/Time Associated Diagnosis Comments OUTSIDE MR IMAGING REPORT ONLY Routine 04/12/2025 8:39 AM EST PAP TEST Routine 08/01/2024 12:00 AM EDT from Last 3 Months or Most Recently Relevant to Health Maintenance Results * Outside MR Imaging Report Only (04/12/2025 8:39 AM EST) Isiah Abad MD IM MR Final Result * Pap Test (08/01/2024 12:00 AM EDT) [place] [address] Boatbuilder Apprentice Wood: Calixto Kim MD CREEL SELECTOR Cytology Report FINAL DIAGNOSIS A. PAP SMEAR (THIN PREP) CE: SPECIMEN ADEQUACY: Satisfactory for evaluation; transformation zone present. INTERPRETATION: NEGATIVE FOR INTRAEPITHELIAL LESION OR MALIGNANCY. Reactive changes. This specimen was analyzed by the automated ThinPrep Imaging System ([employer] and manually rescreened by a processing technologist and/or pathologist. Electronically Signed Out By: MD [...] by real-time polymerase chain reaction (PCR) at [facility], [address] [place] [address] using the FDA-approved BD Onclarity HPV Assay with extended genotyping. Uses of the assay in scenarios other than those approved by the FDA should be considered off-label use. The accuracy and precision of this test for all other off-label specimen sources has been verified in the Cytopathology Laboratory of the [facility] and has not been cleared or [...] : 1975 (Age: 49) Sex: F Institution: [facility] Location: [facility] Date of Collection: 08/01/2024 Date of Reported: 08/05/2024 09:48 Results to: Becca Santoyo MD [facility] Final Diagnosis A. PAP SMEAR (THIN PREP) CE: SPECIMEN ADEQUACY: Satisfactory for evaluation; transformation zone present. INTERPRETATION: NEGATIVE FOR INTRAEPITHELIAL LESION OR MALIGNANCY. Reactive changes. This specimen was analyzed by the automated ThinPrep Imaging System ([employer] and manually rescreened by a processing technologist and/or pathologist. [facility] Results\Inte rpretation A. PAP SMEAR (THIN PREP) CE: High-risk HPV Panel w/ extended genotyping NEG HPV 16-NEG HPV 18-NEG HPV 45-NEG HPV 33/58-NEG HPV 31-NEG HPV 56/59/66-NEG HPV 51-NEG HPV 52-NEG HPV 35/39/68-NEG Performed by real-time polymerase chain reaction (PCR) at [facility], [address] [place] [address] using the FDA-approved [employer] Onclarity HPV Assay with extended genotyping. Uses of the assay in scenarios other than those approved by the FDA should be considered off-label use. The accuracy and precision of this test for all other off-label specimen sources has been verified in the Cytopathology Laboratory of the [facility] and has not been cleared or approved by the U.S. Food and Drug Administration. Clinical correlation is advised. The assay assesses the E6/E7 DNA target and utilizes human beta globin as an internal control. Cytology and HPV testing are screening assays and should not be used as the sole means of detecting cancer. False-positives and false-negatives can occur. [facility] Conversion Type (Conversion Source) 08/01/2024 08/02/2024 9:17 AM EDT Becca Santoyo MD CYTOLOGY ORDERABLES Edited Result - Final [facility] [address] [place] [address] from Last 3 Months or Most Recently Relevant to Health Maintenance [facility] B [place] & [place] & [place] PART A & B MEDICARE PART A & [address] [place] [address]HEALTH MEDICARE PART A & B [place] PART [place] & [place] & B Care Teams Tick Sewer Relationship Specialty Start Date End Date Balaji Ibanez MD [address] [place] [address] [email or web address] PCP - General Family Medicine 09/24/23 Balaji Ibanez MD [email or web address] Historical LMR Provider 02/07/17 Isiah Abad MD 22 [facility], 2nd [place] [address] [email or web address] Historical LMR Provider 02/07/17 Kimberli Page MD [address] [facility], [address] [place] [address] Historical LMR Provider 02/07/17 Additional Source Comments The information contained in this document represents components of the legal health record. It is not the complete legal health record.[facility]
--- OUTSIDE RECORDS SUMMARY | 2025-04-18 09:26 | XMS_ITS | Encounter Summary ---
Author Organization [facility] Address [address] [facility] [address] [place] [address] Phone Care Team Providers Care Director Of Security Name Role Phone Balaji Ibanez MD Unavailable [phone] Isiah Abad MD Unavailable [phone] Kimberli Page MD Unavailable Balaji Ibanez MD Primary Care Provider [phone] Reason for Referral * MRI/CAT Scan - Closed Specialty Diagnoses / Procedures Referred By Delaney johnson Referred To Contact Radiology Procedures Outside MR Imaging Report Only Isiah Abad MD [address] [place] [address], [address] [place] [address] Phone: tel: fax: [email or web address]:[email or web address] Referral ID Status Reason Start Date Expiration Date Visits Re quested Visits Authorized [id number] Closed 04/17/2025 1 1 Encounter Details Date Type Department Care Team (Late st Contact Info) Description 04/17/2025 Orders Only [facility] [address] [place] [address] Isiah Abad MD [address] [place] [phone] Social History Tobacco Use Types Packs/Day Years [...] st Contact Info) Description 03/27/2025 Procedure Pass [address] [address] 05/03/2025 8:30 PM EST Appointment [address] [address] Isiah Aabd MD [address] [place] [address], [address] [place] [address] [email or web address] documented as of this encounter Procedures Procedure Name Priority Date/Time Associated Diagnosis Comments OUTSIDE MR IMAGING REPORT ONLY Routine 04/12/2025 8:39 AM EST documented in this encounter Results * Outside MR Imaging Report Only (04/12/2025 8:39 AM EST) us Isiah Abad MD IMG MR Final Result documented in this encounter Visit Diagnoses Not on filedocumented in this encounter Care Teams Director Of Security Relationship Specialty Start Date End Date Balaji Ibanez MD [address] [place] [address] [email or web address] PCP - General Family Medicine 09/24/23 Balaji Ibanez MD Historical LMR Provider 02/07/17 Isiah Abad MD [address] [place] [address], [address] [place] [address] Historical LMR Provider 02/07/17 Kimberli Page MD [address] [place] [address], [address] [place] [address] Historical LMR Provider 02/07/17 documented as of this encounter Additional Source Comments The information contained in this document represents components of the legal health record. It is not the complete legal health record.[facility]
--- OUTSIDE RECORDS SUMMARY | 2025-04-18 09:26 | XMS_ITS | Encounter Summary ---
Author Organization [facility] Address [address] [facility] [address] [place] [address] Phone Care Team Providers Care Retail Sales Associate Bilingual Name Role Phone Elba Olguin ELEMENTARY SCHOOL TEACHER Unavailable [phone] Balaji Ibanez MD Unavailable Kim Nunes ELEMENTARY SCHOOL TEACHER Unavailable Brunilda Castro ELEMENTARY SCHOOL TEACHER Unavailable Isiha Abad MD Unavailable [phone] Kimberli Page MD Unavailable Italo Ruano MD Unavailable Brock Webber MD Unavailable [phone] Balaji Ibanez MD Primary Care Provider [phone] Balaji Ibanez MD Primary Care Provider [phone] Encounter Details Date Type Department Care Team (Late st Contact Info) Description 02/13/2020 Procedure Pass [address] [place] [address] Social History Tobacco Use Types Packs/Day Years [...] st Contact Info) Description 03/27/2025 Procedure Pass [address] [address] 05/03/2025 8:30 PM EST Appointment [address] [address] Isiah Abad MD [address] [place] [address], [address] [place] [address] [email or web address] documented as of this encounter Visit Diagnoses Not on filedocumented in this encounter Additional Health Concerns Infection Onset Date Last Indicated Resolved Time CoV-Risk 05/07/2020 05/08/2020 05/17/2020 1:24 AM EST CoV-Risk 03/25/2022 03/25/2022 03/25/2022 8:01 PM EST COVID-19 03/25/2022 03/25/2022 04/15/2022 1:21 AM EST documented as of this encounter Care Teams Retail Sales Associate Bilingual Relationship Specialty Start Date End Date Balaji Ibanez MD [address] [place] [address] [email or web address] PCP - General Family Medicine 02/25/17 09/23/23 Balaji Ibanez MD [address] [place] [address] [email or web address] PCP - General Family Medicine 09/24/23 Elba Olguin NP [address] [place] [address] Historical LMR Provider 02/07/17 2 Balaji Ibanez MD [address] [place] [address] [address] [place] [address] Historical LMR Provider 02/07/17 Kim Nunes NP [address] [place] [address] Historical LMR Provider 02/07/17 2 Brunilda Castro NP [address] [place] [phone] Historical LMR Provider 02/07/17 2 Isiah Abad MD [address] [facility], 2nd [place] [address] Historical LMR Provider 02/07/17 Kimberli Page MD [address] [facility] [address] [place] [address] Historical LMR Provider 02/07/17 Italo Ruano MD [address] [place] [phone] Historical LMR Provider 02/07/17 2 Brock Webber MD [address] [place] [address] Historical LMR Provider 02/07/17 2 documented as of this encounter Additional Source Comments The information contained in this document represents components of the legal health record. It is not the complete legal health record.[facility]
--- OUTSIDE RECORDS SUMMARY | 2025-04-18 09:26 | XMS_ITS | Encounter Summary ---
Author Organization [facility] Address [address] [facility] [address] [place] [address] Phone Care Team Providers Care Edge Cutter Name Role Phone Elba Olguin ROAD TRAFFIC CONTROLLER Unavailable Balaji Ibanez MD Unavailable Kim Nunes ROAD TRAFFIC CONTROLLER Unavailable Brunilda Castro ROAD TRAFFIC CONTROLLER Unavailable Isiah Abad MD Unavailable [phone] Kimberli Page MD Unavailable Italo Ruano MD Unavailable Brock Webber MD Unavailable [phone] Balaji Ibanez MD Primary Care Provider [phone] Balaji Ibanez MD Unavailable Balaji Ibanez MD Primary Care Provider [phone] Encounter Details Date Type Department Care Team (Late st Contact Info) Description 08/24/2017 Ancillary Orders [facility] [address] [place] [address] Isiah Abad MD [address] [facility], 2nd [place] [address] Sacroiliitis, not elsewhere classified Social History Tobacco [...] st Contact Info) Description 03/27/2025 Procedure Pass [address] [address] 05/03/2025 8:30 PM EST Appointment [address] [address] Isiah Abad MD [address] [place] [address], [address] [place] [address] [email or web address] Pending Results Name Type Priority Associated Diagnoses [...] documented as of this encounter Care Teams Edge Cutter Relationship Specialty Start Date End Date Balaji Ibanez MD [address] [place] [address] [email or web address] PCP - General Family Medicine 02/25/17 09/23/23 Balaji Ibanez MD [address] [place] [address] PCP - General Family Medicine 09/24/23 Elba Olguin NP [address] [place] [address] Historical LMR Provider 02/07/17 2 Balaji Ibanez MD [address] [place] [address] [email or web address] Historical LMR Provider 02/07/17 Kim Nuens NP [address] [place] [address] Historical LMR Provider 02/07/[address] TRAFFIC CONTROLLER [address] [place] [phone] Historical LMR Provider 02/07/17 2 Isiah Abad MD [address] [place] [address], [address] [place] [address] Historical LMR Provider 02/07/17 Kimberli Page MD [address] [place] [address] Historical LMR Provider 02/07/17 Italo Ruano MD [address] [place] [phone] Historical LMR Provider 02/07/17 2 Brock Webber MD [address] [place] [address] Historical LMR Provider 02/07/17 2 Balaji Ibanez MD [address] [place] [address] [email or web address] Insurance Assigned Provider 07/18/17 05/22/18 documented as of this encounter Additional Source Comments The information contained in this document represents components of the legal health record. It is not the complete legal health record.[facility]
--- OUTSIDE RECORDS SUMMARY | 2025-04-18 09:26 | XMS_ITS | Encounter Summary ---
Author Organization [facility] Address [address] [facility] [address] [place] [address] Phone Care Team Providers Care Training Project Manager Name Role Phone Balaji Ibanez MD Unavailable [phone] Isiah Abad MD Unavailable [phone] Kimberli Page MD Unavailable Balaji Ibanez MD Primary Care Provider Encounter Details Date Type Department Care Team (Late st Contact Info) Description 06/28/2024 Procedure Pass [facility], [address] [address] Social History Tobacco Use Types Packs/Day Years [...] st Contact Info) Description 03/27/2025 Procedure Pass [address] [address] 05/03/2025 8:30 PM EST Appointment [address] [address] Isiah Abad MD [address] [place] [address] documented as of this encounter Visit Diagnoses Not on filedocumented in this encounter Care Teams Training Project Manager Relationship Specialty Start Date End Date Balaji Ibanez MD [address] [place] [address] [email or web address] PCP - General Family Medicine 09/24/23 Balaji Ibanez MD Historical LMR Provider 02/07/17 Isiah Abad MD [address] [place] [address] Historical LMR Provider 02/07/17 Kimberli Page MD [address] [place] [address] Historical LMR Provider 02/07/17 documented as of this encounter Additional Source Comments The information contained in this document represents components of the legal health record. It is not the complete legal health record.[facility]
[2025-04-18] MEDS: iohexoL 350 MG/ML 100 ML INFUS..BTL IV (09:29)
[2025-04-18] MEDS: Sorbitol/Mannit/Xanth Imaging 500 ML LIQUID 1000 ML PO (09:29)
== END 2025-04-18 08:00 | disposition home or self-care (01) ==
LOC: HO.CT 07:59
PROVIDERS: PCP Family Medicine; Visit Provider Internal Medicine
DX: R10.84 Generalized abdominal pain (principal); K50.819 Crohn's disease of both small and large intestine with unspecified complications
CPT/HCPCS: 74177; Q9967

== ENCOUNTER → 2025-04-18 08:02 | Outpatient (BNV) | payer MEDICARE, MEDICAID, SELFPAY | PROVIDERS: PCP Family Medicine; Visit Provider Radiology Diagnostic Radiology | DX: K50.90 Crohn's disease, unspecified, without complications (principal); K63.89 Other specified diseases of intestine; R16.1 Splenomegaly, not elsewhere classified; Z97.5 Presence of (intrauterine) contraceptive device | CPT/HCPCS: 74177 ==